=== PATIENT | female | born 1950 | race Caucasian/White ===

== ENCOUNTER → 2019-10-17 07:55 | Outpatient (CLI) | payer MEDICARE, MEDICAID, SELFPAY ==
--- NOTE | 2019-10-17 | CA_ITS ---
APPROVED REPORT Exam: Pharmacologic Technologist: Vandana Beal, Ht: 5 ft 10 in Wt: 186 lbs BSA: 2.02 m2 HR: 75 bpm BP: 165/65 mmHg Rhythm: NORMAL SINUS RHYTHM,CANNOT R/O OLD SEPTAL INFARCT. Indications: Palp/SOA Medical History Medical History: HTN, Diabetic ??? Noninsulin, Smoking Medications: Amlodipine,,,,, Omeprazole,,,,, Aspirin,,,,, Metformin,,,,, Hydrocodone,,,,, Gabapentin,,,,, Montelukast,,,,, Cetrizine,,,,, FluTICASONE,,,,, OxYbuterin,,,,, MeLATONIN,,,,, Mirtazapine,,,,, Allergies: CIPRO,DIVALPROEX,MOTRIN,LATEX,SULFA Cardiac Risk Factors: HTN, Diabetes (non-insulin), , Smoking Stress Test Details Test: LEXISCAN HR Resting HR: 80 bpm Max Heart Rate (APMHR): 152 bpm Max HR Achieved: 103 bpm Target HR (85% APMHR): 129 bpm % of APMHR: 67 Recovery HR: 96 bpm BP Resting BP: 165.0/65.0 mmHg Max BP: 166.0/67.0 mmHg Recovery BP: 148.0/80.0 mmHg ECG Resting ECG: NORMAL SINUS RHYTHM,CANNOT R/O OLD SEPTAL CA Clinical Exercise duration: 04:02 min Highest Stage Achieved: Stress ECG Conclusion DURING INFUSION OF LEXISCAN PATIENT HAD SOA,NAUSEA,HEADACHE WITH THE URGE TO DEFECATE. NO CHEST PAIN. OCCASIONAL PAC. NS T WAVE CHANGES. UNREMARKABLE LEXISCAN STRESS. MYOVIEW IMAGES REPORTED SEPARATELY. Electronically signed by : Abrahan Degroot, 10/17/2019 13:37:57
--- NOTE | 2019-10-17 07:55 | CA_ITS ---
APPROVED REPORT EXAM: Comprehensive 2D, Doppler, and color-flow Echocardiogram Dioramist: Estela Sandoval RDCS Ht: 5 ft 10 in Wt: 186lbs BSA: 2.02 BP: 132/84 mmHg Indications: Chest Pain, COPD, Shortness of Breath, Palpitations, Hypertension/HDD 2D Dimensions LVOT 1.96 cm (M/F) 1.5-2.5 M-Mode Dimensions RVDd 2.40 cm (0.9-2.6) LVDd 4.92 cm (3.5-5.7) LVDs 3.05 cm (3.5-5.7) IVSd 0.76 cm (0.6-1.1) PWd 0.95 cm (0.6-1.1) EF (Teich) 68.00% FS 38.00% EDV (Teich) 113.90 mL ESV (Teich) 36.40 mL LV Diastology E/A Ratio 0.57 Aortic Valve LVOT Max 99.00 (70-110 cm/s) LVOT VTI 20.83 cm Mitral Valve MV A Velocity 98.00 (40-130 cm/s) Left Ventricle Left atrium is mildly enlarged, left ventricle is normal size, mild concentric left ventricular hypertrophy, visually estimated ejection fraction 55% with no regional wall motion abnormality. Grade 1 diastolic dysfunction seen without tissue Doppler evidence of raise left atrial pressure. Right Ventricle Right atrium and right ventricular normal size and contractility. Aortic Valve Aortic valve is minimally thickened and fibrosed, there is no aortic stenosis or aortic insufficiency. Mitral Valve Mitral valve is grossly normal, there is mild mitral regurgitation. Tricuspid Valve Tricuspid valve grossly normal, there is mild tricuspid regurgitation. Pulmonic Valve Pulmonic valve is poorly visualized. Great Vessels Aortic root is normal size. Pericardium No significant pericardial effusion noted. Conclusion 1. Mildly enlarged left atrium, normal left ventricular size, mild concentric left ventricular hypertrophy, visually estimated ejection fraction 55% with no regional wall motion abnormality, grade 1 diastolic dysfunction seen without tissue Doppler evidence of raise left atrial pressure. 2. Mild mitral and tricuspid regurgitation. 3. No significant pericardial effusion noted. Electronically signed by : Abrahan Degroot, 10/18/2019 14:00:17
--- NOTE | 2019-10-17 07:55 | NM_ITS ---
APPROVED REPORT Exam: Nuclear Stress Test Indication: short of breath..palpitations Patient Location: Outpatient Ht: 5 ft 6 in Wt: 175 lbs Bra Size: 40c HR: 75 bpm BP: 165/65 mmHg BSA: 1.89 m2 BMI: 28.2 History: short of breath..palpitations Procedure: Patient received a 0.4 mg of intravenous Lexiscan, resting heart rate 75 bpm, resting blood pressure 165/65 mmHg, with Lexiscan maximum heart rate achived was 98 bpm which is Less than 85 % of the maximum predicted heart rate and blood pressure was 148/59 mmHg. With Lexiscan, patient denied any complaint of chest pain. Electrocardiogram Resting electrocardiogram showed sinus rhythm, with Lexiscan there is less than 1.[address] segment depression noted from the baseline EKG. The EKG portion of the Lexiscan Myoview is nondiagnostic. Cardiac Stress and Resting SPECT Images: Cardiac Stress and Resting SPECT images were obtained using technetium 99m Myoview 32.6 mCi stress and 10.12 mCi at rest. Gated SPECT with analysis of segmental wall motion and calculation of the ejection fraction also done. Cardiac stress and resting SPECT images show decrease tracer activity in the inferior and inferior apical wall which improves on the resting images suggestive of reversible ischemia, computer derived ejection fraction is over 65% with no regional wall motion abnormality, right ventricle is normal size and contractility. Conclusion: 1. The EKG portion of the Lexiscan Myoview is nondiagnostic. 2. Scintigraphic evidence of mild reversible ischemia involving the inferior and inferior apical wall. Computer derived ejection fraction is over 65% with no regional wall motion abnormality, right ventricle is normal size and contractility. 3. Abnormal Lexiscan Myoview study. Electronically signed by : Abrahan Degroot, 10/17/2019 13:41:14
--- NOTE | 2019-10-17 12:47 | HMH.ITSHM ---
Current Home Medications as stated by this patient Kimmie Taylor or it sales representative. [] metformin omeorazole asp
== END ==
PROVIDERS: PCP Emergency Medicine; Visit Provider Urology
DX: F17.200 Nicotine dependence, unspecified, uncomplicated (principal); J44.9 Chronic obstructive pulmonary disease, unspecified; R00.2 Palpitations; R06.09 Other forms of dyspnea; R07.89 Other chest pain; R60.9 Edema, unspecified
CPT/HCPCS: 78452; 93017; 93306; A9502; J2785

== ENCOUNTER 2019-12-06 08:13 | Day surgery (SDC) | payer MEDICARE, MEDICAID, SELFPAY ==
[2019-12-06] VITALS (11 sets, daily range): BP systolic 125–175; BP diastolic 50–100; PULSE 65–79; RESP 16–20; TEMP 37.1–37.2; O2SAT 90–94; BMI 26.6
--- NOTE | 2019-12-06 | IR_ITS ---
APPROVED REPORT Patient Location: Outpatient Able Bodied Watchman: JIGAR Navarrete RT (R) PROCEDURES Left heart catheterization Left ventriculogram Selective coronary angiogram INDICATION High risk abnormal Myoview Informed consent was obtained prior to the procedure. COMPLICATIONS none Estimated Blood Loss: less than 10 mls TECHNIQUE One percent lidocaine used to anesthetize the right anterior aspect of the wrist. The right radial artery was accessed via the Seldinger technique. A 6 Maltese sheath was placed in the right radial artery. 2.5 mg of verapamil, 800 mcg of nitroglycerin, 1mg Lidocaine and 5000 U Heparin were given through the arterial sheath. The trap catheter was also used to perform left heart catheterization, left ventriculogram and selective coronary angiogram. At the end of the procedure the sheath was removed good hemostasis was achieved using Traclet band, patient was transferred to the postop holding area in stable condition. ANGIOGRAPHIC RESULTS The left main artery Normal The left anterior descending artery Normal The circumflex artery Normal The right coronary artery Dominant normal The [place] ventriculogram reveals Normal 60% The left ventricular end-diastolic pressure 15 mmHg IMPRESSION Normal coronary arteries Normal ejection fraction Mildly elevated LVEDP PLAN 1. Medical management 2. Evaluation of noncardiac symptomatology Electronically signed by : Eric Duarte, 12/06/2019 11:21:31
[2019-12-06 08:52] LABS: Basophils # 0.1 K/mm3 (0-0.2); Basophils % 1.9 % (0.1-2.0); Eosinophils # 0.3 K/mm3 (0.0-0.4); Eosinophils % 4.5 % (0.1-12.0); Hematocrit 34.5 % (37.0-47.0); Hemoglobin 9.3 g/dL (12.2-16.2); Lymphocytes # 1.7 K/mm3 (0.7-4.5); Lymphocytes % 26.3 % (10-50); Mean Corpuscular Hemoglobin 21.4 pg (27.0-31.2); Mean Corpuscular Volume 79.4 fl (81-99); Mean Platelet Volume 6.9 fl (7.4-10.4); Monocytes # 0.3 K/mm3 (0.1-1.0); Monocytes % 4.9 % (1.7-9.3); Neutrophils % 62.5 % (37.0-80.0); Platelet Count 242 K/mm3 (142-424); Red Blood Count 4.34 M/mm3 (4.20-5.40); Red Cell Distribution Width 17.5 % (11.5-17.5); White Blood Count 6.4 K/mm3 (4.8-10.8)
[2019-12-06 09:10] LABS: Blood Urea Nitrogen 14 mg/dl (7-17); Calcium 9.1 mg/dl (8.4-10.2); Carbon Dioxide 30 mmol/L (22.0-30.0); Creatinine Clearance Estimated 71 mL/min (50-200); Estimated Glomerular Filt Rate 99 ml/min (>60); GFR (African American) 120 ML/MIN (>60); Glucose 198 mg/dl (74-100)
[2019-12-06 09:40] LABS: Chloride 106 mmol/L (98-107); Sodium 140 mmol/L (136-145)
== END 2019-12-06 13:40 | disposition home or self-care (01) ==
PROVIDERS: PCP Emergency Medicine; Visit Provider Internal Medicine
DX: R94.39 Abnormal result of other cardiovascular function study (principal); R07.9 Chest pain, unspecified; I25.118 Atherosclerotic heart disease of native coronary artery with other forms of angina pectoris; Z79.899 Other long term (current) drug therapy; Z88.8 Allergy status to other drugs, medicaments and biological substances
CPT/HCPCS: 80048; 85025; 93458; 99152; C1725; C1769; J1644; Q9967

== ENCOUNTER 2020-01-25 11:20 | Emergency (ER) | payer MEDICARE, MEDICAID, SELFPAY ==
[2020-01-25 11:21] VITALS: BP 120/54; PULSE 67; RESP 16; TEMP 37; O2SAT 94; BMI 28.0
[2020-01-25 11:30] VITALS: BP 130/58; PULSE 56; O2SAT 92
[2020-01-25 11:37] LABS: Basophils # 0.1 K/mm3 (0-0.2); Eosinophils # 0.2 K/mm3 (0.0-0.4); Eosinophils % 3.3 % (0.1-12.0); Lymphocytes # 1.8 K/mm3 (0.7-4.5); Lymphocytes % 30.2 % (10-50); Mean Corpuscular HGB Conc 28.1 g/dL (31.8-35.4); Mean Corpuscular Hemoglobin 20.9 pg (27.0-31.2); Mean Corpuscular Volume 74.6 fl (81-99); Mean Platelet Volume 7.2 fl (7.4-10.4); Monocytes # 0.3 K/mm3 (0.1-1.0); Monocytes % 5.1 % (1.7-9.3); Neutrophils # 3.5 K/mm3 (1.8-7.8); Neutrophils % 60.4 % (37.0-80.0); Platelet Count 191 K/mm3 (142-424); Red Blood Count 3.76 M/mm3 (4.20-5.40); Red Cell Distribution Width 17.9 % (11.5-17.5); White Blood Count 5.8 K/mm3 (4.8-10.8)
[2020-01-25 11:39] LABS: Alanine Aminotransferase 21 U/L (12-78); Albumin Level 3.8 g/dl (3.5-5.0); Albumin/Globulin Ratio 1.2 (1.1-1.8); Alkaline Phosphatase 123 U/L (38-126); Amylase 32 U/L (30-110); Anion Gap 12.4 mEq/L (5-15); Aspartate Amino Transferase 38 U/L (14-36); Bilirubin,Total 0.2 mg/dl (0.2-1.3); Blood Urea Nitrogen 14 mg/dl (7-17); Calcium 8.9 mg/dl (8.4-10.2); Carbon Dioxide 29 mmol/L (22.0-30.0); Chloride 100 mmol/L (98-107); Creatinine Clearance Estimated 72 mL/min (50-200); Estimated Glomerular Filt Rate 71 ml/min (>60); GFR (African American) 86 ML/MIN (>60); Globulin 3.3 g/dL (1.3-3.2); Glucose 324 mg/dl (74-100); Lipase 80 U/L (23-300); Potassium 4.4 mmoL/L (3.5-5.1); Sodium 137 mmol/L (136-145); Total Protein,Serum 7.1 g/dl (6.3-8.2)
[2020-01-25 11:40] LABS: Hematocrit 27.7 % (37.0-47.0)
[2020-01-25 11:41] LABS: Hemoglobin 7.8 g/dL (12.2-16.2)
--- NOTE | 2020-01-25 11:44 | PC.NURSE ---
notified ER of hgb 7.8 hct 27.2
--- NOTE | 2020-01-25 11:48 | CT_ITS ---
Procedure: CT ABDOMEN PELVIS W CON Patient Age:69Y CLINICAL INDICATION: RLQ abd pain With nausea and vomiting. Started last night. Reports history of appendectomy cholecystectomy and bilateral hip replacements COMPARISON: No exams were available for comparison TECHNIQUE: 75 cc Optiray 350. Axial images obtained with sagittal and coronal reformats. All CT scans at the facility use one or more dose reduction, viz: automated exposure control, ma/kV adjustment per patient size (including targeted exams where dose is matched to indication, i.e. head), or iterative reconstruction technique. FINDINGS: LOWER THORAX: No acute finding minor dependent atelectasis most evident posterior aspect RLL. There is a small of nodular density at the periphery of the LL L which measures up to 5.9 mm. Nonspecific and most likely benign feature likely due to scarring but suggest CT chest 4-6 months in this smoker.. Screening chest CT of may be option if 30 pack year history.... The heart is normal size of minimal coronary artery calcification. No pericardial effusion ABDOMEN: Liver: No masses or biliary dilatation. Gallbladder: Surgically removed. No significant biliary ductal dilatation. Pancreas: No masses nor inflammation no fluid collection. The. Spleen: unremarkable Adrenals: unremarkable -------- tract - Kidneys/ureters: Kidneys with lobulated contour bilaterally.. 6.5 mm cyst at both lower pole right and left kidney other very tiny cyst. s Off lower pole left kidney measuring less than 6 mm tiny 1 mm vascular calcifications upper pole left and right kidney no obstructing calculi. Ureters unremarkable PELVIS: Bilateral bipolar metallic hip prosthesis yields prominent streak artifact limiting views of the lower pelvis. However the bladder shows no calculi or obvious lesion. No obvious pelvic masses. No prominent free fluid can be identified but -------GI tract: The increased stool seen throughout the colon suggesting moderate constipation. No pericolic inflammation . Only note area of generous wall thickening distal transverse colon (coronal 20, axial 61 sagittal 66) which may merely reflect peristalsis lack of distension but may consider from colonoscopy if 1 has not been performed over the past several years all or if the patient has blood in stool. upper normal wall thickness along the superior rectum as well as short-segment hepatic flexure are most certainly merely did due to lack of distension.. Only a few diverticula are seen within the large bowel. No diverticulitis Stomach and small bowel bowel: Appears satisfactory. No dilatation. Only moderate fluid distal small bowel, WNL.. No significant hernia is evident. A very small fat containing umbilical hernia not of significance the Peritoneum: No abnormal fluid collections. No obvious inflammatory changes. No free air. Lymph nodes: No enlarged lymph nodes apparent. Vasculature: Diffuse calcification abdominal aorta and iliac vessels but no significant aneurysm or dilatation. Minimal atherosclerotic calcification also involves the proximal SMA and celiac artery. Abdominal aortic aneurysm. No retroperitoneal hemorrhage evident. Bones: Prominent wedge compression fracture L1 with over 50 percent loss of height anteriorly.. Flaring at the posterior both the superior and margins of L1 of of contribute to the mild spinal stenosis at T12/L1 and effacement thecal sac to the left at L1/L2.. L4 with superior endplate compression fracture. Notable superior endplate concavity with slight flaring at the margins of L4 which contribute to most pronounced spinal stenosis is seen at L4/5 of but exuberant facet hypertro
--- NOTE | 2020-01-25 11:49 | HMH.EDABDPAI ---
ED Disposition Clinical Impression: Hyperglycemia, Lung nodule, Bowel wall thickening Anemia Qualifiers: Anemia type: unspecified type Qualified Code(s): D64.9 - Anemia, unspecified Constipation Qualifiers: Constipation type: unspecified constipation type Qualified Code(s): K59.00 - Constipation, unspecified Disposition: Home, Self-Care Condition on Discharge: Good Instructions: DI for Constipation Additional Instructions: You have some bowel wall thickening and anemia. You would benefit from a consultation with GI within the next week. Return to the emergency department for any chest pain, shortness of breath, hypotension, tachycardia. You need a screening CT scan concerning the lung nodule in your chest. Referrals: Raymundo Romero MD [Primary Care Provider] - 01/27/20 - Critical Care Critical Care Time: No Attestation: On 01/25/20, the high probability of a clinically significant, sudden or life threatening deterioration of the following system(s) required my full and direct attention, intervention and personal management. The time I documented below is in addition to time spent performing reported procedures but includes the following listed in this critical care notation. Medical Decision Making - Medical Records Medical records reviewed: Yes: I reviewed the patient's medical records. - Bryan Inquiry Pt receiving controlled substance: No Vital Signs: 01/25/20 11:21 01/25/20 11:30 Temperature 98.6 F Temperature Source Oral Pulse Rate [Left Radial] 67 56 L Respiratory Rate 16 Blood Pressure [Right Arm] 120/54 L 130/58 L Blood Pressure Mean [Right Arm] 76 82 Blood Pressure Source [Right Arm] Automatic Cuff Blood Pressure Position [Right Arm] Sitting Sitting 02 Sat by Pulse Oximetry 94 L 92 L Oxygen Delivery Method Room Air Room Air - Lab Data Lab Results 01/25/20 11:05: WBC 5.8, RBC 3.76 L, Hgb 7.8 L*, Hct 27.7 L, MCV 74.6 L, MCH 20.9 L, MCHC 28.1 L, RDW 17.9 H, Plt Count 191, MPV 7.2 L, Neut % (Auto) 60.4, Lymph % (Auto) 30.2, [place] % (Auto) 5.1, Eos % (Auto) 3.3, Baso % (Auto) 1.0, Neut # (Auto) 3.5, Lymph # (Auto) 1.8, [place] # (Auto) 0.3, Eos # (Auto) 0.2, Baso # (Auto) 0.1 01/25/20 11:05: Sodium 137, Potassium 4.4, Chloride 100, Carbon Dioxide 29, Anion Gap 12.4, BUN 14, Creatinine 0.80, Estimated Creat Clear 72, Estimated GFR 71, Est GFR ( Amer) 86, Glucose 324 H, Calcium 8.9, Total Bilirubin 0.2, AST 38 H, ALT 21, Alkaline Phosphatase 123, Total Protein 7.1, Albumin 3.8, Globulin 3.3 H, Albumin/Globulin Ratio 1.2, Amylase 32, Lipase 80 01/25/20 11:53: Urine Color Yellow, Urine Appearance Clear, Urine pH 7.0, Ur Specific [place] 1.020, Urine Protein 2+, Urine Glucose (UA) 1+, Urine Ketones Negative, Urine Blood Negative, Urine Nitrate Negative, Urine Bilirubin Negative, Urine Urobilinogen 1.0, Ur Leukocyte Esterase Negative, Urine RBC None, Urine WBC Occasional, Ur Squamous Epith Cells Occasional, Amorphous Sediment 1+, Urine Bacteria None 01/25/20 11:53: Stool Occult Blood Positive A Result diagrams: 01/25/20 11:05 01/25/20 11:05 Orders (Tests/Meds): ED MEDICATIONS Generic Name Dose Route Start Last Admin Trade Name Freq PRN Reason Stop Dose Admin Sodium Chloride 1,000 mls @ 999 mls/hr 01/25/20 12:15 01/25/20 12:25 Sod Chlor 0.9% 1000ml Bag IV 01/25/20 13:15 999 mls/hr .Q1H1M PAT Administration Discontinued Medications Generic Name Dose Route Start Last Admin Trade Name Freq PRN Reason Stop Dose Admin Ioversol 75 ml 01/25/20 12:12 01/25/20 12:13 Rad-Optiray 350 100ml Vial IV 01/25/20 12:13 75 ml ONCE ONE Administration Protocol Sodium Chloride 10 ml 01/25/20 12:12 01/25/20 12:13 Rad-Saline Flush 10ml Syringe IV 01/25/20 12:13 10 ml ONCE ONE Administration ORDERS Category Date Time Status CT abdomen pelvis w con Stat Cat Scan 01/25/20 11:48 Taken - CT Data CT Scan: Abdomen, Pelvis Time Received: 12:59 Finding
[2020-01-25 11:57] LABS: Occult Blood,Stool Positive (Negative)
--- NOTE | 2020-01-25 11:57 | PC.NURSE ---
pt c/o rt side abd pain, pt asking for medications pain and nausea. md aware
--- NOTE | 2020-01-25 11:57 | PC.NURSE ---
Pt to rad.
[2020-01-25 11:58] LABS: Microscopic, Urine URINE MICROSCOPIC (MICROSCOPIC)
[2020-01-25 11:59] LABS: Appearance,Urine CLEAR (Clear); Bilirubin,Urine Negative (Negative); Blood, Urine Negative (Negative); Color,Urine YELLOW (Yellow); Glucose,Urine (UA) 1+ (Negative); Ketones,Urine Negative (Negative); Leukocyte Esterase,Urine Negative (Negative); Nitrate,Urine Negative (Negative); Protein,Urine 2+ (Negative)
[2020-01-25 12:04] LABS: Amorphous Sediment,Urine 1+ /lpf; Squamous Epithelial Cell,Urine Occasional #/hpf (0-5); WBC,Urine Occasional #/hpf (0-3)
[2020-01-25 13:00] VITALS: BP 151/66; PULSE 54; O2SAT 94
--- NOTE | 2020-01-25 13:13 | PC.NURSE ---
Dr Nobles speaking with Dr Carter at this time.
[2020-01-25 13:35] VITALS: BP 155/74; PULSE 77; RESP 16; TEMP 36.6; O2SAT 98
== END 2020-01-25 13:38 | disposition home or self-care (01) ==
PROVIDERS: Emergency Provider Emergency Medicine; PCP Emergency Medicine
DX: E11.65 Type 2 diabetes mellitus with hyperglycemia (principal); R91.1 Solitary pulmonary nodule; D64.9 Anemia, unspecified; K59.00 Constipation, unspecified; I10 Essential (primary) hypertension; K21.9 Gastro-esophageal reflux disease without esophagitis; J44.9 Chronic obstructive pulmonary disease, unspecified; F17.210 Nicotine dependence, cigarettes, uncomplicated; Z88.2 Allergy status to sulfonamides; Z88.8 Allergy status to other drugs, medicaments and biological substances; Z79.899 Other long term (current) drug therapy
CPT/HCPCS: 74177; 80053; 81001; 82150; 82272; 83690; 85025; 96365; 99283; G0328; Q9967

== ENCOUNTER 2020-02-27 18:05 | Observation (INO) | payer MEDICARE, MEDICAID, SELFPAY ==
[2020-02-27] VITALS (12 sets, daily range): BP systolic 108–145; BP diastolic 47–97; PULSE 53–71; RESP 16–28; TEMP 36.9–37.6; O2SAT 91–99; BMI 26.5; BMI 26.4
--- NOTE | 2020-02-27 18:11 | ECG_ITS ---
APPROVED REPORT Exam: Resting ECG HR:62 bpm ECG Measurements Heart Rate 62 AXES WY 160 P 38 QRSd 98 QRS 52 QT 430 T 61 QTc 436 <Conclusion> Normal sinus rhythm Septal infarct, age undetermined Abnormal ECG Electronically signed by : Hardeep Navarro, 03/01/2020 04:52:59
--- NOTE | 2020-02-27 18:11 | XR_ITS ---
PROCEDURE: XR CHEST PORTABLE CLINICAL HISTORY: cough Cough and shortness of breath COMPARISON: No exams were available for comparison FINDINGS: The cardiomediastinal silhouette and pulmonary vascularity are within normal limits. The lungs are clear without infiltrates, suspicious nodules, or pleural effusions. No acute bony abnormalities. IMPRESSION: No acute findings. Dictated by: Brady Herbert MD 02/28/2020 08:18 Electronically signed by Brady Herbert MD in [place] 02/28/2020 08:18
[2020-02-27 18:30] LABS: Chloride 105 mmol/L (98-107); Potassium 4.3 mmoL/L (3.5-5.1); Sodium 136 mmol/L (136-145)
[2020-02-27 18:33] LABS: Alanine Aminotransferase 21 U/L (12-78); Albumin Level 3.6 g/dl (3.5-5.0); Albumin/Globulin Ratio 1.1 (1.1-1.8); Alkaline Phosphatase 113 U/L (38-126); Anion Gap 9.3 mEq/L (5-15); Aspartate Amino Transferase 28 U/L (14-36); Basophils # 0.1 K/mm3 (0-0.2); Basophils % 0.7 % (0.1-2.0); Bilirubin,Total 0.2 mg/dl (0.2-1.3); Blood Urea Nitrogen 15 mg/dl (7-17); Carbon Dioxide 26 mmol/L (22.0-30.0); Creatinine Clearance Estimated 70 mL/min (50-200); Eosinophils # 0.2 K/mm3 (0.0-0.4); Eosinophils % 2.7 % (0.1-12.0); Estimated Glomerular Filt Rate 83 ml/min (>60); GFR (African American) 100 ML/MIN (>60); Globulin 3.2 g/dL (1.3-3.2); Lymphocytes # 1.7 K/mm3 (0.7-4.5); Lymphocytes % 24.2 % (10-50); Mean Corpuscular Hemoglobin 20.4 pg (27.0-31.2); Mean Corpuscular Volume 72.6 fl (81-99); Mean Platelet Volume 7.6 fl (7.4-10.4); Monocytes # 0.3 K/mm3 (0.1-1.0); Monocytes % 4.6 % (1.7-9.3); Neutrophils # 4.8 K/mm3 (1.8-7.8); Neutrophils % 67.8 % (37.0-80.0); Platelet Count 249 K/mm3 (142-424); Red Blood Count 3.62 M/mm3 (4.20-5.40); Red Cell Distribution Width 18.2 % (11.5-17.5); Total Protein,Serum 6.8 g/dl (6.3-8.2); White Blood Count 7.1 K/mm3 (4.8-10.8)
[2020-02-27 18:34] LABS: Calcium 8.9 mg/dl (8.4-10.2); Glucose 239 mg/dl (74-100); Hematocrit 26.7 % (37.0-47.0)
[2020-02-27 18:35] LABS: Hemoglobin 7.5 g/dL (12.2-16.2)
[2020-02-27 18:36] LABS: INR 0.99 (0.9-1.1); Prothrombin Time 10.2 seconds (9.4-11.8)
--- NOTE | 2020-02-27 18:40 | HMH.EDGENADL ---
ED Disposition Clinical Impression: Left lower lobe pneumonia, Acute exacerbation of chronic obstructive airways disease, Anemia Disposition: Admitted As Inpatient Condition on Discharge: Serious Referrals: Raymundo Romero MD [Primary Care Provider] - - Critical Care Critical Care Time: No Attestation: On 02/27/20, the high probability of a clinically significant, sudden or life threatening deterioration of the following system(s) required my full and direct attention, intervention and personal management. The time I documented below is in addition to time spent performing reported procedures but includes the following listed in this critical care notation. Medical Decision Making - Medical Records Medical records reviewed: Yes: I reviewed the patient's medical records. - Bryan Inquiry Pt receiving controlled substance: No Vital Signs: 02/27/20 18:05 02/27/20 18:29 02/27/20 19:00 Temperature 99.7 F H Temperature Source Oral Pulse Rate [Right Radial] 69 Pulse Rate [Right] 69 66 Respiratory Rate 23 28 H 18 Blood Pressure [Right Arm] 131/60 136/57 L 108/54 L Blood Pressure Mean [Right Arm] 83 83 72 Blood Pressure Source [Right Arm] Automatic Cuff Automatic Cuff Blood Pressure Position [Right Arm] Supine Supine 02 Sat by Pulse Oximetry 99 94 L 99 Oxygen Delivery Method Room Air Room Air Room Air 02/27/20 19:40 Temperature Temperature Source Pulse Rate [Right Radial] Pulse Rate [Right] 68 Respiratory Rate 18 Blood Pressure [Right Arm] 143/64 H Blood Pressure Mean [Right Arm] 90 Blood Pressure Source [Right Arm] Blood Pressure Position [Right Arm] 02 Sat by Pulse Oximetry 97 Oxygen Delivery Method Room Air - Lab Data Lab Results 02/27/20 18:12: WBC 7.1, RBC 3.62 L, Hgb 7.5 L*, Hct 26.7 L, MCV 72.6 L, MCH 20.4 L, MCHC 28.0 L, RDW 18.2 H, Plt Count 249, MPV 7.6, Neut % (Auto) 67.8, Lymph % (Auto) 24.2, [place] % (Auto) 4.6, Eos % (Auto) 2.7, Baso % (Auto) 0.7, Neut # (Auto) 4.8, Lymph # (Auto) 1.7, [place] # (Auto) 0.3, Eos # (Auto) 0.2, Baso # (Auto) 0.1 07/09/20 18:12: PT 10.2, INR 0.99 02/27/20 18:12: Sodium 136, Potassium 4.3, Chloride 105, Carbon Dioxide 26, Anion Gap 9.3, BUN 15, Creatinine 0.70, Estimated Creat Clear 70, Estimated GFR 83, Est GFR ( Amer) 100, Glucose 239 H, Calcium 8.9, Total Bilirubin 0.2, AST 28, ALT 21, Alkaline Phosphatase 113, Troponin I < 0.01, NT-Pro-B Natriuret Pep 159 H, Total Protein 6.8, Albumin 3.6, Globulin 3.2, Albumin/Globulin Ratio 1.1 02/27/20 18:12: Lactate 3.0 H 02/27/20 18:48: Urine Color Yellow, Urine Appearance Clear, Urine pH 6.0, Ur Specific [place] 1.020, Urine Protein 2+, Urine Glucose (UA) Negative, Urine Ketones Negative, Urine Blood Negative, Urine Nitrate Negative, Urine Bilirubin Negative, Urine Urobilinogen 0.2, Ur Leukocyte Esterase Negative, Urine RBC None, Urine WBC None, Ur Squamous Epith Cells Occasional, Amorphous Sediment 1+, Urine Bacteria None Result diagrams: 02/27/20 18:12 02/27/20 18:12 Orders (Tests/Meds): ED MEDICATIONS Generic Name Dose Route Start Last Admin Trade Name Murrayq PRN Reason Stop Dose Admin Sodium Chloride 1,000 mls @ 999 mls/hr 02/27/20 18:15 02/27/20 18:41 Sod Chlor 0.9% 1000ml Bag IV 02/27/20 19:15 999 mls/hr .Q1H1M PAT Administration Ceftriaxone Sodium 1 gm/ 50 mls @ 100 mls/hr 02/27/20 19:30 02/27/20 19:31 Sodium Chloride IV 03/12/20 19:29 100 mls/hr Q24H PAT Administration Protocol Doxycycline Hyclate 100 mg/ 250 mls @ 166.667 mls/hr 02/27/20 19:30 02/27/20 19:31 Sodium Chloride IV 03/12/20 19:29 166.667 mls/hr Q12H PAT Administration Protocol Sodium Chloride 10 ml 02/27/20 18:11 Saline Flush 10ml Syringe IV 02/28/20 06:12 NEEDED PRN Maintain IV Site Discontinued Medications Generic Name Dose Route Start Last Admin Trade Name Freq PRN Reason Stop Dose Admin Acetaminophen 500 mg 02/27/20 18:11 02/27/20 18:41 Tylenol 50
[2020-02-27 18:43] LABS: NT Pro Brain Natriuretic Pep. 159 pg/mL (0-125)
[2020-02-27 18:46] LABS: Troponin I < 0.01 ng/ml (0.00-0.034)
[2020-02-27 18:54] LABS: Microscopic, Urine URINE MICROSCOPIC (MICROSCOPIC)
[2020-02-27 18:55] LABS: Appearance,Urine CLEAR (Clear); Bilirubin,Urine Negative (Negative); Blood, Urine Negative (Negative); Color,Urine YELLOW (Yellow); Glucose,Urine (UA) Negative (Negative); Ketones,Urine Negative (Negative); Leukocyte Esterase,Urine Negative (Negative); Nitrate,Urine Negative (Negative); Protein,Urine 2+ (Negative); Urobilinogen,Urine 0.2 EU/dl (0.2)
[2020-02-27 19:01] LABS: Amorphous Sediment,Urine 1+ /lpf; Squamous Epithelial Cell,Urine Occasional #/hpf (0-5)
[2020-02-27 19:42] LABS: Adenovirus,PCR Not Detected (NotDetected); Bordetella Pertussis Not Detected (NotDetected); Chlamydophila Pneumoniae, PCR Not Detected (NotDetected); Coronavirus 19, PCR Not Detected (NotDetected); Coronavirus 229E Not Detected (NotDetected); Coronavirus NL63 Not Detected (NotDetected); Coronavirus OC43 Not Detected (NotDetected); Coronovirus HKU1,PCR Not Detected (NotDetected); Human Metapneumovirus Not Detected (NotDetected); Influenza A, PCR Not Detected (NotDetected); Influenza AH1, 2009 Not Detected (NotDetected); Influenza AH1, PCR Not Detected (NotDetected); Influenza AH3,PCR Not Detected (NotDetected); Influenza B, PCR Not Detected (NotDetected); Mycoplasma Pneumoniae, PCR Not Detected (NotDected); Parainfluenza 1, PCR Not Detected (NotDetected); Parainfluenza 2, PCR Not Detected (NotDetected); Parainfluenza 3, PCR Not Detected (NotDetected); Parainfluenza 4, PCR Not Detected (NotDetected); Respiratory Syncytial Virus Not Detected (NotDetected); Rhinovirus/Enterovirus Not Detected (NotDetected)
--- NOTE | 2020-02-27 20:12 | PC.NURSE ---
awaiting covid test for pt admission
[2020-02-27 20:46] LABS: Coronavirus 19 IgG Antibody Negative (Negative); Coronavirus 19 IgM Antibody Negative (Negative)
--- NOTE | 2020-02-27 20:46 | PC.NURSE ---
pt remains waiting for covid test for admission
--- NOTE | 2020-02-27 21:05 | PC.NURSE ---
john from lab called and stated that the analyzer had failed and they would have to rerun the pts covid test and it would be another hour and a half or more.
[2020-02-27 22:19] LABS: Reflex Lactic Add Lactic Reflex
--- NOTE | 2020-02-27 22:24 | HMH.HP ---
*Admission Date: 02/27/20 *Chief complaint: sob *History of present illness: this pt from [facility]- she was sob and was seen in the ed-This is a 69-year-old female presented to the emergency department with shortness of breath, cough and fever. States that she has been having some worsening cough of the last few days. Had a documented temperature at the long-term facility, however was afebrile by EMS and on our evaluation. She is not having any associated chest pain. Cough is productive. States that she feels some rumbling in her chest. She is not having abdominal pain or vomiting. No headache, no change in vision, no focal weakness. Patient has had multiple sick exposures at her long-term facility.pt was seen in the ed and admitted with [facility] History I have reviewed the patient's past medical history: Yes Medical History: Reports:: Chronic Obstructive Pulmonary Disease (COPD), Diabetes Mellitus Type 2, Gastroesophageal Reflux Disease(GERD), Hypertension Denies:: Seizures *Have you ever received a pneumonia vaccine?: No *Have you received a flu vaccine this season?: No Other Medical History: Reports: Anemia - *Social History Smoking Status: Current every day smoker Tobacco Type: cigarettes # Packs/Day (cigarettes): 1 Alcohol Intake: never Substance Use Type: denies use *Occupational Status:: other Housing: assisted living facility Household Members: other *Travel in the last 8 weeks: None Family Hx:: Cancer, Diabetes Review of Systems - Review of Systems Review of systems:: pertinent systems reviewed and negative unless documented below - Constitutional Reports fever(s) - Eyes Denies change in vision - ENT Denies sore throat - *Cardiovascular Denies chest pain - *Respiratory Reports cough - *Gastrointestinal Denies abdominal pain - *Genitourinary Denies blood in urine - *Musculoskeletal Denies joint pain - Integumentary/Breasts Denies rash - *Neurologic Denies abnormal walking, Denies dizziness, Denies headache(s) - Psychiatric Denies anxiety Meds Home Medications Medication Instructions Recorded Confirmed Type amlodipine 10 mg tablet 10 mg PO DAILY 09/17/19 02/27/20 History aripiprazole 10 mg tablet 10 mg PO DAILY 09/17/19 02/27/20 History aspirin 325 mg tablet 325 mg PO DAILY 09/17/19 02/27/20 History cetirizine 10 mg tablet 5 mg PO DAILY tab 09/17/19 02/27/20 History gabapentin 600 mg tablet 600 mg PO BID 09/17/19 02/27/20 History melatonin 5 mg capsule 5 mg PO QHS cap 09/17/19 02/27/20 History metformin 1,000 mg tablet 1,000 mg PO BID 09/17/19 02/27/20 History mirtazapine 15 mg tablet 15 mg PO QHS 09/17/19 02/27/20 History montelukast 10 mg tablet 10 mg PO HS 09/17/19 02/27/20 History omeprazole 40 mg capsule,delayed 40 mg PO DAILY 09/17/19 02/27/20 History release oxybutynin chloride 5 mg tablet 5 mg PO DAILY 09/17/19 02/27/20 History Allergies Allergy/AdvReac Type Severity Reaction Status Date / Time ciprofloxacin [From Cipro] Allergy Mild Verified 09/17/19 11:20 divalproex sodium Allergy Mild Verified 09/17/19 11:20 [From Depakote] ibuprofen Allergy Mild Verified 09/17/19 11:20 latex Allergy Mild Verified 09/17/19 11:20 Sulfa (Sulfonamide Allergy Mild Verified 09/17/19 11:20 Antibiotics) Exam Vital signs and Labs for Last 24 Hours: Temp Pulse Resp BP Pulse Ox 99.7 F H 71 18 121/97 H 92 L 02/27/20 18:05 02/27/20 22:22 02/27/20 22:22 02/27/20 22:22 02/27/20 22:22 Laboratory Results - last 24 hr 02/27/20 18:12: WBC 7.1, RBC 3.62 L, Hgb 7.5 L*, Hct 26.7 L, MCV 72.6 L, MCH 20.4 L, MCHC 28.0 L, RDW 18.2 H, Plt Count 249, MPV 7.6, Neut % (Auto) 67.8, Lymph % (Auto) 24.2, [place] % (Auto) 4.6, Eos % (Auto) 2.7, Baso % (Auto) 0.7, Neut # (Auto) 4.8, Lymph # (Auto) 1.7, [place] # (Auto) 0.3, Eos # (Auto) 0.2, Baso # (Auto) 0.1 02/27/20 18:12: PT 10.2, INR 0.99 02/27/20 18:12: Sodium 136, Potassium 4.3, Chloride 105, Carbon Dioxide 26,
[2020-02-27 23:01] LABS: Lactic Acid Follow Up (RFLX 1) 1.2 mmol/L (0.7-2.1)
--- NOTE | 2020-02-27 23:08 | PC.NURSE ---
Extended stay in ER was a result in a failed cartridge in lab and COVID 19 test had to be ran twice.
--- NOTE | 2020-02-27 23:13 | PC.NURSE ---
PT ARRIVED TO THE FLOOR VIA W/C FROM ED [facility].
[2020-02-27 23:33] LABS: POC Glucose,Bedside 150 (70-110)
--- NOTE | 2020-02-27 23:40 | PC.NURSE ---
fs this hs noted at 150. administered hs meds per mar. gave okay to administered even though listed as d/c on mar at this hs. states he will adjust mar in am.
[2020-02-28] VITALS (25 sets, daily range): BP systolic 111–155; BP diastolic 57–79; PULSE 61–78; RESP 14–18; TEMP 36.4–37.6; O2SAT 91–97; BMI 26.4; BMI 26.5
--- NOTE | 2020-02-28 01:00 | PC.NURSE ---
pt states she takes norco bid at [facility] for pain and is requesting to have her hs dose at this time. reports pain in back, legs and kimble. norco is not listed on mar from [facility] that was provided upon admission. spoke with md in er, md jason does not want her to have norco tonight. new orders for Tylenol 1,000 mg po Q6H for pain. this rn went in room to administer pain medication to pt, pt noted to be resting with eyes closed snoring at this time. will continue to monitor.
[2020-02-28 05:47] LABS: POC Glucose,Bedside 188 (70-110)
--- NOTE | 2020-02-28 06:12 | PC.NURSE ---
GLU THIS AM NOTED AT 188.
--- NOTE | 2020-02-28 07:26 | P.CONPHA_ITS ---
[facility] Pharmacy VTE Monitoring - Patient Demographics Admission date: 02/27/20 Report Date: 02/28/20 Time: 07:26 Allergies/Adverse Reactions: Patient Allergies ciprofloxacin [From Cipro] Allergy (Mild, Verified 09/17/19 11:20) divalproex sodium [From Depakote] Allergy (Mild, Verified 09/17/19 11:20) ibuprofen Allergy (Mild, Verified 09/17/19 11:20) latex Allergy (Mild, Verified 09/17/19 11:20) Sulfa (Sulfonamide Antibiotics) Allergy (Mild, Verified 09/17/19 11:20) Height: 1.78 m Weight: 83.631 kg Patient Problems: Current Active Problems Anemia (Acute) Left lower lobe pneumonia (Acute) Acute exacerbation of chronic obstructive airways disease (Acute) - VTE Risk Labs: VTE Related Lab Results Hgb 7.5 g/dL (12.2-16.2) L* 02/27/20 18:12 Hct 26.7 % (37.0-47.0) L 02/27/20 18:12 Plt Count 249 K/mm3 (142-424) 02/27/20 18:12 PT 10.2 seconds (9.4-11.8) 02/27/20 18:12 INR 0.99 (0.9-1.1) 02/27/20 18:12 BUN 15 mg/dl (7-17) 02/27/20 18:12 Creatinine 0.70 mg/dl (0.52-1.04) 02/27/20 18:12 Estimated Creat Clear 70 mL/min (50-200) 02/27/20 18:12 VTE Score: 5 VTE Risk Level: Low Risk - Prophylaxis VTE Prophylaxis Ordered?: Yes Types of VTE Prophylaxis: TEDS Knee High Location of Applied Device: Bilateral Lower Extremeties - VTE Diagnosis Confirmed Treatment or plan recommended: Continue Current Treatment
--- NOTE | 2020-02-28 07:47 | HMH.PHAINT ---
MEDICATION RECONCILIATION COMPLETED ON PATIENT USING MAR FROM [facility]. -COURTNEY WILKINS, JUSTICED
--- NOTE | 2020-02-28 08:00 | PC.NURSE ---
A&O X4. PT RESTED WELL WITH EYES CLOSED T/O SHIFT. C/O PAIN TO HEAD, BACK AND BLE. ADMINISTERED GABAPENTIN PER OCT. UPON REASSESSMENT PT REQUESTED NORCO, STATING SHE TAKES IT AT [facility]. NOTIFIED , TYLENOL ORDERED FOR PAIN. THIS RN WENT INTO PT'S ROOM TO ADMINISTER TYLENOL AND PT WAS NOTED RESTING IN BED WITH EYES CLOSED AND SNORING. NO FURTHER C/P PAIN. THIS AM PT IS ADAMANT ABOUT FC BEING REMOVED. STATES SHE DOES NOT LIKE IT . ADEQUATE URINE OUTPUT NOTED THIS SHIFT. URINE NOTED CLEAR AND BRIGHT YELLOW IN COLOR. FC SITE NOTED C/D/I. NO BM NOTED THIS SHIFT. PT STATES HER LAST BM WAS ON 02/26/20. NO ABD DISTENTION NOTED UPON PALPATION. TOLERATED RA WELL WITH NO C/O SOA. BILATERAL BREATH SOUNDS NOTED WITH EXPIRATORY RHONCHI AND WHEEZING. VSS. REMAINS SAFE WITH BED ALARM ON AND FUNCTIONING. CALL LIGHT WITHIN REACH. WILL CONTINUE TO MONITOR.
[2020-02-28 08:16] LABS: Chloride 111 mmol/L (98-107); Sodium 138 mmol/L (136-145)
[2020-02-28 08:17] LABS: Potassium 4.6 mmoL/L (3.5-5.1)
[2020-02-28 08:19] LABS: Blood Urea Nitrogen 12 mg/dl (7-17); Creatinine Clearance Estimated 70 mL/min (50-200); Estimated Glomerular Filt Rate 99 ml/min (>60); GFR (African American) 120 ML/MIN (>60)
[2020-02-28 08:20] LABS: Anion Gap 6.6 mEq/L (5-15); Calcium 8.7 mg/dl (8.4-10.2); Carbon Dioxide 25 mmol/L (22.0-30.0); Glucose 192 mg/dl (74-100)
[2020-02-28 08:40] LABS: Basophils # 0.1 K/mm3 (0-0.2); Basophils % 0.8 % (0.1-2.0); Eosinophils # 0.3 K/mm3 (0.0-0.4); Eosinophils % 4.4 % (0.1-12.0); Hematocrit 26.6 % (37.0-47.0); Lymphocytes # 1.8 K/mm3 (0.7-4.5); Mean Corpuscular Hemoglobin 20.3 pg (27.0-31.2); Mean Corpuscular Volume 72.6 fl (81-99); Mean Platelet Volume 9.1 fl (7.4-10.4); Monocytes # 0.3 K/mm3 (0.1-1.0); Monocytes % 4.4 % (1.7-9.3); Neutrophils # 4.9 K/mm3 (1.8-7.8); Neutrophils % 66.4 % (37.0-80.0); Platelet Count 226 K/mm3 (142-424); Red Blood Count 3.67 M/mm3 (4.20-5.40); Red Cell Distribution Width 18.1 % (11.5-17.5); White Blood Count 7.4 K/mm3 (4.8-10.8)
[2020-02-28 08:53] LABS: Hemoglobin 7.5 g/dL (12.2-16.2)
--- NOTE | 2020-02-28 08:56 | CA_ITS ---
APPROVED REPORT EXAM: Comprehensive 2D, Doppler, and color-flow Echocardiogram Mechanical Maintenance Foreman: Sanjuanita Forbes RT(R) Ht: 5 ft 10 in Wt: 186lbs BSA: 2.02 BP: 125/74 mmHg Indications: COPD, smoker, HTN, DM, SOB, GERD, pneumonia 2D Dimensions LVOT 1.94 cm (M/F) 1.5-2.5 M-Mode Dimensions RVDd 1.89 cm (0.9-2.6) LVDd 4.46 cm (3.5-5.7) LVDs 3.46 cm (3.5-5.7) IVSd 1.21 cm (0.6-1.1) PWd 1.04 cm (0.6-1.1) EF (Teich) 45.30% FS 22.40% EDV (Teich) 90.50 mL ESV (Teich) 49.50 mL LV Diastology E/A Ratio 0.78 Aortic Valve LVOT Max 147.00 (70-110 cm/s) LVOT VTI 34.19 cm Mitral Valve MV A Velocity 125.00 (40-130 cm/s) Left Ventricle Left atrium is mildly enlarged, left ventricle is normal size, mild concentric left ventricular hypertrophy, visually estimated ejection fraction 55% with no regional wall motion abnormality, grade 1 diastolic dysfunction seen without tissue Doppler evidence of raise left atrial pressure. Right Ventricle Right atrium and right ventricle are normal size and contractility. Aortic Valve Aortic valve is thickened and calcified, mean gradient across valve is 14 mmHg, valve area 1.5 cm??? represents mild aortic stenosis, there is no significant aortic insufficiency. Mitral Valve Mitral valve leaflets are minimally thickened, there is no mitral stenosis, there is mild mitral regurgitation. Tricuspid Valve Tricuspid valve is grossly normal, there is mild tricuspid regurgitation, tricuspid regurgitation jet velocity is inadequate for calculation of the right ventricular systolic pressure. Pulmonic Valve Pulmonic valve is poorly visualized. Great Vessels Aortic root is normal size. Pericardium No significant pericardial effusion noted. Conclusion 1. Mildly enlarged left atrium, normal left ventricular size, mild concentric left ventricular hypertrophy, visually estimated ejection fraction 55% with no regional wall motion abnormality, grade 1 diastolic dysfunction seen without tissue Doppler evidence of raise left atrial pressure. 2. Thickened and calcified aortic valve with mild aortic stenosis, there is no significant aortic insufficiency. 3. Mild mitral and tricuspid regurgitation. 4. No significant pericardial effusion noted. Electronically signed by : Abrahan Degroot, 02/28/2020 11:22:25
--- NOTE | 2020-02-28 09:30 | HMH.CNCARD ---
History of Present Illness Consult date: 02/28/20 Requesting physician: Raymundo Romero Consult reason: chest pain Chief complaint: chest pain Additional Medical History:: 1. Chest pain A. Lexiscan Myoview, 09/2019, 1. The EKG portion of the Lexiscan Myoview is nondiagnostic. 2. Scintigraphic evidence of mild reversible ischemia involving the inferior and inferior apical wall. Computer derived ejection fraction is over 65% with no regional wall motion abnormality, right ventricle is normal size and contractility. 3. Abnormal Lexiscan Myoview study B. Left heart catheterization, 11/2019, ANGIOGRAPHIC RESULTS The left main artery Normal The left anterior descending artery Normal The circumflex artery Normal The right coronary artery Dominant normal The [facility] ventriculogram reveals Normal 60% The left ventricular end-diastolic pressure 15 mmHg IMPRESSION Normal coronary arteries Normal ejection fraction Mildly elevated LVEDP PLAN 1. Medical management 2. Evaluation of noncardiac symptomatology 2. Hypertension A. Echo, 09/2019, 1. Mildly enlarged left atrium, normal left ventricular size, mild concentric left ventricular hypertrophy, visually estimated ejection fraction 55% with no regional wall motion abnormality, grade 1 diastolic dysfunction seen without tissue Doppler evidence of raise left atrial pressure. 2. Mild mitral and tricuspid regurgitation. 3. No significant pericardial effusion noted 3. Chronic tobacco use with COPD 4. History of schizophrenia 5. History of diabetes mellitus type 2 6. History of GERD History of present illness: this pt from [facility]- she was sob and was seen in the ed-This is a 69-year-old female presented to the emergency department with shortness of breath, cough and fever. States that she has been having some worsening cough of the last few days. Had a documented temperature at the [facility] facility, however was afebrile by EMS and on our evaluation. She is not having any associated chest pain. Cough is productive. States that she feels some rumbling in her chest. She is not having abdominal pain or vomiting. No headache, no change in vision, no focal weakness. Patient has had multiple sick exposures at her [facility] facility.pt was seen in the ed and admitted with cap- The above per Dr. Romero On the morning of 02/28/2020 the patient complained of substernal chest pain without radiation, diaphoresis or nausea/vomiting. Patient does relate worsening of symptoms with cough or deep breathing. Chest discomfort is reproducible with palpation. She is also noted to have a hemoglobin of 7.5 and a history of chronic ibuprofen use for chronic neck pain and headaches. Review of her records showed a positive stool for blood last month with recommendation for GI evaluation. She does take a PPI regularly. Blood transfusion has been ordered this morning. Patient recently had cardiac catheterization in November of this year which showed normal coronary arteries. [facility] History Medical History: Reports:: Chronic Obstructive Pulmonary Disease (COPD), Diabetes Mellitus Type 2, Gastroesophageal Reflux Disease(GERD), Hypertension Denies:: Seizures *Have you ever received a pneumonia vaccine?: Yes *Have you received a flu vaccine this season?: Yes Other Medical History: Reports: Anemia Other Surgeries: Yes: Appendectomy, Cholecystectomy, Colonoscopy - *Social History Last grade of school completed: 7th or 8th Smoking Status: Current every day smoker Tobacco Type: cigarettes # Packs/Day (cigarettes): 1 Alcohol Intake: never Substance Use Type: denies use *Occupational Status:: disabled Housing: assisted living facility Household Members: other *Travel in the last 8 weeks: None Family Hx:: Unable to obtain Meds Home Medications Medication Instructions Recorded Confirmed Type amlodipine 10 mg tablet 10 mg PO DAILY 09/17/19 02/27/20 History aspirin 325 mg
--- NOTE | 2020-02-28 10:21 | SW/DCPLANNER ---
Addendum entered by Sonya Recinos 02/28/20 14:27: I have gave direction as to how to contact [facility] to patients nurse (Tiff Euceda) in case if patient is stable for discharge tomorrow. Original Note: This patient currently resides at [facility]. I have spoke with Kartik from [facility] regarding this patient. I have informed Kartik that patient will need blood transfusion today and Dr Romero has stated that patient will be ready for discharge later today after blood or tomorrow. Kartik has stated that they can accept this patient back but patient will have to transport via [facility]. I will continue to follow up with MD torrie and Kartik and once patient is ready for discharge I will contact [facility].
[2020-02-28 11:14] LABS: Troponin I < 0.01 ng/ml (0.00-0.034)
--- NOTE | 2020-02-28 11:43 | HMH.PTEV ---
Physical Therapy Evaluation Rehab PT IP Evaluation Start: 02/28/20 10:16 Freq: ONCE Status: Active Protocol: Document 02/28/20 11:39 PHORPHIL (Rec: 02/28/20 11:43 PHORNE [id number]) Subjective/History History History 69 yowf adm to [facility] with CAP found to be anemic. PMH: COPD, DM-II, HTN, schizophrenia. Baseline she is independent with all transfers and ambulation using a cane or walker at [facility]. Subjective Subjective Pt c/o headache this am. Rehab PT IP Eval Objective Appearance Patient Behavior Appropriate Patient Orientation Person,Place Difficulty following instructions none Speech Pattern Clear Ambulation Patient Able to Ambulate Yes Ambulation Observation IP General Gait Pattern Observation Wide Based Gait Ambulation Distance (feet) 10 Ambulation Assistive Device None Ambulation Ability Supervision/Stand by Balance Ability to Arise Able, w/o using arms Sitting Balance Steady, safe Standing Balance Narrow stance w/o support Dynamic Sitting Balance Ability Good Dynamic Standing Balance Ability Good Transfers Bed Transfer Ability Supervision/Stand by Chair Transfer Ability Supervision/Stand by Sit to Stand Bed Transfer Ability Supervision/Stand by Sit to Stand Chair Transfer Ability Supervision/Stand by ROM All Extremities PT ROM Status WFL MMT All Extremities PT MMT WFL Rehab PT IP prob,goals,plan Problems Date of Evaluation: 02/28/20 Discharge Plan PT Discharge Plan Pt is at baseline for all transfers and ambulation currently, no inpatient therapy needs. She is appropriate to return to [facility] once medically stable. G -code Required No Eval Complexity Eval Charge Codes 97825 - Moderate Complexity PHYSICIAN CERTIFICATION: I certify the specified therapy services for Kimmie Taylor are required, authorized, and reviewed every 30 days.
--- NOTE | 2020-02-28 16:42 | PC.NURSE ---
Pt has been pleasant and cooperative this shift. A&O X4. Pt has complained of pain X1 and was medicated with Tylenol per MAR. No complaints of SOA. F/C DC'd this AM. Pt ambulates with a stand-by assist and sat up in the chair for a few hours. Pt is in the process of receiving 2 units of PRBC's. 20 G peripheral IV in place to the LT AC is patent with no s/s of infiltration. OTIS hose in place to BLE. VSS. Call light within reach. Will continue to monitor.
--- NOTE | 2020-02-28 18:37 | HMH.ACPN2 ---
Internal Medicine - PN: Subj *Date: 02/28/20 *Time: 18:37 Interval history: [facility] and was seen in the ed-This is a 69-year-old female presented to the emergency department with shortness of breath, cough and fever. States that she has been having some worsening cough of the last few days. Had a documented temperature at the [facility] facility, however was afebrile by EMS and on our evaluation. She is not having any associated chest pain. Cough is productive. States that she feels some rumbling in her chest. She is not having abdominal pain or vomiting. No headache, no change in vision, no focal weakness. Patient has had multiple sick exposures at her halfway facility.pt was seen in the ed and admitted with cap- The above per Dr. Romero On the morning of 02/28/2020 the patient complained of substernal chest pain without radiation, diaphoresis or nausea/vomiting. Patient does relate worsening of symptoms with cough or deep breathing. Chest discomfort is reproducible with palpation. She is also noted to have a hemoglobin of 7.5 and a history of chronic ibuprofen use for chronic neck pain and headaches. Review of her records showed a positive stool for blood last month with recommendation for GI evaluation. She does take a PPI regularly. Blood transfusion has been ordered this morning. Patient recently had cardiac catheterization in November of this year which showed normal coronary arteries. The patient is receiving blood transfusion for a hemoglobin of 7.5. She is resting comfortably in the bed. She denies active chest pain at rest, no active dyspnea. Her chest x-ray is reviewed. I spent some time discussing GI work-up upon discharge. She did have a positive stool last month, and did note some dark tarry bowel movements in the last few days. There is no active bleeding, no abdominal discomfort. She is pale but anicteric. Exam Vital signs and Labs for Last 24 Hours: Temp Pulse Resp BP Pulse Ox 98.0 F 72 16 140/70 97 02/28/20 18:15 02/28/20 18:15 02/28/20 18:15 02/28/20 18:15 02/28/20 18:15 Laboratory Results - last 24 hr 02/27/20 18:12: Troponin I < 0.01, NT-Pro-B Natriuret Pep 159 H 02/27/20 18:12: SARS-CoV-2 IgG Ab (Rapid) Negative, SARS-CoV-2 IgM Ab (Rapid) Negative 02/27/20 18:48: Urine Color Yellow, Urine Appearance Clear, Urine pH 6.0, Ur Specific [place] 1.020, Urine Protein 2+, Urine Glucose (UA) Negative, Urine Ketones Negative, Urine Blood Negative, Urine Nitrate Negative, Urine Bilirubin Negative, Urine Urobilinogen 0.2, Ur Leukocyte Esterase Negative, Urine RBC None, Urine WBC None, Ur Squamous Epith Cells Occasional, Amorphous Sediment 1+, Urine Bacteria None 02/27/20 19:30: Chlamy pneumoniae PCR Not detected, Adenovirus (PCR) Not detected, B. pertussis DNA (PCR) Not detected, Coronavirus OC43 (PCR) Not detected, Coronavirus HKU1 (PCR) Not detected, Coronavirus 229E (PCR) Not detected, COVID-19 PCR Not detected, Coronavirus NL63 (PCR) Not detected, Human Metapneumovir PCR Not detected, Influenza A (H1) PCR Not detected, Influ A (H1N1/09) PCR Not detected, Influenza A (H3) PCR Not detected, Influenza Type A (PCR) Not detected, Influenza Type B (PCR) Not detected, M. pneumoniae (PCR) Not detected, Parainfluenza 1 (PCR) Not detected, Parainfluenza 2 (PCR) Not detected, Parainfluenza 3 (PCR) Not detected, Parainfluenza 4 (PCR) Not detected, RSV (PCR) Not detected, Entero/Rhino (PCR) Not detected 02/27/20 22:45: Lactate 1.2 02/27/20 23:21: POC Glucose 150 H 02/28/20 05:40: POC Glucose 188 H 02/28/20 08:04: WBC 7.4, RBC 3.67 L, Hgb 7.5 L*, Hct 26.6 L, MCV 72.6 L, MCH 20.3 L, MCHC 28.0 L, RDW 18.1 H, Plt Count 226, MPV 9.1, Neut % (Auto) 66.4, Lymph % (Auto) 24.0, Thayer % (Auto) 4.4, Eos % (Auto) 4.4, Baso % (Auto) 0.8, Neut # (Auto) 4.9, Lymph # (Auto) 1.8, Thayer # (Auto) 0.3, Eos # (Auto) 0.3, Baso # (Auto) 0.1 02/28/20 08:04: Sodium 138, Potassium 4.6, Chloride 111 H, Carbon Dioxide
[2020-02-28 21:43] LABS: Hematocrit 32.5 % (37.0-47.0)
[2020-02-28 21:52] LABS: Hemoglobin 9.4 g/dL (12.2-16.2)
[2020-02-29] VITALS: BP 153/68; PULSE 69; RESP 18; TEMP 36.8; O2SAT 92
[2020-02-29 04:00] VITALS: BP 145/63; PULSE 63; RESP 18; TEMP 36.8; O2SAT 93
--- NOTE | 2020-02-29 04:26 | PC.NURSE ---
A&OX4 pt has rhonchi throughout and audible wheezes. pt has no C/o of SOA or pain. Pt did have one episode of nausea and was medicated with PRN per OCT. on reassessment nausea was gone. Pt has ambulated to BR several times and tolerated well. Pt sat up in chair for several hours @ beginning of shift. 2nd unit of PRBC was completed @ 2044, pt tolerated well. Pt has rested quietly this shift.
[2020-02-29 05:44] VITALS: BMI 26.6
[2020-02-29 08:00] VITALS: BP 143/67; PULSE 69; RESP 16; TEMP 36.8; O2SAT 95
--- NOTE | 2020-02-29 08:43 | HMH.DCSUM ---
General - General Admission date:: 02/27/20 Discharge date: 02/29/20 HPI HPI: [facility]- she [facility] and was seen in the ed-This is a 69-year-old female presented to the emergency department with shortness of breath, cough and fever. States that she has been having some worsening cough of the last few days. Had a documented temperature at the senior living facility, however was afebrile by EMS and on our evaluation. She is not having any associated chest pain. Cough is productive. States that she feels some rumbling in her chest. She is not having abdominal pain or vomiting. No headache, no change in vision, no focal weakness. Patient has had multiple sick exposures at her senior living facility.pt was seen in the ed and admitted with cap- Hospital Course Hospital Course: pt has did well with ivf and required transfusion was seen by card for chest pain- Chest pain A. Lexiscan Myoview, 09/2019, 1. The EKG portion of the Lexiscan Myoview is nondiagnostic. 2. Scintigraphic evidence of mild reversible ischemia involving the inferior and inferior apical wall. Computer derived ejection fraction is over 65% with no regional wall motion abnormality, right ventricle is normal size and contractility. 3. Abnormal Lexiscan Myoview study B. Left heart catheterization, 11/2019, ANGIOGRAPHIC RESULTS The left main artery Normal The left anterior descending artery Normal The circumflex artery Normal The right coronary artery Dominant normal The [facility] ventriculogram reveals Normal 60% The left ventricular end-diastolic pressure 15 mmHg IMPRESSION Normal coronary arteries Normal ejection fraction Mildly elevated LVEDP PLAN 1. Medical management 2. Evaluation of noncardiac symptomatology 2. Hypertension A. Echo, 09/2019, 1. Mildly enlarged left atrium, normal left ventricular size, mild concentric left ventricular hypertrophy, visually estimated ejection fraction 55% with no regional wall motion abnormality, grade 1 diastolic dysfunction seen without tissue Doppler evidence of raise left atrial pressure. 2. Mild mitral and tricuspid regurgitation. 3. No significant pericardial effusion noted 3. Chronic tobacco use with COPD 4. History of schizophrenia 5. History of diabetes mellitus type 2n the morning of 02/28/2020 the patient complained of substernal chest pain without radiation, diaphoresis or nausea/vomiting. Patient does relate worsening of symptoms with cough or deep breathing. Chest discomfort is reproducible with palpation. She is also noted to have a hemoglobin of 7.5 and a history of chronic ibuprofen use for chronic neck pain and headaches. Review of her records showed a positive stool for blood last month with recommendation for GI evaluation. She does take a PPI regularly. Blood transfusion has been ordered this morning. Patient recently had cardiac catheterization in November of this year which showed normal coronary arteries. 6. History of GERD . Chest pain with history of normal coronary arteries 3 months ago. Patient's chest discomfort is reproducible with palpation but also with deep breathing. In light of the history of NSAID use and GI blood loss with anemia, suspect that her discomfort is related to both musculoskeletal and GI issues. Blood transfusion has been ordered. Echocardiogram is ordered as noted below to follow-up on aortic sclerosis. Troponin from yesterday was normal but we will repeat it this morning and if normal, then no further cardiac work-up. 2. History of hypertension, stable on current regimen of amlodipine 10 mg daily 3. Cardiac murmur on exam likely due to exacerbation of aortic sclerosis noted on echo earlier this year in the setting of anemia. A follow-up echo has been ordered for today to make sure the aortic sclerosis has not caused significant aortic stenosis or insufficiency in the interim from her study earlier this year. 4. History of
[2020-02-29 09:04] LABS: Occult Blood,Stool Negative (Negative)
[2020-02-29 12:00] VITALS: BP 157/60; PULSE 60; RESP 18; TEMP 36.6; O2SAT 94
== END 2020-02-29 13:13 | disposition home or self-care (01) ==
LOC: ER 20:04 → 2ND 20:54
PROVIDERS: Physician Assistant; Admitting Provider Emergency Medicine; Emergency Provider Emergency Medicine; PCP Emergency Medicine; Visit Provider Emergency Medicine
DX: J18.9 Pneumonia, unspecified organism (principal); J44.9 Chronic obstructive pulmonary disease, unspecified; D64.9 Anemia, unspecified; I10 Essential (primary) hypertension; E11.9 Type 2 diabetes mellitus without complications; Z79.84 Long term (current) use of oral hypoglycemic drugs; F20.9 Schizophrenia, unspecified; I35.8 Other nonrheumatic aortic valve disorders; Z79.82 Long term (current) use of aspirin; Z91.040 Latex allergy status; Z88.2 Allergy status to sulfonamides; Z88.1 Allergy status to other antibiotic agents; Z88.8 Allergy status to other drugs, medicaments and biological substances; Z79.899 Other long term (current) drug therapy; R06.9 Unspecified abnormalities of breathing; Z72.0 Tobacco use
CPT/HCPCS: 36415; 71045; 80048; 80053; 81001; 82272; 82962; 83605; 83880; 84484; 85014; 85018; 85025; 85610; 86328; 86850; 87040; 87581; 87633; 87798; 93005; 93306; 96365; 96367; 97162; 99285; G0328; G0378; P9016

== ENCOUNTER 2020-03-06 20:09 | Emergency (ER) | payer MEDICARE, MEDICAID, SELFPAY ==
[2020-03-06] VITALS (9 sets, daily range): BP systolic 116–205; BP diastolic 60–97; PULSE 50–65; RESP 16–18; TEMP 36.7; O2SAT 94–96; BMI 29.0; BMI 34.3
--- NOTE | 2020-03-06 20:09 | ECG_ITS ---
APPROVED REPORT Exam: Resting ECG HR:47 bpm ECG Measurements Heart Rate 47 AXES AL 138 P 61 QRSd 100 QRS 16 QT 430 T 50 QTc 380 <Conclusion> Marked sinus bradycardia Nonspecific T wave abnormality Abnormal ECG Electronically signed by : Hardeep Navarro, 03/07/2020 16:52:25
--- NOTE | 2020-03-06 20:58 | XR_ITS ---
PROCEDURE: XR CHEST PORTABLE CLINICAL INDICATION: chest pain COMPARISON: XR CHEST PORTABLE from 02/27/2020 FINDINGS: Borderline cardiomegaly without failure. Lungs are clear. Old granulomatous disease. No acute bony findings. IMPRESSION: Borderline cardiomegaly otherwise negative Dictated by: Brady Herbert MD 03/07/2020 09:58 Electronically signed by Brady Herbert MD in [facility] 03/07/2020 09:58
[2020-03-06 21:10] LABS: Basophils % 0.3 % (0.1-2.0); Eosinophils % 0.2 % (0.1-12.0); Hematocrit 36.1 % (37.0-47.0); Hemoglobin 10.4 g/dL (12.2-16.2); Lymphocytes # 3.2 K/mm3 (0.7-4.5); Lymphocytes % 25.2 % (10-50); Mean Corpuscular HGB Conc 28.9 g/dL (31.8-35.4); Mean Corpuscular Hemoglobin 22.2 pg (27.0-31.2); Mean Corpuscular Volume 76.8 fl (81-99); Monocytes # 0.6 K/mm3 (0.1-1.0); Monocytes % 4.6 % (1.7-9.3); Neutrophils # 8.9 K/mm3 (1.8-7.8); Neutrophils % 69.8 % (37.0-80.0); Platelet Count 211 K/mm3 (142-424); Red Cell Distribution Width 20.1 % (11.5-17.5); White Blood Count 12.7 K/mm3 (4.8-10.8)
[2020-03-06 21:14] LABS: Alanine Aminotransferase 27 U/L (12-78); Albumin Level 3.8 g/dl (3.5-5.0); Alkaline Phosphatase 124 U/L (38-126); Amylase 40 U/L (30-110); Aspartate Amino Transferase 23 U/L (14-36); Bilirubin,Direct 0.1 mg/dl (0.0-0.4); Bilirubin,Indirect 0.1 mg/dL (0.0-0.9); Bilirubin,Total 0.2 mg/dl (0.2-1.3); Bilirubin,Unconjugated 0.1 mg/dL (0.0-1.1); Blood Urea Nitrogen 25 mg/dl (7-17); Calcium 9.4 mg/dl (8.4-10.2); Carbon Dioxide 28 mmol/L (22.0-30.0); Chloride 101 mmol/L (98-107); Creatinine Clearance Estimated 76 mL/min (50-200); Estimated Glomerular Filt Rate 71 ml/min (>60); GFR (African American) 86 ML/MIN (>60); Glucose 334 mg/dl (74-100); Sodium 137 mmol/L (136-145); Total Protein,Serum 7.1 g/dl (6.3-8.2)
--- NOTE | 2020-03-06 21:17 | HMH.EDCP ---
ED Disposition Clinical Impression: Atypical chest pain, Diabetes 1.5, managed as type 2, Tobacco dependence syndrome Fracture of rib Qualifiers: Encounter type: subsequent encounter Rib fracture type: multiple ribs Fracture type: closed Laterality: right Fracture healing: with routine healing Qualified Code(s): S22.41XD - Multiple fractures of ribs, right side, subsequent encounter for fracture with routine healing Anemia Qualifiers: Anemia type: other cause Other causes of anemia: other cause, not classified Qualified Code(s): D64.89 - Other specified anemias Schizophrenia Qualifiers: Schizophrenia type: unspecified Qualified Code(s): F20.9 - Schizophrenia, unspecified Disposition: Home, Self-Care Condition on Discharge: Good Instructions: DI for Atypical Chest Pain Additional Instructions: resume meds Referrals: Raymundo Romero MD [Primary Care Provider] - - Critical Care Critical Care Time: No Attestation: On 03/06/20, the high probability of a clinically significant, sudden or life threatening deterioration of the following system(s) required my full and direct attention, intervention and personal management. The time I documented below is in addition to time spent performing reported procedures but includes the following listed in this critical care notation. Medical Decision Making - Medical Records Medical records reviewed: Yes: I reviewed the patient's medical records. - Bryan Inquiry Pt receiving controlled substance: No Vital Signs: 03/06/20 20:30 03/06/20 21:00 03/06/20 21:05 Temperature 98.1 F Temperature Source Oral Pulse Rate [Right Brachial] 61 64 50 L Respiratory Rate 17 18 16 Blood Pressure [Right Arm] 129/60 127/66 127/66 Blood Pressure Mean [Right Arm] 83 86 86 Blood Pressure Source [Right Arm] Automatic Cuff Automatic Cuff Automatic Cuff Blood Pressure Position [Right Arm] Supine Supine Sitting 02 Sat by Pulse Oximetry 96 96 94 L Oxygen Delivery Method Room Air Room Air Room Air 03/06/20 21:30 03/06/20 22:00 Temperature Temperature Source Pulse Rate [Right Brachial] 65 60 Respiratory Rate 18 18 Blood Pressure [Right Arm] 116/74 183/74 H Blood Pressure Mean [Right Arm] 88 110 Blood Pressure Source [Right Arm] Automatic Cuff Automatic Cuff Blood Pressure Position [Right Arm] Supine Supine 02 Sat by Pulse Oximetry 96 95 Oxygen Delivery Method Room Air Room Air - Lab Data Lab results reviewed: Yes: I reviewed the patient's lab results. Lab Results 03/06/20 20:13: WBC 12.7 H, RBC 4.70, Hgb 10.4 L, Hct 36.1 L, MCV 76.8 L, MCH 22.2 L, MCHC 28.9 L, RDW 20.1 H, Plt Count 211, MPV 8.0, Neut % (Auto) 69.8, Lymph % (Auto) 25.2, [place] % (Auto) 4.6, Eos % (Auto) 0.2, Baso % (Auto) 0.3, Neut # (Auto) 8.9 H, Lymph # (Auto) 3.2, [place] # (Auto) 0.6, Eos # (Auto) 0.0, Baso # (Auto) 0.0 03/06/20 20:13: Sodium 137, Potassium 4.0, Chloride 101, Carbon Dioxide 28, Anion Gap 12.0, BUN 25 H, Creatinine 0.80, Estimated Creat Clear 76, Estimated GFR 71, Est GFR ( Amer) 86, Glucose 334 H, Calcium 9.4, Total Bilirubin 0.2, Direct Bilirubin 0.1, Conjugated Bilirubin 0.0, Indirect Bilirubin 0.1, Unconjugated Bilirubin 0.1, AST 23, ALT 27, Alkaline Phosphatase 124, Troponin I < 0.01, Total Protein 7.1, Albumin 3.8, Amylase 40 03/06/20 20:13: Lipase 88 03/06/20 20:13: SARS-CoV-2 IgG Ab (Rapid) Negative, SARS-CoV-2 IgM Ab (Rapid) Negative Result diagrams: 03/06/20 20:13 03/06/20 20:13 Orders (Tests/Meds): ED MEDICATIONS Discontinued Medications Generic Name Dose Route Start Last Admin Trade Name Freq PRN Reason Stop Dose Admin Ioversol 75 ml 03/06/20 22:28 03/06/20 22:29 Rad-Optiray 350 100ml Vial IV 03/06/20 22:29 75 ml ONCE ONE Administration Protocol Sodium Chloride 10 ml 03/06/20 22:28 03/06/20 22:29 Rad-Saline Flush 10ml Syringe IV 03/06/20 22:29 10 ml ONCE ONE Administration ORDERS Category Date Time Status CT abdomen pelvis w
[2020-03-06 21:22] LABS: Lipase 88 U/L (23-300)
--- NOTE | 2020-03-06 21:24 | CT_ITS ---
PROCEDURE: CT ABDOMEN PELVIS W CON CLINICAL INDICATION: upper gastric Lower abdominal pain COMPARISON: CT ABDOMEN PELVIS W CON from 01/25/2020 TECHNIQUE: IV Contrast: 75ML OPTIRAY 350 Oral Contrast None Axial images obtained with sagittal and coronal reformats. All CT scans at the facility use one or more dose reduction, viz: automated exposure control, ma/kV adjustment per patient size (including targeted exams where dose is matched to indication, i.e. head), or iterative reconstruction technique. FINDINGS: LOWER THORAX: There is patchy scarring or atelectasis in the lung bases. There is a 6 mm subpleural nodular opacity in the left lung base laterally not significantly changed. Coronary artery calcification noted. ABDOMEN & PELVIS: Post cholecystectomy. The liver, spleen, adrenal glands, pancreas, have an unremarkable appearance. There is bilateral renal cortical scarring. There is a moderate amount of retained colonic feces. No intestinal obstruction or free air. There is given history of appendectomy. Significant artifact is present in the pelvis from bilateral hip prosthesis. There is chronic wedge compression changes of L4 and L1 with kyphosis at L1. Subacute fractures are present involving the right 5th 6th and 7th ribs anteriorly IMPRESSION: 1. Nondisplaced subacute fractures of the right 5th 6th and 7th ribs anteriorly. 2. Moderate amount of retained colonic feces. 3. Chronic compression fractures of L1 and L4 Dictated by: Brady Herbert MD 03/07/2020 06:54 Electronically signed by Brady Herbert MD in [place] 03/07/2020 06:54
[2020-03-06 21:32] LABS: Coronavirus 19 IgG Antibody Negative (Negative); Coronavirus 19 IgM Antibody Negative (Negative)
[2020-03-06 21:35] LABS: Troponin I < 0.01 ng/ml (0.00-0.034)
--- NOTE | 2020-03-06 23:53 | PC.NURSE ---
spoke with [facility] at [facility]. pt will returnhome and self isolate due to situation.
[2020-03-07 00:13] VITALS: BP 152/75; PULSE 75; RESP 16; TEMP 36.8; O2SAT 98
[2020-03-08 08:30] LABS: Covid-19 Nasal PCR Sendout UK Not Detected
== END 2020-03-07 00:16 | disposition home or self-care (01) ==
PROVIDERS: Emergency Provider Emergency Medicine; PCP Emergency Medicine
DX: S22.41XA Multiple fractures of ribs, right side, initial encounter for closed fracture (principal); W01.0XXA Fall on same level from slipping, tripping and stumbling without subsequent striking against object, initial encounter; Y92.019 Unspecified place in single-family (private) house as the place of occurrence of the external cause; F17.210 Nicotine dependence, cigarettes, uncomplicated; D64.89 Other specified anemias; F20.9 Schizophrenia, unspecified; E11.65 Type 2 diabetes mellitus with hyperglycemia; J44.9 Chronic obstructive pulmonary disease, unspecified; K21.9 Gastro-esophageal reflux disease without esophagitis; I10 Essential (primary) hypertension; Z88.2 Allergy status to sulfonamides; Z88.8 Allergy status to other drugs, medicaments and biological substances; Z79.899 Other long term (current) drug therapy; Z03.818 Encounter for observation for suspected exposure to other biological agents ruled out
CPT/HCPCS: 71045; 74177; 80048; 80076; 82150; 83690; 84484; 85025; 86328; 93005; 99284; Q9967; U0003

== ENCOUNTER → 2020-03-12 15:42 | Outpatient (CLI) | payer MEDICARE, MEDICAID, SELFPAY ==
[2020-03-12 16:07] LABS: Basophils # 0.1 K/mm3 (0-0.2); Basophils % 0.9 % (0.1-2.0); Eosinophils # 0.3 K/mm3 (0.0-0.4); Eosinophils % 3.3 % (0.1-12.0); Hematocrit 37.4 % (37.0-47.0); Lymphocytes % 21.8 % (10-50); Mean Corpuscular HGB Conc 29.5 g/dL (31.8-35.4); Mean Corpuscular Hemoglobin 22.6 pg (27.0-31.2); Mean Corpuscular Volume 76.5 fl (81-99); Mean Platelet Volume 7.5 fl (7.4-10.4); Monocytes # 0.3 K/mm3 (0.1-1.0); Monocytes % 2.8 % (1.7-9.3); Neutrophils # 6.4 K/mm3 (1.8-7.8); Neutrophils % 71.1 % (37.0-80.0); Platelet Count 262 K/mm3 (142-424); Red Blood Count 4.88 M/mm3 (4.20-5.40); Red Cell Distribution Width 20.7 % (11.5-17.5)
[2020-03-12 18:31] LABS: Chloride 106 mmol/L (98-107); Potassium 4.8 mmoL/L (3.5-5.1); Sodium 140 mmol/L (136-145)
[2020-03-12 18:34] LABS: Alanine Aminotransferase 24 U/L (12-78); Albumin Level 3.5 g/dl (3.5-5.0); Albumin/Globulin Ratio 1.3 (1.1-1.8); Alkaline Phosphatase 111 U/L (38-126); Anion Gap 14.8 mEq/L (5-15); Aspartate Amino Transferase 29 U/L (14-36); Bilirubin,Total 0.3 mg/dl (0.2-1.3); Blood Urea Nitrogen 20 mg/dl (7-17); Carbon Dioxide 24 mmol/L (22.0-30.0); Estimated Glomerular Filt Rate 71 ml/min (>60); GFR (African American) 86 ML/MIN (>60); Globulin 2.8 g/dL (1.3-3.2); Glucose 205 mg/dl (74-100); Iron 30 ug/dL (37-170); Total Protein,Serum 6.3 g/dl (6.3-8.2)
[2020-03-12 18:43] LABS: Total Iron Binding Capacity 381 ug/dL (265-497)
[2020-03-12 19:09] LABS: Ferritin 9.17 ng/ml (11.1-264)
== END ==
PROVIDERS: Visit Provider Internal Medicine Medical Oncology
DX: D64.9 Anemia, unspecified (principal)
CPT/HCPCS: 36415; 80053; 82728; 83540; 83550; 85025

== ENCOUNTER 2020-03-22 09:36 | Emergency (ER) | payer MEDICARE, MEDICAID, SELFPAY ==
[2020-03-22] VITALS (7 sets, daily range): BP systolic 116–135; BP diastolic 57–68; PULSE 63–82; RESP 17–18; TEMP 36.8–37.2; O2SAT 90–95; BMI 25.9
--- NOTE | 2020-03-22 09:39 | XR_ITS ---
PROCEDURE: XR CHEST 2V Patient Age:69Y CLINICAL HISTORY: COUGH patient coughing up blood this morning after breakfast a COMPARISON: CL LHC W VENTRICLE from 12/06/2019 CT ABDOMEN PELVIS W CON from 01/25/2020 XR CHEST PORTABLE from 02/27/2020 XR CHEST PORTABLE from 03/06/2020 CT ABDOMEN PELVIS W CON from 03/06/2020 FINDINGS: Lungs are mildly hyperexpanded with no focal pneumonia or consolidation. There is some slight diffuse coarsening of interstitial markings. I suspect the patient is a smoker. Also some slight accentuation of central markings particular on the left non-specific but could reflect bronchitis. The left roberto is generous and mildly prominent. This may reflect a prominent left pulmonary artery. However if significant history of smoking a follow-up CT chest or screening CT chest would be encouraged. 6 mm nodule at the right upper lobe again noted and stable-likely granuloma The heart is normal in size right roberto superior mediastinum unremarkable. Chest wall and ribs grossly unremarkable. No pneumothorax nor pleural effusion old prominent wedge compression fracture at L1 unchanged since prior CT abdomen studies February 2020 IMPRESSION: No focal pneumonia. Nothing definitely acute Mild chronic changes: Mild hyperexpansion. Subtle coarsening markings bilaterally reflecting mild chronic/parenchymal interstitial changes likely reflecting smoking. There is a prominent left roberto most likely due to a prominent pulmonary artery. With similar appearance suggested on 02/27/2020. However with this observation as well history of smoking and hemoptysis, low threshold for CT chest would be encouraged in follow-up over the next few weeks . Dictated by: Stephan Schuster MD 03/22/2020 13:22 Electronically signed by Stephan Schuster MD in [place] 03/22/2020 13:22
--- NOTE | 2020-03-22 10:33 | HMH.EDGENADL ---
ED Disposition Clinical Impression: Bronchitis, Cough, Tobacco dependence syndrome Closed rib fracture Qualifiers: Encounter type: initial encounter Rib fracture type: multiple ribs Laterality: right Qualified Code(s): S22.41XA - Multiple fractures of ribs, right side, initial encounter for closed fracture COPD (chronic obstructive pulmonary disease) Qualifiers: COPD type: unspecified COPD Qualified Code(s): J44.9 - Chronic obstructive pulmonary disease, unspecified Disposition: Home, Self-Care Condition on Discharge: Good Instructions: DI for Chronic Obstructive Pulmonary Disease, DI for Acute Bronchitis, DI for Hemoptysis Additional Instructions: You have been evaluated for cough, hemoptysis. Please use incentive spirometer at least 3 times daily. Use albuterol inhaler. Try to avoid smoking cigarettes. Return to the emergency department if you have new or worsening chest pain, shortness of breath, difficulty breathing, other concerns. All up with your primary care doctor in 1 to 2 days for symptom recheck Prescriptions: Albuterol Sulfate [Proair Digihaler] 90 mcg IH BID 15 Days #1 aer.pw.[email or web address] Prescription Printed Referrals: Provider,Referral, [Primary Care Provider] - Time of Disposition: 11:57 - Critical Care Critical Care Time: No Attestation: On 03/22/20, the high probability of a clinically significant, sudden or life threatening deterioration of the following system(s) required my full and direct attention, intervention and personal management. The time I documented below is in addition to time spent performing reported procedures but includes the following listed in this critical care notation. Medical Decision Making - Medical Records Medical records reviewed: Yes: I reviewed the patient's medical records. - Bryan Inquiry Pt receiving controlled substance: No Vital Signs: 03/22/20 09:36 03/22/20 09:51 03/22/20 10:00 Temperature 98.9 F Temperature Source Oral Pulse Rate Pulse Rate [Right Radial] 82 78 78 Respiratory Rate 17 18 Blood Pressure Blood Pressure [Right Arm] 119/68 119/68 116/57 L Blood Pressure Mean [Right Arm] 85 85 76 Blood Pressure Source [Right Arm] Automatic Cuff Automatic Cuff Blood Pressure Position [Right Arm] Sitting Sitting 02 Sat by Pulse Oximetry 92 L 94 L 93 L Oxygen Delivery Method Room Air Room Air Room Air 03/22/20 10:30 03/22/20 11:23 03/22/20 12:30 Temperature Temperature Source Pulse Rate Pulse Rate [Right Radial] 72 63 73 Respiratory Rate 18 Blood Pressure Blood Pressure [Right Arm] 128/59 L 124/62 135/67 Blood Pressure Mean [Right Arm] 82 82 89 Blood Pressure Source [Right Arm] Automatic Cuff Automatic Cuff Automatic Cuff Blood Pressure Position [Right Arm] Sitting Sitting Sitting 02 Sat by Pulse Oximetry 95 94 L 90 L Oxygen Delivery Method Room Air Room Air 03/22/20 14:01 Temperature 98.3 F Temperature Source Oral Pulse Rate 73 Pulse Rate [Right Radial] Respiratory Rate 17 Blood Pressure 135/67 Blood Pressure [Right Arm] Blood Pressure Mean [Right Arm] Blood Pressure Source [Right Arm] Blood Pressure Position [Right Arm] 02 Sat by Pulse Oximetry Oxygen Delivery Method Room Air - Lab Data Lab Results 03/22/20 13:01: POC Glucose 237 H Medical Decision Narrative: In summary this is a 69-year-old female presenting to the emergency department with cough and hemoptysis. Patient is overall well-appearing on arrival. Oxygen saturations are in the low 90s, this is normal for her. No tachycardia. Most likely diagnosis is hemoptysis related to COPD, bronchitis, recent pulmonary contusion. Plan to obtain chest x-ray to assess for underlying pneumonia or other abnormality within the thorax. Patient currently does not have chest pain, shortness of breath, dyspnea. Very low concern for ACS, anemia, PE. Patient is low risk for pulmonary embolism by the Wells criteria. Chest x-ray show no large infiltr
--- NOTE | 2020-03-22 10:38 | PC.NURSE ---
RT at [facility] giving pt an incentive spirometer
--- NOTE | 2020-03-22 10:41 | PC.NURSE ---
pt to radiology
--- NOTE | 2020-03-22 12:35 | PC.NURSE ---
I have attempted to call Jeremias Menezes x3 and each time someone picks up the phone and hangs up. I have unable to make contact but will keep trying.
[2020-03-22 13:08] LABS: POC Glucose,Bedside 237 (70-110)
== END 2020-03-22 13:50 | disposition home or self-care (01) ==
PROVIDERS: Emergency Provider Emergency Medicine
DX: J44.0 Chronic obstructive pulmonary disease with (acute) lower respiratory infection (principal); J20.9 Acute bronchitis, unspecified; S22.41XA Multiple fractures of ribs, right side, initial encounter for closed fracture; E11.9 Type 2 diabetes mellitus without complications; I10 Essential (primary) hypertension; R04.2 Hemoptysis; K21.9 Gastro-esophageal reflux disease without esophagitis; D64.9 Anemia, unspecified; Z79.899 Other long term (current) drug therapy; Z88.1 Allergy status to other antibiotic agents; Z88.2 Allergy status to sulfonamides; Z91.040 Latex allergy status; Z90.49 Acquired absence of other specified parts of digestive tract
CPT/HCPCS: 71046; 82962; 99283

== ENCOUNTER → 2020-04-01 14:24 | Outpatient (CLI) | payer MEDICARE, MEDICAID, SELFPAY ==
[2020-04-01 22:28] LABS: Coronavirus 19 IgG Antibody Negative (Negative); Coronavirus 19 IgM Antibody Negative (Negative)
== END ==
PROVIDERS: Visit Provider Surgery
DX: Z20.828 Contact with and (suspected) exposure to other viral communicable diseases (principal)
CPT/HCPCS: 36415; 86328

== ENCOUNTER 2020-04-02 09:01 | Day surgery (SDC) | payer MEDICARE, MEDICAID, SELFPAY ==
[2020-04-02 09:30] VITALS: BP 146/67; PULSE 83; RESP 16; TEMP 36.6; O2SAT 93; BMI 25.9
[2020-04-02 09:38] LABS: POC Glucose,Bedside 132 (70-110)
--- NOTE | 2020-04-02 10:03 | HMH.SCOPE ---
- Procedure: Date: 04/02/20 Procedure Performed:: Esophagogastroduodenoscopy with biopsy Indications:: Microcytic anemia Melena Family history of gastric cancer Performing Provider:: Olvin Vaughan MD Referring Provider:: Dr. Page Sedation:: Monitored anesthesia care Procedure:: After informed consent was obtained the patient was taken to the endoscopy suite. Sedation ensued after the patient was transferred to the left lateral decubitus position. Pulse, blood pressure, and oxygen saturation were monitored throughout the procedure. The endoscope was advanced beyond the duodenal bulb. Retroflexion within the gastric lumen was accomplished. The gastroscope was carefully removed and the patient was transferred to recovery in stable condition. Please see findings and specimens below for detail. Findings:: Gastroesophageal junction at 40 cm Minimal esophageal varices with no sign of active bleeding or recent hemorrhage Streaking gastritis (mild to moderate) Mild gastric antral vascular ectasia with no sign of active or recent hemorrhage Specimens:: Antral biopsy Recommendations:: Proton pump inhibition Colonoscopy in near future Possible UGI/SBFT followed by capsule endoscopy Although the degree of gastric antral vascular ectasia appeared fairly mild with no sign of recent or active hemorrhage, she may require repeat esophagogastroduodenoscopy with argon therapy (particularly if she remains anemic and no other causative factor identified). Complications:: No immediate Estimated blood obtained (mL): 1
[2020-04-02 10:05] VITALS: BP 121/63; PULSE 74; RESP 18; TEMP 36.6; O2SAT 98
--- NOTE | 2020-04-02 10:10 | P.PN_ITS ---
[facility] Anesthesia Checklist - Patient Identification Patient Identification: Arm Band - Structural Data Admitted From: Long-term Nursing Facility Planned Operative Procedure/s: egd Consent for Planned Operative Procedure(s) Verified: Yes Verified Documents: Surgical Consent, History and Physical - NPO Status Verified Time NPO: 00:00 - Additional verifications Anesthesia Reactions: No - Airway Assessment C-Spine Mobility Assessed: Yes (mp2) TMJ Mobility Assessed: Yes Dentition: Edentulous - Neurological Assessment Level of Consciousness: Awake, Alert - Anesthesia Plan Anesthesia Risk discussed: Yes Anesthesia Plan: Verified ASA Class: III Anesthesia Type: MAC [facility] History I have reviewed the patient's past medical history: Yes Medical History: Reports:: Chronic Obstructive Pulmonary Disease (COPD), Diabetes Mellitus Type 2, Gastroesophageal Reflux Disease(GERD), Hypertension Denies:: Diabetes Mellitus Type 1, Internal Pacemaker, Seizures *Have you ever received a pneumonia vaccine?: Yes *Have you received a flu vaccine this season?: Yes Other Medical History: Reports: Anemia Anesthesia experience/problems:: nac Other Surgeries: Yes: Appendectomy, Cholecystectomy, Colonoscopy. No: Pacemaker - *Social History Smoking Status: Current every day smoker Tobacco Type: cigarettes # Packs/Day (cigarettes): 1 Alcohol Intake: never Substance Use Type: denies use *Occupational Status:: disabled Housing: assisted living facility Household Members: other *Travel in the last 8 weeks: None Family Hx:: Unable to obtain
[2020-04-02 10:15] VITALS: BP 123/65; PULSE 76; RESP 18; O2SAT 96
[2020-04-02 10:25] VITALS: BP 143/76; PULSE 70; RESP 18; O2SAT 95
--- NOTE | 2020-04-02 10:34 | SUR.PHASEII ---
Pt eating sandwhich and chips, 3 elise mists, 2 cups coffee.
[2020-04-02 10:40] VITALS: BP 159/76; PULSE 76; RESP 18; O2SAT 92
== END 2020-04-02 10:43 | disposition home or self-care (01) ==
LOC: OUTP 09:04
PROVIDERS: PCP Emergency Medicine; Visit Provider Surgery
PROC: 0DJ08ZZ Inspection of Upper Intestinal Tract, Via Natural or Artificial Opening Endoscopic (ICD-10-PCS; CPT 43235; principal; 2020-04-02 09:30)
DX: I85.00 Esophageal varices without bleeding (principal); K29.60 Other gastritis without bleeding; K31.819 Angiodysplasia of stomach and duodenum without bleeding; Z80.0 Family history of malignant neoplasm of digestive organs; E11.9 Type 2 diabetes mellitus without complications; J44.9 Chronic obstructive pulmonary disease, unspecified; K21.9 Gastro-esophageal reflux disease without esophagitis; I10 Essential (primary) hypertension; Z90.49 Acquired absence of other specified parts of digestive tract; Z72.0 Tobacco use; Z79.82 Long term (current) use of aspirin; Z79.899 Other long term (current) drug therapy
CPT/HCPCS: 43239; 82962; 88305

== ENCOUNTER → 2020-04-09 12:37 | Outpatient (CLI) | payer MEDICARE, MEDICAID, SELFPAY ==
--- NOTE | 2020-04-09 12:37 | CT_ITS ---
PROCEDURE: CT CHEST WO/W CON CLINCAL INDICATION: abn cxr Shortness of air, follow-up abnormal chest x-ray, prominent left hilum Pt. C/o soa and abnormal cxr 75 m l optiary 350 prior cxr 03/22/20 COMPARISON: CT CT ABDOMEN PELVIS W CON from 03/06/2020 CR XR CHEST 2V from 03/22/2020 TECHNIQUE: IV Contrast: 75ml Optiray 350 Axial images obtained with sagittal and coronal reformats. All CT scans at the facility use one or more dose reduction, viz: automated exposure control, ma/kV adjustment per patient size (including targeted exams where dose is matched to indication, i.e. head), or iterative reconstruction technique. FINDINGS: HEART AND MEDIASTINAL STRUCTURES: There are multiple scattered small mediastinal lymph nodes. These are less than 1 cm in short axis. Coronary artery calcifications are present LUNGS AND PLEURAL SPACES: Changes of COPD with scattered areas of scarring. There are scattered areas of opacification including tree in bud pattern in the right upper lobe posteriorly and in the right lower lobe laterally. 7 mm noncalcified nodules present in the right lower lobe anteriorly. 6 mm noncalcified nodule right lower lobe posteriorly image 60 not readily apparent on the previous abdomen CT. 5 mm noncalcified nodule left lower lobe. 5 mm noncalcified nodule left upper lobe image 35. 4 mm noncalcified left upper lobe nodule image 37. 7 mm noncalcified nodule left upper lobe 42. Minimal atelectatic or fibrotic change in the lingula. 6 mm noncalcified nodule left lower lobe subpleural image 58. Consolidation is also present in the lingula which was not present on the previous study. BONY STRUCTURES: Degenerative changes are present in the midthoracic spine. There is chronic wedging of L1 UPPER ABDOMEN: Borderline splenomegaly. Mildly enlarged left adrenal gland not significantly changed. ADDITIONAL FINDINGS: No other significant abnormalities. IMPRESSION: 1. There are multiple noncalcified pulmonary nodules. At least 1 nodule was not present on a previous study of 03/06/2020. These could be inflammatory or neoplastic. Suggest 3 month follow-up to confirm short term stability. 2. There are bilateral areas of an infiltrate including tree in bud opacities in the right upper and right lower lobe consistent with pneumonia. There is a new area of consolidation in the lingula. Bronchiolitis obliterans with organizing pneumonia is a consideration. 3. COPD Dictated by: Brady Herbert MD 04/10/2020 10:09 Brady Herbert MD in [place] 04/10/2020 10:09
== END ==
PROVIDERS: PCP Emergency Medicine; Visit Provider Emergency Medicine
DX: R91.1 Solitary pulmonary nodule (principal)
CPT/HCPCS: 71270; Q9967

== ENCOUNTER → 2020-04-29 08:50 | Outpatient (CLI) | payer MEDICARE, MEDICAID, SELFPAY ==
[2020-04-29 09:16] LABS: Hematocrit 36.5 % (37.0-47.0); Hemoglobin 10.8 g/dL (12.2-16.2)
[2020-04-29 10:37] LABS: Coronavirus 19 IgG Antibody Negative (Negative); Coronavirus 19 IgM Antibody Negative (Negative)
== END ==
PROVIDERS: Visit Provider Surgery
DX: D64.89 Other specified anemias (principal); Z01.818 Encounter for other preprocedural examination; Z12.11 Encounter for screening for malignant neoplasm of colon
CPT/HCPCS: 36415; 85014; 85018; 86328

== ENCOUNTER 2020-04-30 07:20 | Day surgery (SDC) | payer MEDICARE, MEDICAID, SELFPAY ==
[2020-04-30] VITALS (9 sets, daily range): BP systolic 119–147; BP diastolic 48–83; PULSE 72–101; RESP 18; TEMP 36.3–36.6; O2SAT 90–99; BMI 26.9
[2020-04-30 08:39] LABS: POC Glucose,Bedside 128 (70-110)
--- NOTE | 2020-04-30 09:23 | HMH.ANESCL ---
[facility] [place] Anesthesia Checklist - Patient Identification Patient Identification: Arm Band - Structural Data Admitted From: Long-term Nursing Facility Planned Operative Procedure/s: colonoscopy Consent for Planned Operative Procedure(s) Verified: Yes Verified Documents: Surgical Consent, History and Physical - NPO Status Verified Time NPO: 00:00 - Additional verifications Anesthesia Reactions: No - Airway Assessment C-Spine Mobility Assessed: Yes (mp3) TMJ Mobility Assessed: Yes Dentition: Edentulous - Neurological Assessment Level of Consciousness: Awake, Alert - Anesthesia Plan Anesthesia Risk discussed: Yes Anesthesia Plan: Verified ASA Class: III Anesthesia Type: MAC [facility] [place] History I have reviewed the patient's past medical history: Yes Medical History: Reports:: Chronic Obstructive Pulmonary Disease (COPD), Diabetes Mellitus Type 2, Gastroesophageal Reflux Disease(GERD), Hypertension, MRSA Denies:: Cancer, Diabetes Mellitus Type 1, Internal Pacemaker, Seizures *Have you ever received a pneumonia vaccine?: Yes *Have you received a flu vaccine this season?: No Other Medical History: Reports: Anemia Anesthesia experience/problems:: nac Other Surgeries: Yes: Appendectomy, Cholecystectomy, Colonoscopy. No: Pacemaker Amputation: No Fractures: No - *Social History Last grade of school completed: 7th or 8th Smoking Status: Current every day smoker Tobacco Type: cigarettes # Packs/Day (cigarettes): 1 Alcohol Intake: never Substance Use Type: denies use *Occupational Status:: disabled Housing: assisted living facility Household Members: caregiver, other *Travel in the last 8 weeks: None Family Hx:: No significant family history
--- NOTE | 2020-04-30 12:13 | P.PCN_ITS ---
- Procedure: Date: 04/30/20 Patient Date of :: 1950 Procedure Performed:: Colonoscopy with polypectomy Indications:: Anemia Performing Provider:: Olvin Vaughan MD Referring Provider:: . Sedation:: Monitored anesthesia care Procedure:: After informed consent was obtained the patient was taken to the endoscopy suite. Sedation ensued after the patient was transferred to the left lateral decubitus position. Pulse, blood pressure, and oxygen saturation were monitored throughout the procedure. Digital rectal exam revealed no significant abnor mality. The colonoscope was placed in position. The entire colon was evaluated. The colonoscope was carefully removed and the patient was transferred to recovery in stable condition. Please see findings and specimens below for detail. Findings:: Bowel preparation moderate Profound lack of relaxation Hemorrhoidal cushions Multiple complex polyps (see specimens) Specimens:: Large complex cecal polyp and adjacent polyp (snare) 1.5 cm irregular proximal right colon polyp (snare) 9 mm right colon polyp and adjacent polyp (snare) Adjacent polyps at 70 cm (snare and biopsy) Large lobulated polyp at 60 cm (snare) Complex polyp at 40 cm and adjacent sessile polyp (snare) Polyp at 35 cm (snare) Sessile polyp at 20 cm and adjacent polyps (snare) Recommendations:: Ongoing evaluation with regard to anemia Timing of repeat colonoscopy is pending pathology but will likely be between 6- 12 months secondary to moderate bowel preparation, profound lack of relaxation, and size/nature/number of polyps. Complications:: No immediate Estimated blood obtained (mL): 1
--- NOTE | 2020-04-30 14:00 | SUR.PHASEII ---
Abdominal xrays finished, results return with no free air. pt discharged.
--- NOTE | 2020-04-30 14:00 | XR_ITS ---
PROCEDURE: XR ACUTE ABDOMEN SERIES CLINICAL INDICATION: abd pain s/p colonoscopy COMPARISON: CR XR CHEST 2V from 03/22/2020 FINDINGS: Frontal View of the chest show patchy density in the left lower lobe and right midlung which may be due to areas of atelectasis versus patchy infiltrate. Upright and supine views of the abdomen show nonspecific bowel gas pattern. No intestinal obstruction or free air. There is increased soft tissue density in the pelvis region which may be due to mildly distended urinary bladder. There are bilateral hip arthroplasties. Surgical clips are present in the right upper quadrant IMPRESSION: 1. No evidence of free air. 2. Left lower lobe and right midlung atelectatic change versus patchy infiltrate. 3. Mildly distended urinary bladder Dictated by: Brady Herbert MD 04/30/2020 14:22 Brady Herbert MD in [place] 04/30/2020 14:22
== END 2020-04-30 14:40 | disposition home or self-care (01) ==
LOC: OUTP 07:23
PROVIDERS: PCP Emergency Medicine; Visit Provider Surgery
PROC: 0DJD8ZZ Inspection of Lower Intestinal Tract, Via Natural or Artificial Opening Endoscopic (ICD-10-PCS; CPT 45385; principal; 2020-04-30 08:30)
DX: K64.0 First degree hemorrhoids (principal); D64.9 Anemia, unspecified; E11.9 Type 2 diabetes mellitus without complications; K63.89 Other specified diseases of intestine; K63.5 Polyp of colon; I10 Essential (primary) hypertension; J44.9 Chronic obstructive pulmonary disease, unspecified; K21.9 Gastro-esophageal reflux disease without esophagitis; Z86.14 Personal history of Methicillin resistant Staphylococcus aureus infection; Z90.49 Acquired absence of other specified parts of digestive tract; Z72.0 Tobacco use; Z88.2 Allergy status to sulfonamides
CPT/HCPCS: 45385; 74021; 82962; 88305; J2704

== ENCOUNTER → 2020-05-18 08:27 | Outpatient (CLI) | payer MEDICARE, MEDICAID, SELFPAY ==
--- NOTE | 2020-05-18 08:31 | FL_ITS ---
PROCEDURE: FL UPPER GI SMALL BOWEL CLINICAL INDICATION: ANEMIA COMPARISON: No exams were available for comparison TECHNIQUE: FLUOROSCOPY TIME : 2 minutes and 20 seconds FINDINGS: The esophagus, stomach, and duodenum have an unremarkable appearance.There is no evidence of hiatal hernia. No ulcer or mass evident. No mucosal abnormalities apparent. There is normal peristalsis. The duodenal C-loop is nondisplaced. The small bowel has an unremarkable appearance. No mass mucosal abnormality or obstructing lesions are evident. Artificial Stone Setter exam shows bilateral hip prosthesis in place and surgical clips in the right upper quadrant with degenerative changes present in the lumbar spine and a mild amount of retained colonic feces. IMPRESSION: Unremarkable upper GI and small-bowel follow-through Dictated by: Brady Herbert MD 05/18/2020 18:15 Brady Herbert MD in [place] 05/18/2020 18:15
== END ==
PROVIDERS: PCP Emergency Medicine; Visit Provider Surgery
DX: D64.89 Other specified anemias (principal)
CPT/HCPCS: 74246; 74248

== ENCOUNTER → 2020-05-21 18:17 | Outpatient (CLI) | payer MEDICARE, MEDICAID, SELFPAY ==
[2020-05-21 19:08] LABS: Basophils # 0.1 K/mm3 (0-0.2); Basophils % 0.9 % (0.1-2.0); Eosinophils # 0.3 K/mm3 (0.0-0.4); Eosinophils % 3.1 % (0.1-12.0); Hematocrit 32.1 % (37.0-47.0); Hemoglobin 9.5 g/dL (12.2-16.2); Lymphocytes # 2.6 K/mm3 (0.7-4.5); Lymphocytes % 32.3 % (10-50); Mean Corpuscular HGB Conc 29.4 g/dL (31.8-35.4); Mean Corpuscular Hemoglobin 23.7 pg (27.0-31.2); Mean Corpuscular Volume 80.5 fl (81-99); Mean Platelet Volume 7.5 fl (7.4-10.4); Monocytes # 0.4 K/mm3 (0.1-1.0); Monocytes % 4.9 % (1.7-9.3); Neutrophils # 4.8 K/mm3 (1.8-7.8); Neutrophils % 58.8 % (37.0-80.0); Platelet Count 242 K/mm3 (142-424); Red Blood Count 3.99 M/mm3 (4.20-5.40); Red Cell Distribution Width 18.2 % (11.5-17.5); White Blood Count 8.1 K/mm3 (4.8-10.8)
[2020-05-21 19:11] LABS: Iron 18 ug/dL (37-170)
[2020-05-21 19:30] LABS: Total Iron Binding Capacity 435 ug/dL (265-497)
[2020-05-21 19:47] LABS: Ferritin 8.23 ng/ml (11.1-264)
== END ==
PROVIDERS: Visit Provider Internal Medicine Medical Oncology
DX: D50.9 Iron deficiency anemia, unspecified (principal)
CPT/HCPCS: 36415; 82728; 83540; 83550; 85025

== ENCOUNTER → 2020-09-04 11:00 | Outpatient (CLI) | payer MEDICARE, MEDICAID, SELFPAY ==
[2020-09-04 11:46] LABS: Basophils # 0.1 K/mm3 (0-0.2); Eosinophils # 0.3 K/mm3 (0.0-0.4); Eosinophils % 3.5 % (0.1-12.0); Hematocrit 43.2 % (37.0-47.0); Hemoglobin 13.4 g/dL (12.2-16.2); Lymphocytes # 1.9 K/mm3 (0.7-4.5); Lymphocytes % 25.7 % (10-50); Mean Corpuscular HGB Conc 30.9 g/dL (31.8-35.4); Mean Corpuscular Hemoglobin 27.7 pg (27.0-31.2); Mean Corpuscular Volume 89.7 fl (81-99); Mean Platelet Volume 7.4 fl (7.4-10.4); Monocytes # 0.4 K/mm3 (0.1-1.0); Monocytes % 5.2 % (1.7-9.3); Neutrophils # 4.8 K/mm3 (1.8-7.8); Neutrophils % 64.6 % (37.0-80.0); Platelet Count 196 K/mm3 (142-424); Red Blood Count 4.82 M/mm3 (4.20-5.40); Red Cell Distribution Width 18.8 % (11.5-17.5); White Blood Count 7.4 K/mm3 (4.8-10.8)
[2020-09-04 12:13] LABS: Iron 119 ug/dL (37-170)
[2020-09-04 12:22] LABS: Total Iron Binding Capacity 377 ug/dL (265-497)
[2020-09-04 12:49] LABS: Ferritin 15.4 ng/ml (11.1-264)
== END ==
PROVIDERS: Visit Provider Internal Medicine Medical Oncology
DX: D64.9 Anemia, unspecified (principal)
CPT/HCPCS: 36415; 82728; 83540; 83550; 85025

== ENCOUNTER → 2020-09-24 12:46 | Outpatient (CLI) | payer MEDICARE, MEDICAID, SELFPAY ==
--- NOTE | 2020-09-24 13:06 | CT_ITS ---
PROCEDURE: CT CHEST W CON CLINCAL INDICATION: LUNG NODULE Follow-up lung nodule COMPARISON: CT CT CHEST WO/W CON from 04/09/2020 TECHNIQUE: IV Contrast: 75ml Isovue 370 Axial images obtained with sagittal and coronal reformats. All CT scans at the facility use one or more dose reduction, viz: automated exposure control, ma/kV adjustment per patient size (including targeted exams where dose is matched to indication, i.e. head), or iterative reconstruction technique. FINDINGS: HEART AND MEDIASTINAL STRUCTURES: Coronary artery calcifications are present. Scattered small nodes are once again identified not significantly changed. LUNGS AND PLEURAL SPACES: COPD. Tree in bud pattern with peripheral consolidation in the right upper lobe is once again noted but has shown some improvement. A 7 mm noncalcified nodules present in the right middle lobe laterally not readily apparent on the previous exam. 6 mm nodule right lower lobe and other smaller nodules in this region are unchanged. 7 mm nodule right lung base unchanged. Consolidation within the lingula is not significantly changed. Subpleural nodule in the left lower lobe at 6 mm is unchanged. A 5 mm nodule in the left lower lobe posteriorly is unchanged. There is a small focus of infiltrate in the left lower lobe posteriorly which is developed in the interval 5 mm nodule left upper lobe and 4 mm nodule left upper lobe centrally unchanged.. BONY STRUCTURES: Degenerative changes thoracic and lumbar spine once again noted with chronic wedging of L1 UPPER ABDOMEN: Left adrenal enlargement is not significantly changed. ADDITIONAL FINDINGS: No other significant abnormalities. IMPRESSION: Numerous small bilateral pulmonary nodules are once again noted. Most of these appear stable.. One new nodules present in the right middle lobe laterally at 7 mm. These are nonspecific and could be inflammatory/infectious or secondary to neoplasm. Continued follow-up suggested. COPD with patchy infiltrate in the right upper lobe with tree in bud pattern has shown some improvement. No change in the consolidation in the lingula. Dictated by: Brady Herbert MD 09/25/2020 07:09 Brady Herbret MD in [facility] 09/25/2020 07:09
[2020-09-24 13:15] LABS: Blood Urea Nitrogen 18 mg/dl (7-17); Estimated Glomerular Filt Rate 62 ml/min (>60); GFR (African American) 75 ML/MIN (>60)
== END ==
PROVIDERS: PCP Emergency Medicine; Visit Provider Internal Medicine Medical Oncology
DX: R91.1 Solitary pulmonary nodule (principal); D64.9 Anemia, unspecified
CPT/HCPCS: 36415; 71260; 82565; 84520; Q9967

== ENCOUNTER 2020-10-31 00:10 | Emergency (ER) | payer MEDICARE, MEDICAID, SELFPAY ==
[2020-10-31] VITALS (7 sets, daily range): BP systolic 113–134; BP diastolic 52–71; PULSE 52–61; RESP 14–18; TEMP 36.4–36.6; O2SAT 91–98; BMI 16.1
--- NOTE | 2020-10-31 00:07 | ECG_ITS ---
APPROVED REPORT Exam: Resting ECG HR:51 bpm ECG Measurements Heart Rate 51 AXES HI 190 P 57 QRSd 86 QRS 45 QT 474 T 62 QTc 436 Conclusion Sinus bradycardia Late r wave progression - unchanged from 2019 Abnormal ECG Electronically signed by : Hardeep Navarro, 10/31/2020 16:29:51
--- NOTE | 2020-10-31 00:39 | XR_ITS ---
PROCEDURE: XR CHEST PORTABLE CLINICAL HISTORY: cp Chest pain and smoker COMPARISON: CR XR CHEST PORTABLE from 02/27/2020 CR XR CHEST PORTABLE from 03/06/2020 CR XR CHEST 2V from 03/22/[address] CHEST W CON from 09/24/2020 FINDINGS: Normal heart size. The roberto are slightly prominent felt to be related to pulmonary vasculature. Chronic changes with some vascular crowding in the lung bases. No lobar consolidation or collapse. No acute bony abnormalities. IMPRESSION: No acute findings. Dictated by: Brady Herbert MD 10/31/2020 05:46 Brady Herbert MD in [facility] 10/31/2020 05:46
--- NOTE | 2020-10-31 00:41 | HMH.EDCP ---
ED Disposition Clinical Impression: Diabetes 1.5, managed as type 2 Chest pain Qualifiers: Chest pain type: precordial pain Qualified Code(s): R07.2 - Precordial pain Disposition: Home, Self-Care Condition on Discharge: Good Instructions: DI for Atypical Chest Pain Additional Instructions: have pt follow up with card Referrals: Raymundo Romero MD [Primary Care Provider] - - Critical Care Critical Care Time: No Attestation: On 10/31/20, the high probability of a clinically significant, sudden or life threatening deterioration of the following system(s) required my full and direct attention, intervention and personal management. The time I documented below is in addition to time spent performing reported procedures but includes the following listed in this critical care notation. Medical Decision Making - Medical Records Medical records reviewed: Yes: I reviewed the patient's medical records. - Bryan Inquiry Pt receiving controlled substance: No Vital Signs: 10/31/20 00:10 10/31/20 00:58 10/31/20 01:00 Temperature 97.6 F 98 F Temperature Source Oral Oral Pulse Rate [Right] 61 56 L 61 Respiratory Rate 16 18 17 Blood Pressure [Right Arm] 126/59 L 134/57 L 113/53 L Blood Pressure Mean [Right Arm] 81 82 73 Blood Pressure Source [Right Arm] Automatic Cuff Automatic Cuff Blood Pressure Position [Right Arm] Sitting Supine 02 Sat by Pulse Oximetry 93 L 98 91 L Oxygen Delivery Method Room Air Room Air Room Air 10/31/20 01:30 10/31/20 02:00 10/31/20 02:30 Temperature Temperature Source Pulse Rate [Right] 53 L 52 L 54 L Respiratory Rate 15 17 Blood Pressure [Right Arm] 122/53 L 116/53 L 123/52 L Blood Pressure Mean [Right Arm] 76 74 75 Blood Pressure Source [Right Arm] Automatic Cuff Automatic Cuff Blood Pressure Position [Right Arm] Supine Supine 02 Sat by Pulse Oximetry 93 L 92 L 92 L Oxygen Delivery Method Room Air Room Air - Lab Data Lab results reviewed: Yes: I reviewed the patient's lab results. Lab Results 10/31/20 00:00: WBC 9.0, RBC 4.58, Hgb 13.0, Hct 42.4, MCV 92.4, MCH 28.3, MCHC 30.6 L, RDW 15.6, Plt Count 183, MPV 8.3, Neut % (Auto) 63.6, Lymph % (Auto) 28.0, Wallace % (Auto) 4.0, Eos % (Auto) 3.9, Baso % (Auto) 0.5, Neut # (Auto) 5.7, Lymph # (Auto) 2.5, Wallace # (Auto) 0.4, Eos # (Auto) 0.4, Baso # (Auto) 0.0, ESR 24 10/31/20 00:00: Sodium 137, Potassium 4.6, Chloride 106, Carbon Dioxide 24, Anion Gap 11.6, BUN 19 H, Creatinine 0.90, Estimated Creat Clear 38, Estimated GFR 62, Est GFR ( Amer) 75, Glucose 286 H, Calcium 8.9, Total Bilirubin 0.3, Direct Bilirubin 0.1, Conjugated Bilirubin 0.0, Indirect Bilirubin 0.2, Unconjugated Bilirubin 0.2, AST 34, ALT 25, Alkaline Phosphatase 96, Troponin I < 0.01, C-Reactive Protein 1.7, Total Protein 7.2, Albumin 4.0, Procalcitonin 0.060 10/31/20 00:55: Chlamy pneumoniae PCR Not detected, Adenovirus (PCR) Not detected, B. pertussis DNA (PCR) Not detected, Coronavirus OC43 (PCR) Not detected, Coronavirus HKU1 (PCR) Not detected, Coronavirus 229E (PCR) Not detected, SARS-CoV-2 (PCR) Not detected, Coronavirus NL63 (PCR) Not detected, Human Metapneumovir PCR Not detected, Influenza A (H1) PCR Not detected, Influ A (H1N1/09) PCR Not detected, Influenza A (H3) PCR Not detected, Influenza Type A (PCR) Not detected, Influenza Type B (PCR) Not detected, M. pneumoniae (PCR) Not detected, Parainfluenza 1 (PCR) Not detected, Parainfluenza 2 (PCR) Not detected, Parainfluenza 3 (PCR) Not detected, Parainfluenza 4 (PCR) Not detected, RSV (PCR) Not detected, Entero/Rhino (PCR) Not detected Result diagrams: 10/31/20 00:00 10/31/20 00:00 Orders (Tests/Meds): ED MEDICATIONS Generic Name Dose Route Start Last Admin Trade Name Freq PRN Reason Stop Dose Admin Sodium Chloride 1,000 mls @ 999 mls/hr 10/31/20 00:45 10/31/20 00:46 Sod Chlor 0.9% 1000ml Bag IV 10/31/20 01:45 999 mls/hr .Q1H1M PAT Administration Nitroglycerin 0.4 mg 10/31/20
[2020-10-31 00:57] LABS: Basophils % 0.5 % (0.1-2.0); Eosinophils # 0.4 K/mm3 (0.0-0.4); Eosinophils % 3.9 % (0.1-12.0); Hematocrit 42.4 % (37.0-47.0); Lymphocytes # 2.5 K/mm3 (0.7-4.5); Mean Corpuscular HGB Conc 30.6 g/dL (31.8-35.4); Mean Corpuscular Hemoglobin 28.3 pg (27.0-31.2); Mean Corpuscular Volume 92.4 fl (81-99); Mean Platelet Volume 8.3 fl (7.4-10.4); Monocytes # 0.4 K/mm3 (0.1-1.0); Neutrophils # 5.7 K/mm3 (1.8-7.8); Neutrophils % 63.6 % (37.0-80.0); Platelet Count 183 K/mm3 (142-424); Red Blood Count 4.58 M/mm3 (4.20-5.40); Red Cell Distribution Width 15.6 % (11.5-17.5)
[2020-10-31 00:58] LABS: Adenovirus,PCR Not Detected (NotDetected); Bordetella Pertussis Not Detected (NotDetected); Chlamydophila Pneumoniae, PCR Not Detected (NotDetected); Coronavirus 19, PCR Not Detected (NotDetected); Coronavirus 229E Not Detected (NotDetected); Coronavirus NL63 Not Detected (NotDetected); Coronavirus OC43 Not Detected (NotDetected); Coronovirus HKU1,PCR Not Detected (NotDetected); Human Metapneumovirus Not Detected (NotDetected); Influenza A, PCR Not Detected (NotDetected); Influenza AH1, 2009 Not Detected (NotDetected); Influenza AH1, PCR Not Detected (NotDetected); Influenza AH3,PCR Not Detected (NotDetected); Influenza B, PCR Not Detected (NotDetected); Mycoplasma Pneumoniae, PCR Not Detected (NotDetected); Parainfluenza 1, PCR Not Detected (NotDetected); Parainfluenza 2, PCR Not Detected (NotDetected); Parainfluenza 3, PCR Not Detected (NotDetected); Parainfluenza 4, PCR Not Detected (NotDetected); Respiratory Syncytial Virus Not Detected (NotDetected); Rhinovirus/Enterovirus Not Detected (NotDetected)
[2020-10-31 01:01] LABS: Alanine Aminotransferase 25 U/L (12-78); Alkaline Phosphatase 96 U/L (38-126); Anion Gap 11.6 mEq/L (5-15); Aspartate Amino Transferase 34 U/L (14-36); Bilirubin,Direct 0.1 mg/dl (0.0-0.4); Bilirubin,Indirect 0.2 mg/dL (0.0-0.9); Bilirubin,Total 0.3 mg/dl (0.2-1.3); Bilirubin,Unconjugated 0.2 mg/dL (0.0-1.1); Blood Urea Nitrogen 19 mg/dl (7-17); Calcium 8.9 mg/dl (8.4-10.2); Carbon Dioxide 24 mmol/L (22.0-30.0); Chloride 106 mmol/L (98-107); Creatinine Clearance Estimated 38 mL/min (50-200); Estimated Glomerular Filt Rate 62 ml/min (>60); GFR (African American) 75 ML/MIN (>60); Glucose 286 mg/dl (74-100); Potassium 4.6 mmoL/L (3.5-5.1); Sodium 137 mmol/L (136-145); Total Protein,Serum 7.2 g/dl (6.3-8.2)
[2020-10-31 01:07] LABS: C-Reactive Protein 1.7 mg/L (0-4)
[2020-10-31 01:27] LABS: Erythrocyte Sedimentation Rate 24 mm/hr (0-30)
[2020-10-31 01:35] LABS: Troponin I < 0.01 ng/ml (0.00-0.034)
== END 2020-10-31 03:36 | disposition home or self-care (01) ==
PROVIDERS: Emergency Provider Emergency Medicine; PCP Emergency Medicine
DX: R07.2 Precordial pain (principal); E11.65 Type 2 diabetes mellitus with hyperglycemia; Z20.822 Contact with and (suspected) exposure to COVID-19; J44.9 Chronic obstructive pulmonary disease, unspecified; K21.9 Gastro-esophageal reflux disease without esophagitis; I10 Essential (primary) hypertension; Z91.040 Latex allergy status; Z88.2 Allergy status to sulfonamides; F17.210 Nicotine dependence, cigarettes, uncomplicated; Z79.899 Other long term (current) drug therapy
CPT/HCPCS: 71045; 80048; 80076; 84145; 84484; 85025; 85651; 86140; 87581; 87633; 87798; 93005; 99283

== ENCOUNTER → 2021-03-18 15:13 | Outpatient (CLI) | payer MEDICARE, MEDICAID, SELFPAY ==
[2021-03-18 15:46] LABS: Basophils # 0.1 K/mm3 (0-0.2); Basophils % 0.6 % (0.1-2.0); Eosinophils # 0.4 K/mm3 (0.0-0.4); Eosinophils % 4.3 % (0.1-12.0); Hematocrit 41.9 % (37.0-47.0); Hemoglobin 13.3 g/dL (12.2-16.2); Lymphocytes % 23.5 % (10-50); Mean Corpuscular HGB Conc 31.9 g/dL (31.8-35.4); Mean Corpuscular Volume 90.9 fl (81-99); Monocytes # 0.4 K/mm3 (0.1-1.0); Monocytes % 4.7 % (1.7-9.3); Neutrophils # 5.6 K/mm3 (1.8-7.8); Neutrophils % 66.8 % (37.0-80.0); Platelet Count 185 K/mm3 (142-424); Red Blood Count 4.61 M/mm3 (4.20-5.40); Red Cell Distribution Width 14.3 % (11.5-17.5); White Blood Count 8.4 K/mm3 (4.8-10.8)
[2021-03-18 16:22] LABS: Chloride 108 mmol/L (98-107); Potassium 4.6 mmoL/L (3.5-5.1); Sodium 142 mmol/L (136-145)
[2021-03-18 16:25] LABS: Alanine Aminotransferase 13 U/L (12-78); Albumin Level 3.7 g/dl (3.5-5.0); Albumin/Globulin Ratio 1.4 (1.1-1.8); Alkaline Phosphatase 124 U/L (38-126); Anion Gap 7.6 mEq/L (5-15); Aspartate Amino Transferase 17 U/L (14-36); Bilirubin,Total 0.4 mg/dl (0.2-1.3); Blood Urea Nitrogen 14 mg/dl (7-17); Calcium 8.9 mg/dl (8.4-10.2); Carbon Dioxide 31 mmol/L (22.0-30.0); Estimated Glomerular Filt Rate 71 ml/min (>60); GFR (African American) 86 ML/MIN (>60); Globulin 2.7 g/dL (1.3-3.2); Glucose 201 mg/dl (74-100); Iron 52 ug/dL (37-170); Total Protein,Serum 6.4 g/dl (6.3-8.2)
[2021-03-18 16:34] LABS: Total Iron Binding Capacity 358 ug/dL (265-497)
[2021-03-18 17:01] LABS: Ferritin 30.4 ng/ml (11.1-264)
== END ==
PROVIDERS: Visit Provider Internal Medicine Medical Oncology
DX: D64.9 Anemia, unspecified (principal)
CPT/HCPCS: 36415; 80053; 82728; 83540; 83550; 85025

== ENCOUNTER → 2021-05-27 10:58 | Outpatient (POV) | payer MEDICARE, MEDICAID, SELFPAY | PROVIDERS: Visit Provider Audiologist | DX: Z00.00 Encounter for general adult medical examination without abnormal findings (principal) ==

== ENCOUNTER → 2021-07-29 14:04 | Outpatient (CLI) | payer MEDICARE, MEDICAID, SELFPAY ==
--- NOTE | 2021-07-29 14:06 | CT_ITS ---
PROCEDURE INFORMATION: Exam: CT Chest With Contrast; Diagnostic Exam date and time: 07/29/2021 2:06 PM Age: 70 years old Clinical indication: Condition or disease; Other: Pulmonary nodule; Additional info: Anemia, pulmonary nodule TECHNIQUE: Imaging protocol: Diagnostic computed tomography of the chest with contrast. Radiation optimization: All CT scans at this facility use at least one of these dose optimization techniques: automated exposure control; mA and/or kV adjustment per patient size (includes targeted exams where dose is matched to clinical indication); or iterative reconstruction. Contrast material: ISOVUE; Contrast volume: 75 ml; Contrast route: IV; COMPARISON: CT CHEST W CON 09/24/2020 1:57 PM FINDINGS: Lungs: Residual interstitial scarring in the periphery of the right lung. No focal consolidation. Question 7 x 5 mm hazy ground-glass nodular density in the left upper lobe, anterolateral to the hilum series 3, image 38, but no definite nodule is seen on the coronal or sagittal scans and this may be minimal scarring or atelectasis rather than a true nodule. Tiny nodular opacities of 4-6 mm in the periphery of the right lung and periphery of the posterior and lateral left lower lobe, e.g. series 3, images 43-54 on the right, and series 3 images 49-54 on the left, not significantly enlarged in the interval. Calcified right pulmonary granuloma. Pleural spaces: Unremarkable. No significant pleural effusion. No pneumothorax. Heart: The heart is not enlarged. No significant pericardial effusion. Multiple coronary artery calcifications. Mediastinal space: The esophagus is mildly distended with bubbly material throughout which may be due to prominent gastroesophageal reflux during the exam, esophageal dysmotility or occult distal stricture. See sagittal image 54. No significant esophageal dilatation to suggest a high-grade obstruction. Aorta: There is no aortic aneurysm. Multiple calcified atherosclerotic plaques in the aorta. Lymph nodes: Multiple small mediastinal lymph nodes are nonspecific. There are some calcified right mediastinal and hilar nodes.No significantly enlarged noncalcified lymph nodes by short axis criteria. Liver: Calcified hepatic and splenic granulomas. Bones/joints: There are spinal degenerative changes, with multilevel disc narrrowing and spondylosis. Osteopenia. No acute appearing fracture or high-grade listhesis, as visualized. Soft tissues: Some nonspecific bilateral breast calcifications, not accurately characterized on CT. IMPRESSION: 1. Some tiny scattered bilateral pulmonary nodules of 4-7 mm, no significantly enlarged nodules compared with the previous CT from 09/24/2020. If there is no history of known malignancy, for patients at low risk (minimal or absent history of smoking and of other known risk factors), consider CT Chest at 18-24 months. For patients at high risk (history of smoking or of other known risk factors), recommend CT Chest at 18-24 months. (Reference: Hans) 2. The esophagus is mildly distended with bubbly material throughout, a new finding since the prior study. Differential would include prominent GE reflux during the exam, esophageal dysmotility, or occult distal esophageal stricture. No high-grade obstruction/dilatation seen. 3. Tiny non-specific mediastinal lymph nodes, chronic granulomatous changes. 4. Coronary artery disease. 5. Additional nonemergency and chronic findings as above. REFERENCES: Hans Miller, et al. Guidelines for Management of Incidental Pulmonary Nodules Detected on CT Images: From the Fleischner Society 2017. Radiology. 2017;284(1):228-243.
[2021-07-29 14:12] LABS: Blood Urea Nitrogen 16 mg/dl (7-17); Estimated Glomerular Filt Rate 62 ml/min (>60); GFR (African American) 75 ML/MIN (>60)
== END ==
PROVIDERS: Nurse Practitioner Family; PCP Emergency Medicine; Visit Provider Internal Medicine Medical Oncology
DX: R91.1 Solitary pulmonary nodule (principal); D64.9 Anemia, unspecified
CPT/HCPCS: 36415; 71260; 82565; 84520; Q9967

== ENCOUNTER → 2021-10-08 14:07 | Outpatient (CLI) | payer MEDICARE, MEDICAID, SELFPAY ==
[2021-10-08 15:10] LABS: Basophils # 0.1 K/mm3 (0-0.2); Basophils % 0.7 % (0.1-2.0); Eosinophils # 0.3 K/mm3 (0.0-0.4); Eosinophils % 3.4 % (0.1-12.0); Hematocrit 47.7 % (37.0-47.0); Hemoglobin 14.9 g/dL (12.2-16.2); Lymphocytes % 25.9 % (10-50); Mean Corpuscular HGB Conc 31.1 g/dL (31.8-35.4); Mean Corpuscular Hemoglobin 29.9 pg (27.0-31.2); Mean Corpuscular Volume 96.1 fl (81-99); Mean Platelet Volume 7.8 fl (7.4-10.4); Monocytes # 0.4 K/mm3 (0.1-1.0); Monocytes % 4.7 % (1.7-9.3); Neutrophils % 65.3 % (37.0-80.0); Platelet Count 172 K/mm3 (142-424); Red Blood Count 4.97 M/mm3 (4.20-5.40); White Blood Count 7.7 K/mm3 (4.8-10.8)
[2021-10-08 15:22] LABS: Iron 109 ug/dL (37-170)
[2021-10-08 15:31] LABS: Total Iron Binding Capacity 365 ug/dL (265-497)
[2021-10-08 15:58] LABS: Ferritin 23.9 ng/ml (11.1-264)
== END ==
PROVIDERS: Visit Provider Internal Medicine Medical Oncology
DX: D64.9 Anemia, unspecified (principal)
CPT/HCPCS: 36415; 82728; 83540; 83550; 85025

== ENCOUNTER → 2021-10-19 12:30 | Day surgery (SDC) | payer MEDICARE, MEDICAID, SELFPAY | PROVIDERS: PCP Emergency Medicine; Visit Provider Surgery | PROC: 0DJ08ZZ Inspection of Upper Intestinal Tract, Via Natural or Artificial Opening Endoscopic (ICD-10-PCS; CPT 43235; principal; 2021-10-19 14:00) | DX: Z53.09 Procedure and treatment not carried out because of other contraindication (principal) ==

== ENCOUNTER → 2021-10-22 10:20 | Outpatient (CLI) | payer MEDICARE, MEDICAID, SELFPAY ==
[2021-10-22 11:05] LABS: Basophils # 0.1 K/mm3 (0-0.2); Eosinophils # 0.2 K/mm3 (0.0-0.4); Eosinophils % 3.7 % (0.1-12.0); Hematocrit 50.2 % (37.0-47.0); Hemoglobin 15.5 g/dL (12.2-16.2); Lymphocytes # 1.3 K/mm3 (0.7-4.5); Lymphocytes % 22.8 % (10-50); Mean Corpuscular HGB Conc 30.9 g/dL (31.8-35.4); Mean Platelet Volume 8.5 fl (7.4-10.4); Monocytes # 0.2 K/mm3 (0.1-1.0); Monocytes % 3.4 % (1.7-9.3); Neutrophils % 69.1 % (37.0-80.0); Platelet Count 214 K/mm3 (142-424); Red Blood Count 5.18 M/mm3 (4.20-5.40); Red Cell Distribution Width 14.4 % (11.5-17.5); White Blood Count 5.8 K/mm3 (4.8-10.8)
[2021-10-22 11:40] LABS: Iron 112 ug/dL (37-170)
[2021-10-22 11:49] LABS: Total Iron Binding Capacity 356 ug/dL (265-497)
[2021-10-22 12:17] LABS: Ferritin 31.6 ng/ml (11.1-264)
== END ==
PROVIDERS: Visit Provider Internal Medicine Medical Oncology
DX: D50.9 Iron deficiency anemia, unspecified (principal)
CPT/HCPCS: 36415; 82728; 83540; 83550; 85025

== ENCOUNTER → 2021-10-25 07:35 | Outpatient (CLI) | payer MEDICARE, MEDICAID, SELFPAY ==
--- NOTE | 2021-10-25 07:39 | FL_ITS ---
FINAL REPORT CLINICAL HISTORY: . swallowing diff 1.23 fluoro time FINDINGS: ESOPHAGRAM HISTORY: Abdominal pain, nausea. PROCEDURE: The patient ingested barium. Effervescent crystals were also administered. Spot and overhead films were obtained. FINDINGS: There is no hiatal hernia. There is moderate esophageal dysmotility. A 13 mm barium tablet was administered which is briefly delayed in passage at the gastroesophageal junction. This does pass with repeated swallows . IMPRESSION: Moderate esophageal dysmotility. Brief delay in passage of a 13 mm barium tablet which does eventually pass.. Reviewed, Interpreted and Dictated by Donald Doss III, MD Transcribed by VALERIY Chong Authenticated by Donald Doss III, MD on 10/25/2021 12:02:17 PM [facility]
== END ==
PROVIDERS: PCP Emergency Medicine; Visit Provider Otolaryngology
DX: R13.10 Dysphagia, unspecified (principal)
CPT/HCPCS: 74220

== ENCOUNTER 2021-12-13 09:39 | Outpatient (RCR) | payer MEDICARE, MEDICAID, SELFPAY ==
--- NOTE | 2021-12-13 11:22 | HMH.SLDYSPHA ---
Speech & Language Evaluation Speech/Language Dysphagia Evaluation Start: 12/13/21 10:50 Freq: ONCE Status: Active Protocol: Document 12/13/21 10:50 LETICIA (Rec: 12/13/21 11:22 LETICIA [id number]) Dysphagia Assess/Goals/Plan Assessment Date of Evaluation: 12/13/21 Evaluation Type Initial Certification Assessment/Problems Dysphagia Does Patient Qualify for Service No Qualify/Failure Comment Based on the results of today' s assessment, Kimmie does not qualify for skilled speech therapy services at this time. Recommendations PHYSICIAN CERTIFICATION: The specified therapy services are required, authorized, and reviewed every 30 days. Diet Recommendations Normal Liquid Type Recommendations Normal/Thin SL Swallow Guidelines Standard Aspiration Prec. Dysphagia Swallow Precautions/Strategies Sitting Upright (90 deg),Small Bites and Sips,Alternate Liquids/Solids Additional Consults Recommended Other Comment GI consult Plan Pt/Guardian verbally ack understanding Yes of dx/prognosis/goals Pt/Guardian verbally ack understanding Yes of/consent to tx prog G -code Required No Education Instructions provided Assessment results and diet recommendations discussed with patient who expressed understanding. Pt/Caregiver able to recall information Able to recall/restate Reinforcement needed Yes Speech & Language HPI History Present Illness Description of Patient Problem Dysphagia Pt/Caregiver Concerns Patient reports food is getting stuck while eating and drinking. Rehab Services Assessed Speech therapy Is this evaluation r/t stroke? No Language Primary Language Wallisian General Information General Current Food Consistancy Regular,Thin Liquids Oxygen Status Room Air Facial Symmetry Symmetrical Patient Orientation Person,Place,Time,Situation Ability to Follow Directions Excellent Communication Ability No Impairment Dysphagia:Food Presentation Evaluation Food Type Pureed,Mechanical Soft,Regular ,Liquid Dysphagia Evaluation Summary Clinical swallow evaluation completed to analyze and assess oropharyngeal swallow. Patient trialed thin liquids via cup and straw, applesauce, cereal bar, and brianna
== END 2021-12-13 09:40 | disposition home or self-care (01) ==
LOC: ST 09:39
PROVIDERS: PCP Emergency Medicine; Visit Provider Otolaryngology
DX: R13.10 Dysphagia, unspecified (principal)
CPT/HCPCS: 92610

== ENCOUNTER → 2022-05-13 12:20 | Outpatient (CLI) | payer MEDICARE, MEDICAID, SELFPAY ==
--- NOTE | 2022-05-13 12:27 | XR_ITS ---
FINAL REPORT CLINICAL HISTORY: PAIN,ANEMIA FINDINGS: SACRUM COCCYX 3 views demonstrate no acute fracture or dislocation. The sacral arches are intact. There is evidence of bilateral hip arthroplasty. There are mild hypertrophic changes along the inferior aspect of the SI joints. No soft tissue abnormality is seen. IMPRESSION: Mild hypertrophic change at the inferior aspect of the SI joints. Reviewed, Interpreted and Dictated by Austin Garrett MD Transcribed by Richie Robertson Authenticated and [facility]
[2022-05-13 13:06] LABS: Basophils # 0.1 K/mm3 (0-0.2); Eosinophils # 0.2 K/mm3 (0.0-0.4); Eosinophils % 3.9 % (0.1-12.0); Hematocrit 48.9 % (37.0-47.0); Lymphocytes # 1.5 K/mm3 (0.7-4.5); Lymphocytes % 25.6 % (10-50); Mean Corpuscular HGB Conc 30.7 g/dL (31.8-35.4); Mean Corpuscular Hemoglobin 29.9 pg (27.0-31.2); Mean Corpuscular Volume 97.5 fl (81-99); Mean Platelet Volume 8.3 fl (7.4-10.4); Monocytes # 0.3 K/mm3 (0.1-1.0); Neutrophils # 3.9 K/mm3 (1.8-7.8); Neutrophils % 64.6 % (37.0-80.0); Platelet Count 172 K/mm3 (142-424); Red Blood Count 5.01 M/mm3 (4.20-5.40); Red Cell Distribution Width 14.6 % (11.5-17.5)
[2022-05-13 14:13] LABS: Potassium 5.2 mmoL/L (3.5-5.1); Sodium 140 mmol/L (136-145)
[2022-05-13 14:15] LABS: Alanine Aminotransferase 25 U/L (12-78); Aspartate Amino Transferase 29 U/L (14-36); Blood Urea Nitrogen 14 mg/dl (7-17); Estimated Glomerular Filt Rate 55 ml/min (>60); GFR (African American) 66 ML/MIN (>60)
[2022-05-13 14:16] LABS: Albumin Level 3.6 g/dl (3.5-5.0); Albumin/Globulin Ratio 1.3 (1.1-1.8); Alkaline Phosphatase 122 U/L (38-126); Bilirubin,Total < 0.1 mg/dl (0.2-1.3); Calcium 8.6 mg/dl (8.4-10.2); Carbon Dioxide 30 mmol/L (22.0-30.0); Globulin 2.8 g/dL (1.3-3.2); Glucose 314 mg/dl (74-100); Iron 98 ug/dL (37-170); Total Protein,Serum 6.4 g/dl (6.3-8.2)
[2022-05-13 14:25] LABS: Total Iron Binding Capacity 335 ug/dL (265-497)
[2022-05-13 14:51] LABS: Ferritin 20.8 ng/ml (11.1-264)
[2022-05-13 15:11] LABS: Anion Gap 14.2 mEq/L (5-15); Chloride 101 mmol/L (98-107)
== END ==
PROVIDERS: PCP Emergency Medicine; Visit Provider Internal Medicine Medical Oncology
DX: D50.9 Iron deficiency anemia, unspecified (principal)
CPT/HCPCS: 36415; 72220; 80053; 82728; 83540; 83550; 85025

== ENCOUNTER → 2022-11-21 11:26 | Outpatient (CLI) | payer MEDICARE, MEDICAID, SELFPAY ==
[2022-11-21 12:10] LABS: Basophils # 0.1 K/mm3 (0-0.2); Eosinophils # 0.1 K/mm3 (0.0-0.4); Eosinophils % 1.3 % (0.1-12.0); Hematocrit 51.2 % (37.0-47.0); Hemoglobin 15.3 g/dL (12.2-16.2); Lymphocytes # 1.7 K/mm3 (0.7-4.5); Lymphocytes % 18.6 % (10-50); Mean Corpuscular HGB Conc 29.8 g/dL (31.8-35.4); Mean Corpuscular Hemoglobin 29.5 pg (27.0-31.2); Mean Corpuscular Volume 98.7 fl (81-99); Mean Platelet Volume 8.1 fl (7.4-10.4); Monocytes # 0.4 K/mm3 (0.1-1.0); Monocytes % 3.9 % (1.7-9.3); Neutrophils # 6.9 K/mm3 (1.8-7.8); Neutrophils % 75.1 % (37.0-80.0); Platelet Count 208 K/mm3 (142-424); Red Blood Count 5.18 M/mm3 (4.20-5.40); Red Cell Distribution Width 14.6 % (11.5-17.5); White Blood Count 9.2 K/mm3 (4.8-10.8)
[2022-11-21 15:17] LABS: Iron 93 ug/dL (37-170)
[2022-11-21 15:41] LABS: Total Iron Binding Capacity 325 ug/dL (265-497)
[2022-11-21 15:54] LABS: Ferritin 24.7 ng/ml (11.1-264)
== END ==
PROVIDERS: PCP Emergency Medicine; Visit Provider Internal Medicine Medical Oncology
DX: D50.9 Iron deficiency anemia, unspecified (principal)
CPT/HCPCS: 36415; 82728; 83540; 83550; 85025

== ENCOUNTER 2023-01-05 08:06 | Emergency (ER) | payer MEDICARE, MEDICAID, SELFPAY ==
[2023-01-05] VITALS (13 sets, daily range): BP systolic 107–161; BP diastolic 54–83; PULSE 59–68; RESP 16–22; TEMP 36.6; O2SAT 90–93; BMI 29.8
--- NOTE | 2023-01-05 08:12 | CT_ITS ---
FINAL REPORT CLINICAL HISTORY: fall, abd pain FINDINGS: CT OF THE ABDOMEN AND PELVIS WITH CONTRAST Axial CT images of the abdomen and pelvis were obtained after the administration of oral and iv contrast. Coronal reformatted images were also obtained and reviewed.This study was performed with techniques to keep radiation doses as low as reasonably achievable (ALARA). Individualized dose reduction techniques using automated exposure control or adjustment of mA and/or kV according to the patient's size were employed. Abdomen: The liver has an unremarkable appearance, without evidence of mass. There is mild biliary ductal dilatation. The patient is status post cholecystectomy. The spleen is unremarkable. No adrenal mass is present. The pancreas has an unremarkable appearance. A small cyst is seen in the lower pole of the right kidney. The aorta is normal in caliber. Moderate vascular calcifications are noted. There is no free fluid or adenopathy. No mass or abnormal fluid collection is seen. Pelvis: Postoperative changes in both hips cause streak artifact. The appendix is not well-visualized. The urinary bladder is unremarkable. No inflammatory process is seen. There is no evidence of mass or adenopathy. There is no evidence of bowel obstruction. IMPRESSION: No evidence of acute intra-abdominal process. Reviewed, Interpreted and Dictated by Donald Doss III, MD Transcribed by Maddi Menjivar Authenticated and [facility]
--- NOTE | 2023-01-05 08:12 | CT_ITS ---
FINAL REPORT TECHNIQUE: Then section axial CT images of the chest were obtained with contrast. Three-D reformatted images were also obtained.This study was performed with techniques to keep radiation doses as low as reasonably achievable (ALARA). Individualized dose reduction techniques using automated exposure control or adjustment of mA and/or kV according to the patient''s size were employed. CLINICAL HISTORY: fall, CP, SOA COMPARISON: 09/24/2020 FINDINGS: There is no evidence of pulmonary embolism. There is no evidence of thoracic aortic aneurysm or dissection. There is mild medial and hilar adenopathy which is nonspecific but favored to be reactive. There is no evidence of pulmonary mass or suspicious nodule. There is mild bibasilar scarring or atelectasis. No pneumothorax is identified. There are left lateral 4th, 5th, 6th, 7th, and 8th rib fractures which appear to be acute. There is a subacute left 9th rib fracture. IMPRESSION: No evidence of pulmonary embolism. Acute left 4th, 5th, 6th, 7th, and 8th lateral rib fractures with a subacute left 9th rib fracture No pneumothorax. Reviewed, Interpreted and Dictated by Donald Doss III, MD Transcribed by Maddi Menjivar Authenticated and [facility]
--- NOTE | 2023-01-05 08:12 | CT_ITS ---
FINAL REPORT CLINICAL HISTORY: fall, neck pain FINDINGS: Axial CT images of the cervical spine were obtained without contrast. Sagittal and coronal reformatted images were also obtained. This study was performed with techniques to keep radiation doses as low as reasonably achievable (ALARA). Individualized dose reduction techniques using automated exposure control or adjustment of mA and/or kV according to the patient''s size were employed. Motion on some of the images decreases the sensitivity of the exam. There is no evidence of fracture or dislocation. The bony alignment is normal. There are [id number] degenerative changes. Multilevel osteophytes are noted. There is no evidence of canal stenosis. No paraspinous soft tissue abnormality is seen. IMPRESSION: No fracture or acute bony abnormality identified. Reviewed, Interpreted and Dictated by Donald Doss III, MD Transcribed by Maddi Menjivar Authenticated and [facility]
--- NOTE | 2023-01-05 08:12 | CT_ITS ---
FINAL REPORT CLINICAL HISTORY: fall, back pain FINDINGS: Axial CT images of the thoracic spine were obtained without contrast. Sagittal and coronal reformatted images were also obtained. This study was performed with techniques to keep radiation doses as low as reasonably achievable (ALARA). Individualized dose reduction techniques using automated exposure control or adjustment of mA and/or kV according to the patient''s size were employed. There is a mild T3 compression fracture of uncertain age. No other fracture is identified. Multilevel moderate degenerative changes are seen. There is mild rightward curvature of the midthoracic spine. There is no evidence of significant canal stenosis. No paraspinous soft tissue abnormality is identified. Scarring or atelectasis is noted in the lung bases. IMPRESSION: Mild T3 compression fracture of uncertain age. No significant central canal stenosis. Reviewed, Interpreted and Dictated by Donald Doss III, MD Transcribed by Maddi Menjivar Authenticated and . [facility]
--- NOTE | 2023-01-05 08:12 | CT_ITS ---
FINAL REPORT CLINICAL HISTORY: fall, back pain FINDINGS: Axial imaging of the lumbar spine was obtained without contrast. Sagittal and coronal reformatted images were also obtained and reviewed.This study was performed with techniques to keep radiation doses as low as reasonably achievable (ALARA). Individualized dose reduction techniques using automated exposure control or adjustment of mA and/or kV according to the patient''s size were employed. There are moderate L1 and L4 compression fractures of uncertain age but favored to be chronic. No other fracture is identified. The vertebral alignment is normal. Moderate degenerative changes are noted. There is multilevel neural foraminal narrowing, greatest at L4-5. There is mild central canal stenosis at L3-4 and L4-5. IMPRESSION: Moderate L1 and L4 compression fractures of uncertain age but favor chronic. If indicated, MR could further evaluate. Reviewed, Interpreted and Dictated by Donald Doss III, MD Transcribed by Maddi Menjivar Authenticated and [facility]
--- NOTE | 2023-01-05 08:12 | CT_ITS ---
FINAL REPORT CLINICAL HISTORY: fall, GONZALEZ FINDINGS: Axial images of the head were obtained without contrast. Coronal reformatted images were also obtained. This study was performed with techniques to keep radiation doses as low as reasonably achievable (ALARA). Individualized dose reduction techniques using automated exposure control or adjustment of mA and/or kV according to the patient''s size were employed. There is generalized age-appropriate atrophy. Periventricular low-attenuation areas are seen consistent with moderate chronic ischemic changes. There is no evidence of intracranial hemorrhage or mass. There is no evidence of acute infarct. There is no evidence of shift of the midline structures. No skull abnormality is seen on the bone window images. There is a retention cyst or polyp in the right maxillary sinus. There is mild mucosal thickening throughout the paranasal sinuses. IMPRESSION: Atrophy and moderate periventricular chronic ischemic changes. No acute intracranial abnormality identified. Reviewed, Interpreted and Dictated by Donald Doss III, MD Transcribed by Maddi Menjivar Authenticated and [facility]
--- NOTE | 2023-01-05 08:20 | HMH.EDGENADL ---
Discharge Plan Disposition Patient Disposition: Xfer Short-Term Hosp Condition: Fair Chief Complaint: PAIN Prescriptions Prescriptions: No Action sertraline 100 mg tablet 100 mg PO DAILY diphenhydramine HCl [Banophen] 25 mg capsule 25 mg PO Q6H PRN (Reason: allergies) ondansetron HCl 4 mg tablet 4 mg PO Q6H PRN metformin 1,000 mg tablet 1,000 mg PO BID montelukast [Singulair] 10 mg tablet 10 mg PO HS omeprazole 40 mg capsule,delayed release(DR/EC) 40 mg PO DAILY oxybutynin chloride 5 mg tablet 5 mg PO DAILY amlodipine [Norvasc] 10 mg tablet 10 mg PO DAILY aspirin 325 mg tablet 325 mg PO DAILY cetirizine [Zyrtec] 10 mg tablet 5 mg PO DAILY polyethylene glycol 3350 [Gavilax] 17 gram powder in packet 17 g PO BID loperamide 2 mg capsule 2 mg PO Q4H PRN (Reason: Diarrhea) Rx Instructions: administer after each loose stool until symptoms controlled; do not exceed 8 mg per 24 hrs aripiprazole 30 mg tablet 30 mg PO DAILY Myrbetriq 50 mg tablet extended release 24 hr 50 mg PO mupirocin 2 % ointment topical melatonin 5 mg tablet 5 mg PO HS mirtazapine 30 mg tablet 30 mg PO HS lorazepam 1 mg tablet 1 mg PO Q6H PRN (Reason: anxiety) Qty: 120 2RF acetaminophen 500 mg tablet 500 mg PO Q4-6H PRN (Reason: pain) Qty: 90 3RF furosemide 20 mg tablet See Rx Instructions .ROUTE .COMPLEX Qty: 30 11RF Dose Instruction: TAKE 1 TABLET BY MOUTH ONCE DAILY Rx Instructions: TAKE 1 TABLET BY MOUTH ONCE DAILY gabapentin 600 mg tablet 600 mg PO BID Qty: 60 5RF hydrocodone-acetaminophen 10-325 mg tablet 1 tab PO BID Qty: 60 0RF isosorbide mononitrate 30 MG tablet extended release 24 hr 30 mg PO DAILY ferrous sulfate 325 MG tablet 325 mg PO DAILY Rx Instructions: TAKE 1 TABLET BY MOUTH TWICE DAILY FOR ANEMIA Referrals Follow up/Referrals: Raymundo Romero MD [Primary Care Provider] - See instructions Clinical Impressions Clinical Impression: Multiple rib fractures involving four or more ribs, Compression fx, thoracic spine, Compression fracture of lumbosacral spine Print Language Print Language: Singaporean Discharge ED Provider: Krystian Lalfeur General Adult HPI General Chief complaint: PAIN Stated complaint: fall Time Seen by Provider: 01/05/23 12:19 Mode of Arrival: EMS Source of Information: Patient and EMS Limitations: No Limitations Description of Symptoms (Recalled from ER Triage Doc. by RN): 72 yo F presents from [facility] for continued pain from fall that occured on monday. pt states that she simply tripped over something on monday. pt reports continued pain since the fall. pain in left lung, headache. History of Present Illness HPI narrative: Patient presents to the emergency department after reportedly falling on Monday. The patient states that she slipped on a wet surface and fell to the ground. She states that she hit her head but did not lose consciousness. She comes in complaining of headache, neck pain, chest pain, shortness of breath and back pain. The patient otherwise has poor recollection of the event. Denies any numbness, tingling or weakness in any of her arms or legs. States that she has been having nosebleeds and is on a blood thinner but is unsure of which one. Related Data Home Medications Medication Instructions Recorded Confirmed amlodipine 10 mg tablet (Norvasc) 10 mg PO DAILY Hypertension 09/17/19 11/21/22 aspirin 325 mg tablet 325 mg PO DAILY HEART HEALTH 09/17/19 11/21/22 cetirizine 10 mg tablet (Zyrtec) 5 mg PO DAILY Allergy symptoms 09/17/19 11/21/22 metformin 1,000 mg tablet 1,000 mg PO BID Diabetes 09/17/19 11/21/22 montelukast 10 mg tablet 10 mg PO HS Allergy symptoms 09/17/19 11/21/22 (Singulair) omeprazole 40 mg capsule,delayed 40 mg PO DAILY GERD 09/17/19 11/21/22 release oxybutynin chlori
--- NOTE | 2023-01-05 08:25 | ECG_ITS ---
APPROVED REPORT Exam: Resting ECG HR:63 bpm ECG Measurements Heart Rate 63 AXES IL 176 P 45 QRSd 102 QRS -6 QT 442 T 34 QTc 449 Conclusion SINUS RHYTHM SEPTAL MYOCARDIAL INFARCTION , PROBABLY OLD [40+ ms Q WAVE IN V1/V2] ABNORMAL ECG UNCONFIRMED REPORT Electronically signed by : Hardeep Navarro MD 01/05/2023 21:39:17
[2023-01-05 08:51] LABS: Basophils # 0.1 K/mm3 (0-0.2); Basophils % 0.6 % (0.1-2.0); Eosinophils # 0.2 K/mm3 (0.0-0.4); Eosinophils % 2.9 % (0.1-12.0); Hematocrit 44.4 % (37.0-47.0); Hemoglobin 14.1 g/dL (12.2-16.2); Lymphocytes # 1.7 K/mm3 (0.7-4.5); Lymphocytes % 20.5 % (10-50); Mean Corpuscular HGB Conc 31.9 g/dL (31.8-35.4); Mean Corpuscular Volume 97.2 fl (81-99); Mean Platelet Volume 8.1 fl (7.4-10.4); Monocytes # 0.4 K/mm3 (0.1-1.0); Neutrophils # 5.7 K/mm3 (1.8-7.8); Neutrophils % 71.1 % (37.0-80.0); Platelet Count 233 K/mm3 (142-424); Red Blood Count 4.56 M/mm3 (4.20-5.40); Red Cell Distribution Width 14.2 % (11.5-17.5); White Blood Count 8.1 K/mm3 (4.8-10.8)
--- NOTE | 2023-01-05 08:55 | PC.NURSE ---
fentanyl 250mcg/5ml unable to scan, verified medication admin and vial with nerissa nicholson
[2023-01-05 09:05] LABS: Alanine Aminotransferase 22 U/L (12-78); Albumin Level 3.5 g/dl (3.5-5.0); Albumin/Globulin Ratio 1.1 (1.1-1.8); Alkaline Phosphatase 110 U/L (38-126); Aspartate Amino Transferase 24 U/L (14-36); Bilirubin,Total 0.3 mg/dl (0.2-1.3); Blood Urea Nitrogen 22 mg/dl (7-17); Calcium 8.3 mg/dl (8.4-10.2); Carbon Dioxide 28 mmol/L (22.0-30.0); Chloride 100 mmol/L (98-107); Creatinine Clearance Estimated 76 mL/min (50-200); Estimated Glomerular Filt Rate 62 ml/min (>60); GFR (African American) 74 ML/MIN (>60); Globulin 3.2 g/dL (1.3-3.2); Glucose 263 mg/dl (74-100); Sodium 139 mmol/L (136-145); Total Protein,Serum 6.7 g/dl (6.3-8.2)
[2023-01-05 09:24] LABS: Troponin I < 0.01 ng/ml (0.00-0.034)
--- NOTE | 2023-01-05 11:49 | PC.NURSE ---
SPOKE WITH [facility] REGARDING TRANSFER TO [facility] THEY ARE GONNA CALL US BACK . [facility] HAVE BEEN POWER SHARED TO [facility]
--- NOTE | 2023-01-05 12:12 | PC.NURSE ---
DR ALBRIGHT SPEAKING WITH [facility] TRAUMA TEAM
--- NOTE | 2023-01-05 12:33 | PC.NURSE ---
[facility] CALLED TO FILL OUT TRANSPORT PAPERWORK
--- NOTE | 2023-01-05 13:11 | PC.NURSE ---
EMS HERE TO TRANSPORT TO [facility]
== END 2023-01-05 13:31 | disposition short-term general hospital (02) ==
PROVIDERS: Emergency Provider Emergency Medicine; PCP Emergency Medicine
DX: S22.42XA Multiple fractures of ribs, left side, initial encounter for closed fracture (principal); S32.010A Wedge compression fracture of first lumbar vertebra, initial encounter for closed fracture; S32.040A Wedge compression fracture of fourth lumbar vertebra, initial encounter for closed fracture; S22.030A Wedge compression fracture of third thoracic vertebra, initial encounter for closed fracture; R51.9 Headache, unspecified; F17.210 Nicotine dependence, cigarettes, uncomplicated; W01.0XXA Fall on same level from slipping, tripping and stumbling without subsequent striking against object, initial encounter
CPT/HCPCS: 70450; 71275; 72125; 72128; 72131; 74177; 80053; 84484; 85025; 93005; 96361; 96374; 99285; Q9967

== ENCOUNTER 2023-04-02 10:16 | Inpatient (IN) | payer MEDICAID, MEDICARE, SELFPAY ==
[2023-04-02 10:17] VITALS: BP 117/78; PULSE 78; RESP 20; TEMP 37.4; O2SAT 89; BMI 27.1
--- NOTE | 2023-04-02 10:29 | PC.NURSE ---
ED MD AT BEDSIDE
[2023-04-02 10:36] VITALS: BP 129/67; PULSE 81; RESP 18; O2SAT 95
[2023-04-02 10:47] VITALS: BP 123/53; PULSE 66; RESP 20; O2SAT 93
--- NOTE | 2023-04-02 10:47 | CT_ITS ---
PROCEDURE INFORMATION: Exam: CT Abdomen And Pelvis With Contrast Exam date and time: 04/02/2023 12:05 PM Age: 72 years old Clinical indication: Abdominal pain; Generalized; Additional info: Diffuse abdominal pain, diarrhea TECHNIQUE: Imaging protocol: Computed tomography of the abdomen and pelvis with contrast. Radiation optimization: All CT scans at this facility use at least one of these dose optimization techniques: automated exposure control; mA and/or kV adjustment per patient size (includes targeted exams where dose is matched to clinical indication); or iterative reconstruction. Contrast material: ISOVUE; Contrast volume: 75 ml; Contrast route: IV; REPORTING DATA: Count of CT and Cardiac NM exams in prior 12 months: This patient has received 6 known CTs and 0 known cardiac nuclear medicine studies in the 12 months prior to the current study. COMPARISON: CT ABDOMEN PELVIS W CON 01/05/2023 9:41 AM FINDINGS: Lungs: [address] dependent interstitial change is noted in the lower lobes with streaky lingular atelectasis. Liver: Normal. No mass. Gallbladder and bile ducts: Surgical clips are noted in the gallbladder fossa. Pancreas: Normal. No ductal dilation. Spleen: Normal. No splenomegaly. Adrenal glands: Normal. No mass. Kidneys and ureters: The kidneys enhance symmetrically and there is no evidence for hydronephrosis. Extensive multifocal renal cortical scarring is noted. Stomach and bowel: Dilated loops of small bowel are noted to the right lower quadrant where there is a transition to normal caliber at the level of the terminal ileum see axial series 3, image 81. Liquid stool is noted in the relatively contracted colon. Appendix: No evidence of appendicitis. Intraperitoneal space: There is small ascites. Vasculature: Unremarkable. No abdominal aortic aneurysm. Lymph nodes: Unremarkable. No enlarged lymph nodes. Urinary bladder: The urinary bladder is obscured by beam hardening artifact related to indwelling orthopedic hardware. Reproductive: Unremarkable as visualized. Bones/joints: The patient is post bilateral total hip arthroplasty. Degenerative changes are noted in the bones. Soft tissues: Unremarkable. IMPRESSION: Small bowel obstruction. Small ascites. Renal cortical scarring. THIS REPORT CONTAINS FINDINGS THAT MAY BE CRITICAL TO PATIENT CARE. The findings were verbally communicated via telephone conference with Benjamin Whittaker at 12:48 PM EDT on 04/02/2023. The findings were acknowledged and understood.
[2023-04-02 10:54] LABS: Basophils % 0.5 % (0.1-2.0); Eosinophils # 0.4 K/mm3 (0.0-0.4); Hematocrit 48.7 % (37.0-47.0); Lymphocytes # 1.5 K/mm3 (0.7-4.5); Lymphocytes % 17.1 % (10-50); Mean Corpuscular HGB Conc 30.8 g/dL (31.8-35.4); Mean Corpuscular Hemoglobin 29.4 pg (27.0-31.2); Mean Corpuscular Volume 95.4 fl (81-99); Mean Platelet Volume 8.5 fl (7.4-10.4); Monocytes # 0.4 K/mm3 (0.1-1.0); Neutrophils # 6.5 K/mm3 (1.8-7.8); Neutrophils % 73.4 % (37.0-80.0); Platelet Count 180 K/mm3 (142-424); Red Blood Count 5.11 M/mm3 (4.20-5.40); Red Cell Distribution Width 14.8 % (11.5-17.5); White Blood Count 8.8 K/mm3 (4.8-10.8)
[2023-04-02 10:58] LABS: Alanine Aminotransferase 40 U/L (12-78); Albumin Level 3.6 g/dl (3.5-5.0); Albumin/Globulin Ratio 1.1 (1.1-1.8); Alkaline Phosphatase 125 U/L (38-126); Anion Gap 10.5 mEq/L (5-15); Aspartate Amino Transferase 41 U/L (14-36); Bilirubin,Total 0.6 mg/dl (0.2-1.3); Blood Urea Nitrogen 22 mg/dl (7-17); Calcium 8.7 mg/dl (8.4-10.2); Carbon Dioxide 25 mmol/L (22.0-30.0); Chloride 107 mmol/L (98-107); Creatinine Clearance Estimated 69 mL/min (50-200); Estimated Glomerular Filt Rate 55 ml/min (>60); GFR (African American) 66 ML/MIN (>60); Globulin 3.3 g/dL (1.3-3.2); Glucose 218 mg/dl (74-100); Lipase 42 U/L (23-300); Potassium 4.5 mmoL/L (3.5-5.1); Sodium 138 mmol/L (136-145); Total Protein,Serum 6.9 g/dl (6.3-8.2)
--- NOTE | 2023-04-02 11:27 | XR_ITS ---
PROCEDURE INFORMATION: Exam: XR Chest Exam date and time: 04/02/2023 11:51 AM Age: 72 years old Clinical indication: Shortness of breath; Additional info: SOA TECHNIQUE: Imaging protocol: Radiologic exam of the chest. Views: 1 view. COMPARISON: CT ANGIO CHEST PE PROTOCOL 01/05/2023 9:41 AM FINDINGS: Lungs: There is a 5 mm calcified granuloma in the right upper lobe. No consolidation. Pleural spaces: Unremarkable. No pleural effusion. No pneumothorax. Heart/Mediastinum: Unremarkable. No cardiomegaly. Vasculature: The aorta is tortuous and calcified. Bones/joints: The bones are osteopenic. IMPRESSION: No acute cardiopulmonary disease.
--- NOTE | 2023-04-02 11:51 | PC.NURSE ---
pt to CT
--- NOTE | 2023-04-02 11:53 | PC.NURSE ---
PT TO CT
--- NOTE | 2023-04-02 11:58 | HMH.EDGENADL ---
Discharge Plan Disposition Patient Disposition: Admitted Condition: Fair Clinical Impressions Clinical Impression: Complete obstruction of small intestine Discharge ED Provider: Benjamin Whittaker I General Adult HPI General Chief complaint: Abdominal Pain Stated complaint: abd pain, diarrhea Time Seen by Provider: 04/02/23 10:27 Mode of Arrival: EMS Source of Information: Patient and EMS Limitations: No Limitations Description of Symptoms (Recalled from ER Triage Doc. by RN): pt has been having lower abd pain and diarrhea for last 3 days, pt describes pain as all over that comes up to her stomach, pt has hx of dm and fbs is 192 per ems, pt was 89%-90% on RA and placed on 2L per technology risk intern. History of Present Illness HPI narrative: Patient is a 72-year-old female with history of COPD, not normally on home oxygen, smoking history presenting to the emergency department for a several day history of abdominal pain and diarrhea. History was conducted with the patient at bedside. Patient reports that she has been symptomatic since with generalized diffuse abdominal pain as well as multiple episodes daily of watery nonbloody diarrhea. She reports chills but has not had any documented fevers at home. Denies any worsening cough, congestion, runny nose, has not had any chest pain, shortness of breath or difficulty breathing. She has been nauseous but denies any episodes of vomiting. Related Data Home Medications Medication Instructions Recorded Confirmed amlodipine 10 mg tablet (Norvasc) 10 mg PO DAILY High Blood Pressure 09/17/19 04/02/23 aspirin 325 mg tablet 325 mg PO DAILY Heart Disease 09/17/19 04/02/23 cetirizine 10 mg tablet (Zyrtec) 10 mg PO DAILY Allergy symptoms 09/17/19 04/02/23 metformin 1,000 mg tablet 1,000 mg PO BIDWMEAL Diabetes 09/17/19 04/02/23 montelukast 10 mg tablet 10 mg PO PM Allergy symptoms 09/17/19 04/02/23 (Singulair) omeprazole 40 mg capsule,delayed 40 mg PO DAILY Acid Reflux 09/17/19 04/02/23 release oxybutynin chloride 5 mg tablet 5 mg PO DAILY Bladder 09/17/19 04/02/23 polyethylene glycol 3350 17 gram 17 g PO BIDP PRN Constipation 04/08/20 04/02/23 oral powder packet (Gavilax) diphenhydramine HCl 25 mg capsule 25 mg PO Q6HP PRN Allergy Symptoms 08/04/21 04/02/23 (Banophen) sertraline 100 mg tablet 100 mg PO DAILY mood 08/04/21 04/02/23 ferrous sulfate 325 mg (65 mg 325 mg PO BID Supplement 08/23/21 04/02/23 iron) tablet isosorbide mononitrate 30 mg 30 mg PO DAILY High Blood Pressure 08/23/21 04/02/23 tablet,extended release 24 hr aripiprazole 30 mg tablet 30 mg PO DAILY Mood 10/05/21 04/02/23 mirabegron 50 mg tablet,extended 50 mg PO DAILY Overactive Bladder 12/21/21 04/02/23 release 24 hr (Myrbetriq) ondansetron HCl 4 mg tablet 4 mg PO Q6HP PRN Nausea And 02/02/22 04/02/23 Vomiting melatonin 5 mg tablet 5 mg PO HS Sleep 11/21/22 04/02/23 mirtazapine 30 mg tablet 30 mg PO HS Mood 11/21/22 04/02/23 furosemide 20 mg tablet 20 mg PO DAILY Fluid 04/02/23 04/02/23 loperamide 2 mg capsule 2 mg PO Q4HP PRN Diarrhea 04/02/23 04/02/23 lorazepam 1 mg tablet 1 mg PO Q6HP PRN anxiety 04/02/23 04/02/23 Previous Rx's Medication Instructions Recorded gabapentin 600 mg tablet 600 mg PO BID pain #60 tabs 12/12/22 hydrocodone 10 mg-acetaminophen 1 tab PO BID Pain #60 tabs 03/10/23 325 mg tablet Allergies Allergy/AdvReac Type Severity Reaction Status Date / Time ciprofloxacin [From Cipro] Allergy Mild Verified 01/05/23 08:19 divalproex sodium Allergy Mild Verified 01/05/23 08:19 [From Depakote] ibuprofen Allergy Mild Verified 01/05/23 08:19 latex Allergy Mild Verified 01/05/23 08:19 Sulfa (Sulfonamide Allergy Mild Verified 01/05/23 08:19 Antibiotics) [facility] Disclaimer: The information contained in this section may have been updated after the patient was seen, as this information can be updated by other users. Medical History (Reviewed 11/21/22 @ 10:59 by Lani
--- NOTE | 2023-04-02 12:12 | PC.NURSE ---
RETURNED FROM CT
--- NOTE | 2023-04-02 12:48 | PC.NURSE ---
SARAI Whittaker speaking with DOUGLAS
--- NOTE | 2023-04-02 13:22 | PC.NURSE ---
Pt admitted to room 215 for SBO to . OBS
--- NOTE | 2023-04-02 13:23 | PC.NURSE ---
warehouse sorter notified of admission
--- NOTE | 2023-04-02 13:30 | EXP.HP ---
History of Present Illness *Admission Date: 04/02/23 *Reason for visit:: Nausea and diarrhea *History of present illness: Ms. Taylor is a 72-year-old female who resides at [facility]. She has a history of previous cholecystectomy and appendectomy over 20 years ago. Other history includes schizophrenia, diabetes, constipation, chronic pain, hypertension, COPD, and CHF. She presented to the ER because of 3 days of abdominal pain, distention, diarrhea. Has been accompanied by some nausea but no cindy emesis. Describes the pain throughout her abdomen. Stools described as loose and watery. In the ER, work-up initiated including imaging of her abdomen. CT of abdomen and pelvis revealed small bowel obstruction with numerous dilated loops of small bowel and air-fluid levels. Imaging also consistent with transition zone in right lower quadrant. Remainder of labs were nonactionable at patient's baseline's. Surgery was consulted given concern for small bowel obstruction. Recommended NG placement for decompression. Medicine was consulted for admission. Per chart review, she has previously undergone colonoscopy due to history of anemia. Last colonoscopy with Dr. Vaughan in April 2020 at which time she was found to have moderate prep, multiple complex polyps. Per pathology report, at-least 10 tubular adenomas and recommendations were for repeat colonoscopy in 6 to 12 months. Cannot find record of repeat colonoscopy. she did have an upper endoscopy 1 month prior. She had an upper GI with small bowel follow-through to work-up possible GI source of her anemia on 05/18/2020 which was unremarkable. My evaluation, patient is feeling better after getting to the floor and having an NG placed. Still having bilious to clear output from NG. Bowel sounds active in lower abdomen. Distention noted. Tender to palpation. Of note, concerning for bedbug infestation given her rash. States she has been dealing with bedbugs for a month at her personal-correction. [facility] Disclaimer: The information contained in this section may have been updated after the patient was seen, as this information can be updated by other users. Medical History Chest pain COPD (chronic obstructive pulmonary disease) Dyspnea Edema Palpitations Tobacco dependence syndrome Surgical History H/O breast biopsy Family History Diabetes COPD (chronic obstructive pulmonary disease) Social History Smoking Status: Current every day smoker tobacco type: cigarettes packs per day: 1 alcohol intake: never substance use type: denies use current occupational status: disabled Travel in the last 8 weeks: Inside the [place] household members: caregiver and other housing: assisted living facility current occupational exposures/hazards: No caffeine: Yes Review of Systems Review of Systems Review of systems (narrative): 14 point review of systems performed, pertinent positives and negatives as per HPI Meds Home Medications and Allergies Home Medications Medication Instructions Recorded Confirmed Type amlodipine 10 mg tablet (Norvasc) 10 mg PO DAILY High Blood Pressure 09/17/19 04/02/23 History aspirin 325 mg tablet 325 mg PO DAILY Heart Disease 09/17/19 04/02/23 History cetirizine 10 mg tablet (Zyrtec) 10 mg PO DAILY Allergy symptoms 09/17/19 04/02/23 History metformin 1,000 mg tablet 1,000 mg PO BIDWMEAL Diabetes 09/17/19 04/02/23 History montelukast 10 mg tablet 10 mg PO PM Allergy symptoms 09/17/19 04/02/23 History (Singulair) omeprazole 40 mg capsule,delayed 40 mg PO DAILY Acid Reflux 09/17/19 04/02/23 History release oxybutynin chloride 5 mg tablet 5 mg PO DAILY Bladder 09/17/19 04/02/23 History polyethylene glycol 3350 17 gram 17 g PO BIDP PRN Cons
[2023-04-02 13:32] LABS: Microscopic, Urine URINE MICROSCOPIC (MICROSCOPIC)
[2023-04-02 13:35] LABS: Appearance,Urine CLEAR (Clear); Bilirubin,Urine Negative (Negative); Blood, Urine TRACE-I (Negative); Color,Urine YELLOW (Yellow); Glucose,Urine (UA) Negative (Negative); Ketones,Urine Negative (Negative); Leukocyte Esterase,Urine Negative (Negative); Nitrate,Urine Negative (Negative); Protein,Urine TRACE (Negative); Urobilinogen,Urine 0.2 EU/dl (0.2)
[2023-04-02 13:41] LABS: Hemoglobin A1C 8.8 % (4.0-6.0)
[2023-04-02 13:47] LABS: Bacteria,Urine 1+ /lpf
--- NOTE | 2023-04-02 13:52 | PC.NURSE ---
attempted to place 14g ng tube in left nare per order. tube was in place however pt continued to cough and gag and tube came out mouth so it was removed all together, pt has not actively vomitted since arriving to ER. MS RN made aware of attempt. Report called and all questions answered
[2023-04-02 13:58] VITALS: BP 119/54; PULSE 66; RESP 18; TEMP 36.9; O2SAT 93
--- NOTE | 2023-04-02 14:03 | PC.NURSE ---
pt arrived to floor from ED by stretcher [id number]
[2023-04-02 14:10] VITALS: BP 119/54; PULSE 66; RESP 17; TEMP 37.4; O2SAT 93
[2023-04-02 14:11] VITALS: BMI 28.8
--- NOTE | 2023-04-02 14:21 | PC.NURSE ---
16fr NG placed @ 58 CM to (R) NARE.
--- NOTE | 2023-04-02 14:23 | XR_ITS ---
PROCEDURE INFORMATION: Exam: XR Abdomen Exam date and time: 04/02/2023 2:31 PM Age: 72 years old Clinical indication: Device placement; Gi device; Nasogastric tube; Additional info: Ng placement TECHNIQUE: Imaging protocol: Radiologic exam of the abdomen. Views: Frontal supine view of the abdomen. 1 View. COMPARISON: CT ABDOMEN PELVIS W CON 04/02/2023 12:05 PM FINDINGS: Tubes, catheters and devices: Patient has undergone placement of an NG tube whose tip projects well below the GE junction within the body of the stomach in adequate position. Lungs: Visualized lung bases are clear. Gastrointestinal tract: Normal. No bowel dilation. No significant stool burden. Bones/joints: Unremarkable. IMPRESSION: NG tube tip within the stomach. The
--- NOTE | 2023-04-02 14:33 | P.CONPHA_ITS ---
Pharmacy Intervention Comments: MEDICATION RECONCILIATION COMPLETED ON PATIENT USING MAR FROM [facility]. -COURTNEY WILKINS, JUSTICED
--- NOTE | 2023-04-02 14:33 | HMH.PHAINT1 ---
Pharmacy Intervention Comments: MEDICATION RECONCILIATION COMPLETED ON PATIENT USING MAR FROM [facility]. -COURTNEY WILKINS, JUSTICED
--- NOTE | 2023-04-02 14:46 | EXP.SURG.CON ---
History of Present Illness *Admission Date: 04/02/23 *Reason for visit:: Small bowel obstruction *History of present illness: Patient is a 72-year-old female who is a resident at [facility] with a history of previous cholecystectomy as well as appendectomy through low midline incision about 20 years ago for reported perforated appendicitis. She has a history of COPD, current smoker, anemia, diabetes, schizophrenia, hypertension, aortic valve sclerosis, GERD. She was brought to the emergency department today due to a 3-day history of lower abdominal pain and diarrhea. She describes pain throughout her abdomen with associated watery stools. He apparently has had numerous loose stools. She underwent CT scan of the abdomen and pelvis as part of her work-up which revealed Small bowel obstruction. Small ascites. Renal cortical scarring. It was noted that she had dilated loops of small bowel to the right lower quadrant where there was transition to normal caliber in the distal small bowel and liquid stool noted throughout the colon. Surgery was contacted given these findings and recommendations were for inpatient management. Due to the patient's history of anemia she has undergone colonoscopy with Dr. Vaughan in April 2020 at which time she was found to have moderate prep, multiple complex polyps. Review of the pathology reveals at least 10 tubular adenomas and recommendations were for repeat colonoscopy in 6 to 12 months. She did have an upper endoscopy 1 month prior. She had an upper GI with small bowel follow-through to work-up possible GI source of her anemia on 05/18/2020 which was unremarkable [facility] Disclaimer: The information contained in this section may have been updated after the patient was seen, as this information can be updated by other users. Medical History Chest pain COPD (chronic obstructive pulmonary disease) Dyspnea Edema Palpitations Tobacco dependence syndrome Surgical History H/O breast biopsy Family History (Updated 04/02/23 @ 15:15 by Carmen Jara RN) Diabetes COPD (chronic obstructive pulmonary disease) Social History (Updated 04/02/23 @ 15:17 by Carmen Jara RN) Smoking Status: Current every day smoker tobacco type: cigarettes packs per day: 1 alcohol intake: never substance use type: denies use current occupational status: disabled Travel in the last 8 weeks: [place] the [place] household members: caregiver and other housing: assisted living facility current occupational exposures/hazards: No caffeine: Yes Meds Home Medications and Allergies Home Medications Medication Instructions Recorded Confirmed Type amlodipine 10 mg tablet (Norvasc) 10 mg PO DAILY High Blood Pressure 09/17/19 04/02/23 History aspirin 325 mg tablet 325 mg PO DAILY Heart Disease 09/17/19 04/02/23 History cetirizine 10 mg tablet (Zyrtec) 10 mg PO DAILY Allergy symptoms 09/17/19 04/02/23 History metformin 1,000 mg tablet 1,000 mg PO BIDWMEAL Diabetes 09/17/19 04/02/23 History montelukast 10 mg tablet 10 mg PO PM Allergy symptoms 09/17/19 04/02/23 History (Singulair) omeprazole 40 mg capsule,delayed 40 mg PO DAILY Acid Reflux 09/17/19 04/02/23 History release oxybutynin chloride 5 mg tablet 5 mg PO DAILY Bladder 09/17/19 04/02/23 History polyethylene glycol 3350 17 gram 17 g PO BIDP PRN Constipation 04/08/20 04/02/23 History oral powder packet (Gavilax) diphenhydramine HCl 25 mg capsule 25 mg PO Q6HP PRN Allergy Symptoms 08/04/21 04/02/23 History (Banophen) sertraline 100 mg tablet 100 mg PO DAILY mood 08/04/21 04/02/23 History ferrous sulfate 325 mg (65 mg 325 mg PO BID Supplement 08/23/21 04/02/23 History iron) tablet isosorbide mononitrate 30 mg 30 mg PO DAILY High Blood Pressure 08/23/21 04/02/23 History tablet,extended release 24 hr aripiprazole 30 mg tablet 30 mg
--- NOTE | 2023-04-02 15:28 | PC.NURSE ---
PeR MD Ace NG to continuous low wall suction.
--- NOTE | 2023-04-02 16:10 | PC.NURSE ---
Called emergency contact number [phone]. Pt is nolen of [facility]. Spoke with Reva Vallejo. She gives consent for treatment and consent for pictures for Kimmie Taylor.
--- NOTE | 2023-04-02 16:16 | PC.WOUNDNOTE ---
(R) buttock Rash with scabs to BLE Rash with scabs on back
[2023-04-02 16:56] LABS: POC Glucose,Bedside 181 (70-110)
[2023-04-02 20:00] VITALS: BP 141/64; PULSE 69; RESP 18; TEMP 37.1; O2SAT 93
[2023-04-02 23:24] LABS: POC Glucose,Bedside 124 (70-110)
[2023-04-03] VITALS (7 sets, daily range): BP systolic 111–156; BP diastolic 60–79; PULSE 70–89; RESP 16–19; TEMP 36.9–37.8; O2SAT 92–98; BMI 28.1
--- NOTE | 2023-04-03 05:08 | PC.NURSE ---
namrata has rested most of the night. Did have 1 watery BM but it was mixed with urine due to incontinence so we could not use it for a sample. NG had drained 250ML of dark green liquid. Had not had any other issues.
[2023-04-03 05:12] LABS: POC Glucose,Bedside 146 (70-110)
--- NOTE | 2023-04-03 06:14 | EXP.SURG.PN ---
Subjective Narrative: Patient sleeping. Did have liquid stool but unable to send specimen. According to nursing staff patient states that her abdomen feels better. Exam Data for Last 24 hours Vital signs and Labs for Last 24 Hours: Temp Pulse Resp BP Pulse Ox O2 Del Method O2 Flow Rate 98.6 F 89 18 111/67 97 Room Air 4 04/03/23 00:00 04/03/23 00:00 04/03/23 00:00 04/03/23 00:00 04/03/23 00:00 04/03/23 05:00 04/03/23 01:00 Laboratory Results - last 24 hr 04/02/23 10:23: Hemoglobin A1c 8.8 H 04/02/23 10:32: WBC 8.8, RBC 5.11, Hgb 15.0, Hct 48.7 H, MCV 95.4, MCH 29.4, MCHC 30.8 L, RDW 14.8, Plt Count 180, MPV 8.5, Neut % (Auto) 73.4, Lymph % (Auto) 17.1, [place] % (Auto) 5.0, Eos % (Auto) 4.0, Baso % (Auto) 0.5, Neut # (Auto) 6.5, Lymph # (Auto) 1.5, [place] # (Auto) 0.4, Eos # (Auto) 0.4, Baso # (Auto) 0.0, Sodium 138, Potassium 4.5, Chloride 107, Carbon Dioxide 25, Anion Gap 10.5, BUN 22 H, Creatinine 1.00, Estimated Creat Clear 69, Estimated GFR 55 L, Est GFR ( Amer) 66, Glucose 218 H, Lactate 2.0, Calcium 8.7, Total Bilirubin 0.6, AST 41 H, ALT 40, Alkaline Phosphatase 125, Total Protein 6.9, Albumin 3.6, Globulin 3.3 H, Albumin/Globulin Ratio 1.1, Lipase 42 04/02/23 13:22: Urine Color Yellow, Urine Appearance Clear, Urine pH 6.0, Ur Specific [place] 1.010, Urine Protein Trace, Urine Glucose (UA) Negative, Urine Ketones Negative, Urine Blood Trace-i, Urine Nitrate Negative, Urine Bilirubin Negative, Urine Urobilinogen 0.2, Ur Leukocyte Esterase Negative, Urine RBC 3-5, Urine WBC 3-5, Ur Squamous Epith Cells 5-10, Urine Bacteria 1+ 08/13/23 16:44: POC Glucose 181 H 04/02/23 23:17: POC Glucose 124 H 04/03/23 05:04: POC Glucose 146 H I & O for Last 24 hours: Intake & Output 03/31/23 04/01/23 04/02/23 04/03/23 11:59 11:59 11:59 11:59 Intake Total 0 / 0 Output Total 250 / 250 Balance -250 / -250 Weight 189 lb 200 lb 9 oz Constitutional Constitutional: no acute distress Progress Note: A&P Assessment and plan (1) Diabetes 1.5, managed as type 2: Status: Chronic (2) HTN (hypertension): Status: Chronic (3) COPD (chronic obstructive pulmonary disease): Status: Chronic (4) Schizophrenia: Status: Chronic Assessment and Plan Assessment and Plan for All Diagnoses:: Patient does not have evidence of complete obstruction of small intestine . Possible enteritis with ileus versus partial small bowel obstruction. Still awaiting stool studies. I will check an acute abdominal series. If patient remains equivocal may plan for small bowel follow-through when radiology staffing is present.
--- NOTE | 2023-04-03 06:17 | XR_ITS ---
FINAL REPORT CLINICAL HISTORY: ABDOMINAL PAIN, PARTIAL SBO COMPARISON: None FINDINGS: The lungs are grossly clear. There is no evidence of effusion, pneumothorax or other significant pleural disease. The mediastinum is unremarkable. The heart size is normal. There is a nasogastric tube tip in the fundus of the stomach. There are multiple air-filled loops of small bowel., small bowel obstruction distended, worrisome for small bowel obstruction. There is no free intraperitoneal air. There are postoperative changes in the right upper quadrant of the abdomen as well as postoperative changes in the hips compatible with hip arthroplasties. There is degenerative change in the lumbar spine and presumed residual contrast present in the bladder. Reviewed, Interpreted and Dictated by Donald Doss III, MD Transcribed by Arlette Nye Authenticated and [facility]
[2023-04-03 06:22] LABS: Basophils % 0.5 % (0.1-2.0); Eosinophils # 0.4 K/mm3 (0.0-0.4); Eosinophils % 5.1 % (0.1-12.0); Hematocrit 48.2 % (37.0-47.0); Hemoglobin 14.9 g/dL (12.2-16.2); Lymphocytes # 1.3 K/mm3 (0.7-4.5); Lymphocytes % 18.1 % (10-50); Mean Corpuscular HGB Conc 30.8 g/dL (31.8-35.4); Mean Corpuscular Hemoglobin 29.8 pg (27.0-31.2); Mean Corpuscular Volume 96.7 fl (81-99); Mean Platelet Volume 8.7 fl (7.4-10.4); Monocytes # 0.3 K/mm3 (0.1-1.0); Monocytes % 4.7 % (1.7-9.3); Neutrophils % 71.6 % (37.0-80.0); Platelet Count 157 K/mm3 (142-424); Red Blood Count 4.99 M/mm3 (4.20-5.40); Red Cell Distribution Width 14.7 % (11.5-17.5)
[2023-04-03 06:27] LABS: Alanine Aminotransferase 39 U/L (12-78); Albumin Level 3.1 g/dl (3.5-5.0); Alkaline Phosphatase 119 U/L (38-126); Anion Gap 8.9 mEq/L (5-15); Aspartate Amino Transferase 37 U/L (14-36); Bilirubin,Total 0.5 mg/dl (0.2-1.3); Blood Urea Nitrogen 19 mg/dl (7-17); Calcium 8.1 mg/dl (8.4-10.2); Carbon Dioxide 27 mmol/L (22.0-30.0); Chloride 109 mmol/L (98-107); Creatinine Clearance Estimated 73 mL/min (50-200); Estimated Glomerular Filt Rate 62 ml/min (>60); GFR (African American) 74 ML/MIN (>60); Glucose 150 mg/dl (74-100); Magnesium 1.6 mg/dl (1.6-2.3); Potassium 3.9 mmoL/L (3.5-5.1); Sodium 141 mmol/L (136-145); Total Protein,Serum 6.1 g/dl (6.3-8.2)
--- NOTE | 2023-04-03 07:27 | EXP.ACUTE.PN ---
Subjective *Date: 04/03/23 *Time: 12:12 Interval history: Patient denies any pain this morning. Had a scant amount of flatus. Still having distention however. Does have pain with palpation. Still having thin bilious output from NG. No cindy emesis. Afebrile and hemodynamically stable. Medical Exam Vital signs and Labs for Last 24 Hours: Vital Signs Temp Pulse Pulse Resp BP BP Pulse Ox 04/03/23 06:47 04/03/23 04:00 98.5 F 74 18 133/65 98 04/03/23 00:00 98.6 F 89 18 111/67 97 04/03/23 05:00 04/03/23 03:00 04/03/23 01:00 04/02/23 23:00 04/02/23 20:00 98.7 F 69 18 141/64 H 93 L 04/02/23 21:00 04/02/23 20:00 04/02/23 18:40 04/02/23 16:54 04/02/23 14:20 04/02/23 15:00 04/02/23 14:10 99.3 F 66 17 119/54 L 93 L 04/02/23 13:58 98.5 F 66 18 119/54 L 04/02/23 10:47 66 20 123/53 L 93 L 04/02/23 10:36 81 18 129/67 95 04/02/23 10:17 99.3 F 78 20 117/78 89 L O2 Del Method O2 Flow Rate 04/03/23 06:47 Room Air 04/03/23 04:00 Nasal Cannula 4 04/03/23 00:00 Nasal Cannula 4 04/03/23 05:00 Room Air 04/03/23 03:00 Room Air 04/03/23 01:00 Nasal Cannula 4 04/02/23 23:00 Nasal Cannula 4 04/02/23 20:00 Nasal Cannula 4 04/02/23 21:00 Room Air 04/02/23 20:00 Nasal Cannula 4 04/02/23 18:40 Nasal Cannula 4 04/02/23 16:54 Room Air 04/02/23 14:20 Nasal Cannula 4 04/02/23 15:00 Nasal Cannula 4 04/02/23 14:10 Nasal Cannula 4 04/02/23 13:58 Nasal Cannula 4 04/02/23 10:47 Nasal Cannula 4 04/02/23 10:36 Room Air 04/02/23 10:17 Room Air 2 Intake and Output 04/02/23 04/02/23 04/03/23 15:59 23:59 07:59 Intake Total 0 / 0 Output Total 0 / 0 250 / 250 Balance 0 / 0 0 / 0 -250 / -250 Intake: Intake, Oral Amount 0 / 0 Output: Output, Urine Amount 0 / 0 0 / 0 Output, Gastric Drainage Amount 250 / 250 Right Nare 250 / 250 Other: Number of Unmeasured Voids 1 1 Number of Bowel Movements 1 Weight 90.974 kg 89.159 kg Patient Weight 04/03/23 23:59 Weight 89.159 kg Laboratory Results - last 24 hr 04/02/23 10:23: Hemoglobin A1c 8.8 H 04/02/23 10:32: WBC 8.8, RBC 5.11, Hgb 15.0, Hct 48.7 H, MCV 95.4, MCH 29.4, MCHC 30.8 L, RDW 14.8, Plt Count 180, MPV 8.5, Neut % (Auto) 73.4, Lymph % (Auto) 17.1, [place] % (Auto) 5.0, Eos % (Auto) 4.0, Baso % (Auto) 0.5, Neut # (Auto) 6.5, Lymph # (Auto) 1.5, [place] # (Auto) 0.4, Eos # (Auto) 0.4, Baso # (Auto) 0.0, Sodium 138, Potassium 4.5, Chloride 107, Carbon Dioxide 25, Anion Gap 10.5, BUN 22 H, Creatinine 1.00, Estimated Creat Clear 69, Estimated GFR 55 L, Est GFR ( Amer) 66, Glucose 218 H, Lactate 2.0, Calcium 8.7, Total Bilirubin 0.6, AST 41 H, ALT 40, Alkaline Phosphatase 125, Total Protein 6.9, Albumin 3.6, Globulin 3.3 H, Albumin/Globulin Ratio 1.1, Lipase 42 04/02/23 13:22: Urine Color Yellow, Urine Appearance Clear, Urine pH 6.0, Ur Specific [place] 1.010, Urine Protein Trace, Urine Glucose (UA) Negative, Urine Ketones Negative, Urine Blood Trace-i, Urine Nitrate Negative, Urine Bilirubin Negative, Urine Urobilinogen 0.2, Ur Leukocyte Esterase Negative, Urine RBC 3-5, Urine WBC 3-5, Ur Squamous Epith Cells 5-10, Urine Bacteria 1+ 04/02/23 16:44: POC Glucose 181 H 04/02/23 23:17: POC Glucose 124 H 04/03/23 05:04: POC Glucose 146 H 04/03/23 05:32: WBC 7.0, RBC 4.99, Hgb 14.9, Hct 48.2 H, MCV 96.7, MCH 29.8, MCHC 30.8 L, RDW 14.7, Plt Count 157, MPV 8.7, Neut % (Auto) 71.6, Lymph % (Auto) 18.1, [place] % (Auto) 4.7, Eos % (Auto) 5.1, Baso % (Auto) 0.5, Neut # (Auto) 5.0, Lymph # (Auto) 1.3, [place] # (Auto) 0.3, Eos # (Auto) 0.4, Baso # (Auto) 0.0, Sodium 141, Potassium 3.9, Chloride 109 H, Carbon Dioxide 27, Anion Gap 8.9, BUN 19 H, Creatinine 0.90, Estimated Creat Clear 73, Estimated GFR 62, Est GFR ( Amer) 74, Glucose 150 H D, Calcium 8.1 L, Magnesium 1.6, Total Bilirubin 0.5, AST 37 H, A
--- NOTE | 2023-04-03 08:11 | SW/DCPLANNER ---
Addendum entered by Sonya Recinos 04/04/23 12:30: I have updated Divya morse/ [facility] regarding this patient. PT stated that patient is safe to return to [facility] [place] once medically stable for discharge. Original Note: This patient currently resides at [facility] [place]. I will continue to follow up with Divya at [facility] until patient is medically stable for discharge. Per MD PT/OT will evaluate patient tomorrow pending no setbacks. Patient does not require medical intervention per surgery at this time.
--- NOTE | 2023-04-03 09:37 | PC.NURSE ---
tried to wean pt's oxygen to 1L, but pt's oxygen saturations are 91% on 2LNC at this time
[2023-04-03 11:10] LABS: POC Glucose,Bedside 147 (70-110)
[2023-04-03 11:32] LABS: Adenovirus F 40/41, stool Not Detected (NotDetected); Astrovirus Not Detected (NotDetected); Campylobacter Not Detected (NotDetected); Clostridium Difficile A/B, PCR Not Detected (NotDetected); Cryptosporidium Not Detected (NotDetected); Cyclospora Cayetanesis Not Detected (NotDetected); Entamoeba histolytica Not Detected (NotDetected); Enteroaggregative E coli Not Detected (NotDetected); Enteropathogenic E coli Not Detected (NotDetected); Enterotoxigenic E coli Not Detected (NotDetected); Giardia lamblia Not Detected (NotDetected); Norovirus Not Detected (NotDetected); Plesimonas Shigalloides, PCR Not Detected (NotDetected); Rotavirus A Not Detected (NotDetected); Salmonella, PCR Not Detected (NotDetected); Sapovirus Not Detected (NotDetected); Shiga-like toxin E coli Not Detected (NotDetected); Shigella Enterovasive E coli Not Detected (NotDetected); Vibrio Cholerae Not Detected (NotDetected); Vibrio, PCR Not Detected (NotDetected); Yersinia Entercolitica, PCR Not Detected (NotDetected)
--- NOTE | 2023-04-03 15:01 | P.PN_ITS ---
Subjective Narrative: Patient states that she feels a whole lot better . She describes having some liquid diarrhea and passing flatus. She states that her abdomen is somewhat tight . Exam Data for Last 24 hours Vital signs and Labs for Last 24 Hours: Temp Pulse Resp BP Pulse Ox O2 Del Method O2 Flow Rate 98.9 F 74 19 125/79 92 L Nasal Cannula 4 04/03/23 11:38 04/03/23 11:38 04/03/23 11:38 04/03/23 11:38 04/03/23 11:38 04/03/23 11:38 04/03/23 11:38 Laboratory Results - last 24 hr 04/02/23 16:44: POC Glucose 181 H 04/02/23 23:17: POC Glucose 124 H 04/03/23 05:04: POC Glucose 146 H 04/03/23 05:32: WBC 7.0, RBC 4.99, Hgb 14.9, Hct 48.2 H, MCV 96.7, MCH 29.8, MCHC 30.8 L, RDW 14.7, Plt Count 157, MPV 8.7, Neut % (Auto) 71.6, Lymph % (Auto) 18.1, [place] % (Auto) 4.7, Eos % (Auto) 5.1, Baso % (Auto) 0.5, Neut # (Auto) 5.0, Lymph # (Auto) 1.3, [place] # (Auto) 0.3, Eos # (Auto) 0.4, Baso # (Auto) 0.0, Sodium 141, Potassium 3.9, Chloride 109 H, Carbon Dioxide 27, Anion Gap 8.9, BUN 19 H, Creatinine 0.90, Estimated Creat Clear 73, Estimated GFR 62, Est GFR ( Amer) 74, Glucose 150 H D, Calcium 8.1 L, Magnesium 1.6, Total Bilirubin 0.5, AST 37 H, ALT 39, Alkaline Phosphatase 119, Total Protein 6.1 L, Albumin 3.1 L D, Globulin 3.0, Albumin/Globulin Ratio 1.0 L 04/03/23 11:04: POC Glucose 147 H 04/03/23 11:24: Stl Aeromonas (PCR) Not detected, Stl C. cayetanensis PCR Not detected, Stool Rotavirus (PCR) Not detected, Stl Adenov F 40/41 PCR Not detected, Stool Astrovirus (PCR) Not detected, Stool Campylobacter PCR Not detected, Stl C.difficile Tox PCR Not detected, Stool Cryptosporidium PCR Not detected, Stl E.coli Shiga Tox PCR Not detected, Stool E coli O157 PCR Not detected, Stl Enterotoxigenic E PCR Not detected, Stool EPEC (PCR) Not detected, Stool EAEC (PCR) Not detected, Stl E. histolytica PCR Not detected, Stool Giardia Lamblia PCR Not detected, Stool Salmonella PCR Not detected, Stool Maikel virus (PCR) Not detected, Stl P. shigelloides PCR Not detected, Stl Shigella/EIEC PCR Not detected, St Y.enterocolitica PCR Not detected, Stool Vibrio (PCR) Not detected, Stl Vibrio cholerae PCR Not detected, Stl Norovirus GI/GII PCR Not detected I & O for Last 24 hours: Intake & Output 04/01/23 04/02/23 04/03/23 04/04/23 11:59 11:59 11:59 11:59 Intake Total 0 / 0 Output Total 250 / 250 Balance -250 / -250 Weight 189 lb 196 lb 9 oz *Routine Abdominal Exam Abdominal: Absent tenderness Progress Note: A&P Assessment and plan (1) Complete obstruction of small intestine: Status: Acute Assessment and plan: No evidence of complete obstruction of small intestine. Partial small bowel obstruction versus ileus. I will obtain a small bowel follow-through tomorrow when radiology is available given patient's slight clinical improvement. (2) Diabetes 1.5, managed as type 2: Status: Chronic (3) HTN (hypertension): Status: Chronic (4) COPD (chronic obstructive pulmonary disease): Status: Chronic (5) Schizophrenia: Status: Chronic
[2023-04-03 17:16] LABS: POC Glucose,Bedside 137 (70-110)
[2023-04-03 23:36] LABS: POC Glucose,Bedside 118 (70-110)
[2023-04-04] VITALS (8 sets, daily range): BP systolic 131–154; BP diastolic 59–78; PULSE 66–98; RESP 16–18; TEMP 36.6–37.3; O2SAT 90–98; BMI 28.6
[2023-04-04 06:39] LABS: Basophils % 0.3 % (0.1-2.0); Eosinophils # 0.2 K/mm3 (0.0-0.4); Eosinophils % 2.2 % (0.1-12.0); Hematocrit 46.5 % (37.0-47.0); Hemoglobin 14.2 g/dL (12.2-16.2); Lymphocytes # 1.3 K/mm3 (0.7-4.5); Lymphocytes % 15.9 % (10-50); Mean Corpuscular HGB Conc 30.6 g/dL (31.8-35.4); Mean Corpuscular Hemoglobin 29.6 pg (27.0-31.2); Mean Corpuscular Volume 96.8 fl (81-99); Mean Platelet Volume 8.6 fl (7.4-10.4); Monocytes # 0.4 K/mm3 (0.1-1.0); Monocytes % 5.3 % (1.7-9.3); Neutrophils # 6.2 K/mm3 (1.8-7.8); Neutrophils % 76.4 % (37.0-80.0); Platelet Count 163 K/mm3 (142-424); Red Cell Distribution Width 14.6 % (11.5-17.5); White Blood Count 8.1 K/mm3 (4.8-10.8)
[2023-04-04 06:46] LABS: Alanine Aminotransferase 25 U/L (12-78); Alkaline Phosphatase 116 U/L (38-126); Anion Gap 9.6 mEq/L (5-15); Aspartate Amino Transferase 20 U/L (14-36); Bilirubin,Total 0.5 mg/dl (0.2-1.3); Blood Urea Nitrogen 13 mg/dl (7-17); Calcium 8.2 mg/dl (8.4-10.2); Carbon Dioxide 24 mmol/L (22.0-30.0); Chloride 110 mmol/L (98-107); Creatinine Clearance Estimated 73 mL/min (50-200); Estimated Glomerular Filt Rate 71 ml/min (>60); GFR (African American) 85 ML/MIN (>60); Glucose 130 mg/dl (74-100); Magnesium 1.8 mg/dl (1.6-2.3); Potassium 3.6 mmoL/L (3.5-5.1); Sodium 140 mmol/L (136-145)
[2023-04-04 06:51] LABS: POC Glucose,Bedside 128 (70-110)
--- NOTE | 2023-04-04 07:00 | FL_ITS ---
FINAL REPORT CLINICAL HISTORY: OBSTRUCTION VS ILEUS FINDINGS: A small bowel series was performed. Sequential anterior projection images of the abdomen were obtained after the injection of contrast into the stomach. The contrast is seen in the colon by the 4-hour radiographs. Multiple moderately dilated small bowel loops are seen. No transition point is identified. IMPRESSION: No evidence of small bowel obstruction identified. Multiple moderately distended small bowel loops which may represent an ileus. Authenticated and [facility]
--- NOTE | 2023-04-04 07:29 | P.PN_ITS ---
Subjective Narrative: No complaints. States she is passing gas. Stood studies sent. Exam Data for Last 24 hours Vital signs and Labs for Last 24 Hours: Temp Pulse Resp BP Pulse Ox O2 Del Method O2 Flow Rate 99.2 F 98 H 16 143/72 H 90 L Nasal Cannula 2 04/04/23 04:00 04/04/23 04:00 04/04/23 04:00 04/04/23 04:00 04/04/23 04:00 04/04/23 06:41 04/04/23 06:41 Laboratory Results - last 24 hr 04/03/23 11:04: POC Glucose 147 H 04/03/23 11:24: Stl Aeromonas (PCR) Not detected, Stl C. cayetanensis PCR Not detected, Stool Rotavirus (PCR) Not detected, Stl Adenov F 40/41 PCR Not detected, Stool Astrovirus (PCR) Not detected, Stool Campylobacter PCR Not detected, Stl C.difficile Tox PCR Not detected, Stool Cryptosporidium PCR Not detected, Stl E.coli Shiga Tox PCR Not detected, Stool E coli O157 PCR Not detected, Stl Enterotoxigenic E PCR Not detected, Stool EPEC (PCR) Not detected, Stool EAEC (PCR) Not detected, Stl E. histolytica PCR Not detected, Stool Giardia [place] PCR Not detected, Stool Salmonella PCR Not detected, Stool Sapovirus (PCR) Not detected, Stl P. shigelloides PCR Not detected, Stl Shigella /EIEC PCR Not detected, St Y.enterocolitica PCR Not detected, Stool Vibrio (PCR) Not detected, Stl Vibrio cholerae PCR Not detected, Stl Norovirus GI/GII PCR Not detected 04/03/23 17:08: POC Glucose 137 H 04/03/23 23:29: POC Glucose 118 H 04/04/23 05:32: WBC 8.1, RBC 4.80, Hgb 14.2, Hct 46.5, MCV 96.8, MCH 29.6, MCHC 30.6 L, RDW 14.6, Plt Count 163, MPV 8.6, Neut % (Auto) 76.4, Lymph % (Auto) 15.9, [place] % (Auto) 5.3, Eos % (Auto) 2.2, Baso % (Auto) 0.3, Neut # (Auto) 6.2, Lymph # (Auto) 1.3, [place] # (Auto) 0.4, Eos # (Auto) 0.2, Baso # (Auto) 0.0, Sodium 140, Potassium 3.6, Chloride 110 H, Carbon Dioxide 24, Anion Gap 9.6, BUN 13 D, Creatinine 0.80, Estimated Creat Clear 73, Estimated GFR 71, Est GFR ( Amer) 85, Glucose 130 H, Calcium 8.2 L, Magnesium 1.8 D, Total Bilirubin 0.5, AST 20 D, ALT 25 D, Alkaline Phosphatase 116, Total Protein 6.0 L, Albumin 3.0 L, Globulin 3.0, Albumin/Globulin Ratio 1.0 L 04/04/23 06:42: POC Glucose 128 H I & O for Last 24 hours: Intake & Output 04/01/23 04/02/23 04/03/23 04/04/23 11:59 11:59 11:59 11:59 Intake Total 0 / 0 0 / 0 Output Total 250 / 250 650 / 650 Balance -250 / -250 -650 / -650 Weight 189 lb 196 lb 9 oz 200 lb 1.6 oz *Routine Abdominal Exam Abdominal: Present soft; Absent tenderness Progress Note: A&P Assessment and plan (1) Complete obstruction of small intestine: Status: Acute Assessment and plan: No definitive evidence of complete obstruction. SBFT today to assess obstruction vs ileus. Stools studies negative. (2) Diabetes 1.5, managed as type 2: Status: Chronic (3) HTN (hypertension): Status: Chronic (4) COPD (chronic obstructive pulmonary disease): Status: Chronic (5) Schizophrenia: Status: Chronic
--- NOTE | 2023-04-04 09:01 | HMH.OTEV ---
OT Inpatient Evaluation Rehab OT IP Evaluation Start: 04/03/23 18:21 Freq: ONCE Status: Active Protocol: Document 04/04/23 08:54 ANDRYIAVINASH (Rec: 04/04/23 09:01 SOLITARIO [id number]) Rehab OT IP Assessment Subjective History Ms. Taylor is a 72-year-old female who resides at [facility]. She has a history of previous cholecystectomy and appendectomy over 20 years ago . Other history includes schizophrenia, diabetes, constipation, chronic pain, hypertension, COPD, and CHF. She presented to the ER because of 3 days of abdominal pain, distention, diarrhea. Has been accompanied by some nausea but no cindy emesis. Describes the pain throughout her abdomen. Stools described as loose and watery. In the ER, work-up initiated including imaging of her abdomen. CT of abdomen and pelvis revealed small bowel obstruction with numerous dilated loops of small bowel and air-fluid levels. Imaging also consistent with transition zone in right lower quadrant. Remainder of labs were nonactionable at patient' s baseline's. Surgery was consulted given concern for small bowel obstruction. Recommended NG placement for decompression. Medicine was consulted for admission. Per chart review, she has previously undergone colonoscopy due to history of anemia. Last colonoscopy with Dr. Vaughan in April 2020 at which time she was found to have moderate prep, multiple complex polyps. Per pathology report, at-least 10 tubular adenomas and recommendations were for repeat colonoscopy in 6 to 12 months. Cannot find
[2023-04-04 11:18] LABS: POC Glucose,Bedside 156 (70-110)
--- NOTE | 2023-04-04 11:36 | HMH.PTEV ---
Physical Therapy Evaluation Rehab PT IP Evaluation Start: 04/03/23 18:21 Freq: ONCE Status: Active Protocol: Document 04/04/23 10:00 PHORPHIL (Rec: 04/04/23 11:36 PHORNE [id number]) Subjective/History History History 72 yowf adm to [facility] with poss SBO. She has hx of CCY, Appy, Schizophrenia, DM, HTN, COPD, CHF. She is a resident of local personal assisted and is generally independent with all mobility without an AD. Subjective Subjective She reports feeling ok this am , agrees to mobility assessment. Rehab PT IP Eval Objective Appearance Patient Behavior Appropriate Patient Orientation Person,Place,Time Difficulty following instructions none Speech Pattern Clear Ambulation Patient Able to Ambulate Yes Ambulation Observation IP General Gait Pattern Observation Wide Based Gait Ambulation Distance (feet) 5 Ambulation Assistive Device None Ambulation Ability Supervision/Stand by Balance Ability to Arise Able, uses arms to help Sitting Balance Steady, safe Standing Balance Steady, wide stance Dynamic Sitting Balance Ability Good Dynamic Standing Balance Ability Good Transfers Bed Transfer Ability Supervision/Stand by Chair Transfer Ability Supervision/Stand by Sit to Stand Bed Transfer Ability Supervision/Stand by Sit to Stand Chair Transfer Ability Supervision/Stand by ROM All Extremities PT ROM Status WFL MMT All Extremities PT MMT WFL Rehab PT IP prob,goals,plan Problems Date of Evaluation: 04/04/23 PT IP Problems Bed Mobility,Transfers,Gait Rehab Potential Rehab Potential Good Plan PT Intervention Plan Bed Mobility,Transfers,Gait, Therapeutic Exercise PT Plan Frequency Daily Duration LOS Discharge Goals Bed Transfer Ability Independent Sit to Stand Chair Transfer Ability Independent Ambulation Assistive Device None Ambulation Distance (feet) 30 Discharge Plan PT Discharge Plan Pt is currently appropriate to return to personal assisted once medically stable for d/c. G -code Required No Eval Complexity Eval Charge Codes 83818 - High Complexity PHYSICIAN CERTIFICATION: I certify the specified therapy services for Kimmie Taylor are required, author
--- NOTE | 2023-04-04 12:28 | EXP.PN ---
Subjective *Date: 04/04/23 *Time: 12:28 Interval history: No acute events overnight. The patient had multiple bowel movements earlier this morning. She feels better than yesterday and is hungry. She denies nausea and vomiting. Exam Data for Last 24 hours Vital signs and Labs for Last 24 Hours: Temp Pulse Resp BP Pulse Ox O2 Del Method O2 Flow Rate 98.5 F 73 18 154/71 H 98 Nasal Cannula 2 04/04/23 11:11 04/04/23 11:11 04/04/23 11:11 04/04/23 11:11 04/04/23 11:11 04/04/23 11:11 04/04/23 11:11 Laboratory Results - last 24 hr 04/03/23 11:24: Stl Aeromonas (PCR) Not detected, Stl C. cayetanensis PCR Not detected, Stool Rotavirus (PCR) Not detected, Stl Adenov F 40/41 PCR Not detected, Stool Astrovirus (PCR) Not detected, Stool Campylobacter PCR Not detected, Stl C.difficile Tox PCR Not detected, Stool Cryptosporidium PCR Not detected, Stl E.coli Shiga Tox PCR Not detected, Stool E coli O157 PCR Not detected, Stl Enterotoxigenic E PCR Not detected, Stool EPEC (PCR) Not detected, Stool EAEC (PCR) Not detected, Stl E. histolytica PCR Not detected, Stool Giardia Lamblia PCR Not detected, Stool Salmonella PCR Not detected, Stool Sapovirus (PCR) Not detected, Stl P. shigelloides PCR Not detected, Stl Shigella/EIEC PCR Not detected, St Y.enterocolitica PCR Not detected, Stool Vibrio (PCR) Not detected, Stl Vibrio cholerae PCR Not detected, Stl Norovirus GI/GII PCR Not detected 04/03/23 17:08: POC Glucose 137 H 04/03/23 23:29: POC Glucose 118 H 04/04/23 05:32: WBC 8.1, RBC 4.80, Hgb 14.2, Hct 46.5, MCV 96.8, MCH 29.6, MCHC 30.6 L, RDW 14.6, Plt Count 163, MPV 8.6, Neut % (Auto) 76.4, Lymph % (Auto) 15.9, [place] % (Auto) 5.3, Eos % (Auto) 2.2, Baso % (Auto) 0.3, Neut # (Auto) 6.2, Lymph # (Auto) 1.3, [place] # (Auto) 0.4, Eos # (Auto) 0.2, Baso # (Auto) 0.0, Sodium 140, Potassium 3.6, Chloride 110 H, Carbon Dioxide 24, Anion Gap 9.6, BUN 13 D, Creatinine 0.80, Estimated Creat Clear 73, Estimated GFR 71, Est GFR ( Amer) 85, Glucose 130 H, Calcium 8.2 L, Magnesium 1.8 D, Total Bilirubin 0.5, AST 20 D, ALT 25 D, Alkaline Phosphatase 116, Total Protein 6.0 L, Albumin 3.0 L, Globulin 3.0, Albumin/Globulin Ratio 1.0 L 04/04/23 06:42: POC Glucose 128 H 04/04/23 11:08: POC Glucose 156 H I & O for Last 24 hours: Intake & Output 04/01/23 04/02/23 04/03/23 04/04/23 23:59 23:59 23:59 23:59 Intake Total 0 / 0 0 / 0 0 / 0 Output Total 0 / 0 650 / 650 250 / 250 Balance 0 / 0 -650 / -650 -250 / -250 Weight 90.974 kg 89.159 kg 90.764 kg Constitutional Constitutional: no acute distress *Routine HEENT Exam Head: Present normocephalic Eye: Present EOMI and PERRL ENT: Present mucous membranes moist Comments: NGT is in place *Routine Neck Exam Neck: Present supple; Absent lymphadenopathy *Routine Respiratory Exam Respiratory: Present CTA bilaterally *Routine Cardiovascular Exam Cardiovascular: Present RRR *Routine Abdominal Exam Abdominal: Present soft and normoactive bowel sounds; Absent tenderness *Routine Extremities Exam Extremities: Absent cyanosis, clubbing or edema *Routine Skin Exam Skin: Present warm; Absent rash *Routine Neurological Exam Neurological: Present alert and oriented X3 Assessment and Plan *Assessment and plan (1) Complete obstruction of small intestine: Status: Acute Category: Medical Code(s): K56.601 - Complete intestinal obstruction, unspecified as to cause (2) Diabetes 1.5, managed as type 2: Status: Chronic Category: Medical Code(s): E13.9 - Other specified diabetes mellitus without complications (3) HTN (hypertension): Status: Chronic Qualifiers: Hypertension type: essential hypertension Qualified Code(s): I10 - Essential (primary) hypertension Category: Medical Code(s): I10 - Essential (primary) hypertension (4) COPD (chronic obstructive pulmonary disease): Status: Chronic Qualifiers: COPD type: u
[2023-04-04 17:30] LABS: POC Glucose,Bedside 153 (70-110)
--- NOTE | 2023-04-04 17:30 | PC.NURSE ---
report received from flavia manuel. patient has done okay this shift. suction rehooked to once radiology gave the all clear to. no complaints of pain or nausea. bed alarm has been on. has had frequent watery stools requiring multiple bed changes.
--- NOTE | 2023-04-04 17:53 | PC.NURSE ---
read small bowel follow through report to dr reyes. he is aware of patients multiple liquid stools. stated to dc the ng tube and patient can have ice chips
[2023-04-04 22:13] LABS: POC Glucose,Bedside 177 (70-110)
[2023-04-05] VITALS (9 sets, daily range): BP systolic 138–158; BP diastolic 52–78; PULSE 55–81; RESP 17–18; TEMP 36.7–37.2; O2SAT 1–97; BMI 26.6
--- NOTE | 2023-04-05 02:31 | PC.WOUNDNOTE ---
SMALL OPEN ULCERATION WITH POSSIBLE DTI
[2023-04-05 06:10] LABS: POC Glucose,Bedside 109 (70-110)
[2023-04-05 06:25] LABS: Chloride 111 mmol/L (98-107); Potassium 3.4 mmoL/L (3.5-5.1); Sodium 144 mmol/L (136-145)
[2023-04-05 06:28] LABS: Alanine Aminotransferase 22 U/L (12-78); Albumin Level 3.1 g/dl (3.5-5.0); Alkaline Phosphatase 118 U/L (38-126); Anion Gap 13.4 mEq/L (5-15); Aspartate Amino Transferase 19 U/L (14-36); Bilirubin,Total 0.4 mg/dl (0.2-1.3); Blood Urea Nitrogen 13 mg/dl (7-17); Calcium 9.3 mg/dl (8.4-10.2); Carbon Dioxide 23 mmol/L (22.0-30.0); Creatinine Clearance Estimated 68 mL/min (50-200); Estimated Glomerular Filt Rate 71 ml/min (>60); GFR (African American) 85 ML/MIN (>60); Globulin 3.2 g/dL (1.3-3.2); Glucose 114 mg/dl (74-100); Total Protein,Serum 6.3 g/dl (6.3-8.2)
[2023-04-05 06:30] LABS: Magnesium 1.9 mg/dl (1.6-2.3); Phosphorous 4.1 mg/dl (2.5-4.5)
--- NOTE | 2023-04-05 07:42 | EXP.SURG.PN ---
Subjective Patient reports: no new complaints, flatus and bowel movement Exam Data for Last 24 hours Vital signs and Labs for Last 24 Hours: Temp Pulse Resp BP Pulse Ox O2 Del Method O2 Flow Rate 99.0 F 69 18 144/61 H 92 L Room Air 2 04/05/23 04:00 04/05/23 04:00 04/05/23 04:00 04/05/23 04:00 04/05/23 04:00 04/05/23 07:00 04/05/23 04:00 Laboratory Results - last 24 hr 04/04/23 11:08: POC Glucose 156 H 04/04/23 17:10: POC Glucose 153 H 04/04/23 21:41: POC Glucose 177 H 04/05/23 05:38: Sodium 144, Potassium 3.4 L, Chloride 111 H, Carbon Dioxide 23, Anion Gap 13.4, BUN 13, Creatinine 0.80, Estimated Creat Clear 68, Estimated GFR 71, Est GFR ( Amer) 85, Glucose 114 H, Calcium 9.3, Phosphorus 4.1, Magnesium 1.9, Total Bilirubin 0.4, AST 19, ALT 22, Alkaline Phosphatase 118, Total Protein 6.3, Albumin 3.1 L, Globulin 3.2, Albumin/Globulin Ratio 1.0 L 04/05/23 06:03: POC Glucose 109 I & O for Last 24 hours: Intake & Output 04/02/23 04/03/23 04/04/23 04/05/23 11:59 11:59 11:59 11:59 Intake Total 0 / 0 0 / 0 0 / 0 Output Total 250 / 250 650 / 650 0 / 0 Balance -250 / -250 -650 / -650 0 / 0 Weight 189 lb 196 lb 9 oz 200 lb 1.6 oz 186 lb 1 oz Radiology Reports for the Last 24 Hours: SBFT - IMPRESSION: No evidence of small bowel obstruction identified. Multiple moderately distended small bowel loops which may represent an ileus. Constitutional Constitutional: no acute distress *Routine Respiratory Exam Respiratory: Absent respiratory distress *Routine Cardiovascular Exam Cardiovascular: Absent tachycardia *Routine Abdominal Exam Abdominal: Present soft Progress Note: A&P Assessment and plan (1) Ileus: Status: Acute Assessment and plan: Completed obstruction ruled out per small bowel follow-through yesterday. The patient still has some evidence of ileus. She is continuing to have bowel function and is not nauseous. Limited clears as directed by nursing this morning Clear liquid tray without carbonation for lunch if she tolerates limited clears this morning
[2023-04-05 07:50] LABS: Adenovirus F 40/41, stool Not Detected (NotDetected); Astrovirus Not Detected (NotDetected); Campylobacter Not Detected (NotDetected); Cryptosporidium Not Detected (NotDetected); Cyclospora Cayetanesis Not Detected (NotDetected); Entamoeba histolytica Not Detected (NotDetected); Enteroaggregative E coli Not Detected (NotDetected); Enteropathogenic E coli Not Detected (NotDetected); Enterotoxigenic E coli Not Detected (NotDetected); Giardia lamblia Not Detected (NotDetected); Norovirus Not Detected (NotDetected); Plesimonas Shigalloides, PCR Not Detected (NotDetected); Rotavirus A Not Detected (NotDetected); Salmonella, PCR Not Detected (NotDetected); Sapovirus Not Detected (NotDetected); Shiga-like toxin E coli Not Detected (NotDetected); Shigella Enterovasive E coli Not Detected (NotDetected); Vibrio Cholerae Not Detected (NotDetected); Vibrio, PCR Not Detected (NotDetected); Yersinia Entercolitica, PCR Not Detected (NotDetected)
--- NOTE | 2023-04-05 10:19 | PC.NURSE ---
called pharmacy to check on medication. they stated they would bring it over shortly.
--- NOTE | 2023-04-05 11:44 | EXP.PN ---
Subjective *Date: 04/05/23 *Time: 16:50 Interval history: She denies nausea and has been tolerating liquids well. +loose BM this morning Exam Data for Last 24 hours Vital signs and Labs for Last 24 Hours: Temp Pulse Resp BP Pulse Ox O2 Del Method O2 Flow Rate 98.2 F 72 17 142/68 H 94 L Room Air 1 04/05/23 11:16 04/05/23 11:16 04/05/23 11:16 04/05/23 11:16 04/05/23 11:16 04/05/23 11:16 04/05/23 08:28 Laboratory Results - last 24 hr 04/04/23 17:10: POC Glucose 153 H 04/04/23 21:41: POC Glucose 177 H 04/05/23 05:38: Sodium 144, Potassium 3.4 L, Chloride 111 H, Carbon Dioxide 23, Anion Gap 13.4, BUN 13, Creatinine 0.80, Estimated Creat Clear 68, Estimated GFR 71, Est GFR ( Amer) 85, Glucose 114 H, Calcium 9.3, Phosphorus 4.1, Magnesium 1.9, Total Bilirubin 0.4, AST 19, ALT 22, Alkaline Phosphatase 118, Total Protein 6.3, Albumin 3.1 L, Globulin 3.2, Albumin/Globulin Ratio 1.0 L 04/05/23 06:03: POC Glucose 109 I & O for Last 24 hours: Intake & Output 04/02/23 04/03/23 04/04/23 04/05/23 23:59 23:59 23:59 23:59 Intake Total 0 / 0 0 / 0 0 / 0 Output Total 0 / 0 650 / 650 250 / 250 0 / 0 Balance 0 / 0 -650 / -650 -250 / -250 0 / 0 Weight 90.974 kg 89.159 kg 90.764 kg 84.397 kg Constitutional Constitutional: no acute distress *Routine HEENT Exam Head: Present normocephalic Eye: Present EOMI and PERRL ENT: Present mucous membranes moist Comments: NGT is in place *Routine Neck Exam Neck: Present supple; Absent lymphadenopathy *Routine Respiratory Exam Respiratory: Present CTA bilaterally *Routine Cardiovascular Exam Cardiovascular: Present RRR *Routine Abdominal Exam Abdominal: Present soft and normoactive bowel sounds; Absent tenderness *Routine Extremities Exam Extremities: Absent cyanosis, clubbing or edema *Routine Skin Exam Skin: Present warm; Absent rash *Routine Neurological Exam Neurological: Present alert and oriented X3 Assessment and Plan *Assessment and plan (1) Complete obstruction of small intestine: Status: Ruled-out Category: Medical Code(s): K56.601 - Complete intestinal obstruction, unspecified as to cause (2) Diabetes 1.5, managed as type 2: Status: Chronic Category: Medical Code(s): E13.9 - Other specified diabetes mellitus without complications (3) HTN (hypertension): Status: Chronic Qualifiers: Hypertension type: essential hypertension Qualified Code(s): I10 - Essential (primary) hypertension Category: Medical Code(s): I10 - Essential (primary) hypertension (4) COPD (chronic obstructive pulmonary disease): Status: Chronic Qualifiers: COPD type: unspecified COPD Qualified Code(s): J44.9 - Chronic obstructive pulmonary disease, unspecified Category: Medical Code(s): J44.9 - Chronic obstructive pulmonary disease, unspecified (5) Schizophrenia: Status: Chronic Qualifiers: Schizophrenia type: unspecified Qualified Code(s): F20.9 - Schizophrenia, unspecified Category: Medical Code(s): F20.9 - Schizophrenia, unspecified Plan 72-year-old female with multiple comorbidities who presented with abdominal pain and diarrhea. Imaging concerning for small bowel obstruction. Continues to require inpatient management for decompression. Surgery consulted, appreciate their continued guidance and assistance. Patient hemodynamically stable at this time. Problems addressed as follows: Small bowel obstruction C. Diff colitis - Concern for incomplete small bowel obstruction versus ileus. Surgery consulted. Continue NG with decompression. Continue with serial exams. -Liver enzymes essentially normal with AST, ALT, alkaline phosphatase. Lipase normal at 48. -CT revealed significant small bowel distention with air-fluid levels. -NG with bowel rest. N.p.o. -Tolerating LR at 100 cc an hour -A small bowel follow through study was done yesterda
[2023-04-05 11:55] LABS: POC Glucose,Bedside 135 (70-110)
[2023-04-05 15:02] LABS: Clostridium Difficile A/B, PCR Detected (NotDetected)
[2023-04-05 16:21] LABS: POC Glucose,Bedside 181 (70-110)
--- NOTE | 2023-04-05 17:43 | PC.NURSE ---
A&OX4. PT HAS TOLERATED RA WELL THROUGHOUT SHIFT. SHE WEANED FROM 2L NC THIS MORNING TO RA. NO COUGH NOTED. RESPIRATIONS REGULAR AND UNLABORED. DIMINISHED LUNG SOUNDS NOTED. +2 PULSES NOTED THROUGHOUT. HAND BALE SEWER EQUAL. NO EDEMA NOTED. ACTIVE BOWEL SOUNDS HEARD IN ALL 4 QUADRANTS. SOFT AND NONTENDER ABDOMEN. PT HAS HAD 2 BMS THUS FAR. PT IS INCONTINENT AND CHANGED NEEDED OF BOTH BOWEL AND BLADDER. PT IN CONTACT ENTERIC DUE TO STOOL COMING BACK POSITIVE FOR CDIFF. NO PAIN REPORTED THUS FAR. PT HAS TOLERATED A CLEAR LIQUID DIET WELL. NO NAUSEA OR VOMITING REPORTED. CALL LIGHT WITHIN REACH. BED IN LOWEST POSITION. BED ALARM ON FOR SAFETY. VSS. CURRENTLY UP IN THE CHAIR FOR THE SECOND TIME TODAY.
[2023-04-05 23:26] LABS: POC Glucose,Bedside 99 (70-110)
[2023-04-06] VITALS: BP 140/64; PULSE 74; RESP 18; TEMP 37.2; O2SAT 92
[2023-04-06 04:00] VITALS: BP 153/77; PULSE 57; RESP 18; TEMP 37; O2SAT 92; BMI 28.5
--- NOTE | 2023-04-06 05:34 | PC.NURSE ---
patient has had a good night. patient has slept. Has had incontinent care twice. no BMs. no other issues noted
[2023-04-06 05:39] LABS: POC Glucose,Bedside 109 (70-110)
[2023-04-06 06:34] LABS: Basophils % 0.6 % (0.1-2.0); Eosinophils # 0.2 K/mm3 (0.0-0.4); Eosinophils % 3.6 % (0.1-12.0); Hematocrit 46.5 % (37.0-47.0); Hemoglobin 14.5 g/dL (12.2-16.2); Lymphocytes # 1.5 K/mm3 (0.7-4.5); Lymphocytes % 22.4 % (10-50); Mean Corpuscular HGB Conc 31.2 g/dL (31.8-35.4); Mean Platelet Volume 8.1 fl (7.4-10.4); Monocytes # 0.5 K/mm3 (0.1-1.0); Monocytes % 7.1 % (1.7-9.3); Neutrophils # 4.5 K/mm3 (1.8-7.8); Neutrophils % 66.3 % (37.0-80.0); Platelet Count 195 K/mm3 (142-424); Red Blood Count 4.84 M/mm3 (4.20-5.40); Red Cell Distribution Width 14.6 % (11.5-17.5); White Blood Count 6.8 K/mm3 (4.8-10.8)
[2023-04-06 06:42] LABS: Chloride 111 mmol/L (98-107)
[2023-04-06 06:43] LABS: Potassium 3.5 mmoL/L (3.5-5.1); Sodium 142 mmol/L (136-145)
[2023-04-06 06:46] LABS: Anion Gap 9.5 mEq/L (5-15); Blood Urea Nitrogen 11 mg/dl (7-17); Calcium 8.5 mg/dl (8.4-10.2); Carbon Dioxide 25 mmol/L (22.0-30.0); Creatinine Clearance Estimated 73 mL/min (50-200); Estimated Glomerular Filt Rate 71 ml/min (>60); GFR (African American) 85 ML/MIN (>60); Glucose 110 mg/dl (74-100)
[2023-04-06 07:18] VITALS: BP 146/68; PULSE 58; RESP 18; TEMP 37.1; O2SAT 95
--- NOTE | 2023-04-06 07:29 | XR_ITS ---
FINAL REPORT CLINICAL HISTORY: ABDOMINAL DISTENSION COMPARISON: 04/03/2023 FINDINGS: Abdomen including chest: There are air-fluid levels in distal small bowel loops, favor ileus. The NG tube has been removed since the prior exam of 04/03/2023. There are postoperative changes of bilateral hip arthroplasties. Degenerative change of the lumbar spine remains present. No radiographic evidence of free air is seen. IMPRESSION: Air-fluid levels remaining distal small bowel loops, favor ileus. No significant change identified since prior films of 04/03/2023. Reviewed, Interpreted and Dictated by Donald Doss III, MD Transcribed by Arlette Nye Authenticated and [facility]
--- NOTE | 2023-04-06 07:30 | P.PN_ITS ---
Subjective Narrative: Small bowel follow-through the revealed no evidence of small bowel obstruction identified. Multiple moderately distended small bowel loops which may represent an ileus. She had a nasogastric tube removed and was started on limited clear liquids and given a clear liquid diet yesterday. She has not had a bowel m ovement. She describes some abdominal discomfort. Exam Data for Last 24 hours Vital signs and Labs for Last 24 Hours: Temp Pulse Resp BP Pulse Ox O2 Del Method O2 Flow Rate 98.7 F 58 L 18 146/68 H 95 Nasal Cannula 1 04/06/23 07:18 04/06/23 07:18 04/06/23 07:18 04/06/23 07:18 04/06/23 07:18 04/06/23 07:18 04/06/23 07:18 Laboratory Results - last 24 hr 04/05/23 02:10: Stl Aeromonas (PCR) Not detected, Stl C. cayetanensis PCR Not detected, Stool Rotavirus (PCR) Not detected, Stl Adenov F 40/41 PCR Not detected, Stool Astrovirus (PCR) Not detected, Stool Campylobacter PCR Not detected, Stl C.difficile Tox PCR Detected A, Stool Cryptosporidium PCR Not detected, Stl E.coli Shiga Tox PCR Not detected, Stool E coli O157 PCR Not detected, Stl Enterotoxigenic E PCR Not detected, Stool EPEC (PCR) Not detected, Stool EAEC (PCR) Not detected, Stl E. histolytica PCR Not detected, Stool Giardia Lamblia PCR Not detected, Stool Salmonella PCR Not detected, Stool Sapovirus (PCR) Not detected, Stl P. shigelloides PCR Not detected, Stl Shigella/EIEC PCR Not detected, St Y.enterocolitica PCR Not detected, Stool Vibrio (PCR) Not detected, Stl Vibrio cholerae PCR Not detected, Stl Norovirus GI/GII PCR Not detected 04/05/23 11:35: POC Glucose 135 H 04/05/23 16:11: POC Glucose 181 H 04/05/23 23:12: POC Glucose 99 04/06/23 05:20: WBC 6.8, RBC 4.84, Hgb 14.5, Hct 46.5, MCV 96.0, MCH 30.0, MCHC 31.2 L, RDW 14.6, Plt Count 195, MPV 8.1, Neut % (Auto) 66.3, Lymph % (Auto) 22.4, [place] % (Auto) 7.1, Eos % (Auto) 3.6, Baso % (Auto) 0.6, Neut # (Auto) 4.5, Lymph # (Auto) 1.5, [place] # (Auto) 0.5, Eos # (Auto) 0.2, Baso # (Auto) 0.0, Sodium 142, Potassium 3.5, Chloride 111 H, Carbon Dioxide 25, Anion Gap 9.5, BUN 11, Creatinine 0.80, Estimated Creat Clear 73, Estimated GFR 71, Est GFR ( Amer) 85, Glucose 110 H, Calcium 8.5 04/06/23 05:32: POC Glucose 109 I & O for Last 24 hours: Intake & Output 04/03/23 04/04/23 04/05/23 04/06/23 11:59 11:59 11:59 11:59 Intake Total 0 / 0 0 / 0 0 / 0 4312 / 4312 Output Total 250 / 250 650 / 650 0 / 0 0 / 0 Balance -250 / -250 -650 / -650 0 / 0 4312 / 4312 Weight 196 lb 9 oz 200 lb 1.6 oz 186 lb 1 oz 199 lb 3 oz *Routine Abdominal Exam Abdominal: Present distended Progress Note: A&P Assessment and plan (1) Complete obstruction of small intestine: Status: Ruled-out Assessment and plan: Concern for possible actual obstruction despite small bowel follow-through reading. Plan for follow-up imaging today. (2) Diabetes 1.5, managed as type 2: Status: Chronic (3) HTN (hypertension): Status: Chronic (4) COPD (chronic obstructive pulmonary disease): Status: Chronic (5) Schizophrenia: Status: Chronic
--- NOTE | 2023-04-06 08:31 | EXP.PN ---
Subjective *Date: 04/06/23 *Time: 12:29 Interval history: The patient had multiple loose bowel movements throughout the day yesterday and today. She had some abdominal discomfort last night but no discomfort this morning. Her appetite is good. Exam Data for Last 24 hours Vital signs and Labs for Last 24 Hours: Temp Pulse Resp BP Pulse Ox O2 Del Method O2 Flow Rate 98.7 F 58 L 18 146/68 H 95 Nasal Cannula 1 04/06/23 07:18 04/06/23 07:18 04/06/23 07:18 04/06/23 07:18 04/06/23 07:18 04/06/23 07:18 04/06/23 07:18 Laboratory Results - last 24 hr 04/05/23 02:10: Stl Aeromonas (PCR) Not detected, Stl C. cayetanensis PCR Not detected, Stool Rotavirus (PCR) Not detected, Stl Adenov F 40/41 PCR Not detected, Stool Astrovirus (PCR) Not detected, Stool Campylobacter PCR Not detected, Stl C.difficile Tox PCR Detected A, Stool Cryptosporidium PCR Not detected, Stl E.coli Shiga Tox PCR Not detected, Stool E coli O157 PCR Not detected, Stl Enterotoxigenic E PCR Not detected, Stool EPEC (PCR) Not detected, Stool EAEC (PCR) Not detected, Stl E. histolytica PCR Not detected, Stool Giardia Lamblia PCR Not detected, Stool Salmonella PCR Not detected, Stool Sapovirus (PCR) Not detected, Stl P. shigelloides PCR Not detected, Stl Shigella/EIEC PCR Not detected, St Y.enterocolitica PCR Not detected, Stool Vibrio (PCR) Not detected, Stl Vibrio cholerae PCR Not detected, Stl Norovirus GI/GII PCR Not detected 04/05/23 11:35: POC Glucose 135 H 04/05/23 16:11: POC Glucose 181 H 04/05/23 23:12: POC Glucose 99 04/06/23 05:20: WBC 6.8, RBC 4.84, Hgb 14.5, Hct 46.5, MCV 96.0, MCH 30.0, MCHC 31.2 L, RDW 14.6, Plt Count 195, MPV 8.1, Neut % (Auto) 66.3, Lymph % (Auto) 22.4, [place] % (Auto) 7.1, Eos % (Auto) 3.6, Baso % (Auto) 0.6, Neut # (Auto) 4.5, Lymph # (Auto) 1.5, [place] # (Auto) 0.5, Eos # (Auto) 0.2, Baso # (Auto) 0.0, Sodium 142, Potassium 3.5, Chloride 111 H, Carbon Dioxide 25, Anion Gap 9.5, BUN 11, Creatinine 0.80, Estimated Creat Clear 73, Estimated GFR 71, Est GFR ( Amer) 85, Glucose 110 H, Calcium 8.5 04/06/23 05:32: POC Glucose 109 I & O for Last 24 hours: Intake & Output 04/03/23 04/04/23 04/05/23 04/06/23 23:59 23:59 23:59 23:59 Intake Total 0 / 0 0 / 0 2412 / 3612 190 / 1899 Output Total 650 / 650 250 / 250 0 / 0 0 / 0 Balance -650 / -650 -250 / -250 2412 / 3612 1899 / 0 Weight 89.159 kg 90.764 kg 84.39 kg 90.35 kg Constitutional Constitutional: no acute distress *Routine HEENT Exam Head: Present normocephalic Eye: Present EOMI and PERRL ENT: Present mucous membranes moist Comments: NGT is in place *Routine Neck Exam Neck: Present supple; Absent lymphadenopathy *Routine Respiratory Exam Respiratory: Present CTA bilaterally *Routine Cardiovascular Exam Cardiovascular: Present RRR *Routine Abdominal Exam Abdominal: Present soft and normoactive bowel sounds; Absent tenderness *Routine Extremities Exam Extremities: Absent cyanosis, clubbing or edema *Routine Skin Exam Skin: Present warm; Absent rash *Routine Neurological Exam Neurological: Present alert and oriented X3 Assessment and Plan *Assessment and plan (1) Complete obstruction of small intestine: Status: Ruled-out Category: Medical Code(s): K56.601 - Complete intestinal obstruction, unspecified as to cause (2) Diabetes 1.5, managed as type 2: Status: Chronic Category: Medical Code(s): E13.9 - Other specified diabetes mellitus without complications (3) HTN (hypertension): Status: Chronic Qualifiers: Hypertension type: essential hypertension Qualified Code(s): I10 - Essential (primary) hypertension Category: Medical Code(s): I10 - Essential (primary) hypertension (4) COPD (chronic obstructive pulmonary disease): Status: Chronic Qualifiers: COPD type: unspecified COPD Qualified Code(s): J44.9 - Chronic obstructive pulmonary disease, unspecified Categor
[2023-04-06 11:19] VITALS: BP 129/77; PULSE 59; RESP 18; TEMP 36.6; O2SAT 99
[2023-04-06 11:43] LABS: POC Glucose,Bedside 135 (70-110)
--- NOTE | 2023-04-06 12:43 | EXP.SURG.PN ---
Subjective Narrative: This afternoon patient states that she feels pretty good. She wonders when she can have solid food. Exam Data for Last 24 hours Vital signs and Labs for Last 24 Hours: Temp Pulse Resp BP Pulse Ox O2 Del Method O2 Flow Rate 97.8 F 59 L 18 129/77 99 Nasal Cannula 1.5 04/06/23 11:19 04/06/23 11:19 04/06/23 11:19 04/06/23 11:19 04/06/23 11:19 04/06/23 11:19 04/06/23 11:19 Laboratory Results - last 24 hr 04/05/23 02:10: Stl Aeromonas (PCR) Not detected, Stl C. cayetanensis PCR Not detected, Stool Rotavirus (PCR) Not detected, Stl Adenov F 40/41 PCR Not detected, Stool Astrovirus (PCR) Not detected, Stool Campylobacter PCR Not detected, Stl C.difficile Tox PCR Detected A, Stool Cryptosporidium PCR Not detected, Stl E.coli Shiga Tox PCR Not detected, Stool E coli O157 PCR Not detected, Stl Enterotoxigenic E PCR Not detected, Stool EPEC (PCR) Not detected, Stool EAEC (PCR) Not detected, Stl E. histolytica PCR Not detected, Stool Giardia Lamblia PCR Not detected, Stool Salmonella PCR Not detected, Stool Sapovirus (PCR) Not detected, Stl P. shigelloides PCR Not detected, Stl Shigella/EIEC PCR Not detected, St Y.enterocolitica PCR Not detected, Stool Vibrio (PCR) Not detected, Stl Vibrio cholerae PCR Not detected, Stl Norovirus GI/GII PCR Not detected 04/05/23 16:11: POC Glucose 181 H 04/05/23 23:12: POC Glucose 99 04/06/23 05:20: WBC 6.8, RBC 4.84, Hgb 14.5, Hct 46.5, MCV 96.0, MCH 30.0, MCHC 31.2 L, RDW 14.6, Plt Count 195, MPV 8.1, Neut % (Auto) 66.3, Lymph % (Auto) 22.4, [place] % (Auto) 7.1, Eos % (Auto) 3.6, Baso % (Auto) 0.6, Neut # (Auto) 4.5, Lymph # (Auto) 1.5, [place] # (Auto) 0.5, Eos # (Auto) 0.2, Baso # (Auto) 0.0, Sodium 142, Potassium 3.5, Chloride 111 H, Carbon Dioxide 25, Anion Gap 9.5, BUN 11, Creatinine 0.80, Estimated Creat Clear 73, Estimated GFR 71, Est GFR ( Amer) 85, Glucose 110 H, Calcium 8.5 04/06/23 05:32: POC Glucose 109 04/06/23 11:16: POC Glucose 135 H I & O for Last 24 hours: Intake & Output 04/04/23 04/05/23 04/06/23 04/07/23 11:59 11:59 11:59 11:59 Intake Total 0 / 0 0 / 0 4312 / 4312 Output Total 650 / 650 0 / 0 300 / 300 Balance -650 / -650 0 / 0 4012 / 4012 Weight 200 lb 1.6 oz 186 lb 1 oz 199 lb 3 oz Progress Note: A&P Assessment and plan (1) Complete obstruction of small intestine: Status: Ruled-out (2) Diabetes 1.5, managed as type 2: Status: Chronic (3) HTN (hypertension): Status: Chronic (4) COPD (chronic obstructive pulmonary disease): Status: Chronic (5) Schizophrenia: Status: Chronic Assessment and Plan Assessment and Plan for All Diagnoses:: Acute abdominal series reveals dilated bowel favor ileus . I will start her on some simethicone. I will restart clear liquid diet. Certainly patient is not completely excluded from the need for laparotomy. Continue slow attempt at nonoperative management.
--- NOTE | 2023-04-06 13:19 | PC.NURSE ---
ROUNDED ON PT. WAS SITTING UP IN CHAIR WATCHING TV. NO NEEDS OR C/O NOTED AT THIS TIME.
[2023-04-06 15:26] VITALS: BP 159/78; PULSE 65; RESP 18; TEMP 36.6; O2SAT 98
[2023-04-06 18:00] LABS: POC Glucose,Bedside 150 (70-110)
--- NOTE | 2023-04-06 18:27 | PC.NURSE ---
Patient compliant throughout day. Patient's VSS. Patient has no complaints of pain or discomfort.
[2023-04-06 20:00] VITALS: BP 139/77; PULSE 58; RESP 18; TEMP 36.6; O2SAT 94
[2023-04-06 23:40] LABS: POC Glucose,Bedside 208 (70-110)
[2023-04-07] VITALS: BP 123/66; PULSE 52; RESP 18; TEMP 37.2; O2SAT 94
[2023-04-07 04:00] VITALS: BP 183/57; PULSE 48; RESP 18; TEMP 36.6; O2SAT 99; BMI 28.5
[2023-04-07 05:50] LABS: POC Glucose,Bedside 100 (70-110)
[2023-04-07 06:27] LABS: Basophils % 0.4 % (0.1-2.0); Eosinophils # 0.2 K/mm3 (0.0-0.4); Eosinophils % 4.2 % (0.1-12.0); Hematocrit 41.8 % (37.0-47.0); Hemoglobin 13.5 g/dL (12.2-16.2); Lymphocytes # 1.4 K/mm3 (0.7-4.5); Lymphocytes % 24.1 % (10-50); Mean Corpuscular HGB Conc 32.3 g/dL (31.8-35.4); Mean Corpuscular Hemoglobin 30.2 pg (27.0-31.2); Mean Corpuscular Volume 93.6 fl (81-99); Mean Platelet Volume 8.6 fl (7.4-10.4); Monocytes # 0.4 K/mm3 (0.1-1.0); Monocytes % 6.5 % (1.7-9.3); Neutrophils # 3.8 K/mm3 (1.8-7.8); Neutrophils % 64.8 % (37.0-80.0); Platelet Count 199 K/mm3 (142-424); Red Blood Count 4.46 M/mm3 (4.20-5.40); Red Cell Distribution Width 14.7 % (11.5-17.5); White Blood Count 5.9 K/mm3 (4.8-10.8)
--- NOTE | 2023-04-07 06:28 | P.PN_ITS ---
Subjective Narrative: Patient feels good without complaints. She does state that she had some bowel movements overnight. Stool was positive for C. difficile yesterday Exam Data for Last 24 hours Vital signs and Labs for Last 24 Hours: Temp Pulse Resp BP Pulse Ox O2 Del Method O2 Flow Rate 97.8 F 48 L 18 183/57 H 99 Nasal Cannula 2 04/07/23 04:00 04/07/23 04:00 04/07/23 04:00 04/07/23 04:00 04/07/23 04:00 04/07/23 05:00 04/07/23 05:00 Laboratory Results - last 24 hr 04/06/23 05:20: WBC 6.8, RBC 4.84, Hgb 14.5, Hct 46.5, MCV 96.0, MCH 30.0, MCHC 31.2 L, RDW 14.6, Plt Count 195, MPV 8.1, Neut % (Auto) 66.3, Lymph % (Auto) 22.4, [place] % (Auto) 7.1, Eos % (Auto) 3.6, Baso % (Auto) 0.6, Neut # (Auto) 4.5, Lymph # (Auto) 1.5, [place] # (Auto) 0.5, Eos # (Auto) 0.2, Baso # (Auto) 0.0, Sodium 142, Potassium 3.5, Chloride 111 H, Carbon Dioxide 25, Anion Gap 9.5, BUN 11, Creatinine 0.80, Estimated Creat Clear 73, Estimated GFR 71, Est GFR ( Amer) 85, Glucose 110 H, Calcium 8.5 04/06/23 11:16: POC Glucose 135 H 04/06/23 17:41: POC Glucose 150 H 04/06/23 23:28: POC Glucose 208 H 04/07/23 05:30: POC Glucose 100 I & O for Last 24 hours: Intake & Output 04/04/23 04/05/23 04/06/23 04/07/23 11:59 11:59 11:59 11:59 Intake Total 0 / 0 0 / 0 4312 / 4312 480 / 480 Output Total 650 / 650 0 / 0 300 / 300 0 / 0 Balance -650 / -650 0 / 0 4012 / 4012 480 / 480 Weight 200 lb 1.6 oz 186 lb 1 oz 199 lb 3 oz 199 lb 9 oz *Routine Abdominal Exam Abdominal: Present soft Progress Note: A&P Assessment and plan (1) Complete obstruction of small intestine: Status: Ruled-out Assessment and plan: No evidence of complete bowel obstruction. Likely ileus. Potential etiology C. difficile. I will check acute abdominal series again. May be able to advance diet. (2) Diabetes 1.5, managed as type 2: Status: Chronic (3) HTN (hypertension): Status: Chronic (4) COPD (chronic obstructive pulmonary disease): Status: Chronic (5) Schizophrenia: Status: Chronic
--- NOTE | 2023-04-07 06:30 | XR_ITS ---
FINAL REPORT TECHNIQUE: Abdomen including chest 3 views CLINICAL HISTORY: distension COMPARISON: 04/06/2023 FINDINGS: ABDOMEN SERIES: Views of the abdomen are compared to a prior exam from 04/06/2023. There is increasing distention in the multiple air-filled loops of small bowel seen on yesterday's exam. This may represent a worsening ileus. Changes of bilateral hip arthroplasties are once again noted. IMPRESSION: Increasing distention and multiple air-filled loops of small bowel, likely worsening ileus. Reviewed, Interpreted and Dictated by Donald Doss III, MD Transcribed by Arlette Nye Authenticated and . [facility]
[2023-04-07 06:33] LABS: Chloride 110 mmol/L (98-107)
[2023-04-07 06:34] LABS: Potassium 3.3 mmoL/L (3.5-5.1); Sodium 143 mmol/L (136-145)
[2023-04-07 06:37] LABS: Anion Gap 10.3 mEq/L (5-15); Blood Urea Nitrogen 9 mg/dl (7-17); Calcium 8.3 mg/dl (8.4-10.2); Carbon Dioxide 26 mmol/L (22.0-30.0); Creatinine Clearance Estimated 73 mL/min (50-200); Estimated Glomerular Filt Rate 71 ml/min (>60); GFR (African American) 85 ML/MIN (>60); Glucose 101 mg/dl (74-100)
[2023-04-07 08:00] VITALS: BP 137/67; PULSE 62; RESP 18; TEMP 36.5; O2SAT 91
--- NOTE | 2023-04-07 08:42 | EXP.PN ---
Subjective *Date: 04/07/23 *Time: 10:00 Interval history: No acute events overnight No abdominal pain Continues to have diarrhea No fevers Exam Data for Last 24 hours Vital signs and Labs for Last 24 Hours: Temp Pulse Resp BP Pulse Ox O2 Del Method O2 Flow Rate 97.8 F 48 L 18 183/57 H 99 Nasal Cannula 2 04/07/23 04:00 04/07/23 04:00 04/07/23 04:00 04/07/23 04:00 04/07/23 04:00 04/07/23 07:31 04/07/23 07:31 Laboratory Results - last 24 hr 04/06/23 11:16: POC Glucose 135 H 04/06/23 17:41: POC Glucose 150 H 04/06/23 23:28: POC Glucose 208 H 04/07/23 05:30: POC Glucose 100 04/07/23 05:38: WBC 5.9, RBC 4.46, Hgb 13.5, Hct 41.8, MCV 93.6, MCH 30.2, MCHC 32.3, RDW 14.7, Plt Count 199, MPV 8.6, Neut % (Auto) 64.8, Lymph % (Auto) 24.1, [place] % (Auto) 6.5, Eos % (Auto) 4.2, Baso % (Auto) 0.4, Neut # (Auto) 3.8, Lymph # (Auto) 1.4, [place] # (Auto) 0.4, Eos # (Auto) 0.2, Baso # (Auto) 0.0, Sodium 143, Potassium 3.3 L, Chloride 110 H, Carbon Dioxide 26, Anion Gap 10.3, BUN 9, Creatinine 0.80, Estimated Creat Clear 73, Estimated GFR 71, Est GFR ( Amer) 85, Glucose 101 H, Calcium 8.3 L I & O for Last 24 hours: Intake & Output 04/04/23 04/05/23 04/06/23 04/07/23 23:59 23:59 23:59 23:59 Intake Total 0 / 0 2411 / 2379 Output Total 250 / 250 0 / 0 300 / 300 Balance -250 / -250 2411 / 3611 2079 / 2079 Weight 90.764 kg 84.39 kg 90.35 kg 90.52 kg Constitutional Constitutional: no acute distress *Routine HEENT Exam Head: Present normocephalic Eye: Present EOMI and PERRL ENT: Present mucous membranes moist Comments: NGT is in place *Routine Neck Exam Neck: Present supple; Absent lymphadenopathy *Routine Respiratory Exam Respiratory: Present CTA bilaterally *Routine Cardiovascular Exam Cardiovascular: Present RRR *Routine Abdominal Exam Abdominal: Present soft and normoactive bowel sounds; Absent tenderness *Routine Extremities Exam Extremities: Absent cyanosis, clubbing or edema *Routine Skin Exam Skin: Present warm; Absent rash *Routine Neurological Exam Neurological: Present alert and oriented X3 Assessment and Plan *Assessment and plan (1) Complete obstruction of small intestine: Status: Ruled-out Category: Medical Code(s): K56.601 - Complete intestinal obstruction, unspecified as to cause (2) Diabetes 1.5, managed as type 2: Status: Chronic Category: Medical Code(s): E13.9 - Other specified diabetes mellitus without complications (3) HTN (hypertension): Status: Chronic Qualifiers: Hypertension type: essential hypertension Qualified Code(s): I10 - Essential (primary) hypertension Category: Medical Code(s): I10 - Essential (primary) hypertension (4) COPD (chronic obstructive pulmonary disease): Status: Chronic Qualifiers: COPD type: unspecified COPD Qualified Code(s): J44.9 - Chronic obstructive pulmonary disease, unspecified Category: Medical Code(s): J44.9 - Chronic obstructive pulmonary disease, unspecified (5) Schizophrenia: Status: Chronic Qualifiers: Schizophrenia type: unspecified Qualified Code(s): F20.9 - Schizophrenia, unspecified Category: Medical Code(s): F20.9 - Schizophrenia, unspecified Plan #Small bowel obstruction #c. diff colitis #schizophrenia #chronic pain Repeat diarrhea panel resulted positive for c. diff. on 04/05. continue po vancomycin. will order cbc and a bmp for tomorrow morning. PT evaluated the patient and are under the impression that she could discharge back to [facility] at time of discharge. acute abdomen series and NGT per General Surgery. Advance diet from cld to fld Full Code DVT ppx: heparin subcu
--- NOTE | 2023-04-07 10:36 | DIET.NUTRFU ---
Was able to advance diet to full liquids for lunch, had clear liquids x 5 trays. Yesterday nursing reported good intake at lunch. Patient is positive for C-diff, had 4 BM noted on 04/05, none yesterday. Continues on antibiotic. Will start ensure daily to help meet nutritional needs. Once about the advance diet to diabetic/cardiac will determine if meal intake will meet needs without supplements. Patient was at [facility], therapeutic diets are not monitored at facility.
[2023-04-07 11:58] LABS: POC Glucose,Bedside 157 (70-110)
[2023-04-07 12:00] VITALS: BP 126/54; PULSE 57; RESP 20; TEMP 36.8; O2SAT 90
--- NOTE | 2023-04-07 15:26 | PC.NURSE ---
PT IS RESTING IN BED. TOLERATED SITTING UP IN THE CHAIR FOR MEALS THIS SHIFT. PT IS TOLERATING FULL LIQUIDS. ALERT AND ORIENTED X3. LUNG SOUNDS DIMINISHED WITH BILATERAL CRACKLES (BASES). ABDOMEN SOFT/NON TENDER WITH ACTIVE BOWEL SOUNDS. 1 ASSIST TO GET OOB. SCATTERED SCABS NOTED TO THE BACK, LEGS AND ABDOMEN. WILL CONTINUE TO MONITOR.
[2023-04-07 16:00] VITALS: BP 143/65; PULSE 61; RESP 22; TEMP 36.7; O2SAT 92
[2023-04-07 16:30] LABS: POC Glucose,Bedside 220 (70-110)
[2023-04-07 20:00] VITALS: BP 145/77; PULSE 54; RESP 18; TEMP 36.7; O2SAT 96
[2023-04-08] VITALS: BP 142/54; PULSE 50; RESP 18; TEMP 36.5; O2SAT 89
[2023-04-08 00:40] LABS: POC Glucose,Bedside 153 (70-110)
[2023-04-08 01:34] LABS: POC Glucose,Bedside 172 (70-110)
[2023-04-08 04:00] VITALS: BP 132/58; PULSE 48; RESP 18; TEMP 36.7; O2SAT 97; BMI 28.1
--- NOTE | 2023-04-08 04:37 | PC.NURSE ---
Pt tolerates full liquid diet well. denies abd pain. No N/V noted. Crackles noted t/o lungs. Pt remains on 2l nc, tolerating well. RA sat 89%. Pt incontinent of urine and stool this shift. Contact precautions in place.
[2023-04-08 07:59] VITALS: BP 129/62; PULSE 52; RESP 22; TEMP 37.2; O2SAT 91
[2023-04-08 08:14] LABS: Basophils % 0.7 % (0.1-2.0); Eosinophils # 0.3 K/mm3 (0.0-0.4); Eosinophils % 4.9 % (0.1-12.0); Hematocrit 46.5 % (37.0-47.0); Hemoglobin 14.8 g/dL (12.2-16.2); Lymphocytes # 1.5 K/mm3 (0.7-4.5); Lymphocytes % 28.2 % (10-50); Mean Corpuscular HGB Conc 31.8 g/dL (31.8-35.4); Mean Corpuscular Hemoglobin 30.2 pg (27.0-31.2); Mean Platelet Volume 8.5 fl (7.4-10.4); Monocytes # 0.3 K/mm3 (0.1-1.0); Monocytes % 6.2 % (1.7-9.3); Neutrophils # 3.1 K/mm3 (1.8-7.8); Neutrophils % 59.9 % (37.0-80.0); Platelet Count 192 K/mm3 (142-424); Red Blood Count 4.89 M/mm3 (4.20-5.40); Red Cell Distribution Width 14.4 % (11.5-17.5); White Blood Count 5.2 K/mm3 (4.8-10.8)
[2023-04-08 08:23] LABS: Chloride 111 mmol/L (98-107); Potassium 3.8 mmoL/L (3.5-5.1); Sodium 143 mmol/L (136-145)
[2023-04-08 08:26] LABS: Blood Urea Nitrogen 7 mg/dl (7-17); Creatinine Clearance Estimated 72 mL/min (50-200); Estimated Glomerular Filt Rate 71 ml/min (>60); GFR (African American) 85 ML/MIN (>60); Glucose 123 mg/dl (74-100)
[2023-04-08 08:37] LABS: Magnesium 1.7 mg/dl (1.6-2.3)
[2023-04-08 09:20] LABS: Anion Gap 9.8 mEq/L (5-15); Carbon Dioxide 26 mmol/L (22.0-30.0)
[2023-04-08 11:22] VITALS: BP 133/68; PULSE 54; RESP 17; TEMP 36.7; O2SAT 92
--- NOTE | 2023-04-08 11:23 | EXP.SURG.PN ---
Subjective Narrative: Tolerating full liquid diet without issues. Exam Data for Last 24 hours Vital signs and Labs for Last 24 Hours: Temp Pulse Resp BP Pulse Ox O2 Del Method O2 Flow Rate 98.1 F 54 L 17 133/68 92 L Room Air 2 04/08/23 11:22 04/08/23 11:22 04/08/23 11:22 04/08/23 11:22 04/08/23 11:22 04/08/23 11:22 04/08/23 09:00 Laboratory Results - last 24 hr 04/07/23 11:47: POC Glucose 157 H 04/07/23 16:16: POC Glucose 220 H 04/07/23 21:06: POC Glucose 172 H 04/08/23 00:25: POC Glucose 153 H 04/08/23 07:22: WBC 5.2, RBC 4.89, Hgb 14.8, Hct 46.5, MCV 95.0, MCH 30.2, MCHC 31.8, RDW 14.4, Plt Count 192, MPV 8.5, Neut % (Auto) 59.9, Lymph % (Auto) 28.2, [place] % (Auto) 6.2, Eos % (Auto) 4.9, Baso % (Auto) 0.7, Neut # (Auto) 3.1, Lymph # (Auto) 1.5, [place] # (Auto) 0.3, Eos # (Auto) 0.3, Baso # (Auto) 0.0, Sodium 143, Potassium 3.8, Chloride 111 H, Carbon Dioxide 26, Anion Gap 9.8, BUN 7, Creatinine 0.80, Estimated Creat Clear 72, Estimated GFR 71, Est GFR ( Amer) 85, Glucose 123 H, Calcium 9.0, Magnesium 1.7 I & O for Last 24 hours: Intake & Output 04/05/23 04/06/23 04/07/23 04/08/23 11:59 11:59 11:59 11:59 Intake Total 0 / 0 4312 / 4312 1400 / 1400 2400 / 2400 Output Total 0 / 0 300 / 300 0 / 0 0 / 0 Balance 0 / 0 4012 / 4012 1400 / 1400 2400 / 2400 Weight 186 lb 1 oz 199 lb 3 oz 199 lb 9 oz 196 lb 8 oz *Routine Abdominal Exam Abdominal: Present soft Progress Note: A&P Assessment and plan (1) Complete obstruction of small intestine: Status: Ruled-out Assessment and plan: No obstruction. Ileus. C. Diff. Advance diet. (2) Diabetes 1.5, managed as type 2: Status: Chronic (3) HTN (hypertension): Status: Chronic (4) COPD (chronic obstructive pulmonary disease): Status: Chronic (5) Schizophrenia: Status: Chronic
--- NOTE | 2023-04-08 13:39 | EXP.PN ---
Subjective *Date: 04/08/23 *Time: 18:01 Interval history: The patient had one episode of diarrhea today. She complains of mild abdominal discomfort. She ate most of her food today and hasn't had nausea. Exam Data for Last 24 hours Vital signs and Labs for Last 24 Hours: Temp Pulse Resp BP Pulse Ox O2 Del Method O2 Flow Rate 98.1 F 54 L 17 133/68 92 L Room Air 2 04/08/23 11:22 04/08/23 11:22 04/08/23 11:22 04/08/23 11:22 04/08/23 11:22 04/08/23 12:46 04/08/23 09:00 Laboratory Results - last 24 hr 04/07/23 16:16: POC Glucose 220 H 04/07/23 21:06: POC Glucose 172 H 04/08/23 00:25: POC Glucose 153 H 04/08/23 07:22: WBC 5.2, RBC 4.89, Hgb 14.8, Hct 46.5, MCV 95.0, MCH 30.2, MCHC 31.8, RDW 14.4, Plt Count 192, MPV 8.5, Neut % (Auto) 59.9, Lymph % (Auto) 28.2, [place] % (Auto) 6.2, Eos % (Auto) 4.9, Baso % (Auto) 0.7, Neut # (Auto) 3.1, Lymph # (Auto) 1.5, [place] # (Auto) 0.3, Eos # (Auto) 0.3, Baso # (Auto) 0.0, Sodium 143, Potassium 3.8, Chloride 111 H, Carbon Dioxide 26, Anion Gap 9.8, BUN 7, Creatinine 0.80, Estimated Creat Clear 72, Estimated GFR 71, Est GFR ( Amer) 85, Glucose 123 H, Calcium 9.0, Magnesium 1.7 I & O for Last 24 hours: Intake & Output 04/05/23 04/06/23 04/07/23 04/08/23 23:59 23:59 23:59 23:59 Intake Total 2411 / 2 2380 / 2380 2840 / 2840 960 / 960 Output Total 0 / 0 300 / 300 0 / 0 0 / 0 Balance 2411 / 3611 2080 / 2080 2840 / 2840 960 / 960 Weight 84.39 kg 90.35 kg 90.52 kg 89.131 kg Constitutional Constitutional: no acute distress *Routine HEENT Exam Head: Present normocephalic Eye: Present EOMI and PERRL ENT: Present mucous membranes moist *Routine Neck Exam Neck: Present supple; Absent lymphadenopathy *Routine Respiratory Exam Respiratory: Present CTA bilaterally *Routine Cardiovascular Exam Cardiovascular: Present RRR *Routine Abdominal Exam Abdominal: Present soft and normoactive bowel sounds; Absent tenderness *Routine Extremities Exam Extremities: Absent cyanosis, clubbing or edema *Routine Skin Exam Skin: Present warm; Absent rash *Routine Neurological Exam Neurological: Present alert and oriented X3 Assessment and Plan *Assessment and plan (1) Complete obstruction of small intestine: Status: Ruled-out Category: Medical Code(s): K56.601 - Complete intestinal obstruction, unspecified as to cause (2) Diabetes 1.5, managed as type 2: Status: Chronic Category: Medical Code(s): E13.9 - Other specified diabetes mellitus without complications (3) HTN (hypertension): Status: Chronic Qualifiers: Hypertension type: essential hypertension Qualified Code(s): I10 - Essential (primary) hypertension Category: Medical Code(s): I10 - Essential (primary) hypertension (4) COPD (chronic obstructive pulmonary disease): Status: Chronic Qualifiers: COPD type: unspecified COPD Qualified Code(s): J44.9 - Chronic obstructive pulmonary disease, unspecified Category: Medical Code(s): J44.9 - Chronic obstructive pulmonary disease, unspecified (5) Schizophrenia: Status: Chronic Qualifiers: Schizophrenia type: unspecified Qualified Code(s): F20.9 - Schizophrenia, unspecified Category: Medical Code(s): F20.9 - Schizophrenia, unspecified Plan #ileus #c. diff colitis #schizophrenia #chronic pain Repeat diarrhea panel resulted positive for c. diff. on 04/05. continue po vancomycin. will order cbc and a bmp for tomorrow morning. PT evaluated the patient and are under the impression that she could discharge back to [facility] at time of discharge. Diet was advanced from fld to soft mechanical. Full Code DVT ppx: heparin subcu
[2023-04-08 16:00] VITALS: BP 137/61; PULSE 44; RESP 22; TEMP 36.6; O2SAT 91
--- NOTE | 2023-04-08 17:46 | PC.NURSE ---
PT IS SITTING UP IN THE CHAIR EATING DINNER AT THIS TIME. ALERT AND ORIENTED X3. PT HAS TOLERATED SOFT DIET WELL. PT HAS BEEN AMBULATING IN THE ROOM AND TO THE BATHROOM. LUNG SOUNDS DIMINISHED WITH SCATTERED WHEEZES AND FINE CRACKLES (BASES). ABDOMEN SOFT/NON TENDER WITH ACTIVE BOWEL SOUNDS. WILL CONTINUE TO MONITOR.
[2023-04-08 17:53] LABS: POC Glucose,Bedside 99 (70-110)
[2023-04-08 17:53] LABS: POC Glucose,Bedside 209 (70-110)
[2023-04-08 20:00] VITALS: BP 149/90; PULSE 60; RESP 16; TEMP 36.5; O2SAT 92
[2023-04-09] VITALS: BP 142/73; PULSE 60; RESP 18; TEMP 36.8; O2SAT 91
[2023-04-09 04:00] VITALS: BP 179/64; PULSE 50; RESP 20; TEMP 36.9; O2SAT 91; BMI 28.3
--- NOTE | 2023-04-09 07:06 | PC.NURSE ---
Pt tolerating diet well. Pt denies abd pain, no n/v. Pt rested well this shift and has had no complaints.
[2023-04-09 08:00] VITALS: BP 147/88; PULSE 67; RESP 18; TEMP 36.9; O2SAT 97
[2023-04-09 08:48] LABS: Chloride 109 mmol/L (98-107); Potassium 4.2 mmoL/L (3.5-5.1); Sodium 143 mmol/L (136-145)
[2023-04-09 08:50] LABS: Alanine Aminotransferase 21 U/L (12-78); Alkaline Phosphatase 83 U/L (38-126); Aspartate Amino Transferase 26 U/L (14-36); Bilirubin,Total 0.3 mg/dl (0.2-1.3); Blood Urea Nitrogen 10 mg/dl (7-17); Creatinine Clearance Estimated 72 mL/min (50-200); Estimated Glomerular Filt Rate 62 ml/min (>60); GFR (African American) 74 ML/MIN (>60)
[2023-04-09 08:51] LABS: Albumin Level 2.9 g/dl (3.5-5.0); Anion Gap 10.2 mEq/L (5-15); Calcium 8.8 mg/dl (8.4-10.2); Carbon Dioxide 28 mmol/L (22.0-30.0); Globulin 2.9 g/dL (1.3-3.2); Glucose 169 mg/dl (74-100); Total Protein,Serum 5.8 g/dl (6.3-8.2)
[2023-04-09 08:57] LABS: Basophils # 0.1 K/mm3 (0-0.2); Basophils % 0.8 % (0.1-2.0); Eosinophils # 0.2 K/mm3 (0.0-0.4); Eosinophils % 3.3 % (0.1-12.0); Hematocrit 42.7 % (37.0-47.0); Hemoglobin 13.6 g/dL (12.2-16.2); Lymphocytes # 1.7 K/mm3 (0.7-4.5); Lymphocytes % 29.9 % (10-50); Mean Corpuscular HGB Conc 31.8 g/dL (31.8-35.4); Mean Corpuscular Hemoglobin 30.3 pg (27.0-31.2); Mean Corpuscular Volume 95.5 fl (81-99); Mean Platelet Volume 8.3 fl (7.4-10.4); Monocytes # 0.3 K/mm3 (0.1-1.0); Monocytes % 5.1 % (1.7-9.3); Neutrophils # 3.6 K/mm3 (1.8-7.8); Neutrophils % 60.9 % (37.0-80.0); Platelet Count 197 K/mm3 (142-424); Red Blood Count 4.47 M/mm3 (4.20-5.40); Red Cell Distribution Width 14.5 % (11.5-17.5); White Blood Count 5.8 K/mm3 (4.8-10.8)
--- NOTE | 2023-04-09 10:58 | P.PN_ITS ---
Subjective Narrative: No complaints. Tolerating soft diet. Exam Data for Last 24 hours Vital signs and Labs for Last 24 Hours: Temp Pulse Resp BP Pulse Ox O2 Del Method O2 Flow Rate 98.4 F 67 18 147/88 H 97 Room Air 2 04/09/23 08:00 04/09/23 08:00 04/09/23 08:00 04/09/23 08:00 04/09/23 08:00 04/09/23 09:00 04/08/23 20:00 Laboratory Results - last 24 hr 04/08/23 04:50: POC Glucose 99 04/08/23 10:49: POC Glucose 209 H 04/09/23 07:32: WBC 5.8, RBC 4.47, Hgb 13.6, Hct 42.7, MCV 95.5, MCH 30.3, MCHC 31.8, RDW 14.5, Plt Count 197, MPV 8.3, Neut % (Auto) 60.9, Lymph % (Auto) 29.9, [place] % (Auto) 5.1, Eos % (Auto) 3.3, Baso % (Auto) 0.8, Neut # (Auto) 3.6, Lymph # (Auto) 1.7, [place] # (Auto) 0.3, Eos # (Auto) 0.2, Baso # (Auto) 0.1, Sodium 143, Potassium 4.2, Chloride 109 H, Carbon Dioxide 28, Anion Gap 10.2, BUN 10 D , Creatinine 0.90, Estimated Creat Clear 72, Estimated GFR 62, Est GFR ( Amer) 74, Glucose 169 H, Calcium 8.8, Total Bilirubin 0.3, AST 26, ALT 21, Alkaline Phosphatase 83, Total Protein 5.8 L, Albumin 2.9 L, Globulin 2.9, Albumin/Globulin Ratio 1.0 L I & O for Last 24 hours: Intake & Output 04/06/23 04/07/23 04/08/23 04/09/23 11:59 11:59 11:59 11:59 Intake Total 4312 / 4312 1400 / 1400 2400 / 2400 1440 / 1440 Output Total 300 / 300 0 / 0 0 / 0 Balance 4012 / 4012 1400 / 1400 2400 / 2400 1440 / 1440 Weight 199 lb 3 oz 199 lb 9 oz 196 lb 8 oz 198 lb 6.4 oz *Routine Abdominal Exam Abdominal: Present soft; Absent tenderness Progress Note: A&P Assessment and plan (1) Complete obstruction of small intestine: Status: Ruled-out Assessment and plan: No evidence of bowel obstruction (2) Diabetes 1.5, managed as type 2: Status: Chronic (3) HTN (hypertension): Status: Chronic (4) COPD (chronic obstructive pulmonary disease): Status: Chronic (5) Schizophrenia: Status: Chronic
[2023-04-09 11:51] LABS: POC Glucose,Bedside 227 (70-110)
[2023-04-09 11:51] LABS: POC Glucose,Bedside 189 (70-110)
[2023-04-09 11:51] LABS: POC Glucose,Bedside 189 (70-110)
[2023-04-09 11:51] LABS: POC Glucose,Bedside 142 (70-110)
[2023-04-09 12:00] VITALS: BP 140/74; PULSE 65; RESP 17; TEMP 36.9; O2SAT 93
--- NOTE | 2023-04-09 12:17 | EXP.DC.SUM ---
General Admission date:: 04/02/23 HPI HPI HPI: Forwarded from Admission H&P: Ms. Taylor is a 72-year-old female who resides at [facility]. She has a history of previous cholecystectomy and appendectomy over 20 years ago. Other history includes schizophrenia, diabetes, constipation, chronic pain, hypertension, COPD, and CHF. She presented to the ER because of 3 days of abdominal pain, distention, diarrhea. Has been accompanied by some nausea but no cindy emesis. Describes the pain throughout her abdomen. Stools described as loose and watery. In the ER, work-up initiated including imaging of her abdomen. CT of abdomen and pelvis revealed small bowel obstruction with numerous dilated loops of small bowel and air-fluid levels. Imaging also consistent with transition zone in right lower quadrant. Remainder of labs were nonactionable at patient's baseline's. Surgery was consulted given concern for small bowel obstruction. Recommended NG placement for decompression. Medicine was consulted for admission. Per chart review, she has previously undergone colonoscopy due to history of anemia. Last colonoscopy with Dr. Vaughan in April 2020 at which time she was found to have moderate prep, multiple complex polyps. Per pathology report, at-least 10 tubular adenomas and recommendations were for repeat colonoscopy in 6 to 12 months. Cannot find record of repeat colonoscopy. she did have an upper endoscopy 1 month prior. She had an upper GI with small bowel follow-through to work-up possible GI source of her anemia on 05/18/2020 which was unremarkable. My evaluation, patient is feeling better after getting to the floor and having an NG placed. Still having bilious to clear output from NG. Bowel sounds active in lower abdomen. Distention noted. Tender to palpation. Of note, concerning for bedbug infestation given her rash. States she has been dealing with bedbugs for a month at her personal-correction. Hospital Course Hospital Course Hospital Course: NGT was discontinued and SBO was ruled out by General Surgery Repeat diarrhea panel resulted positive for c. diff. on 04/05. started po vancomycin. Diet was gradually advanced and by the day of discharge the patient was having more formed bowel movements and tolerating a soft mechanical diet She will need to complete a 10 day course of po vancomycin and f/u with her PCP in one week. The patient will return to [facility]. Exam Data for Last 24 hours Vital signs and Labs for Last 24 Hours: Temp Pulse Resp BP Pulse Ox O2 Del Method O2 Flow Rate 98.5 F 65 17 140/74 93 L Room Air 2 04/09/23 12:00 04/09/23 12:00 04/09/23 12:00 04/09/23 12:00 04/09/23 12:00 04/09/23 12:00 04/08/23 20:00 Laboratory Results - last 24 hr 04/08/23 04:50: POC Glucose 99 04/08/23 10:49: POC Glucose 209 H 04/08/23 17:29: POC Glucose 142 H 04/08/23 23:31: POC Glucose 189 H 04/09/23 05:34: POC Glucose 189 H 04/09/23 07:32: WBC 5.8, RBC 4.47, Hgb 13.6, Hct 42.7, MCV 95.5, MCH 30.3, MCHC 31.8, RDW 14.5, Plt Count 197, MPV 8.3, Neut % (Auto) 60.9, Lymph % (Auto) 29.9, [place] % (Auto) 5.1, Eos % (Auto) 3.3, Baso % (Auto) 0.8, Neut # (Auto) 3.6, Lymph # (Auto) 1.7, [place] # (Auto) 0.3, Eos # (Auto) 0.2, Baso # (Auto) 0.1, Sodium 143, Potassium 4.2, Chloride 109 H, Carbon Dioxide 28, Anion Gap 10.2, BUN 10 D, Creatinine 0.90, Estimated Creat Clear 72, Estimated GFR 62, Est GFR ( Amer) 74, Glucose 169 H, Calcium 8.8, Total Bilirubin 0.3, AST 26, ALT 21, Alkaline Phosphatase 83, Total Protein 5.8 L, Albumin 2.9 L, Globulin 2.9, Albumin/Globulin Ratio 1.0 L 04/09/23 11:06: POC Glucose 227 H I & O for Last 24 hours: Intake & Output 04/06/23 04/07/23 04/08/23 04/09/23 23:59 23:59 23:59 23:59 Intake Total 2380 / 2380 2840 / 2840 1440 / 1440 480 / 480 Output Total 300 / 300 0 / 0 0 / 0 Balance 2080 / 2080 2840 / 2840 1440 / 1440 480 / 480 Weight 90.35 kg 90.52 kg 89.131 kg 89.993 kg Results
== END 2023-04-09 13:17 | disposition home or self-care (01) | DRG 373 ==
LOC: ER 10:38 → 2ND 13:23 → ER 13:25 → 2ND 13:25
PROVIDERS: Internal Medicine; Surgery; Admitting Provider Internal Medicine Adolescent Medicine; Emergency Provider Emergency Medicine; Visit Provider Internal Medicine Adolescent Medicine
DX: A04.72 Enterocolitis due to Clostridium difficile, not specified as recurrent (principal); I10 Essential (primary) hypertension; J44.9 Chronic obstructive pulmonary disease, unspecified; F20.9 Schizophrenia, unspecified; E13.9 Other specified diabetes mellitus without complications; G89.29 Other chronic pain; F17.210 Nicotine dependence, cigarettes, uncomplicated
CPT/HCPCS: 36415; 71045; 74018; 74021; 74177; 74250; 80048; 80053; 81001; 82962; 83036; 83605; 83690; 83735; 84100; 85025; 87506; 87507; 94761; 97110; 97163; 97165; 97530; J2405; J3475; Q9967

== ENCOUNTER 2023-06-02 13:24 | Inpatient (IN) | payer MEDICAID, MEDICARE, SELFPAY ==
[2023-06-02] VITALS (13 sets, daily range): BP systolic 133–168; BP diastolic 60–78; PULSE 58–73; RESP 17–22; TEMP 36.5–37.7; O2SAT 86–95; BMI 25.8
--- NOTE | 2023-06-02 13:28 | ECG_ITS ---
APPROVED REPORT Exam: Resting ECG HR:70 bpm ECG Measurements Heart Rate 70 AXES MS 162 P 46 QRSd 95 QRS 26 QT 425 T 56 QTc 445 Conclusion SINUS RHYTHM INCOMPLETE RIGHT BUNDLE BRANCH BLOCK [90+ ms QRS DURATION, TERMINAL R IN V1/V2, 40+ ms S IN I/aVL/V4/V5/V6] SEPTAL MYOCARDIAL INFARCTION , OF INDETERMINATE AGE [40+ ms Q WAVE IN V1/V2] ABNORMAL ECG UNCONFIRMED REPORT Electronically signed by : Hardeep Navarro MD 06/03/2023 11:02:25
--- NOTE | 2023-06-02 13:28 | XR_ITS ---
FINAL REPORT CLINICAL HISTORY: dyspnea chest pain & cough x 1 week smoker (unknown for how long) COMPARISON: 04/02/2023 FINDINGS: SINGLE-VIEW CHEST The heart size is normal. The mediastinum is normal. There are mild bibasilar opacities, may represent atelectasis or pneumonia. There is no pneumothorax. IMPRESSION: Bibasilar atelectasis versus pneumonia. Reviewed, Interpreted and Dictated by Donald Doss III, MD Transcribed by Dayanara Jones Authenticated and [facility]
--- NOTE | 2023-06-02 13:31 | HMH.EDGENADL ---
Discharge Plan Disposition Chief Complaint: Chest Pain Prescriptions Prescriptions: No Action sertraline 100 mg tablet 100 mg PO DAILY diphenhydramine HCl [Banophen] 25 mg capsule 25 mg PO Q6HP PRN (Reason: Allergy Symptoms) ondansetron HCl 4 mg tablet 4 mg PO Q6HP PRN (Reason: Nausea And Vomiting) metformin 1,000 mg tablet 1,000 mg PO BIDWMEAL montelukast [Singulair] 10 mg tablet 10 mg PO PM omeprazole 40 mg capsule,delayed release(DR/EC) 40 mg PO DAILY oxybutynin chloride 5 mg tablet 5 mg PO DAILY amlodipine [Norvasc] 10 mg tablet 10 mg PO DAILY aspirin 325 mg tablet 325 mg PO DAILY cetirizine [Zyrtec] 10 mg tablet 10 mg PO DAILY polyethylene glycol 3350 [Gavilax] 17 gram powder in packet 17 g PO BIDP PRN (Reason: Constipation) aripiprazole 30 mg tablet 30 mg PO DAILY Myrbetriq 50 mg tablet extended release 24 hr 50 mg PO DAILY melatonin 5 mg tablet 5 mg PO HS mirtazapine 30 mg tablet 30 mg PO HS gabapentin 600 mg tablet 600 mg PO BID Qty: 60 5RF hydrocodone-acetaminophen 10-325 mg tablet 1 tab PO BID Qty: 60 0RF isosorbide mononitrate 30 MG tablet extended release 24 hr 30 mg PO DAILY ferrous sulfate 325 MG tablet 325 mg PO BID loperamide 2 mg Capsule 2 mg PO Q4HP PRN (Reason: Diarrhea) Rx Instructions: administer after each loose stool until symptoms controlled; do not exceed 8 mg per 24 hrs furosemide 20 mg tablet 20 mg PO DAILY lorazepam 1 mg tablet 1 mg PO Q6HP PRN (Reason: anxiety) vancomycin [Firvanq] 50 mg/mL Recon Soln 125 mg PO QID 7 Days Qty: 70 0RF Clinical Impressions Clinical Impression: Acute hypoxic respiratory failure, Atypical chest pain, Acute exacerbation of chronic obstructive pulmonary disease Discharge ED Provider: Farhad Min General Adult HPI General Chief complaint: Chest Pain Stated complaint: chest pain Time Seen by Provider: 06/02/23 13:27 History of Present Illness HPI narrative: Is a 72-year-old female resident of [place] brought in by EMS for a cold and chest pain. Patient states she has felt sick for the last 1 week which she describes as having a cough fevers chills some shortness of breath. She also states that this morning she began having some substernal chest pressure that is nonexertional no diaphoresis or radiation associated with this as well. EMS states that she was hypoxic in route with an oxygen saturation of 88% on room air she was placed on 2 L nasal cannula. The patient does not wear home oxygen. The patient does have a history of COPD and states she has had increased pedal production, cough and wheezing in association with the shortness of breath. Related Data Home Medications Medication Instructions Recorded Confirmed amlodipine 10 mg tablet (Norvasc) 10 mg PO DAILY High Blood Pressure 09/17/19 04/02/23 aspirin 325 mg tablet 325 mg PO DAILY Heart Disease 09/17/19 04/02/23 cetirizine 10 mg tablet (Zyrtec) 10 mg PO DAILY Allergy symptoms 09/17/19 04/02/23 metformin 1,000 mg tablet 1,000 mg PO BIDWMEAL Diabetes 09/17/19 04/02/23 montelukast 10 mg tablet 10 mg PO PM Allergy symptoms 09/17/19 04/02/23 (Singulair) omeprazole 40 mg capsule,delayed 40 mg PO DAILY Acid Reflux 09/17/19 04/02/23 release oxybutynin chloride 5 mg tablet 5 mg PO DAILY Bladder 09/17/19 04/02/23 polyethylene glycol 3350 17 gram 17 g PO BIDP PRN Constipation 04/08/20 04/02/23 oral powder packet (Gavilax) diphenhydramine HCl 25 mg capsule 25 mg PO Q6HP PRN Allergy Symptoms 08/04/21 04/02/23 (Banophen) sertraline 100 mg tablet 100 mg PO DAILY mood 08/04/21 04/02/23 ferrous sulfate 325 mg (65 mg 325 mg PO BID Supplement 08/23/21 04/02/23 iron) tablet isosorbide mononitrate 30 mg 30 mg PO DAILY High Blood Pressure 08/23/21 04/02/23 tablet,extended release 24 hr aripiprazole 30 mg tablet 30 mg PO DAILY Mood
--- NOTE | 2023-06-02 13:37 | PC.NURSE ---
RAD at for CXR
--- NOTE | 2023-06-02 13:37 | PC.NURSE ---
Notified RT of VBG order
[2023-06-02 13:43] LABS: VBG Base Excess 1.2 mmol/L (-2.4-2.3); VBG HCO3 26.6 mmol/L (23-30); VBG Oxygen Saturation 95.7 % (50-70); VBG PCO2 47.9 mmol/L (35-51); VBG PH 7.36 mmol/L (7.31-7.41); VBG PO2 75.1 mmol/L (28-40); VBG Total CO2 28.1 mmol/L (23-27)
[2023-06-02 13:44] LABS: Basophils % 0.5 % (0.1-2.0); Eosinophils # 0.2 K/mm3 (0.0-0.4); Eosinophils % 2.5 % (0.1-12.0); Hematocrit 45.1 % (37.0-47.0); Hemoglobin 14.7 g/dL (12.2-16.2); Lymphocytes # 1.4 K/mm3 (0.7-4.5); Lymphocytes % 17.1 % (10-50); Mean Corpuscular HGB Conc 32.7 g/dL (31.8-35.4); Mean Corpuscular Hemoglobin 31.2 pg (27.0-31.2); Mean Corpuscular Volume 95.5 fl (81-99); Mean Platelet Volume 8.3 fl (7.4-10.4); Monocytes # 0.4 K/mm3 (0.1-1.0); Monocytes % 4.8 % (1.7-9.3); Neutrophils # 6.3 K/mm3 (1.8-7.8); Neutrophils % 75.1 % (37.0-80.0); Platelet Count 196 K/mm3 (142-424); Red Blood Count 4.73 M/mm3 (4.20-5.40); Red Cell Distribution Width 14.1 % (11.5-17.5); White Blood Count 8.4 K/mm3 (4.8-10.8)
[2023-06-02 13:45] LABS: Chloride 106 mmol/L (98-107)
[2023-06-02 13:46] LABS: Potassium 4.2 mmoL/L (3.5-5.1); Sodium 140 mmol/L (136-145)
[2023-06-02 13:48] LABS: Alanine Aminotransferase 26 U/L (12-78); Alkaline Phosphatase 111 U/L (38-126); Anion Gap 9.2 mEq/L (5-15); Aspartate Amino Transferase 26 U/L (14-36); Bilirubin,Total 0.2 mg/dl (0.2-1.3); Blood Urea Nitrogen 19 mg/dl (7-17); Carbon Dioxide 29 mmol/L (22.0-30.0); Creatinine Clearance Estimated 58 mL/min (50-200); Estimated Glomerular Filt Rate 62 ml/min (>60); GFR (African American) 74 ML/MIN (>60)
[2023-06-02 13:49] LABS: Albumin Level 3.4 g/dl (3.5-5.0); Albumin/Globulin Ratio 0.9 (1.1-1.8); Calcium 8.5 mg/dl (8.4-10.2); Globulin 3.6 g/dL (1.3-3.2); Glucose 256 mg/dl (74-100)
--- NOTE | 2023-06-02 13:57 | PC.NURSE ---
Rounded on patient; pillow provided and lights dim. Nothing needed at this time call light within reach of patient
[2023-06-02 13:59] LABS: Coronavirus 19, PCR Not Detected (NotDetected); Influenza A, PCR Not Detected (NotDetected); Influenza B, PCR Not Detected (NotDetected)
--- NOTE | 2023-06-02 14:06 | CT_ITS ---
PROCEDURE INFORMATION: Exam: CTA Chest With Contrast Exam date and time: 06/02/2023 2:42 PM Age: 72 years old Clinical indication: Condition or disease; Other: Resp failure; Additional info: Hypoxic respiratory failure TECHNIQUE: Imaging protocol: Computed tomographic angiography of the chest with contrast. Exam focused on the arteries. 3D rendering (Not supervised by radiologist): MIP and/or 3D reconstructed images were created by the technologist. Radiation optimization: All CT scans at this facility use at least one of these dose optimization techniques: automated exposure control; mA and/or kV adjustment per patient size (includes targeted exams where dose is matched to clinical indication); or iterative reconstruction. Contrast material: ISOVUE; Contrast volume: 70 ml; Contrast route: INTRAVENOUS (IV); REPORTING DATA: Count of CT and Cardiac NM exams in prior 12 months: This patient has received 7 known CTs and 0 known cardiac nuclear medicine studies in the 12 months prior to the current study. COMPARISON: 1. CT ANGIO CHEST PE PROTOCOL 01/05/2023 9:[address] CHEST W CON 07/29/2021 2:39 PM FINDINGS: Pulmonary arteries: No pulmonary artery embolism identified. Main pulmonary artery is upper normal in caliber. Aorta: No aortic aneurysm. No aortic dissection or evidence of acute aortic abnormality. Multifocal calcified plaque along the thoracic aorta and included upper abdominal aorta. Lungs: Mild pulmonary emphysema. There are scattered areas of tree-in-bud /centrilobular nodularity (nodules measure less than 6 mm) in both upper lobes and both lower lobes and areas of ground-glass opacity in the left apex and both lower lobes. There are additional more discrete noncalcified pulmonary nodules which are stable compared to 07/29/2021, largest measuring 5-6 mm in both lower lobes. Calcified granuloma in the right upper lobe. Pleural spaces: No pneumothorax. No pleural effusion. Heart: Heart size is normal. Mild basal/mid septal LVH. Mitral annular calcifications. No pericardial effusion. Aortic valve calcifications. Coronary arteries: Multi-vessel coronary artery calcifications. Lymph nodes: Calcified mediastinal/hilar lymph nodes compatible with prior granulomatous disease. Mildly enlarged noncalcified mediastinal/hilar lymph nodes, not significantly changed. Bones/joints: No acute abnormality. Remote left rib fractures. Multilevel degenerative changes of the included spine are again demonstrated. Stable moderate anterior compression deformity of L1. Soft tissues: Unremarkable. IMPRESSION: 1. No pulmonary artery embolism identified. 2. Thoracic aortic atherosclerotic disease. No thoracic aortic aneurysm. Multi-vessel coronary artery calcifications. Aortic valve calcifications which may indicate the presence of aortic valve stenosis, consider echocardiography if clinically appropriate. 3. Scattered areas of tree-in-bud/centrilobular nodularity and ground-glass opacity in both lungs consistent with infectious/inflammatory process. Other small stable pulmonary nodules. Mild pulmonary emphysema. As per Fleischner Society 2017 guidelines for follow-up and management of pulmonary nodules: For patients at low risk (minimal or absent history of smoking and of other known risk factors), no routine follow-up is indicated. For patients at high risk (history of smoking or of other known risk factors), consider optional CT Chest at 12 months. 4. Mildly enlarged mediastinal/hilar lymph nodes, not significantly changed, likely reactive. 5. Other chronic and incidental findings as detailed above. COMMENTS: In the absence of a history or active diagnosis of lung cancer, it is recommended that this patient with e
[2023-06-02 14:12] LABS: Lactic Acid 1.1 mmol/L (0.7-2.1)
--- NOTE | 2023-06-02 14:35 | PC.NURSE ---
Pt to CT
--- NOTE | 2023-06-02 14:49 | PC.NURSE ---
Pt back from CT
--- NOTE | 2023-06-02 15:30 | PC.NURSE ---
Rounded on pt. No needs voiced at this time. Call light within reach.
--- NOTE | 2023-06-02 15:36 | PC.NURSE ---
Dr. Sesay at
[2023-06-02 15:39] LABS: Troponin I < 0.01 ng/ml (0.00-0.034)
[2023-06-02 15:51] LABS: Adenovirus,PCR Not Detected (NotDetected); Coronavirus 19, PCR Not Detected (NotDetected); Coronavirus 229E Not Detected (NotDetected); Coronavirus NL63 Not Detected (NotDetected); Coronavirus OC43 Not Detected (NotDetected); Coronovirus HKU1,PCR Not Detected (NotDetected); Human Metapneumovirus Not Detected (NotDetected); Influenza A, PCR Not Detected (NotDetected); Influenza AH1, 2009 Not Detected (NotDetected); Influenza AH1, PCR Not Detected (NotDetected); Influenza AH3,PCR Not Detected (NotDetected); Influenza B, PCR Not Detected (NotDetected); Parainfluenza 1, PCR Not Detected (NotDetected); Parainfluenza 2, PCR Not Detected (NotDetected); Parainfluenza 3, PCR Not Detected (NotDetected); Parainfluenza 4, PCR Not Detected (NotDetected); Respiratory Syncytial Virus Not Detected (NotDetected); Rhinovirus/Enterovirus Not Detected (NotDetected)
--- NOTE | 2023-06-02 15:56 | PC.NURSE ---
Rounded on patient; call light within reach. Patient resting at this time
--- NOTE | 2023-06-02 16:05 | EXP.HP ---
History of Present Illness *Admission Date: 06/02/23 *Reason for visit:: Shortness of air *History of present illness: This is a 72-year-old female who presents to [facility] emergency department with concerns of shortness of air. Her past medical history significant for COPD, chronic HFpEF, tobacco dependence, diabetes with neuropathy and anemia. She describes approximately 1 week of nasal congestion with associated postnasal drip and croupy cough. She reports the croupy cough is causing her anterior chest to be sore. Today she experienced some substernal pressure but no associated diaphoresis, nausea, vomiting or hemoptysis. She denies pain with inspiration. She reports no associated pedal edema or orthopnea. She started experiencing shortness of air with activity and now its occurring at rest. EMS documented pulse oximetry 88% on room air that improved with supplemental oxygen. In the ED her oxygen saturations improved with supplemental oxygen and a chest x-ray identifies bibasilar atelectasis. Her CBC identifies a normal white blood cell count and her electrolytes are normal. Her blood sugars 256. [facility] Medical History (Updated 06/02/23 @ 16:20 by Onel Sesay MD) Anemia Chronic heart failure with preserved ejection fraction (HFpEF) Compression fracture of lumbosacral spine COPD (chronic obstructive pulmonary disease) Diabetes GERD (gastroesophageal reflux disease) HTN (hypertension) Peripheral neuropathy Schizophrenia Tobacco dependence syndrome Surgical History H/O breast biopsy Family History Diabetes COPD (chronic obstructive pulmonary disease) Social History (Updated 06/02/23 @ 16:20 by Onel Sesay MD) Smoking Status: Current every day smoker tobacco type: cigarettes packs per day: 1 alcohol intake: never substance use type: denies use current occupational status: disabled Travel in the last 8 weeks: Inside the [place] household members: caregiver and other housing: assisted living facility current occupational exposures/hazards: No caffeine: Yes Review of Systems Constitutional Constitutional: Reports chills and Reports fever(s) ENT Ears, Nose, Mouth, and Throat: Reports nasal congestion and Reports post nasal drip *Cardiovascular Cardiovascular: Reports chest pain, Denies chest pain at rest, Reports dyspnea, Reports dyspnea on exertion, Denies orthopnea and Denies palpitations *Respiratory Respiratory: Reports cough, Reports dyspnea, Reports dyspnea on exertion, Denies excessive phlegm production, Denies hemoptysis, Denies pain on inspiration and Reports pain with cough *Gastrointestinal Gastrointestinal: Denies loose stools, Denies nausea and Denies vomiting Endocrine Endocrine: Denies palpitations Meds Home Medications and Allergies Home Medications Medication Instructions Recorded Confirmed Type amlodipine 10 mg tablet (Norvasc) 10 mg PO DAILY High Blood Pressure 09/17/19 04/02/23 History aspirin 325 mg tablet 325 mg PO DAILY Heart Disease 09/17/19 04/02/23 History cetirizine 10 mg tablet (Zyrtec) 10 mg PO DAILY Allergy symptoms 09/17/19 04/02/23 History metformin 1,000 mg tablet 1,000 mg PO BIDWMEAL Diabetes 09/17/19 04/02/23 History montelukast 10 mg tablet 10 mg PO PM Allergy symptoms 09/17/19 04/02/23 History (Singulair) omeprazole 40 mg capsule,delayed 40 mg PO DAILY Acid Reflux 09/17/19 04/02/23 History release oxybutynin chloride 5 mg tablet 5 mg PO DAILY Bladder 09/17/19 04/02/23 History polyethylene glycol 3350 17 gram 17 g PO BIDP PRN Constipation 04/08/20 04/02/23 History oral powder packet (Gavilax) diphenhydramine HCl 25 mg capsule 25 mg PO Q6HP PRN Allergy Symptoms 08/04/21 04/02/23 History (Banophen) sertraline 100 mg tablet 100 mg PO DAILY mood 08/04/21 04/02/23 History ferrous sulfate 325 mg (65 mg 325 mg PO BID Supplement 0
[2023-06-02 16:22] LABS: POC Glucose,Bedside 222 (70-110)
[2023-06-02 16:23] LABS: Hemoglobin A1C 7.8 % (4.0-6.0)
--- NOTE | 2023-06-02 17:06 | PC.NURSE ---
arrived by stretcher from ED
[2023-06-02 18:29] LABS: Troponin I < 0.01 ng/ml (0.00-0.034)
[2023-06-02 19:56] LABS: POC Glucose,Bedside 265 (70-110)
--- NOTE | 2023-06-02 20:34 | PC.NURSE ---
PATIENT IS SCHEDULED TO GET LANTUS 10 UNITS AND S/S HUMALOG AT THIS TIME BUT PHARMACY WARNING SAYS MUST BE APPROVED BY MD DUE TO LATEX ALLERGY. CARL Linder, NOTIFIED. ORDER RECEIVED TO HOLD INSULIN FOR NOW CHANDRAKANT LYNN SEES IN THE AM.
[2023-06-02 20:36] LABS: Troponin I < 0.01 ng/ml (0.00-0.034)
[2023-06-03] VITALS (12 sets, daily range): BP systolic 128–170; BP diastolic 60–81; PULSE 48–66; RESP 18–24; TEMP 36.7–36.9; O2SAT 90–93; BMI 30.1
[2023-06-03 05:12] LABS: POC Glucose,Bedside 258 (70-110)
--- NOTE | 2023-06-03 05:41 | PC.NURSE ---
received samantha dodson at 0420. patient reports it helped . has rhonchi bilat. dry persistant cough noted. 02 at 3lnc, 02 sats 92-93%. incentive spirometer encouraged, reaches 1000.
[2023-06-03 07:44] LABS: Chloride 109 mmol/L (98-107)
[2023-06-03 07:45] LABS: Potassium 4.5 mmoL/L (3.5-5.1); Sodium 141 mmol/L (136-145)
[2023-06-03 07:47] LABS: Blood Urea Nitrogen 21 mg/dl (7-17); Creatinine Clearance Estimated 68 mL/min (50-200); Estimated Glomerular Filt Rate 55 ml/min (>60); GFR (African American) 66 ML/MIN (>60)
[2023-06-03 07:48] LABS: Anion Gap 9.5 mEq/L (5-15); Calcium 8.2 mg/dl (8.4-10.2); Carbon Dioxide 27 mmol/L (22.0-30.0); Glucose 250 mg/dl (74-100)
[2023-06-03 08:14] LABS: NT Pro Brain Natriuretic Pep. 853 pg/mL (0-125)
--- NOTE | 2023-06-03 08:19 | PC.NURSE ---
SRNA NOTE: nurse made aware of elevated pt blood pressure at 0800 vital signs. Ned ALLRED
--- NOTE | 2023-06-03 10:15 | HMH.PHAINT1 ---
Pharmacy Intervention Comments: MEDICATION RECONCILIATION COMPLETE USING MAR FROM [facility].
--- NOTE | 2023-06-03 10:27 | PC.NURSE ---
SRNA NOTE: pt ambulated from bed to chair with x1 assistance. pt has no further requests. call light within reach. Ned ALLRED
--- NOTE | 2023-06-03 10:34 | EXP.ACUTE.PN ---
Subjective *Date: 06/03/23 *Time: 12:08 Interval history: Stable on 3 L nasal cannula oxygen today. Denies any chest pain or shortness of breath. No nausea or vomiting. Respiratory panel was negative. BNP elevated on morning labs. Medical Exam Vital signs and Labs for Last 24 Hours: Vital Signs Temp Pulse Pulse Resp BP BP Pulse Ox 06/03/23 08:30 48 L 06/03/23 08:30 52 L 06/03/23 08:30 92 L 06/03/23 08:00 98.1 F 53 L 24 170/81 H 92 L 06/03/23 06:30 06/03/23 06:22 93 L 06/03/23 04:57 06/03/23 04:00 98.2 F 64 18 150/60 H 92 L 06/03/23 04:24 58 L 06/03/23 04:24 53 L 06/03/23 03:00 06/03/23 01:00 06/02/23 23:58 98.6 F 58 L 20 133/60 92 L 06/02/23 23:00 06/02/23 21:00 06/02/23 20:00 93 L 06/02/23 19:59 97.7 F 63 20 153/71 H 93 L 06/02/23 18:00 99.3 F 63 17 159/78 H 93 L 06/02/23 16:51 98.7 F 69 18 162/75 H 06/02/23 16:30 69 22 162/75 H 93 L 06/02/23 13:25 86 L 06/02/23 16:00 68 17 164/76 H 93 L 06/02/23 15:30 64 20 168/75 H 91 L 06/02/23 15:01 65 21 158/67 H 95 06/02/23 14:30 63 19 145/75 H 94 L 06/02/23 14:00 68 19 149/67 H 94 L 06/02/23 14:10 64 06/02/23 14:10 66 06/02/23 13:25 99.8 F H 73 20 151/78 H 91 L O2 Del Method O2 Flow Rate 06/03/23 08:30 06/03/23 08:30 06/03/23 08:30 Nasal Cannula 3 06/03/23 08:00 Nasal Cannula 3 06/03/23 06:30 Nasal Cannula 3 06/03/23 06:22 Nasal Cannula 3 06/03/23 04:57 Nasal Cannula 3 06/03/23 04:00 Nasal Cannula 3 06/03/23 04:24 06/03/23 04:24 06/03/23 03:00 Nasal Cannula 3 06/03/23 01:00 Nasal Cannula 3 06/02/23 23:58 Nasal Cannula 3 06/02/23 23:00 Nasal Cannula 3 06/02/23 21:00 Nasal Cannula 3 06/02/23 20:00 Nasal Cannula 3 06/02/23 19:59 Nasal Cannula 3 06/02/23 18:00 Room Air 06/02/23 16:51 Nasal Cannula 3 06/02/23 16:30 Nasal Cannula 3 06/02/23 13:25 Room Air 06/02/23 16:00 Nasal Cannula 3 06/02/23 15:30 Nasal Cannula 3 06/02/23 15:01 Room Air 06/02/23 14:30 Nasal Cannula 3 06/02/23 14:00 Nasal Cannula 3 06/02/23 14:10 06/02/23 14:10 06/02/23 13:25 Nasal Cannula 3 Intake and Output 06/02/23 06/03/23 06/03/23 23:59 07:59 15:59 Intake Total 710 / 710 Output Total 0 / 0 0 / 0 0 / 0 Balance 0 / 240 710 / 710 0 / 710 Intake: Intake, Oral Amount 710 / 710 Output: Output, Urine Amount 0 / 0 0 / 0 0 / 0 Other: Number of Unmeasured Voids 1 1 1 Number of Bowel Movements 1 Weight 85.077 kg 85.077 kg Patient Weight 06/03/23 23:59 Weight 85.077 kg Laboratory Results - last 24 hr 06/02/23 13:26: WBC 8.4, RBC 4.73, Hgb 14.7, Hct 45.1, MCV 95.5, MCH 31.2, MCHC 32.7, RDW 14.1, Plt Count 196, MPV 8.3, Neut % (Auto) 75.1, Lymph % (Auto) 17.1, [place] % (Auto) 4.8, Eos % (Auto) 2.5, Baso % (Auto) 0.5, Neut # (Auto) 6.3, Lymph # (Auto) 1.4, [place] # (Auto) 0.4, Eos # (Auto) 0.2, Baso # (Auto) 0.0, Sodium 140, Potassium 4.2, Chloride 106, Carbon Dioxide 29, Anion Gap 9.2, BUN 19 H, Creatinine 0.90, Estimated Creat Clear 58, Estimated GFR 62, Est GFR ( Amer) 74, Glucose 256 H, Hemoglobin A1c 7.8 H, Calcium 8.5, Total Bilirubin 0.2, AST 26, ALT 26, Alkaline Phosphatase 111, Troponin I < 0.01, Total Protein 7.0, Albumin 3.4 L, Globulin 3.6 H, Albumin/Globulin Ratio 0.9 L 06/02/23 13:29: VBG pH 7.36, VBG pCO2 47.9, VBG pO2 75.1 H, VBG HCO3 26.6, VBG Total CO2 28.1 H, VBG O2 Saturation 95.7 H, VBG Base Excess 1.2 06/02/23 13:50: Lactate 1.1, SARS-CoV-2 (PCR) Not detected, Influenza A Untype (PCR) Not detected, Influenza Type B (PCR) Not detected 06/02/23 13:52: Chlamy pneumoniae PCR TNP, Adenovirus (PCR) Not detected, B. pertussis DNA (PCR) TNP, Coronavirus OC43 (PCR) Not detected, Coronavirus HKU1 (PCR) Not detected, Coronavirus 229E (PCR) Not detected, SARS-CoV-2 (PCR) Not dete
--- NOTE | 2023-06-03 11:11 | PC.NURSE ---
pt ambulated to chair with stand by assist
[2023-06-03 11:49] LABS: POC Glucose,Bedside 262 (70-110)
[2023-06-03 16:46] LABS: POC Glucose,Bedside 269 (70-110)
--- NOTE | 2023-06-03 19:04 | PC.WOUNDNOTE ---
Patient has been up to the chair for all 3 meals today and has had stable vital signs.
[2023-06-04] VITALS (10 sets, daily range): BP systolic 120–151; BP diastolic 53–75; PULSE 53–68; RESP 18–24; TEMP 36.7–37.3; O2SAT 87–95; BMI 30.2
[2023-06-04 01:25] LABS: POC Glucose,Bedside 337 (70-110)
[2023-06-04 05:28] LABS: POC Glucose,Bedside 157 (70-110)
[2023-06-04 07:10] LABS: Chloride 107 mmol/L (98-107); Potassium 4.3 mmoL/L (3.5-5.1); Sodium 139 mmol/L (136-145)
[2023-06-04 07:13] LABS: Alanine Aminotransferase 25 U/L (12-78); Albumin Level 3.1 g/dl (3.5-5.0); Alkaline Phosphatase 90 U/L (38-126); Anion Gap 10.3 mEq/L (5-15); Aspartate Amino Transferase 26 U/L (14-36); Blood Urea Nitrogen 25 mg/dl (7-17); Calcium 8.4 mg/dl (8.4-10.2); Carbon Dioxide 26 mmol/L (22.0-30.0); Creatinine Clearance Estimated 68 mL/min (50-200); Estimated Glomerular Filt Rate 55 ml/min (>60); GFR (African American) 66 ML/MIN (>60); Globulin 3.2 g/dL (1.3-3.2); Glucose 164 mg/dl (74-100); Magnesium 1.9 mg/dl (1.6-2.3); Total Protein,Serum 6.3 g/dl (6.3-8.2)
[2023-06-04 07:19] LABS: Bilirubin,Total 0.1 mg/dl (0.2-1.3)
[2023-06-04 07:35] LABS: Basophils % 0.4 % (0.1-2.0); Eosinophils # 0.1 K/mm3 (0.0-0.4); Eosinophils % 1.5 % (0.1-12.0); Hematocrit 40.8 % (37.0-47.0); Hemoglobin 13.6 g/dL (12.2-16.2); Lymphocytes # 2.3 K/mm3 (0.7-4.5); Lymphocytes % 25.7 % (10-50); Mean Corpuscular HGB Conc 33.3 g/dL (31.8-35.4); Mean Corpuscular Hemoglobin 32.1 pg (27.0-31.2); Mean Corpuscular Volume 96.2 fl (81-99); Mean Platelet Volume 8.1 fl (7.4-10.4); Monocytes # 0.4 K/mm3 (0.1-1.0); Monocytes % 4.3 % (1.7-9.3); Neutrophils # 6.1 K/mm3 (1.8-7.8); Platelet Count 180 K/mm3 (142-424); Red Blood Count 4.24 M/mm3 (4.20-5.40); Red Cell Distribution Width 14.2 % (11.5-17.5); White Blood Count 8.9 K/mm3 (4.8-10.8)
[2023-06-04 11:21] LABS: POC Glucose,Bedside 243 (70-110)
--- NOTE | 2023-06-04 12:46 | EXP.ACUTE.PN ---
Subjective *Date: 06/04/23 *Time: 12:59 Interval history: Weaning oxygen. Patient on 1 L oxygen this morning on rounds. Denies any nausea or vomiting. No chest pain or shortness of breath. Continues to have a cough. Ambulating better with staff today. Tolerating good p.o. intake. Medical Exam Vital signs and Labs for Last 24 Hours: Vital Signs Temp Pulse Pulse Resp BP Pulse Ox O2 Del Method 06/04/23 12:00 98.6 F 61 18 137/69 93 L Room Air 06/04/23 11:50 53 L 06/04/23 11:50 57 L 06/04/23 11:50 87 L Room Air 06/04/23 11:00 Room Air 06/04/23 09:00 Nasal Cannula 06/04/23 08:00 98.3 F 63 24 151/62 H 92 L Nasal Cannula 06/04/23 06:10 65 06/04/23 06:10 63 06/04/23 06:10 90 L Nasal Cannula 06/04/23 06:39 Nasal Cannula 06/04/23 04:57 Nasal Cannula 06/04/23 04:00 98.0 F 54 L 20 147/75 H 95 Nasal Cannula 06/04/23 03:00 Nasal Cannula 06/04/23 01:00 Nasal Cannula 06/04/23 00:00 98.2 F 62 20 120/60 91 L Nasal Cannula 06/04/23 00:04 68 06/04/23 00:04 66 06/03/23 23:00 Nasal Cannula 06/03/23 21:00 Nasal Cannula 06/03/23 20:00 90 L Nasal Cannula 06/03/23 19:54 98.0 F 56 L 20 128/64 90 L Nasal Cannula 06/03/23 18:24 93 L Nasal Cannula 06/03/23 17:55 63 06/03/23 17:55 63 06/03/23 15:48 98.4 F 66 24 135/61 92 L Nasal Cannula 06/03/23 12:58 57 L 06/03/23 12:58 60 06/03/23 12:58 90 L Nasal Cannula O2 Flow Rate 06/04/23 12:00 06/04/23 11:50 06/04/23 11:50 06/04/23 11:50 06/04/23 11:00 06/04/23 09:00 2 06/04/23 08:00 2 06/04/23 06:10 06/04/23 06:10 06/04/23 06:10 2 06/04/23 06:39 2 06/04/23 04:57 2 06/04/23 04:00 2 06/04/23 03:00 2 06/04/23 01:00 2 06/04/23 00:00 3 06/04/23 00:04 06/04/23 00:04 06/03/23 23:00 2 06/03/23 21:00 2 06/03/23 20:00 2 06/03/23 19:54 3 06/03/23 18:24 2 06/03/23 17:55 06/03/23 17:55 06/03/23 15:48 3 06/03/23 12:58 06/03/23 12:58 06/03/23 12:58 3 Intake and Output 06/03/23 06/04/23 06/04/23 23:59 07:59 15:59 Intake Total 710 / 1890 420 / 420 Output Total 0 / 0 0 / 0 Balance 710 / 1890 420 / 420 Intake: Intake, Oral Amount 710 / 1890 420 / 420 Output: Output, Urine Amount 0 / 0 0 / 0 Other: Number of Unmeasured Voids 4 1 1 Number of Bowel Movements 1 Weight 85.275 kg Patient Weight 06/04/23 23:59 Weight 85.275 kg Laboratory Results - last 24 hr 06/03/23 16:40: POC Glucose 269 H 06/03/23 20:14: POC Glucose 337 H* 06/04/23 05:16: POC Glucose 157 H 06/04/23 06:24: WBC 8.9, RBC 4.24, Hgb 13.6, Hct 40.8, MCV 96.2, MCH 32.1 H, MCHC 33.3, RDW 14.2, Plt Count 180, MPV 8.1, Neut % (Auto) 68.0, Lymph % (Auto) 25.7, [place] % (Auto) 4.3, Eos % (Auto) 1.5, Baso % (Auto) 0.4, Neut # (Auto) 6.1, Lymph # (Auto) 2.3, [place] # (Auto) 0.4, Eos # (Auto) 0.1, Baso # (Auto) 0.0, Sodium 139, Potassium 4.3, Chloride 107, Carbon Dioxide 26, Anion Gap 10.3, BUN 25 H, Creatinine 1.00, Estimated Creat Clear 68, Estimated GFR 55 L, Est GFR ( Amer) 66, Glucose 164 H, Calcium 8.4, Magnesium 1.9, Total Bilirubin 0.1 L, AST 26, ALT 25, Alkaline Phosphatase 90, Total Protein 6.3, Albumin 3.1 L, Globulin 3.2, Albumin/Globulin Ratio 1.0 L 06/04/23 11:04: POC Glucose 243 H I & O for Labs for Last 24 Hours: Intake & Output 06/01/23 06/02/23 06/03/23 06/04/23 23:59 23:59 23:59 23:59 Intake Total 1889 / 1889 420 / 420 Output Total 0 / 0 0 / 0 0 / 0 Balance 0 / 240 0 / 1890 420 / 420 Weight 72.575 kg 85.077 kg 85.275 kg Constitutional: Present no acute distress, average body habitus, chronically ill appearing and cooperative Head: Present atraumatic and normocephalic ENT: Present normal exam Respiratory: Present rhonchi and normal respiratory effort; Absent wheezes or crackles Cardiac: Present Reg Rate and Rhyt
--- NOTE | 2023-06-04 14:04 | HMH.PTEV ---
Physical Therapy Evaluation Rehab PT IP Evaluation Start: 06/04/23 07:18 Freq: ONCE Status: Active Protocol: Document 06/04/23 13:53 HWTYRA (Rec: 06/04/23 14:04 HWADE [id number]) Subjective/History History History Pt is a 72 year old female that presented to [facility] ED with concerns for shortness of air. Pt described 1 week of nasal congestion, postnasal drip and croupy cough. Pt described having substernal pressure but no associated diaphoresis, nausea, vomiting or hemoptysis . EMS documented SPO2 88% on RA which improved with supplemental O2. In the ED a chest x-ray identified bibasilar atelectasis. Her CBC identified a normal white blood cell count and her electrolytes are normal. Her blood sugar was 256. Pt was admitted to further evaluation and medical management PMH: COPD, chronic HFpEF, tobacco dependence, diabetes with neuropathy and anemia. She describes approximately 1 week of nasal congestion with associated postnasal drip and croupy cough. She reports the croupy cough is causing her anterior chest to be sore. Today she experienced some substernal pressure but no associated diaphoresis, nausea , vomiting or hemoptysis. She denies pain with inspiration. She reports no associated pedal edema or orthopnea. She started experiencing shortness of air with activity and now its occurring at rest . EMS documented pulse oximetry 88% on room air that improved with supplemental oxygen. In the ED her oxygen saturations improved with supplemental oxygen and a chest x-ray identifies
[2023-06-04 16:53] LABS: POC Glucose,Bedside 274 (70-110)
--- NOTE | 2023-06-04 18:59 | PC.NURSE ---
Patient weaned off of oxygen throughout shift. Vital signs stable.
[2023-06-04 20:59] LABS: POC Glucose,Bedside 260 (70-110)
[2023-06-05] VITALS (8 sets, daily range): BP systolic 142–157; BP diastolic 58–73; PULSE 57–74; RESP 18; TEMP 36.7–37.1; O2SAT 91–93; BMI 30.4
--- NOTE | 2023-06-05 05:06 | PC.NURSE ---
Patient has had a good night. Has remained on Room Air. Has not complained of SOB. RN encouraged patient to continue to use IS at the bedside. Patient complained of a headache early in the shift but with medication it has subsided. no other issues were stated by patient
[2023-06-05 05:56] LABS: POC Glucose,Bedside 129 (70-110)
[2023-06-05 06:39] LABS: Chloride 108 mmol/L (98-107); Potassium 4.3 mmoL/L (3.5-5.1); Sodium 141 mmol/L (136-145)
[2023-06-05 06:41] LABS: Blood Urea Nitrogen 33 mg/dl (7-17); Creatinine Clearance Estimated 63 mL/min (50-200); Estimated Glomerular Filt Rate 49 ml/min (>60); GFR (African American) 59 ML/MIN (>60)
[2023-06-05 06:42] LABS: Alanine Aminotransferase 25 U/L (12-78); Albumin Level 3.3 g/dl (3.5-5.0); Alkaline Phosphatase 82 U/L (38-126); Anion Gap 10.3 mEq/L (5-15); Aspartate Amino Transferase 27 U/L (14-36); Bilirubin,Total 0.2 mg/dl (0.2-1.3); Calcium 8.9 mg/dl (8.4-10.2); Carbon Dioxide 27 mmol/L (22.0-30.0); Globulin 3.3 g/dL (1.3-3.2); Glucose 139 mg/dl (74-100); Total Protein,Serum 6.6 g/dl (6.3-8.2)
--- NOTE | 2023-06-05 07:38 | PC.NURSE ---
RA SAT 93% AT REST.
--- NOTE | 2023-06-05 08:43 | EXP.PHA.PN ---
Subjective *Date: 06/05/23 *Time: 08:43 Medical Exam Vital signs and Labs for Last 24 Hours: Vital Signs Temp Pulse Pulse Resp BP Pulse Ox O2 Del Method 06/05/23 07:35 98.5 F 63 18 157/72 H 93 L Room Air 06/05/23 05:59 68 06/05/23 05:59 74 06/05/23 04:00 98.7 F 57 L 18 142/58 H 91 L Room Air 06/05/23 06:50 Room Air 06/05/23 05:00 Room Air 06/05/23 03:00 Room Air 06/05/23 01:00 Room Air 06/05/23 00:00 91 L Room Air 06/05/23 00:00 98.1 F 61 18 155/73 H 91 L Room Air 06/05/23 00:11 62 06/05/23 00:10 59 L 06/04/23 23:00 Room Air 06/04/23 21:00 Room Air 06/04/23 20:00 Room Air 06/04/23 20:00 98.1 F 67 20 129/53 L 91 L Room Air 06/04/23 18:11 58 L 06/04/23 18:11 58 L 06/04/23 16:00 99.2 F 63 20 131/58 L 95 Room Air 06/04/23 12:00 98.6 F 61 18 137/69 93 L Room Air 06/04/23 11:50 53 L 06/04/23 11:50 57 L 06/04/23 11:50 87 L Room Air 06/04/23 11:00 Room Air 06/04/23 09:00 Nasal Cannula O2 Flow Rate 06/05/23 07:35 06/05/23 05:59 06/05/23 05:59 06/05/23 04:00 06/05/23 06:50 06/05/23 05:00 06/05/23 03:00 06/05/23 01:00 06/05/23 00:00 06/05/23 00:00 06/05/23 00:11 06/05/23 00:10 06/04/23 23:00 06/04/23 21:00 06/04/23 20:00 06/04/23 20:00 06/04/23 18:11 06/04/23 18:11 06/04/23 16:00 06/04/23 12:00 06/04/23 11:50 06/04/23 11:50 06/04/23 11:50 06/04/23 11:00 06/04/23 09:00 2 Intake and Output 06/04/23 06/05/23 06/05/23 23:59 07:59 15:59 Intake Total 135 / 1595 1040 / 1040 Output Total 950 / 950 0 / 0 Balance -815 / 645 1040 / 1040 Intake: Intake, Oral Amount 135 / 1595 1040 / 1040 Output: Output, Urine Amount 950 / 950 0 / 0 Other: Number of Unmeasured Voids 1 1 Weight 85.842 kg Patient Weight 06/05/23 23:59 Weight 85.842 kg Laboratory Results - last 24 hr 06/04/23 11:04: POC Glucose 243 H 06/04/23 16:40: POC Glucose 274 H 06/04/23 20:40: POC Glucose 260 H 06/05/23 05:49: POC Glucose 129 H 06/05/23 06:45: Sodium 141, Potassium 4.3, Chloride 108 H, Carbon Dioxide 27, Anion Gap 10.3, BUN 33 H D, Creatinine 1.10 H, Estimated Creat Clear 63, Estimated GFR 49 L, Est GFR ( Amer) 59, Glucose 139 H, Calcium 8.9, Total Bilirubin 0.2, AST 27, ALT 25, Alkaline Phosphatase 82, Total Protein 6.6, Albumin 3.3 L, Globulin 3.3 H, Albumin/Globulin Ratio 1.0 L I & O for Labs for Last 24 Hours: Intake & Output 06/02/23 06/03/23 06/04/23 06/05/23 23:59 23:59 23:59 23:59 Intake Total 1890 / 1890 1095 / 1595 1040 / 1040 Output Total 0 / 0 0 / 0 950 / 950 0 / 0 Balance 0 / 240 1890 / 1890 145 / 645 1040 / 1040 Weight 72.575 kg 85.077 kg 85.275 kg 85.842 kg The patient's infection will respond to the chosen ABx?: Yes (BLOOD CULTURES PENDING) Is the patient receiving the right drug, dose, and route?: Yes Could a more targeted ABx be ordered?: No
--- NOTE | 2023-06-05 09:47 | HMH.OTEV ---
OT Inpatient Evaluation Rehab OT IP Evaluation Start: 06/04/23 07:18 Freq: ONCE Status: Active Protocol: Document 06/05/23 09:41 [facility] (Rec: 06/05/23 09:47 [facility] [id number]) Rehab OT IP Assessment Subjective History Pt oriented x 3 on arrival. Pt is a 72 year old female that presented to [facility] ED with concerns for shortness of air. Pt described 1 week of nasal congestion, postnasal drip and croupy cough. Pt described having substernal pressure but no associated diaphoresis, nausea, vomiting or hemoptysis . EMS documented SPO2 88% on RA which improved with supplemental O2. In the ED a chest x-ray identified bibasilar atelectasis. Her CBC identified a normal white blood cell count and her electrolytes are normal. Her blood sugar was 256. Pt was admitted to further evaluation and medical management PMH: COPD, chronic HFpEF, tobacco dependence, diabetes with neuropathy and anemia. She describes approximately 1 week of nasal congestion with associated postnasal drip and croupy cough. She reports the croupy cough is causing her anterior chest to be sore. Today she experienced some substernal pressure but no associated diaphoresis, nausea , vomiting or hemoptysis. She denies pain with inspiration. She reports no associated pedal edema or orthopnea. She started experiencing shortness of air with activity and now its occurring at rest . EMS documented pulse oximetry 88% on room air that improved with supplemental oxygen. In the ED her oxygen saturations improved with supplemental oxygen an
--- NOTE | 2023-06-05 10:57 | EXP.DC.SUM ---
General Admission date:: 06/02/23 Discharge date: 06/05/23 HPI HPI HPI: This is a 72-year-old female who presents to [facility] emergency department with concerns of shortness of air. Her past medical history significant for COPD, chronic HFpEF, tobacco dependence, diabetes with neuropathy and anemia. She describes approximately 1 week of nasal congestion with associated postnasal drip and croupy cough. She reports the croupy cough is causing her anterior chest to be sore. Today she experienced some substernal pressure but no associated diaphoresis, nausea, vomiting or hemoptysis. She denies pain with inspiration. She reports no associated pedal edema or orthopnea. She started experiencing shortness of air with activity and now its occurring at rest. EMS documented pulse oximetry 88% on room air that improved with supplemental oxygen. In the ED her oxygen saturations improved with supplemental oxygen and a chest x-ray identifies bibasilar atelectasis. Her CBC identifies a normal white blood cell count and her electrolytes are normal. Her blood sugars 256. Hospital Course Hospital Course Hospital Course: 72-year-old female that presents to [facility] emergency department with concerns of shortness of air with a past history of COPD, HFpEF, tobacco dependence and diabetes. She required supplemental oxygen to maintain appropriate oxygen saturations. Gradually able to wean oxygen over admission. Treated for COPD exacerbation and heart failure. Diuresed well during admission. Weaned to room air by day of discharge. Stable [facility]. Problems addressed as follows: Acute hypoxic respiratory failure AECOPD Tobacco dependence Initiated on oxygen therapy for sats greater 90%. Initially requiring 3 L, gradually weaned to room air by day of discharge. Respiratory panel was obtained and negative. CTA of the chest obtained in the ER. No PE. Has chronic pulmonary nodules however. Treated with inhaler therapy and initiated on doxycycline and prednisone. Plan to complete 5 days total of antibiotics and steroids. Encouraged tobacco cessation. Nicotine patch during admission. If she is on room air at this time, stable for discharge back to [place]. Chronic HFpEF Coronary artery disease Left heart cath November 2019 BNP elevated at 853. Diuresed initially with IV Bumex. Had good response. Negative volume status during admission. Able to wean oxygen. Resume Lasix dosage at discharge. 3 years ago with preserved ejection fraction and grade 1 diastolic dysfunction. Continued home regimen of beta-krista, ARB, SGLT2, antiplatelet therapy, and statin. Diabetes with peripheral neuropathy Routine blood sugar monitoring during admission. A1c of 7.8. Continue oral and subcu treatment with insulin. Recommend diabetic diet at discharge. Needs repeat A1c in 3 months. Exam Data for Last 24 hours Vital signs and Labs for Last 24 Hours: Temp Pulse Resp BP Pulse Ox O2 Del Method O2 Flow Rate 98.5 F 63 18 157/72 H 93 L Room Air 2 06/05/23 07:35 06/05/23 07:35 06/05/23 07:35 06/05/23 07:35 06/05/23 08:00 06/05/23 09:00 06/04/23 09:00 Laboratory Results - last 24 hr 06/04/23 11:04: POC Glucose 243 H 06/04/23 16:40: POC Glucose 274 H 06/04/23 20:40: POC Glucose 260 H 06/05/23 05:49: POC Glucose 129 H 06/05/23 06:45: Sodium 141, Potassium 4.3, Chloride 108 H, Carbon Dioxide 27, Anion Gap 10.3, BUN 33 H D, Creatinine 1.10 H, Estimated Creat Clear 63, Estimated GFR 49 L, Est GFR ( Amer) 59, Glucose 139 H, Calcium 8.9, Total Bilirubin 0.2, AST 27, ALT 25, Alkaline Phosphatase 82, Total Protein 6.6, Albumin 3.3 L, Globulin 3.3 H, Albumin/Globulin Ratio 1.0 L I & O for Last 24 hours: Intake & Output 06/02/23 06/03/23 06/04/23 06/05/23 23:59 23:59 23:59 23:59 Intake Total 1890 / 1890 1095 / 1595 1040 / 1040 Output Total 0 / 0 0 / 0 950 / 950 0 / 0 Alfonzo
[2023-06-05 11:09] LABS: POC Glucose,Bedside 185 (70-110)
--- NOTE | 2023-06-05 11:17 | SW/DCPLANNER ---
This patient currently resides at [facility]. PT/OT evaluated patient today and stated that patient is good to return to [facility] at time of discharge. I have updated Divya morse/ [facility] and she is fernanda morse/ patient returning. Patient will return to [facility] today. I will arrange [facility] for this patient.
--- NOTE | 2023-06-06 14:39 | CARE MANAGER ---
Contacted [facility] related to patient's discharge. They state she is doing well and deny questions or concerns at this time.PATTI Li
== END 2023-06-05 12:39 | disposition home or self-care (01) | DRG 190 ==
LOC: ER 13:44 → 2ND 16:32
PROVIDERS: Internal Medicine Adolescent Medicine; Admitting Provider Family Medicine; Emergency Provider Student in an Organized Health Care Education/Training Program; Visit Provider Family Medicine
DX: J44.1 Chronic obstructive pulmonary disease with (acute) exacerbation (principal); J96.01 Acute respiratory failure with hypoxia; I50.32 Chronic diastolic (congestive) heart failure; R07.89 Other chest pain; K21.9 Gastro-esophageal reflux disease without esophagitis; I11.0 Hypertensive heart disease with heart failure; E11.42 Type 2 diabetes mellitus with diabetic polyneuropathy; F20.9 Schizophrenia, unspecified; F17.210 Nicotine dependence, cigarettes, uncomplicated; I25.10 Atherosclerotic heart disease of native coronary artery without angina pectoris; Z79.84 Long term (current) use of oral hypoglycemic drugs
CPT/HCPCS: 36415; 71045; 71275; 80048; 80053; 82803; 82962; 83036; 83605; 83735; 83880; 84484; 85025; 87040; 87632; 87635; 87636; 93005; 94640; 94667; 94668; 97162; 97166; 97530; 99285; J3475; Q9967

== ENCOUNTER → 2023-08-08 13:11 | Outpatient (CLI) | payer MEDICARE, MEDICAID, SELFPAY ==
--- NOTE | 2023-08-08 13:11 | MM_ITS ---
PROCEDURE INFORMATION: Exam: Bilateral Screening 3D Mammography Exam date and time: 08/08/2023 1:23 PM Age: 72 years old Clinical indication: Screening mammogram TECHNIQUE: Imaging protocol: Bilateral Screening tomosynthesis and 2D mammography including computer-aided detection (CAD) when performed. COMPARISON: No relevant prior studies available. FINDINGS: MAMMOGRAPHY: Breast composition: The breast is heterogeneously dense, which may obscure small masses. Mass: None. Architectural distortion: No new or suspicious architectural distortion. Calcifications: There are benign-appearing calcifications within the bilateral breast. Asymmetric density: No new or suspicious asymmetric density is present Skin thickening: None. Axillary adenopathy: None. IMPRESSION: No mammographic evidence of malignancy. Recommend annual screening mammography unless otherwise clinically indicated. ASSESSMENT: BI-RADS category 2: Benign
== END ==
PROVIDERS: PCP Emergency Medicine; Visit Provider Emergency Medicine
DX: Z12.31 Encounter for screening mammogram for malignant neoplasm of breast (principal)
CPT/HCPCS: 77063; 77067

== ENCOUNTER 2023-08-25 09:43 | Inpatient (IN) | payer MEDICARE, MEDICAID, SELFPAY ==
[2023-08-25] VITALS (10 sets, daily range): BP systolic 127–189; BP diastolic 54–84; PULSE 67–80; RESP 16–20; TEMP 36.6–37.2; O2SAT 88–96; BMI 28.3; BMI 27.8
--- NOTE | 2023-08-25 10:22 | PC.NURSE ---
Patient sleeping at this time.
--- NOTE | 2023-08-25 10:26 | XR_ITS ---
FINAL REPORT CLINICAL HISTORY: L hip pain FINDINGS: Left femur Two views were obtained. There is no acute fracture or dislocation. There are postoperative changes from left hip arthroplasty. No soft tissue abnormality is identified. IMPRESSION: No acute process. Reviewed, Interpreted and Dictated by Donald Doss III, MD Transcribed by Dayanara Jones Authenticated and . [facility]
--- NOTE | 2023-08-25 10:26 | XR_ITS ---
FINAL REPORT CLINICAL HISTORY: L hip pain FINDINGS: Left hip Three views were obtained. There is no acute fracture or dislocation. There are postoperative changes from bilateral hip arthroplasties. No soft tissue abnormality is identified. IMPRESSION: No acute process. Reviewed, Interpreted and Dictated by Donald Doss III, MD Transcribed by Dayanara Jones Authenticated and [facility]
--- NOTE | 2023-08-25 10:26 | XR_ITS ---
FINAL REPORT CLINICAL HISTORY: soa COMPARISON: 06/02/2023 FINDINGS: SINGLE-VIEW CHEST The heart size is normal. The mediastinum is normal. There is mild bibasilar atelectasis or scar. There is no pneumothorax. IMPRESSION: Bibasilar atelectasis or scar. Reviewed, Interpreted and Dictated by Donald Doss III, MD Transcribed by Dayanara Jones Authenticated and [facility]
--- NOTE | 2023-08-25 10:27 | ED_ITS ---
Discharge Plan Disposition Chief Complaint: PAIN Prescriptions Prescriptions: No Action sertraline 100 mg tablet 100 mg PO DAILY diphenhydramine HCl [Banophen] 25 mg capsule 25 mg PO Q6HP PRN (Reason: Allergy Symptoms) ondansetron HCl 4 mg tablet 4 mg PO Q6HP PRN (Reason: Nausea And Vomiting) metformin 1,000 mg tablet 1,000 mg PO BIDWMEAL montelukast [Singulair] 10 mg tablet 10 mg PO PM omeprazole 40 mg capsule,delayed release(DR/EC) 40 mg PO DAILY oxybutynin chloride 5 mg tablet 5 mg PO DAILY amlodipine [Norvasc] 10 mg tablet 10 mg PO DAILY aspirin 325 mg tablet 325 mg PO DAILY cetirizine [Zyrtec] 10 mg tablet 10 mg PO DAILY polyethylene glycol 3350 [Gavilax] 17 gram powder in packet 17 g PO BIDP PRN (Reason: Constipation) aripiprazole 30 mg tablet 30 mg PO DAILY Myrbetriq 50 mg tablet extended release 24 hr 50 mg PO DAILY melatonin 5 mg tablet 5 mg PO HS mirtazapine 30 mg tablet 30 mg PO HS Trelegy Ellipta 100-62.5-25 mcg blister with device See Rx Instructions .ROUTE .COMPLEX Qty: 60 4RF Dose Instruction: TAKE 1 INHALATION BY MOUTH ONCE DAILY Rx Instructions: TAKE 1 INHALATION BY MOUTH ONCE DAILY gabapentin 600 mg tablet See Rx Instructions .ROUTE .COMPLEX Qty: 180 1RF Dose Instruction: GIVE 1 TABLET BY MOUTH TWICE DAILY FOR PAIN Rx Instructions: GIVE 1 TABLET BY MOUTH TWICE DAILY FOR PAIN hydrocodone-acetaminophen 10-325 mg tablet 1 tab PO BID Qty: 60 0RF isosorbide mononitrate 30 MG tablet extended release 24 hr 30 mg PO DAILY ferrous sulfate 325 MG tablet 325 mg PO BID acetaminophen [Tylenol] 325 mg Tablet 325 mg PO Q8HP PRN (Reason: Fever Or Pain) olopatadine 0.2 % Drops 1 drp Eye-Both HSP PRN (Reason: Allergy Symptoms) prednisone 20 mg Tablet 40 mg PO DAILY 2 Days Qty: 4 0RF doxycycline hyclate 100 mg Tablet 100 mg PO BID 2 Days Qty: 4 0RF loperamide 2 mg Capsule 2 mg PO Q4HP PRN (Reason: Diarrhea) furosemide 20 mg tablet 20 mg PO DAILY lorazepam 1 mg tablet 1 mg PO Q6HP PRN (Reason: anxiety) Referrals Follow up/Referrals: Johnny Vivas DO [Primary Care Provider] - See instructions Clinical Impressions Clinical Impression: Acute hypoxic respiratory failure, Chronic heart failure with preserved ejection fraction (HFpEF), Acute hyperglycemia Discharge ED Provider: Hari Hernández General Adult HPI General Chief complaint: PAIN Stated complaint: left hip pain Time Seen by Provider: 08/25/23 10:19 Mode of Arrival: EMS Source of Information: Patient Limitations: No Limitations Description of Symptoms (Recalled from ER Triage Doc. by RN): Patient complaint of left hip pain with no injury. States she woke up approx at 8 am with the pain and that it has caused her to be off balance. Patient rates her pain at a 9 on a scale of 0-10. History of Present Illness HPI narrative: Patient is a 72-year-old female with past medical history of diabetes, CHF, schizophrenia, COPD not on home oxygen, aortic stenosis, hypertension who presents emergency department for evaluation hip pain. History is obtained by patient at bedside. Patient had onset of hip pain that was acute, she woke up with this morning with it. Denies trauma. She normally ambulates with a cane at baseline. 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 Upon arrival patient was noted to be hypoxic and was placed on 4 L nasal cannula. Interestingly patient has no complaints of shortness of breath or worsening cough compared to baseline or chest pain. Related Data Home Medications Medication Instructions Recorded Confirmed amlodipine 10 mg tablet (Norvasc) 10 mg PO DAILY High Blood Pressure 09/17/19 06/03/23 aspirin 325 mg tablet 325 mg PO DAILY Heart Disease 09/17/19 06/03/23 cetirizine 10 mg tablet (Zyrtec) 10 mg PO DAILY Allergy symptoms 09/17/19 06/03/23 metformin 1,000 mg tablet 1,000 mg PO BIDWMEAL Diabetes 09/17/19 06/03/23 montelukast 10 mg tablet 10 mg PO PM Allergy symptoms 09/17/19 06/03/23 (Singulair) omeprazole 40 mg capsule,delayed 40 mg PO DAILY Acid Reflux 09/17/19 06/03/23 release oxybutynin chloride 5 mg tablet 5 mg PO DAILY Bladder 09/17/19 06/03/23 polyethylene glycol 3350 17 gram 17 g PO BIDP PRN Constipation 04/08/20 06/03/23 oral powder packet (Gavilax) diphenhydramine HCl 25 mg capsule 25 mg PO Q6HP PRN Allergy Symptoms 08/04/21 06/03/23 (Banophen) sertraline 100 mg tablet 100 mg PO DAILY mood 08/04/21 06/03/23 ferrous sulfate 325 mg (65 mg 325 mg PO BID Supplement 08/23/21 06/03/23 iron) tablet isosorbide mononitrate 30 mg 30 mg PO DAILY High Blood Pressure 08/23/21 06/03/23 tablet,extended release 24 hr aripiprazole 30 mg tablet 30 mg PO DAILY Mood 10/05/21 06/03/23 mirabegron 50 mg tablet,extended 50 mg PO DAILY Overactive Bladder 12/21/21 06/03/23 release 24 hr (Myrbetriq) ondansetron HCl 4 mg tablet 4 mg PO Q6HP PRN Nausea And 02/02/22 06/03/23 Vomiting melatonin 5 mg tablet 5 mg PO HS Sleep 11/21/22 06/03/23 mirtazapine 30 mg tablet 30 mg PO HS MOOD 11/21/22 06/03/23 furosemide 20 mg tablet 20 mg PO DAILY Fluid 04/02/23 06/03/23 loperamide 2 mg capsule 2 mg PO Q4HP PRN Diarrhea 04/02/23 06/03/23 lorazepam 1 mg tablet 1 mg PO Q6HP PRN anxiety 04/02/23 06/03/23 acetaminophen 325 mg tablet 325 mg PO Q8HP PRN Fever Or Pain 06/03/23 06/03/23 (Tylenol) olopatadine 0.2 % eye drops 1 drp Eye-Both HSP PRN Allergy 06/03/23 06/03/23 Symptoms Previous Rx's Medication Instructions Recorded doxycycline hyclate 100 mg tablet 100 mg PO BID 2 days #4 tabs 06/05/23 prednisone 20 mg tablet 40 mg PO DAILY 2 days #4 tabs 06/05/23 fluticasone fur. 100 mcg-umeclid See Rx Instructions .Route 06/27/23 62.5 mcg-vilant 25 mcg .COMPLEX #60 ea inhalat.powder (Trelegy Ellipta) gabapentin 600 mg tablet See Rx Instructions .Route 06/29/23 .COMPLEX #180 ea hydrocodone 10 mg-acetaminophen 1 tab PO BID Pain #60 tabs 07/24/23 325 mg tablet Allergies Allergy/AdvReac Type Severity Reaction Status Date / Time ciprofloxacin [From Cipro] Allergy Mild Verified 06/02/23 18:32 divalproex sodium Allergy Mild Verified 06/02/23 18:32 [From Depakote] ibuprofen Allergy Mild Verified 06/02/23 18:32 latex Allergy Mild Verified 06/02/23 18:32 Sulfa (Sulfonamide Allergy Mild Verified 06/02/23 18:32 Antibiotics) [facility] Disclaimer: The information contained in this section may have been updated after the patient was seen, as this information can be updated by other users. Medical History (Updated 08/25/23 @ 14:10 by Hari Hernández MD) Anemia Chronic heart failure with preserved ejection fraction (HFpEF) Compression fracture of lumbosacral spine Compression fx, thoracic spine COPD (chronic obstructive pulmonary disease) Diabetes GERD (gastroesophageal reflux disease) HTN (hypertension) Multiple rib fractures involving four or more ribs Peripheral neuropathy Schizophrenia Tobacco dependence syndrome Surgical History H/O breast biopsy Family History Diabetes COPD (chronic obstructive pulmonary disease) Social History (Updated 06/02/23 @ 16:20 by Onel Sesay MD) Smoking Status: Unknown if ever smoked alcohol intake: never substance use type: denies use current occupational status: disabled Travel in the last 8 weeks: Inside the [place] household members: caregiver and other housing: assisted living facility current occupational exposures/hazards: No caffeine: Yes ROS Obtained: Yes Systems reviewed as appropriate & no additional complaints except as documented Physical Exam General General appearance: alert and in no apparent distress Head Head exam: atraumatic and normocephalic Eye Eye exam: Present PERRL and EOMI ENT ENT exam: Present mucous membranes moist Neck Neck exam: Present normal inspection Chest Chest inspection: Present normal inspection, symmetric chest wall rise and other (Harsh holosystolic murmur left sternal border) Respiratory Respiratory exam: Present wheezes (Scant, bases); Absent respiratory distress Cardiovascular Cardiovascular exam: Present regular rate and normal rhythm Abdominal Exam Abdominal exam: Present soft; Absent tenderness Extremities Exam Extremities exam: Present other (5 out of 5 strength in the bilateral hips, knees. No overlying erythema of the left hip. Mild tenderness over the left hip.) Neurological Exam Neurological exam: Present alert Psychiatric Psychiatric exam: Present normal affect Skin Skin exam: Present warm and dry Medical Decision Making Bryan Inquiry Pt receiving controlled substance: No Vital Signs: 08/25/23 09:43 08/25/23 09:44 08/25/23 09:48 Temperature 98.4 F Temperature Source Oral Pulse Rate 75 77 Pulse Rate [Radial] 80 Respiratory Rate 20 Blood Pressure 174/76 H 189/84 H Blood Pressure [Right Radial Artery] 174/76 H Blood Pressure Mean [Right Radial Artery] 108 Blood Pressure Source [Right Radial Artery] Automatic Cuff Blood Pressure Position [Right Radial Artery] Sitting 02 Sat by Pulse Oximetry 88 L 90 L 90 L Oxygen Delivery Method Room Air Nasal Cannula Oxygen Flow Rate (LPM) 4 08/25/23 11:48 08/25/23 12:26 08/25/23 14:08 Temperature Temperature Source Pulse Rate 72 70 78 Pulse Rate [Radial] Respiratory Rate 20 Blood Pressure 147/65 H 151/54 H 141/65 H Blood Pressure [Right Radial Artery] Blood Pressure Mean [Right Radial Artery] Blood Pressure Source [Right Radial Artery] Blood Pressure Position [Right Radial Artery] 02 Sat by Pulse Oximetry 90 L 91 L Oxygen Delivery Method Oxygen Flow Rate (LPM) Lab Data Lab Results 08/25/23 10:27: NT-Pro-B Natriuret Pep 464 H 08/25/23 10:30: WBC 5.7, RBC 4.80, Hgb 14.8, Hct 49.0 H, MCV 102.0 H, MCH 30.7, MCHC 30.1 L, RDW 15.0, Plt Count 191, MPV 8.5, Neut % (Auto) 71.6, Lymph % (Auto) 18.0, [place] % (Auto) 4.5, Eos % (Auto) 4.9, Baso % (Auto) 1.0, Neut # (Auto) 4.1, Lymph # (Auto) 1.0, [place] # (Auto) 0.3, Eos # (Auto) 0.3, Baso # (Auto) 0.1, Sodium 139, Potassium 4.8, Chloride 106, Carbon Dioxide 26, Anion Gap 11.8, BUN 17, Creatinine 0.90, Estimated Creat Clear 72, Estimated GFR 62, Est GFR ( Amer) 74, Glucose 471 H*, Calcium 8.4, Total Bilirubin 0.5, AST 47 H, ALT 41, Alkaline Phosphatase 121, Total Protein 7.0, Albumin 3.6, Globulin 3.4 H, Albumin/Globulin Ratio 1.1, Acetone Level None detected, SARS-CoV-2 (PCR) Not detected, Influenza A Untype (PCR) Not detected, Influenza Type B (PCR) Not detected 08/25/23 11:38: VBG pH 7.29 L, VBG pCO2 45.8, VBG pO2 44.1 H, VBG HCO3 21.6 L, VBG Total CO2 23.0, VBG O2 Saturation 84.9 H, VBG Base Excess -4.9 L 08/25/23 10:30 08/25/23 10:30 Orders (Tests/Meds): ED MEDICATIONS Generic Name Dose Route Start Last Admin Trade Name Freq PRN Reason Stop Dose Admin Sodium Chloride 10 ml 08/25/23 10:58 Sodium Chloride 0.9% 10ml Flush Syringe IV 09/24/23 10:57 NEEDED PRN Maintain IV Site Discontinued Medications Generic Name Dose Route Start Last Admin Trade Name Freq PRN Reason Stop Dose Admin Acetaminophen 1,000 mg 08/25/23 10:35 08/25/23 11:16 Acetaminophen 1,000mg/100ml Vial IV 08/25/23 10:36 1,000 mg ONCE ONE Administration Albuterol/Ipratropium 3 ml 08/25/23 10:33 08/25/23 10:45 Ipratropium/Albuterol 3 Ml Neb IH 08/25/23 10:34 3 ml ONCE ONE Administration Furosemide 40 mg 08/25/23 13:20 08/25/23 14:04 Furosemide 40mg/4ml Vial IV 08/25/23 13:21 40 mg ONCE ONE Administration Azithromycin 500 mg/ Sodium 250 mls @ 250 mls/hr 08/25/23 10:33 08/25/23 12:16 Chloride IV 08/25/23 10:34 250 mls/hr ONCE ONE Administration Insulin Human Regular 5 unit 08/25/23 12:52 08/25/23 14:04 Insulin Human Regular 100 Units/Ml 10ml Vial IVP 08/25/23 12:53 5 unit ONCE ONE Administration Ketorolac Tromethamine 30 mg 08/25/23 10:35 08/25/23 11:17 Ketorolac 30mg/Ml Vial IV 08/25/23 10:36 30 mg ONCE ONE Administration Methylprednisolone Sodium Succinate 125 mg 08/25/23 10:33 08/25/23 11:16 Methylprednisolone Sod Succ 125mg Vial IV 08/25/23 10:34 125 mg ONCE ONE Administration ORDERS Category Date Time Status Cardiology Consult [Consult to Cardiology] [CONS] Stat Cons 08/25/23 12:55 Active CXR --portable [XR chest portable] Stat Exams 08/25/23 10:26 Completed Femur XR left 2 views [XR femur LT 2V] Stat Exams 08/25/23 10:26 Completed Hip XR left minimum 2 views [XR hip LT 2-3V w/pelvis] Exams 08/25/23 10:26 Completed Stat POCUS Point of Care (ER Only) Stat Exams 08/25/23 11:46 Taken Acetone, Serum (Rapid) Stat Lab 08/25/23 10:30 Completed BNP [Brain Natriuretic Peptide] Stat Lab 08/25/23 10:27 Completed CBC w/Auto Diff [Complete Blood Count Auto Diff] Stat Lab 08/25/23 10:30 Completed CMP [Comprehensive Metabolic Panel] Stat Lab 08/25/23 10:30 Completed Rapid PCR Covid and Flu A/B Stat Lab 08/25/23 10:30 Completed VBG [Venous Blood Gas] Stat RT 08/25/23 11:38 Completed CA echo doppler complete Stat Y 08/25/23 13:09 Completed Medical Decision Narrative: In summary patient is a 72-year-old female with past medical history described above presents emergency department for evaluation of hip pain in the setting of no trauma, previous hip replacement. Patient is hemodynamically stable nontoxic-appearing upon arrival, afebrile. Patient is requiring oxygen and has scant wheezes for which her COPD will be treated with DuoNebs and steroids. Patient states she has chronic shortness of breath which is not worse than normal and denies chest pain. Her hip is mildly tender, she has active range of motion and strength and no warmth so currently doubt septic arthritis at this time. Differential includes musculoskeletal sprain, insufficiency fracture, among others. Workup will be conducted for both of these complaints with chest x-ray, EKG, BNP, viral swab, plain film pelvis and hip and femur. Initial interventions include Tylenol and Toradol. Reviewed by me, hematologic labs are remarkable for slight acidosis, hyperglycemia without evidence of DKA for which 5 units of insulin will be administered. BNP is slightly elevated. Point-of- care ultrasound at bedside shows mildly dilated left ventricle with grossly normal ejection fraction however there appears to be minimal excursion of the aortic valve leaflets. Patient is largely clear to auscultation and has had no improvement of her respiratory status status post DuoNeb's. Chest x-ray informally interpreted by me and shows evidence of chronic lung disease with COPD and cephalization of vessels. The case was discussed with cardiology who will evaluate the patient. In my opinion it is equally likely that her hypoxia is secondary to heart failure rather than purely COPD. Formal reads of lower extremity shows no acute pathology. Given that patient is ranging it no further workup is indicated from that standpoint. The case was discussed with cardiology and they evaluated the patient, patient does have diastolic heart failure however her aortic valve is not contributing significantly to her clinical picture. Given this patient is appropriate for admission here and the case was discussed with hospital medicine they will admit the patient their service for continued evaluation at this time. Procedures Miscellaneous Procedure Procedure Performed: Indication: Shortness of breath Identified cardiac views: Apical 4 chamber Findings: Cardiac activity present, gross wall motion normal, slightly dilated left ventricle, EPSS normal, minimal movement of the aortic valve leaflets Impression: From above Images were saved to permanent archive The study was technically adequate CPT: 50415 This study was performed by me, and I personally interpreted all images/videos. Based on my clinical judgement, these images were [adequate/inadequate] and [did/did not] necessitate further imaging. Critical Care Critical Care Time Critical Care Time: No
[2023-08-25] MEDS: IPRATROPIUM/ALBUTEROL 3 ML NEB IH (10:45)
--- NOTE | 2023-08-25 10:51 | PC.NURSE ---
Tried to ween patient off oxygen. Sats dropped to 84%. Oxygen restarted at 2l/min.
[2023-08-25 10:53] LABS: Coronavirus 19, PCR Not Detected (NotDetected)
[2023-08-25 10:54] LABS: Influenza A, PCR Not Detected (NotDetected); Influenza B, PCR Not Detected (NotDetected)
[2023-08-25 10:59] LABS: Chloride 106 mmol/L (98-107); Sodium 139 mmol/L (136-145)
[2023-08-25 11:00] LABS: Potassium 4.8 mmoL/L (3.5-5.1)
[2023-08-25 11:02] LABS: Alanine Aminotransferase 41 U/L (12-78); Albumin Level 3.6 g/dl (3.5-5.0); Albumin/Globulin Ratio 1.1 (1.1-1.8); Alkaline Phosphatase 121 U/L (38-126); Anion Gap 11.8 mEq/L (5-15); Aspartate Amino Transferase 47 U/L (14-36); Bilirubin,Total 0.5 mg/dl (0.2-1.3); Blood Urea Nitrogen 17 mg/dl (7-17); Carbon Dioxide 26 mmol/L (22.0-30.0); Creatinine Clearance Estimated 72 mL/min (50-200); Estimated Glomerular Filt Rate 62 ml/min (>60); GFR (African American) 74 ML/MIN (>60); Globulin 3.4 g/dL (1.3-3.2)
[2023-08-25 11:03] LABS: Calcium 8.4 mg/dl (8.4-10.2)
[2023-08-25 11:06] LABS: Glucose 471 mg/dl (74-100)
--- NOTE | 2023-08-25 11:06 | PC.NURSE ---
CRITICAL GLUCOSE 471 RECEIVED FROM [facility]ODO IN LAB. PT ANME AND R/V. DR CANELA NOTIFIED. NO NEW ORDERS
--- NOTE | 2023-08-25 11:06 | PC.NURSE ---
vitals not done due to pt in ct
[2023-08-25 11:11] LABS: NT Pro Brain Natriuretic Pep. 464 pg/mL (0-125)
[2023-08-25 11:13] LABS: Basophils # 0.1 K/mm3 (0-0.2); Eosinophils # 0.3 K/mm3 (0.0-0.4); Eosinophils % 4.9 % (0.1-12.0); Hemoglobin 14.8 g/dL (12.2-16.2); Mean Corpuscular HGB Conc 30.1 g/dL (31.8-35.4); Mean Corpuscular Hemoglobin 30.7 pg (27.0-31.2); Mean Platelet Volume 8.5 fl (7.4-10.4); Monocytes # 0.3 K/mm3 (0.1-1.0); Monocytes % 4.5 % (1.7-9.3); Neutrophils # 4.1 K/mm3 (1.8-7.8); Neutrophils % 71.6 % (37.0-80.0); Platelet Count 191 K/mm3 (142-424); White Blood Count 5.7 K/mm3 (4.8-10.8)
[2023-08-25] MEDS: METHYLPREDNISOLONE SOD SUCC 125MG VIAL 125 MG IV (11:16)
[2023-08-25] MEDS: ACETAMINOPHEN 1,000MG/100ML VIAL 1000 MG IV (11:16)
[2023-08-25] MEDS: KETOROLAC 30MG/ML VIAL 30 MG IV (11:17)
[2023-08-25 11:31] LABS: VBG Base Excess -4.9 mmol/L (-2.4-2.3); VBG HCO3 21.6 mmol/L (23-30); VBG Oxygen Saturation 84.9 % (50-70); VBG PCO2 45.8 mmol/L (35-51); VBG PH 7.29 mmol/L (7.31-7.41); VBG PO2 44.1 mmol/L (28-40)
--- NOTE | 2023-08-25 11:45 | PC.NURSE ---
NO CULTURES NEEDED PER DR CANELA
[2023-08-25 12:04] LABS: Acetone, Serum (Rapid) None Detected (None Detect)
[2023-08-25] MEDS: AZITHROMYCIN 500 MG in 0.9 % SODIUM CHLORIDE 250 ML 250 MG IV (12:16)
--- NOTE | 2023-08-25 12:51 | PC.NURSE ---
called for cardiac consult
--- NOTE | 2023-08-25 13:09 | CA_ITS ---
APPROVED REPORT EXAM: Comprehensive 2D, Doppler, and color-flow Echocardiogram Virtualization Engineer: Sanjuanita Forbes RT(R) Ht: 5 ft 10 in Wt: 197lbs BSA: 2.07 BP: 189/84 mmHg Indications: hypoxia, CHF, schizophrenia, , GERD, left hip pain, patient was unresponsive during exam, unable to roll on side, imaging performed with patient in supine on back position. Limited windows. 2D Dimensions LA Volume 25.10 mL LA Volume Index 12.07 mL/m2 (M/F) 16-34 EF AP4 51.40 % GL Strain -14.8 % M-Mode Dimensions RVDd 3.17 cm (0.9-2.6) LA Diam 3.71 cm (1.9-4.0) LVDd 5.83 cm (3.5-5.7) LVDs 4.56 cm (3.5-5.7) IVSd 0.68 cm (0.6-1.1) PWd 1.18 cm (0.6-1.1) EF (Teich) 43.40% FS 21.80% EDV (Teich) 168.50 mL ESV (Teich) 95.40 mL LV Diastology E Decel Time 227 (160-240 msec) E/A Ratio 0.8 Aortic Valve BETTY Index 1.16 cm2/m2 AoV Peak Alex. 205.0 (50-130 cm/s) AO Peak GR. 16.90 mmHg AO Mean GR. 8.30 (<5 mmHg) AO VTI 42.5 (18-25 cm) BETTY (VTI) 2.46 (2.5-4.5 cm2) Mitral Valve MV E Max Alex. 95.0 (40-130 cm/s) MV A Velocity 126.0 (40-130 cm/s) E/A Ratio 0.76 MV PHT 66.0 ms Left Ventricle The left ventricle is normal size. The left ventricular systolic function is normal. The left ventricular ejection fraction is within the normal range. There is increased LV wall thickness. There is normal LV segmental wall motion. Transmitral Doppler flow pattern suggests impaired LV relaxation. LVEF is 55%. Right Ventricle Right ventricle is mildly dilated. The right ventricular systolic function is normal. Atria The left atrium size is mildly dilated. The right atrium size is normal. Aortic Valve The aortic valve is mildly thickened. There is no aortic valvular stenosis. Trace aortic regurgitation. Mitral Valve The mitral valve is mildly thickened. No evidence of mitral valve stenosis. Trace mitral regurgitation. Tricuspid Valve The tricuspid valve leaflets are thin and pliable. Trace tricuspid regurgitation. There is insufficient TR jet to estimate RVSP. Pulmonic Valve The pulmonary valve is normal in structure. Trace pulmonic regurgitation. Great Vessels The aortic root is normal in size. The ascending aorta is normal in size. IVC is normal in size and collapses >50% with inspiration. Pericardium There is no pericardial effusion. Other Information Study Quality: Technically Difficult Conclusion Technically difficult study due to poor accoustic windows. Normal biventricular systolic function. Mild RV dilation. No significant valvular stenosis or regurgitation. Electronically signed by : Toña Vincent MD 08/27/2023 16:58:44
--- NOTE | 2023-08-25 13:10 | PC.NURSE ---
ECHO LAB CALLED FOR ECHO
[2023-08-25] MEDS: FUROSEMIDE 40MG/4ML VIAL 40 MG IV ×2 (14:04→17:37)
[2023-08-25] MEDS: INSULIN HUMAN REGULAR 100 UNITS/ML 10ML VIAL 5 UNIT IVP (14:04)
--- NOTE | 2023-08-25 14:20 | EXP.CARD.CON ---
History of Present Illness History of Present Illness Consult date: 08/25/23 Requesting physician: Hari Hernández Consult reason: congestive heart failure Chief complaint: SOA, Hypoxemia Additional Medical History:: 1. Mild aortic stenosis 2. History of tobacco use with COPD 3. Diabetes mellitus 4. Tobacco use 5. Schizophrenia 6. Normal coronary arteries, normal EF, mildly elevated EDP by [facility], 11/2019 7. 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 History is obtained by patient at bedside. Patient had onset of hip pain that was acute, she woke up with this morning with it. Denies trauma. She normally ambulates with a cane at baseline. 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 Upon arrival patient was noted to be hypoxic and was placed on 4 L nasal cannula. Interestingly patient has no complaints of shortness of breath or worsening cough compared to baseline or chest pain. The above per Dr. Hernández Cardiology asked to see patient due to significant murmur on exam with concern for structural heart disease and CHF. Echocardiogram was obtained that shows normal ejection fraction, normal LV size and evidence of calcified aortic leaflets with mild aortic stenosis. Essentially unchanged from 2019 study. Elevated BNP with vascular congestion noted on chest x-ray. In light of patient's new hypoxemia requiring 4 L of oxygen and appearance of diastolic congestive heart failure would recommend admission for diuresis. [facility] Disclaimer: The information contained in this section may have been updated after the patient was seen, as this information can be updated by other users. Medical History (Updated 08/25/23 @ 14:28 by VALERIY William) Anemia Chronic heart failure with preserved ejection fraction (HFpEF) Compression fracture of lumbosacral spine Compression fx, thoracic spine COPD (chronic obstructive pulmonary disease) Diabetes GERD (gastroesophageal reflux disease) HTN (hypertension) Multiple rib fractures involving four or more ribs Peripheral neuropathy Schizophrenia Tobacco dependence syndrome Surgical History H/O breast biopsy Family History Diabetes COPD (chronic obstructive pulmonary disease) Social History (Updated 06/02/23 @ 16:20 by Onel Sesay MD) Smoking Status: Unknown if ever smoked alcohol intake: never substance use type: denies use current occupational status: disabled Travel in the last 8 weeks: [place] the [place] household members: caregiver and other housing: assisted living facility current occupational exposures/hazards: No caffeine: Yes Review of Systems Review of Systems Review of systems:: pertinent systems reviewed and negative unless documented below *Cardiovascular Cardiovascular: Denies chest pain and Reports dyspnea *Respiratory Respiratory: Reports cough and Reports dyspnea *Musculoskeletal Musculoskeletal: Reports arthralgias Exam Data for Last 24 hours Vital signs and Labs for Last 24 Hours: Temp Pulse Resp BP Pulse Ox O2 Del Method O2 Flow Rate 98.4 F 78 20 141/65 H 91 L Nasal Cannula 4 08/25/23 09:43 08/25/23 14:08 08/25/23 11:48 08/25/23 14:08 08/25/23 14:08 08/25/23 09:48 08/25/23 09:48 Laboratory Results - last 24 hr 08/25/23 10:27: NT-Pro-B Natriuret Pep 464 H 08/25/23 10:30: WBC 5.7, RBC 4.80, Hgb 14.8, Hct 49.0 H, MCV 102.0 H, MCH 30.7, MCHC 30.1 L, RDW 15.0, Plt Count 191, MPV 8.5, Neut % (Auto) 71.6, Lymph % (Auto) 18.0, [place] % (Auto) 4.5, Eos % (Auto) 4.9, Baso % (Auto) 1.0, Neut # (Auto) 4.1, Lymph # (Auto) 1.0, [place] # (Auto) 0.3, Eos # (Auto) 0.3, Baso # (Auto) 0.1, Sodium 139, Potassium 4.8, Chloride 106, Carbon Dioxide 26, Anion Gap 11.8, BUN 17, Creatinine 0.90, Estimated Creat Clear 72, Estimated GFR 62, Est GFR ( Amer) 74, Glucose 471 H*, Calcium 8.4, Total Bilirubin 0.5, AST 47 H, ALT 41, Alkaline Phosphatase 121, Total Protein 7.0, Albumin 3.6, Globulin 3.4 H, Albumin/Globulin Ratio 1.1, Acetone Level None detected, SARS-CoV-2 (PCR) Not detected, Influenza A Untype (PCR) Not detected, Influenza Type B (PCR) Not detected 08/25/23 11:38: VBG pH 7.29 L, VBG pCO2 45.8, VBG pO2 44.1 H, VBG HCO3 21.6 L, VBG Total CO2 23.0, VBG O2 Saturation 84.9 H, VBG Base Excess -4.9 L I & O for Last 24 hours: Intake & Output 08/23/23 08/24/23 08/25/23 08/26/23 11:59 11:59 11:59 11:59 Weight 197 lb Constitutional Constitutional: no acute distress *Routine Respiratory Exam Respiratory: Present rales and rhonchi *Routine Cardiovascular Exam Cardiovascular: Present RRR and murmur *Routine Extremities Exam Extremities: Present edema Meds Home Medications and Allergies Home Medications Medication Instructions Recorded Confirmed Type amlodipine 10 mg tablet (Norvasc) 10 mg PO DAILY High Blood Pressure 09/17/19 06/03/23 History aspirin 325 mg tablet 325 mg PO DAILY Heart Disease 09/17/19 06/03/23 History cetirizine 10 mg tablet (Zyrtec) 10 mg PO DAILY Allergy symptoms 09/17/19 06/03/23 History metformin 1,000 mg tablet 1,000 mg PO BIDWMEAL Diabetes 09/17/19 06/03/23 History montelukast 10 mg tablet 10 mg PO PM Allergy symptoms 09/17/19 06/03/23 History (Singulair) omeprazole 40 mg capsule,delayed 40 mg PO DAILY Acid Reflux 09/17/19 06/03/23 History release oxybutynin chloride 5 mg tablet 5 mg PO DAILY Bladder 09/17/19 06/03/23 History polyethylene glycol 3350 17 gram 17 g PO BIDP PRN Constipation 04/08/20 06/03/23 History oral powder packet (Gavilax) diphenhydramine HCl 25 mg capsule 25 mg PO Q6HP PRN Allergy Symptoms 08/04/21 06/03/23 History (Banophen) sertraline 100 mg tablet 100 mg PO DAILY mood 08/04/21 06/03/23 History ferrous sulfate 325 mg (65 mg 325 mg PO BID Supplement 08/23/21 06/03/23 History iron) tablet isosorbide mononitrate 30 mg 30 mg PO DAILY High Blood Pressure 08/23/21 06/03/23 History tablet,extended release 24 hr aripiprazole 30 mg tablet 30 mg PO DAILY Mood 10/05/21 06/03/23 History mirabegron 50 mg tablet,extended 50 mg PO DAILY Overactive Bladder 12/21/21 06/03/23 History release 24 hr (Myrbetriq) ondansetron HCl 4 mg tablet 4 mg PO Q6HP PRN Nausea And 02/02/22 06/03/23 History Vomiting melatonin 5 mg tablet 5 mg PO HS Sleep 11/21/22 06/03/23 History mirtazapine 30 mg tablet 30 mg PO HS MOOD 11/21/22 06/03/23 History furosemide 20 mg tablet 20 mg PO DAILY Fluid 04/02/23 06/03/23 History loperamide 2 mg capsule 2 mg PO Q4HP PRN Diarrhea 04/02/23 06/03/23 History lorazepam 1 mg tablet 1 mg PO Q6HP PRN anxiety 04/02/23 06/03/23 History acetaminophen 325 mg tablet 325 mg PO Q8HP PRN Fever Or Pain 06/03/23 06/03/23 History (Tylenol) olopatadine 0.2 % eye drops 1 drp Eye-Both HSP PRN Allergy 06/03/23 06/03/23 History Symptoms doxycycline hyclate 100 mg tablet 100 mg PO BID 2 days #4 tabs 06/05/23 Rx prednisone 20 mg tablet 40 mg PO DAILY 2 days #4 tabs 06/05/23 Rx fluticasone fur. 100 mcg-umeclid See Rx Instructions .Route 06/27/23 Rx 62.5 mcg-vilant 25 mcg .COMPLEX #60 ea inhalat.powder (Trelegy Ellipta) gabapentin 600 mg tablet See Rx Instructions .Route 06/29/23 Rx .COMPLEX #180 ea hydrocodone 10 mg-acetaminophen 1 tab PO BID Pain #60 tabs 07/24/23 Rx 325 mg tablet New Prescriptions to Start Prescriptions: Allergies Allergy/AdvReac Type Severity Reaction Status Date / Time ciprofloxacin [From Cipro] Allergy Mild Verified 06/02/23 18:32 divalproex sodium Allergy Mild Verified 06/02/23 18:32 [From Depakote] ibuprofen Allergy Mild Verified 06/02/23 18:32 latex Allergy Mild Verified 06/02/23 18:32 Sulfa (Sulfonamide Allergy Mild Verified 06/02/23 18:32 Antibiotics) Assessment and Plan *Assessment and plan (1) Acute hypoxic respiratory failure: Status: Acute Category: Medical Code(s): J96.01 - Acute respiratory failure with hypoxia (2) Chronic heart failure with preserved ejection fraction (HFpEF): Status: Acute Category: Medical Code(s): I50.32 - Chronic diastolic (congestive) heart failure (3) Schizophrenia: Status: Chronic Qualifiers: Schizophrenia type: unspecified Qualified Code(s): F20.9 - Schizophrenia, unspecified Category: Medical Code(s): F20.9 - Schizophrenia, unspecified (4) Diabetes: Status: Acute Qualifiers: Diabetes mellitus type: type 2 Diabetes mellitus terminal system operator insulin use: without shelter use Diabetes mellitus complication status: without complication Qualified Code(s): E11.9 - Type 2 diabetes mellitus without complications Category: Medical Code(s): E11.9 - Type 2 diabetes mellitus without complications (5) Tobacco dependence syndrome: Status: Chronic Category: Medical Code(s): F17.200 - Nicotine dependence, unspecified, uncomplicated (6) Acute hyperglycemia: Status: Acute Category: Medical Code(s): R73.9 - Hyperglycemia, unspecified (7) Aortic valve sclerosis: Status: Acute Category: Medical Code(s): I35.8 - Other nonrheumatic aortic valve disorders (8) Mild aortic stenosis: Status: Acute Category: Medical Code(s): I35.0 - Nonrheumatic aortic (valve) stenosis Plan 1. HFpEF with normal coronaries by left heart cath 2019 -IV Lasix 40 mg twice daily -Oral potassium 20 mEq twice daily -Stop amlodipine and isosorbide -Start valsartan 160 mg daily -Start metoprolol succinate 25 mg daily -Start Jardiance 10 mg daily 2. Hypoxemia felt secondary to diastolic CHF -Continue oxygen supplementation as needed but hopefully will improve with diuresis 3. Schizophrenia which complicates all aspects of care 4. Diabetes mellitus, defer to hospitalist 5. Hypertension follow-up on new medications 6. History of GERD, continue PPI Will defer discharge status to hospitalist when either patient no longer requires oxygen or arrangements have been made for oxygen at home. Follow-up in our office in 2 to 3 weeks.
--- NOTE | 2023-08-25 14:39 | PC.NURSE ---
CARE MANAGEMENT CALLED FOR ADMISSION
--- NOTE | 2023-08-25 17:16 | PC.NURSE ---
arrived by w/c from ED
[2023-08-25] MEDS: IRBESARTAN 150MG TAB 150 MG PO (17:36)
--- NOTE | 2023-08-25 18:14 | P.HP_ITS ---
History of Present Illness *Admission Date: 08/25/23 *Reason for visit:: SOB *History of present illness: Patient is a 73-year-old female with past medical history of CHF with preserved ejection fraction, diabetes, COPD, aortic stenosis who presents to the hospital for hip pain. Mentions she has struggled with ambulation due to pain in her hips. Otherwise denies shortness of breath chest pain nausea vomiting diarrhea constipation dysuria. Patient was noted to be requiring 4 L nasal cannula at emergency department. [facility] Disclaimer: The information contained in this section may have been updated after the patient was seen, as this information can be updated by other users. Medical History Anemia Chronic heart failure with preserved ejection fraction (HFpEF) Compression fracture of lumbosacral spine Compression fx, thoracic spine COPD (chronic obstructive pulmonary disease) Diabetes GERD (gastroesophageal reflux disease) HTN (hypertension) Multiple rib fractures involving four or more ribs Peripheral neuropathy Schizophrenia Tobacco dependence syndrome Surgical History H/O breast biopsy Family History Diabetes COPD (chronic obstructive pulmonary disease) Social History (Updated 08/25/23 @ 16:00 by Merle Camacho RN) Smoking Status: Unknown if ever smoked alcohol intake: never substance use type: denies use current occupational status: disabled Travel in the last 8 weeks: [place] household members: caregiver and other housing: assisted living facility current occupational exposures/hazards: No caffeine: Yes Review of Systems Review of Systems Review of systems (narrative): as per [facility] Meds Home Medications and Allergies Home Medications Medication Instructions Recorded Confirmed Type amlodipine 10 mg tablet (Norvasc) 10 mg PO DAILY High Blood Pressure 09/17/19 06/03/23 History aspirin 325 mg tablet 325 mg PO DAILY Heart Disease 09/17/19 06/03/23 History cetirizine 10 mg tablet (Zyrtec) 10 mg PO DAILY Allergy symptoms 09/17/19 06/03/23 History metformin 1,000 mg tablet 1,000 mg PO BIDWMEAL Diabetes 09/17/19 06/03/23 History montelukast 10 mg tablet 10 mg PO PM Allergy symptoms 09/17/19 06/03/23 History (Singulair) omeprazole 40 mg capsule,delayed 40 mg PO DAILY Acid Reflux 09/17/19 06/03/23 History release oxybutynin chloride 5 mg tablet 5 mg PO DAILY Bladder 09/17/19 06/03/23 History polyethylene glycol 3350 17 gram 17 g PO BIDP PRN Constipation 04/08/20 06/03/23 History oral powder packet (Gavilax) diphenhydramine HCl 25 mg capsule 25 mg PO Q6HP PRN Allergy Symptoms 08/04/21 06/03/23 History (Banophen) sertraline 100 mg tablet 100 mg PO DAILY mood 08/04/21 06/03/23 History ferrous sulfate 325 mg (65 mg 325 mg PO BID Supplement 08/23/21 06/03/23 History iron) tablet isosorbide mononitrate 30 mg 30 mg PO DAILY High Blood Pressure 08/23/21 06/03/23 History tablet,extended release 24 hr aripiprazole 30 mg tablet 30 mg PO DAILY Mood 10/05/21 06/03/23 History mirabegron 50 mg tablet,extended 50 mg PO DAILY Overactive Bladder 12/21/21 06/03/23 History release 24 hr (Myrbetriq) ondansetron HCl 4 mg tablet 4 mg PO Q6HP PRN Nausea And 02/02/22 06/03/23 History Vomiting melatonin 5 mg tablet 5 mg PO HS Sleep 11/21/22 06/03/23 History mirtazapine 30 mg tablet 30 mg PO HS MOOD 11/21/22 06/03/23 History furosemide 20 mg tablet 20 mg PO DAILY Fluid 04/02/23 06/03/23 History loperamide 2 mg capsule 2 mg PO Q4HP PRN Diarrhea 04/02/23 06/03/23 History lorazepam 1 mg tablet 1 mg PO Q6HP PRN anxiety 04/02/23 06/03/23 History acetaminophen 325 mg tablet 325 mg PO Q8HP PRN Fever Or Pain 06/03/23 06/03/23 History (Tylenol) olopatadine 0.2 % eye drops 1 drp Eye-Both HSP PRN Allergy 06/03/23 06/03/23 History Symptoms doxycycline hyclate 100 mg tablet 100 mg PO BID 2 days #4 tabs 06/05/23 Rx prednisone 20 mg tablet 40 mg PO DAILY 2 days #4 tabs 06/05/23 Rx fluticasone fur. 100 mcg-umeclid See Rx Instructions .Route 06/27/23 Rx 62.5 mcg-vilant 25 mcg .COMPLEX #60 ea inhalat.powder (Trelegy Ellipta) gabapentin 600 mg tablet See Rx Instructions .Route 06/29/23 Rx .COMPLEX #180 ea hydrocodone 10 mg-acetaminophen 1 tab PO BID Pain #60 tabs 07/24/23 Rx 325 mg tablet New Prescriptions to Start Prescriptions: Allergies Allergy/AdvReac Type Severity Reaction Status Date / Time ciprofloxacin [From Cipro] Allergy Mild Verified 06/02/23 18:32 divalproex sodium Allergy Mild Verified 06/02/23 18:32 [From Depakote] ibuprofen Allergy Mild Verified 06/02/23 18:32 latex Allergy Mild Verified 06/02/23 18:32 Sulfa (Sulfonamide Allergy Mild Verified 06/02/23 18:32 Antibiotics) Exam Data for Last 24 hours Vital signs and Labs for Last 24 Hours: Temp Pulse Resp BP Pulse Ox O2 Del Method O2 Flow Rate 97.8 F 69 18 144/61 H 96 Nasal Cannula 3 08/25/23 17:35 08/25/23 17:35 08/25/23 17:35 08/25/23 17:35 08/25/23 17:35 08/25/23 17:45 08/25/23 17:45 Laboratory Results - last 24 hr 08/25/23 10:27: NT-Pro-B Natriuret Pep 464 H 08/25/23 10:30: WBC 5.7, RBC 4.80, Hgb 14.8, Hct 49.0 H, MCV 102.0 H, MCH 30.7, MCHC 30.1 L, RDW 15.0, Plt Count 191, MPV 8.5, Neut % (Auto) 71.6, Lymph % (Auto) 18.0, [place] % (Auto) 4.5, Eos % (Auto) 4.9, Baso % (Auto) 1.0, Neut # (Auto) 4.1, Lymph # (Auto) 1.0, [place] # (Auto) 0.3, Eos # (Auto) 0.3, Baso # (Auto) 0.1, Sodium 139, Potassium 4.8, Chloride 106, Carbon Dioxide 26, Anion Gap 11.8, BUN 17, Creatinine 0.90, Estimated Creat Clear 72, Estimated GFR 62, Est GFR ( Amer) 74, Glucose 471 H*, Calcium 8.4, Total Bilirubin 0.5, AST 47 H, ALT 41, Alkaline Phosphatase 121, Total Protein 7.0, Albumin 3.6, Globulin 3.4 H, Albumin/Globulin Ratio 1.1, Acetone Level None detected, SARS-CoV-2 (PCR) Not detected, Influenza A Untype (PCR) Not detected, Influenza Type B (PCR) Not detected 08/25/23 11:38: VBG pH 7.29 L, VBG pCO2 45.8, VBG pO2 44.1 H, VBG HCO3 21.6 L, VBG Total CO2 23.0, VBG O2 Saturation 84.9 H, VBG Base Excess -4.9 L I & O for Last 24 hours: Intake & Output 08/22/23 08/23/23 08/24/23 08/25/23 23:59 23:59 23:59 23:59 Weight 88.11 kg Constitutional Constitutional: no acute distress *Routine HEENT Exam Head: Present normocephalic Eye: Present EOMI and PERRL ENT: Present mucous membranes moist *Routine Neck Exam Neck: Present supple; Absent lymphadenopathy *Routine Respiratory Exam Respiratory: Present CTA bilaterally *Routine Cardiovascular Exam Cardiovascular: Present RRR and murmur *Routine Abdominal Exam Abdominal: Present soft and normoactive bowel sounds; Absent tenderness *Routine Rectal Exam Rectal:: deferred *Routine Genitalia Exam Genitalia:: deferred *Routine Extremities Exam Extremities: Absent cyanosis, clubbing or edema *Routine Skin Exam Skin: Present warm; Absent rash *Routine Neurological Exam Neurological: Present alert and oriented X3 Assessment and Plan *Assessment and plan (1) Acute hypoxic respiratory failure: Status: Acute Category: Medical Code(s): J96.01 - Acute respiratory failure with hypoxia (2) Diabetes: Status: Acute Qualifiers: Diabetes mellitus type: type 2 Diabetes mellitus shelter insulin use: without shelter use Diabetes mellitus complication status: without complication Qualified Code(s): E11.9 - Type 2 diabetes mellitus without complications Category: Medical Code(s): E11.9 - Type 2 diabetes mellitus without complications (3) Acute hyperglycemia: Status: Acute Category: Medical Code(s): R73.9 - Hyperglycemia, unspecified (4) Chronic heart failure with preserved ejection fraction (HFpEF): Status: Acute Category: Medical Code(s): I50.32 - Chronic diastolic (congestive) heart failure (5) Diabetes 1.5, managed as type 2: Status: Chronic Category: Medical Code(s): E13.9 - Other specified diabetes mellitus without complications (6) HTN (hypertension): Status: Chronic Qualifiers: Hypertension type: primary hypertension Qualified Code(s): I10 - Essential (primary) hypertension Category: Medical Code(s): I10 - Essential (primary) hypertension (7) COPD (chronic obstructive pulmonary disease): Status: Chronic Qualifiers: COPD type: unspecified COPD Qualified Code(s): J44.9 - Chronic obstructive pulmonary disease, unspecified Category: Medical Code(s): J44.9 - Chronic obstructive pulmonary disease, unspecified (8) Aortic valve sclerosis: Status: Acute Category: Medical Code(s): I35.8 - Other nonrheumatic aortic valve disorders Plan Patient is a 73-year-old female with past medical history of CHF with preserved ejection fraction, diabetes, COPD, aortic stenosis who presents to the hospital for hip pain. Mentions she has struggled with ambulation due to pain in her hips. Otherwise denies shortness of breath chest pain nausea vomiting diarrhea constipation dysuria. Patient was noted to be requiring 4 L nasal cannula at emergency department. Assessment Pulmonary vascular congestion, acute hypoxic respiratory failure likely secondary to CHF Bilateral hip pain likely secondary to arthritis Hyperglycemia due to uncontrolled diabetes mellitus Acute on chronic diastolic CHF Aortic stenosis COPD Hypertension Hyperlipidemia Diabetes mellitus Plan Start 40 IV twice daily Lasix Strict I's and O's Resume home aspirin, amlodipine Monitor and replace electrolytes Insulin sliding scale Long-acting insulin Resume home metformin DVT prophylaxis-Lovenox
[2023-08-25] MEDS: POTASSIUM CHLORIDE 20MEQ TAB 20 MEQ PO (21:30)
[2023-08-25] MEDS: PANTOPRAZOLE 40MG TABLET 40 MG PO (21:30)
[2023-08-25 21:53] LABS: POC Glucose,Bedside 462 (70-110)
[2023-08-25] MEDS: HYDROCODONE 10MG/APAP 325MG TAB 1 TAB PO (22:38)
[2023-08-25] MEDS: MELATONIN 5MG TABLET 5 MG PO (22:38)
[2023-08-25] MEDS: humaLOG 100 UNITS/ML 3ML VIAL (SSI) SQ (22:58)
[2023-08-25] MEDS: INSULIN GLARGINE 100 UNITS/ML 10ML VIAL 12 UNIT SQ (22:59)
[2023-08-26 02:55] LABS: POC Glucose,Bedside 435 (70-110)
--- NOTE | 2023-08-26 02:56 | PC.NURSE ---
Patient requested for blood sugar to be rechecked. 0250 FSBS 435. Sales And Marketing Director notified PA of FSBS result, voiced to check as ordered at 0600. Patient is aware and voiced understanding. Patient denies excessive thirst, dry mouth or blurred vision. Will continue to monitor.
[2023-08-26 04:00] VITALS: BP 128/73; PULSE 71; RESP 24; TEMP 36.7; O2SAT 92; BMI 28.3
[2023-08-26] MEDS: humaLOG 100 UNITS/ML 3ML VIAL (SSI) SQ ×4 (06:31→22:40)
[2023-08-26 06:33] LABS: POC Glucose,Bedside 341 (70-110)
[2023-08-26 07:52] VITALS: BP 116/52; PULSE 64; RESP 20; TEMP 37.1; O2SAT 91
[2023-08-26] MEDS: FUROSEMIDE 40MG/4ML VIAL 40 MG IV ×2 (09:19→16:45)
[2023-08-26] MEDS: SERTRALINE 100MG TABLET 100 MG PO (09:20)
[2023-08-26] MEDS: METFORMIN 500MG TABLET 1000 MG PO ×2 (09:20→16:45)
[2023-08-26] MEDS: ASPIRIN 325MG TABLET 325 MG PO (09:20)
[2023-08-26] MEDS: GABAPENTIN 600MG TABLET 600 MG PO ×2 (09:20→21:55)
[2023-08-26] MEDS: HYDROCODONE 10MG/APAP 325MG TAB 1 TAB PO ×2 (09:20→21:55)
[2023-08-26] MEDS: EMPAGLIFLOZIN 10MG TABLET 10 MG PO (09:20)
[2023-08-26] MEDS: ARIPiprazole 10MG TABLET 30 MG PO (09:21)
[2023-08-26] MEDS: OXYBUTYNIN 5MG TAB 5 MG PO (09:21)
[2023-08-26 09:23] LABS: Basophils % 0.5 % (0.1-2.0); Eosinophils # 0.2 K/mm3 (0.0-0.4); Eosinophils % 1.8 % (0.1-12.0); Hematocrit 43.3 % (37.0-47.0); Hemoglobin 13.7 g/dL (12.2-16.2); Lymphocytes % 22.6 % (10-50); Mean Corpuscular HGB Conc 31.5 g/dL (31.8-35.4); Mean Corpuscular Hemoglobin 30.6 pg (27.0-31.2); Mean Corpuscular Volume 97.1 fl (81-99); Mean Platelet Volume 7.5 fl (7.4-10.4); Monocytes # 0.4 K/mm3 (0.1-1.0); Neutrophils # 6.3 K/mm3 (1.8-7.8); Neutrophils % 71.1 % (37.0-80.0); Platelet Count 182 K/mm3 (142-424); Red Blood Count 4.46 M/mm3 (4.20-5.40); Red Cell Distribution Width 14.6 % (11.5-17.5); White Blood Count 8.9 K/mm3 (4.8-10.8)
[2023-08-26 09:42] LABS: NT Pro Brain Natriuretic Pep. 433 pg/mL (0-125)
[2023-08-26 09:47] LABS: POC Glucose,Bedside 216 (70-110)
--- NOTE | 2023-08-26 09:47 | HMH.PHAINT1 ---
Pharmacy Intervention Comments: MEDICATION RECONCILIATION COMPLETED ON PATIENT USING TOM REPORT AND DISCHARGE SUMMARY FROM PREVIOUS ADMISSION. ATTEMPTED TO GET MAR FROM [facility] X 3 WITH NO ANSWER. -COURTNEY WILKINS, JUSTICED
[2023-08-26 10:19] LABS: Chloride 108 mmol/L (98-107); Sodium 140 mmol/L (136-145)
[2023-08-26 10:20] LABS: Potassium 4.4 mmoL/L (3.5-5.1)
[2023-08-26 10:22] LABS: Blood Urea Nitrogen 26 mg/dl (7-17); Creatinine Clearance Estimated 55 mL/min (50-200); Estimated Glomerular Filt Rate 40 ml/min (>60); GFR (African American) 49 ML/MIN (>60)
[2023-08-26 10:23] LABS: Anion Gap 9.4 mEq/L (5-15); Calcium 8.2 mg/dl (8.4-10.2); Carbon Dioxide 27 mmol/L (22.0-30.0); Glucose 236 mg/dl (74-100)
[2023-08-26 11:14] LABS: POC Glucose,Bedside 213 (70-110)
--- NOTE | 2023-08-26 13:03 | PC.NURSE ---
per pt, okay to give information to pts sister Carrie.
[2023-08-26 15:28] VITALS: BP 145/66; PULSE 55; RESP 18; TEMP 36.5; O2SAT 94
--- NOTE | 2023-08-26 15:45 | P.PN_ITS ---
Subjective *Date: 08/26/23 *Time: 15:50 Interval history: patient was seen and evaluated at the bedside. complains of hip pain, No reported acute events overnight, denies chest pain, shortness of breath, nausea, vomiting, abdominal pain. Exam Data for Last 24 hours Vital signs and Labs for Last 24 Hours: Temp Pulse Resp BP Pulse Ox O2 Del Method O2 Flow Rate 97.7 F 55 L 18 145/66 H 94 L Nasal Cannula 3 08/26/23 15:28 08/26/23 15:28 08/26/23 15:28 08/26/23 15:28 08/26/23 15:28 08/26/23 15:28 08/26/23 15:28 Laboratory Results - last 24 hr 08/25/23 21:31: POC Glucose 462 H* 08/26/23 02:48: POC Glucose 435 H* 08/26/23 06:24: POC Glucose 341 H* 08/26/23 09:07: WBC 8.9 D, RBC 4.46, Hgb 13.7, Hct 43.3, MCV 97.1, MCH 30.6, MCHC 31.5 L, RDW 14.6, Plt Count 182, MPV 7.5, Neut % (Auto) 71.1, Lymph % (Auto) 22.6, [place] % (Auto) 4.0, Eos % (Auto) 1.8, Baso % (Auto) 0.5, Neut # (Auto) 6.3, Lymph # (Auto) 2.0, [place] # (Auto) 0.4, Eos # (Auto) 0.2, Baso # (Auto) 0.0, Sodium 140, Potassium 4.4, Chloride 108 H, Carbon Dioxide 27, Anion Gap 9.4, BUN 26 H D, Creatinine 1.30 H D, Estimated Creat Clear 55, Estimated GFR 40 L, Est GFR ( Amer) 49 L D, Glucose 236 H D, Calcium 8.2 L, NT-Pro-B Natriuret Pep 433 H 08/26/23 09:28: POC Glucose 216 H 08/26/23 10:58: POC Glucose 213 H I & O for Last 24 hours: Intake & Output 08/23/23 08/24/23 08/25/23 08/26/23 23:59 23:59 23:59 23:59 Intake Total 1080 / 1080 Output Total 0 / 0 Balance 0 / 360 1080 / 1080 Weight 88.11 kg 89.766 kg Constitutional Constitutional: no acute distress *Routine HEENT Exam Head: Present normocephalic Eye: Present EOMI and PERRL ENT: Present mucous membranes moist *Routine Neck Exam Neck: Present supple; Absent lymphadenopathy *Routine Respiratory Exam Respiratory: Present CTA bilaterally *Routine Cardiovascular Exam Cardiovascular: Present RRR *Routine Abdominal Exam Abdominal: Present soft and normoactive bowel sounds; Absent tenderness *Routine Extremities Exam Extremities: Absent cyanosis, clubbing or edema *Routine Skin Exam Skin: Present warm; Absent rash *Routine Neurological Exam Neurological: Present alert and oriented X3 Assessment and Plan *Assessment and plan (1) Acute hypoxic respiratory failure: Status: Acute Category: Medical Code(s): J96.01 - Acute respiratory failure with hypoxia (2) Diabetes: Status: Acute Qualifiers: Diabetes mellitus complication status: without complication Diabetes mellitus retirement insulin use: without retirement use Diabetes mellitus type: type 2 Qualified Code(s): E11.9 - Type 2 diabetes mellitus without complications Category: Medical Code(s): E11.9 - Type 2 diabetes mellitus without complications (3) Acute hyperglycemia: Status: Acute Category: Medical Code(s): R73.9 - Hyperglycemia, unspecified (4) Chronic heart failure with preserved ejection fraction (HFpEF): Status: Acute Category: Medical Code(s): I50.32 - Chronic diastolic (congestive) heart failure (5) Diabetes 1.5, managed as type 2: Status: Chronic Category: Medical Code(s): E13.9 - Other specified diabetes mellitus without complications (6) HTN (hypertension): Status: Chronic Qualifiers: Hypertension type: primary hypertension Qualified Code(s): I10 - Essential (primary) hypertension Category: Medical Code(s): I10 - Essential (primary) hypertension (7) COPD (chronic obstructive pulmonary disease): Status: Chronic Qualifiers: COPD type: unspecified COPD Qualified Code(s): J44.9 - Chronic obstr uctive pulmonary disease, unspecified Category: Medical Code(s): J44.9 - Chronic obstructive pulmonary disease, unspecified (8) Aortic valve sclerosis: Status: Acute Category: Medical Code(s): I35.8 - Other nonrheumatic aortic valve disorders Plan Patient is a 73-year-old female with past medical history of CHF with preserved ejection fraction, diabetes, COPD, aortic stenosis who presents to the hospital for hip pain. Mentions she has struggled with ambulation due to pain in her hips. Otherwise denies shortness of breath chest pain nausea vomiting diarrhea constipation dysuria. Patient was noted to be requiring 4 L nasal cannula at emergency department. Assessment Pulmonary vascular congestion, acute hypoxic respiratory failure likely se condary to CHF Bilateral hip pain likely secondary to arthritis Hyperglycemia due to uncontrolled diabetes mellitus Acute on chronic diastolic CHF Aortic stenosis COPD Hypertension Hyperlipidemia Diabetes mellitus Plan cont 40 IV twice daily Lasix - continue Strict I's and O's Resume home aspirin, amlodipine Monitor and replace electrolytes Insulin sliding scale Long-acting insulin Resume home metformin DVT prophylaxis-Lovenox consult PT/OT, dc 1-2 days
--- NOTE | 2023-08-26 16:21 | HMH.PTEV ---
Physical Therapy Evaluation Rehab PT IP Evaluation Start: 08/26/23 09:29 Freq: ONCE Status: Active Protocol: Document 08/26/23 16:11 PDESEROUX (Rec: 08/26/23 16:21 [email or web address] [id number]) Subjective/History History History Pt. is a 72 year old female w/ a PMH of CHF w/ preserved ejection fraction, DM-II, COPD , and aortic stenosis w/ presents to [facility] Inpatient floor w/ c/o acute and constant BLE hip P! and burning. Pt. reports waking up in the middle of the night (08/24/23) secondary to BLE hip P!, therefore, calling ambulatory services to drive her to the hospital to assess this complaint. Pt. reports PMH of S/P BLE CHARLIE. Pt . denies having a fall, states her last fall was in March of last year(2022). Pt. reports she lives at [place] prior to [facility] admittance. Pt. reports having assistance when I need it, but states ambulating self using SPC to the restroom, bed room, and kitchen. Pt. reports also owning a FWW, states, I need to use it more often. Subjective Subjective Pt. was asleep L-sidelying in hospital bed upon entry into pt.'s room after being welcomed in by pt. Pt. reports constant 8/10 BLE hip P! at rest that increases to a 9/10 w/ activity. Pt. was left back in L-sidelying in hospital bed w/ call light in reach upon exiting room. New diagnosis of cancer in past 12 No months? Rehab PT IP Eval Objective Appearance Patient Behavior Appropriate,Cooperative Patient Orientation Person,Place,Birthday, Situation Difficulty following instructions none Speech Pattern Clear,Appropriate,Coherent Ambulation Patient Able to Ambulate Yes Balance Ability to Arise Able, uses arms to help Sitting Balance Steady, safe Standing Balance Steady, wide stance Dynamic Sitting Balance Ability Good Dynamic Standing Balance Ability Good Transfers Bed Transfer Ability Supervision/Stand by Chair Transfer Ability Supervision/Stand by Sit to Stand Bed Transfer Ability Supervision/Stand by Sit to Stand Chair Transfer Ability Supervision/Stand by Pain Right Hip Pain Intensity 8 Left Hip Pain Intensity 8 ROM RLE PT ROM Status WFL LLE PT ROM Status WFL MMT RLE PT MMT WFL LLE PT MMT WFL Rehab PT IP prob,goals,plan Problems Date of Evaluation: 08/26/23 Rehab Potential Rehab Potential Innapropriate for Skilled Therapy Discharge Plan PT Discharge Plan Upon discharge from [facility], once medically stable per MD, pt. appropriate to be discharged back to [facility]. Eval Complexity Eval Charge Codes 08383 - Low Complexity PHYSICIAN CERTIFICATION: I certify the specified therapy services for Kimmie Taylor are required, authorized, and reviewed every 30 days.
[2023-08-26 17:16] LABS: POC Glucose,Bedside 181 (70-110)
[2023-08-26 20:00] VITALS: BP 133/60; PULSE 57; RESP 17; TEMP 36.8; O2SAT 92
[2023-08-26] MEDS: MELATONIN 5MG TABLET 5 MG PO (21:55)
[2023-08-26] MEDS: POTASSIUM CHLORIDE 20MEQ TAB 20 MEQ PO (21:55)
[2023-08-26] MEDS: PANTOPRAZOLE 40MG TABLET 40 MG PO (21:55)
[2023-08-26 22:17] LABS: POC Glucose,Bedside 223 (70-110)
[2023-08-26] MEDS: INSULIN GLARGINE 100 UNITS/ML 10ML VIAL 12 UNIT SQ (22:40)
[2023-08-27 04:00] VITALS: BP 124/61; PULSE 46; RESP 18; TEMP 36.4; O2SAT 92; BMI 28.3
[2023-08-27] MEDS: METFORMIN 500MG TABLET 1000 MG PO ×2 (06:59→16:46)
[2023-08-27 07:13] LABS: POC Glucose,Bedside 140 (70-110)
[2023-08-27 07:48] VITALS: BP 168/75; PULSE 60; RESP 19; TEMP 36.4; O2SAT 91
[2023-08-27 08:16] LABS: Basophils # 0.1 K/mm3 (0-0.2); Basophils % 1.3 % (0.1-2.0); Eosinophils # 0.3 K/mm3 (0.0-0.4); Eosinophils % 5.3 % (0.1-12.0); Hematocrit 50.2 % (37.0-47.0); Lymphocytes # 1.5 K/mm3 (0.7-4.5); Lymphocytes % 28.4 % (10-50); Mean Corpuscular HGB Conc 31.4 g/dL (31.8-35.4); Mean Corpuscular Hemoglobin 30.6 pg (27.0-31.2); Mean Corpuscular Volume 97.5 fl (81-99); Mean Platelet Volume 8.8 fl (7.4-10.4); Monocytes # 0.3 K/mm3 (0.1-1.0); Monocytes % 4.9 % (1.7-9.3); Neutrophils # 3.1 K/mm3 (1.8-7.8); Neutrophils % 60.1 % (37.0-80.0); Platelet Count 101 K/mm3 (142-424); Red Blood Count 5.15 M/mm3 (4.20-5.40); Red Cell Distribution Width 14.8 % (11.5-17.5); White Blood Count 5.2 K/mm3 (4.8-10.8)
[2023-08-27 08:23] LABS: Chloride 104 mmol/L (98-107); Potassium 5.3 mmoL/L (3.5-5.1); Sodium 139 mmol/L (136-145)
[2023-08-27 08:26] LABS: Alanine Aminotransferase 37 U/L (12-78); Albumin Level 3.6 g/dl (3.5-5.0); Albumin/Globulin Ratio 1.1 (1.1-1.8); Alkaline Phosphatase 107 U/L (38-126); Anion Gap 10.3 mEq/L (5-15); Aspartate Amino Transferase 48 U/L (14-36); Bilirubin,Total 0.6 mg/dl (0.2-1.3); Blood Urea Nitrogen 31 mg/dl (7-17); Calcium 8.4 mg/dl (8.4-10.2); Carbon Dioxide 30 mmol/L (22.0-30.0); Creatinine Clearance Estimated 72 mL/min (50-200); Estimated Glomerular Filt Rate 55 ml/min (>60); GFR (African American) 66 ML/MIN (>60); Globulin 3.3 g/dL (1.3-3.2); Glucose 172 mg/dl (74-100); Total Protein,Serum 6.9 g/dl (6.3-8.2)
[2023-08-27 08:34] LABS: Hemoglobin 15.7 g/dL (12.2-16.2)
[2023-08-27] MEDS: FUROSEMIDE 40MG/4ML VIAL 40 MG IV ×2 (09:07→16:46)
[2023-08-27] MEDS: HYDROCODONE 10MG/APAP 325MG TAB 1 TAB PO ×2 (09:07→21:20)
[2023-08-27] MEDS: GABAPENTIN 600MG TABLET 600 MG PO ×2 (09:07→21:21)
[2023-08-27] MEDS: OXYBUTYNIN 5MG TAB 5 MG PO (09:08)
[2023-08-27] MEDS: ARIPiprazole 10MG TABLET 30 MG PO (09:08)
[2023-08-27] MEDS: ASPIRIN 325MG TABLET 325 MG PO (09:08)
[2023-08-27] MEDS: IRBESARTAN 150MG TAB 150 MG PO (09:08)
[2023-08-27] MEDS: SERTRALINE 100MG TABLET 100 MG PO (09:08)
[2023-08-27] MEDS: EMPAGLIFLOZIN 10MG TABLET 10 MG PO (09:08)
[2023-08-27] MEDS: METOPROLOL SUCCINATE XL 25MG TABLET 25 MG PO (09:08)
[2023-08-27 12:03] LABS: POC Glucose,Bedside 167 (70-110)
--- NOTE | 2023-08-27 15:41 | PC.NURSE ---
Addendum entered by Monique Joiner RN 08/27/23 15:46: 81% while asleep on ra Original Note: attempted to wean o2. 86% o2 sat on ra while sitting up in chair. while asleep o2 sat 81%. pt currently on 2l nc with o2 sat 92%
[2023-08-27 16:00] VITALS: BP 141/58; PULSE 52; RESP 18; TEMP 36.7; O2SAT 91
--- NOTE | 2023-08-27 16:03 | EXP.PN ---
Subjective *Date: 08/27/23 *Time: 16:03 Interval history: patient was seen and evaluated at the bedside. No reported acute events overnight, denies chest pain, shortness of breath, nausea, vomiting, abdominal pain. Exam Data for Last 24 hours Vital signs and Labs for Last 24 Hours: Temp Pulse Resp BP Pulse Ox O2 Del Method O2 Flow Rate 97.5 F L 60 19 168/75 H 91 L Nasal Cannula 2 08/27/23 07:48 08/27/23 07:48 08/27/23 07:48 08/27/23 07:48 08/27/23 07:48 08/27/23 15:00 08/27/23 15:00 Laboratory Results - last 24 hr 08/26/23 16:42: POC Glucose 181 H 08/26/23 22:09: POC Glucose 223 H 08/27/23 07:01: POC Glucose 140 H 08/27/23 08:03: WBC 5.2 D, RBC 5.15, Hgb 15.7 D, Hct 50.2 H, MCV 97.5, MCH 30.6, MCHC 31.4 L, RDW 14.8, Plt Count 101 L D, MPV 8.8, Neut % (Auto) 60.1, Lymph % (Auto) 28.4, [place] % (Auto) 4.9, Eos % (Auto) 5.3, Baso % (Auto) 1.3, Neut # (Auto) 3.1, Lymph # (Auto) 1.5, [place] # (Auto) 0.3, Eos # (Auto) 0.3, Baso # (Auto) 0.1, Sodium 139, Potassium 5.3 H D, Chloride 104, Carbon Dioxide 30, Anion Gap 10.3, BUN 31 H, Creatinine 1.00 D, Estimated Creat Clear 72, Estimated GFR 55 L, Est GFR ( Amer) 66 D, Glucose 172 H D, Calcium 8.4, Total Bilirubin 0.6, AST 48 H, ALT 37, Alkaline Phosphatase 107, Total Protein 6.9, Albumin 3.6, Globulin 3.3 H, Albumin/Globulin Ratio 1.1 08/27/23 11:34: POC Glucose 167 H I & O for Last 24 hours: Intake & Output 08/24/23 08/25/23 08/26/23 08/27/23 23:59 23:59 23:59 23:59 Intake Total 1320 / 1320 800 / 800 Output Total 0 / 0 0 / 0 Balance 0 / 360 1320 / 1320 800 / 800 Weight 88.11 kg 89.766 kg 89.767 kg Constitutional Constitutional: no acute distress *Routine HEENT Exam Head: Present normocephalic Eye: Present EOMI and PERRL ENT: Present mucous membranes moist *Routine Neck Exam Neck: Present supple; Absent lymphadenopathy *Routine Respiratory Exam Respiratory: Present CTA bilaterally *Routine Cardiovascular Exam Cardiovascular: Present RRR *Routine Abdominal Exam Abdominal: Present soft and normoactive bowel sounds; Absent tenderness *Routine Extremities Exam Extremities: Absent cyanosis, clubbing or edema *Routine Skin Exam Skin: Present warm; Absent rash *Routine Neurological Exam Neurological: Present alert and oriented X3 Assessment and Plan *Assessment and plan (1) Acute hypoxic respiratory failure: Status: Acute Category: Medical Code(s): J96.01 - Acute respiratory failure with hypoxia (2) Diabetes: Status: Acute Qualifiers: Diabetes mellitus type: type 2 Diabetes mellitus intermediate accountant insulin use: without intermediate accountant use Diabetes mellitus complication status: without complication Qualified Code(s): E11.9 - Type 2 diabetes mellitus without complications Category: Medical Code(s): E11.9 - Type 2 diabetes mellitus without complications (3) Acute hyperglycemia: Status: Acute Category: Medical Code(s): R73.9 - Hyperglycemia, unspecified (4) Chronic heart failure with preserved ejection fraction (HFpEF): Status: Acute Category: Medical Code(s): I50.32 - Chronic diastolic (congestive) heart failure (5) Diabetes 1.5, managed as type 2: Status: Chronic Category: Medical Code(s): E13.9 - Other specified diabetes mellitus without complications (6) HTN (hypertension): Status: Chronic Qualifiers: Hypertension type: primary hypertension Qualified Code(s): I10 - Essential (primary) hypertension Category: Medical Code(s): I10 - Essential (primary) hypertension (7) COPD (chronic obstructive pulmonary disease): Status: Chronic Qualifiers: COPD type: unspecified COPD Qualified Code(s): J44.9 - Chronic obstructive pulmonary disease, unspecified Category: Medical Code(s): J44.9 - Chronic obstructive pulmonary disease, unspecified (8) Aortic valve sclerosis: Status: Acute Category: Medical Code(s): I35.8 - Other nonrheumatic aortic valve disorders Plan Patient is a 73-year-old female with past medical history of CHF with preserved ejection fraction, diabetes, COPD, aortic stenosis who presents to the hospital for hip pain. Mentions she has struggled with ambulation due to pain in her hips. Otherwise denies shortness of breath chest pain nausea vomiting diarrhea constipation dysuria. Patient was noted to be requiring 4 L nasal cannula at emergency department. Assessment Pulmonary vascular congestion, acute hypoxic respiratory failure likely secondary to CHF Bilateral hip pain likely secondary to arthritis Hyperglycemia due to uncontrolled diabetes mellitus Acute on chronic diastolic CHF Aortic stenosis COPD Hypertension Hyperlipidemia Diabetes mellitus Plan cont 40 IV twice daily Lasix - continue Strict I's and O's Resume home aspirin, amlodipine Monitor and replace electrolytes Insulin sliding scale Long-acting insulin Resume home metformin DVT prophylaxis-Lovenox consult PT/OT, dc 1-2 days, dc tomorrow potentially?
--- NOTE | 2023-08-27 16:08 | EXP.PN ---
Subjective *Date: 08/28/23 *Time: 13:37 Interval history: patient was seen and evaluated at the bedside. No reported acute events overnight, denies chest pain, shortness of breath, nausea, vomiting, abdominal pain. has pain in Left leg Exam Data for Last 24 hours Vital signs and Labs for Last 24 Hours: Temp Pulse Resp BP Pulse Ox O2 Del Method O2 Flow Rate 97.5 F L 60 19 168/75 H 91 L Nasal Cannula 2 08/27/23 07:48 08/27/23 07:48 08/27/23 07:48 08/27/23 07:48 08/27/23 07:48 08/27/23 15:00 08/27/23 15:00 Laboratory Results - last 24 hr 08/26/23 16:42: POC Glucose 181 H 08/26/23 22:09: POC Glucose 223 H 08/27/23 07:01: POC Glucose 140 H 08/27/23 08:03: WBC 5.2 D, RBC 5.15, Hgb 15.7 D, Hct 50.2 H, MCV 97.5, MCH 30.6, MCHC 31.4 L, RDW 14.8, Plt Count 101 L D, MPV 8.8, Neut % (Auto) 60.1, Lymph % (Auto) 28.4, [place] % (Auto) 4.9, Eos % (Auto) 5.3, Baso % (Auto) 1.3, Neut # (Auto) 3.1, Lymph # (Auto) 1.5, [place] # (Auto) 0.3, Eos # (Auto) 0.3, Baso # (Auto) 0.1, Sodium 139, Potassium 5.3 H D, Chloride 104, Carbon Dioxide 30, Anion Gap 10.3, BUN 31 H, Creatinine 1.00 D, Estimated Creat Clear 72, Estimated GFR 55 L, Est GFR ( Amer) 66 D, Glucose 172 H D, Calcium 8.4, Total Bilirubin 0.6, AST 48 H, ALT 37, Alkaline Phosphatase 107, Total Protein 6.9, Albumin 3.6, Globulin 3.3 H, Albumin/Globulin Ratio 1.1 08/27/23 11:34: POC Glucose 167 H I & O for Last 24 hours: Intake & Output 08/24/23 08/25/23 08/26/23 08/27/23 23:59 23:59 23:59 23:59 Intake Total 1320 / 1320 800 / 800 Output Total 0 / 0 0 / 0 Balance 0 / 360 1320 / 1320 800 / 800 Weight 88.11 kg 89.766 kg 89.767 kg Constitutional Constitutional: no acute distress *Routine HEENT Exam Head: Present normocephalic Eye: Present EOMI and PERRL ENT: Present mucous membranes moist *Routine Neck Exam Neck: Present supple; Absent lymphadenopathy *Routine Respiratory Exam Respiratory: Present CTA bilaterally *Routine Cardiovascular Exam Cardiovascular: Present RRR *Routine Abdominal Exam Abdominal: Present soft and normoactive bowel sounds; Absent tenderness *Routine Extremities Exam Extremities: Absent cyanosis, clubbing or edema *Routine Skin Exam Skin: Present warm; Absent rash *Routine Neurological Exam Neurological: Present alert and oriented X3 Assessment and Plan *Assessment and plan (1) Acute hypoxic respiratory failure: Status: Acute Category: Medical Code(s): J96.01 - Acute respiratory failure with hypoxia (2) Diabetes: Status: Acute Qualifiers: Diabetes mellitus complication status: without complication Diabetes mellitus resort keeper insulin use: without resort keeper use Diabetes mellitus type: type 2 Qualified Code(s): E11.9 - Type 2 diabetes mellitus without complications Category: Medical Code(s): E11.9 - Type 2 diabetes mellitus without complications (3) Acute hyperglycemia: Status: Acute Category: Medical Code(s): R73.9 - Hyperglycemia, unspecified (4) Chronic heart failure with preserved ejection fraction (HFpEF): Status: Acute Category: Medical Code(s): I50.32 - Chronic diastolic (congestive) heart failure (5) Diabetes 1.5, managed as type 2: Status: Chronic Category: Medical Code(s): E13.9 - Other specified diabetes mellitus without complications (6) HTN (hypertension): Status: Chronic Qualifiers: Hypertension type: primary hypertension Qualified Code(s): I10 - Essential (primary) hypertension Category: Medical Code(s): I10 - Essential (primary) hypertension (7) COPD (chronic obstructive pulmonary disease): Status: Chronic Qualifiers: COPD type: unspecified COPD Qualified Code(s): J44.9 - Chronic obstructive pulmonary disease, unspecified Category: Medical Code(s): J44.9 - Chronic obstructive pulmonary disease, unspecified (8) Aortic valve sclerosis: Status: Acute Category: Medical Code(s): I35.8 - Other nonrheumatic aortic valve disorders Plan Patient is a 73-year-old female with past medical history of CHF with preserved ejection fraction, diabetes, COPD, aortic stenosis who presents to the hospital for hip pain. Mentions she has struggled with ambulation due to pain in her hips. Otherwise denies shortness of breath chest pain nausea vomiting diarrhea constipation dysuria. Patient was noted to be requiring 4 L nasal cannula at emergency department. Assessment Pulmonary vascular congestion, acute hypoxic respiratory failure likely secondary to CHF Bilateral hip pain likely secondary to arthritis Hyperglycemia due to uncontrolled diabetes mellitus Acute on chronic diastolic CHF Aortic stenosis COPD Hypertension Hyperlipidemia Diabetes mellitus Plan cont 40 IV twice daily Lasix - continue Strict I's and O's Resume home aspirin, amlodipine Monitor and replace electrolytes Insulin sliding scale Long-acting insulin Resume home metformin DVT prophylaxis-Lovenox consult PT/OT, dc 1-2 days, dc tomorrow potentially?
[2023-08-27] MEDS: humaLOG 100 UNITS/ML 3ML VIAL (SSI) SQ ×2 (16:46→22:27)
[2023-08-27 17:46] LABS: POC Glucose,Bedside 197 (70-110)
[2023-08-27] MEDS: MONTELUKAST SODIUM 10MG TAB 10 MG PO (17:54)
[2023-08-27 18:04] VITALS: BMI 31.0
[2023-08-27 20:00] VITALS: BP 116/60; PULSE 50; RESP 17; TEMP 36.9; O2SAT 90
[2023-08-27] MEDS: MIRTAZAPINE 15 MG TABLET 30 MG PO (21:20)
[2023-08-27] MEDS: MELATONIN 5MG TABLET 5 MG PO (21:21)
[2023-08-27] MEDS: PANTOPRAZOLE 40MG TABLET 40 MG PO (21:21)
[2023-08-27 22:08] LABS: POC Glucose,Bedside 192 (70-110)
[2023-08-27] MEDS: INSULIN GLARGINE 100 UNITS/ML 10ML VIAL 12 UNIT SQ (22:28)
[2023-08-28 04:00] VITALS: BP 147/66; PULSE 50; RESP 17; TEMP 36.8; O2SAT 90; BMI 31.0
[2023-08-28] MEDS: FLUTICASONE/UMECLIDIN/VILANTER 100/62.5/25MCG INHALER 1 PUFF IH (06:23)
[2023-08-28 06:25] VITALS: O2SAT 94
[2023-08-28] MEDS: METFORMIN 500MG TABLET 1000 MG PO (07:04)
[2023-08-28 07:15] LABS: POC Glucose,Bedside 148 (70-110)
[2023-08-28 07:35] LABS: Basophils # 0.1 K/mm3 (0-0.2); Eosinophils # 0.3 K/mm3 (0.0-0.4); Eosinophils % 4.2 % (0.1-12.0); Hematocrit 51.4 % (37.0-47.0); Lymphocytes % 27.2 % (10-50); Mean Corpuscular HGB Conc 31.2 g/dL (31.8-35.4); Mean Corpuscular Hemoglobin 30.2 pg (27.0-31.2); Mean Corpuscular Volume 96.9 fl (81-99); Mean Platelet Volume 8.4 fl (7.4-10.4); Monocytes # 0.3 K/mm3 (0.1-1.0); Monocytes % 4.6 % (1.7-9.3); Neutrophils # 4.7 K/mm3 (1.8-7.8); Platelet Count 169 K/mm3 (142-424); Red Blood Count 5.31 M/mm3 (4.20-5.40); White Blood Count 7.4 K/mm3 (4.8-10.8)
[2023-08-28 07:43] LABS: Alanine Aminotransferase 31 U/L (12-78); Albumin Level 3.6 g/dl (3.5-5.0); Alkaline Phosphatase 114 U/L (38-126); Anion Gap 6.9 mEq/L (5-15); Aspartate Amino Transferase 66 U/L (14-36); Bilirubin,Total 0.8 mg/dl (0.2-1.3); Blood Urea Nitrogen 37 mg/dl (7-17); Calcium 8.2 mg/dl (8.4-10.2); Carbon Dioxide 34 mmol/L (22.0-30.0); Chloride 99 mmol/L (98-107); Creatinine Clearance Estimated 72 mL/min (50-200); Estimated Glomerular Filt Rate 55 ml/min (>60); GFR (African American) 66 ML/MIN (>60); Globulin 3.5 g/dL (1.3-3.2); Glucose 150 mg/dl (74-100); Potassium 4.9 mmoL/L (3.5-5.1); Sodium 135 mmol/L (136-145); Total Protein,Serum 7.1 g/dl (6.3-8.2)
[2023-08-28 07:54] VITALS: O2SAT 92
[2023-08-28 08:00] VITALS: BP 125/41; PULSE 51; RESP 14; TEMP 36.9; O2SAT 92
--- NOTE | 2023-08-28 09:50 | HMH.OTEV ---
OT Inpatient Evaluation Rehab OT IP Evaluation Start: 08/26/23 09:29 Freq: ONCE Status: Active [facility]Rec: 08/28/23 09:50 [facility] [id number]) Rehab OT IP Assessment Subjective History Pt oriented x 2 on arrival. Pt agreeable to engage in therapy evaluation. Pt admitted to hospital on 08/25/22 due to SOB and ARF. Prior to being in the hospital, pt lived at [facility]. Pt claims she is normally independent with all ADLs such as feeding, dressing, and bathing. However, she is dependent upon staff for completion of all IADLS ( cleaning, cooking , laundry, etc). Pt does use a cane during functional transfers. Patient is a 73-year-old female with past medical history of CHF with preserved ejection fraction, diabetes, COPD, aortic stenosis who presents to the hospital for hip pain. Mentions she has struggled with ambulation due to pain in her hips. Otherwise denies shortness of breath chest pain nausea vomiting diarrhea constipation dysuria. Patient was noted to be requiring 4 L nasal cannula at emergency department. Subjective I can do for myself. Objective Patient Orientation Person,Birthday Right Upper Extremity Gross ROM WFL Left Upper Extremity Gross ROM WFL Bed Mobility bed mobility-scooting,bed mobility - supine/sit Assist Level Supervision/Stand by Transfer Training Sit/Stand Transfer Assist Level Contact Guard/Hand Hold Lower Body Dressing Ability Standby Assistance Performing Toilet Hygiene Ability Standby Assistance Overall Commode/Toilet Transfer Ability Standby Assistance Commode/Toilet Transfer Technique Sit to/from Ambulatory Commode/Toilet Transfer Assistive Grab Bars Devices Rehab OT IP prob,goals,plan Problems Date of Evaluation: 08/28/23 Rehab Potential Rehab Potential Innapropriate for Skilled Therapy Discharge Plan OT Discharge Plan At this time, pt appears to be at her baseline with functional transfers and ADL independence. Pt can return back to [place] once she is medically stable per physician . Eval Complexity Eval Charge Codes 95832 - Low Complexity PHYSICIAN CERTIFICATION: I certify the specified therapy services for Kimmie Taylor are required, authorized, and reviewed every 30 days.
[2023-08-28] MEDS: ARIPiprazole 10MG TABLET 30 MG PO (10:15)
[2023-08-28] MEDS: OXYBUTYNIN 5MG TAB 5 MG PO (10:16)
[2023-08-28] MEDS: SERTRALINE 100MG TABLET 100 MG PO (10:16)
[2023-08-28] MEDS: METOPROLOL SUCCINATE XL 25MG TABLET 25 MG PO (10:16)
[2023-08-28] MEDS: EMPAGLIFLOZIN 10MG TABLET 10 MG PO (10:16)
[2023-08-28] MEDS: IRBESARTAN 150MG TAB 150 MG PO (10:16)
[2023-08-28] MEDS: ASPIRIN 325MG TABLET 325 MG PO (10:16)
[2023-08-28] MEDS: HYDROCODONE 10MG/APAP 325MG TAB 1 TAB PO (10:16)
[2023-08-28] MEDS: FUROSEMIDE 40MG/4ML VIAL 40 MG IV (10:17)
[2023-08-28] MEDS: GABAPENTIN 600MG TABLET 600 MG PO (10:17)
[2023-08-28] MEDS: humaLOG 100 UNITS/ML 3ML VIAL (SSI) SQ (11:41)
[2023-08-28 11:43] LABS: POC Glucose,Bedside 169 (70-110)
--- NOTE | 2023-08-28 11:56 | SW/DCPLANNER ---
Addendum entered by Sonya Recinos 08/28/23 14:06: [facility]se/ [facility] stated that she can accept this patient. Per MD patient will discharge today. Addendum entered by Sonya Recinos 08/28/23 12:10: Kaylee is agreeable to placement: patient information has been faxed to [facility] and [facility]. Original Note: Patient currently resides at [facility]: due to O2 requirement patient will require placement at time of discharge. I contacted patient's State Guardian (Kaylee [phone]) regarding placement: she stated that she would need to speak w/ her supervisor cloth winding and contact me back. Patient is currently medically stable for discharge.
[2023-08-28 13:13] VITALS: PULSE 56; O2SAT 86
--- NOTE | 2023-08-28 13:37 | P.PN_ITS ---
Subjective *Date: 08/28/23 *Time: 13:37 Interval history: patient was seen and evaluated at the bedside. No reported acute events overnight, denies chest pain, shortness of breath, nausea, vomiting, abdominal pain. has pain in Left leg Exam Data for Last 24 hours Vital signs and Labs for Last 24 Hours: Temp Pulse Resp BP Pulse Ox O2 Del Method O2 Flow Rate 98.5 F 56 L 14 125/41 L 86 L Nasal Cannula 3 08/28/23 08:00 08/28/23 13:13 08/28/23 08:00 08/28/23 08:00 08/28/23 13:13 08/28/23 13:16 08/28/23 13:16 Laboratory Results - last 24 hr 08/27/23 16:36: POC Glucose 197 H 08/27/23 21:57: POC Glucose 192 H 08/28/23 06:42: WBC 7.4 D, RBC 5.31, Hgb 16.0, Hct 51.4 H, MCV 96.9, MCH 30.2, MCHC 31.2 L, RDW 15.0, Plt Count 169 D, MPV 8.4, Neut % (Auto) 63.0, Lymph % (Auto) 27.2, [place] % (Auto) 4.6, Eos % (Auto) 4.2, Baso % (Auto) 1.0, Neut # (Auto) 4.7, Lymph # (Auto) 2.0, [place] # (Auto) 0.3, Eos # (Auto) 0.3, Baso # (Auto) 0.1, Sodium 135 L, Potassium 4.9, Chloride 99, Carbon Dioxide 34 H, Anion Gap 6.9, BUN 37 H, Creatinine 1.00, Estimated Creat Clear 72, Estimated GFR 55 L , Est GFR ( Amer) 66, Glucose 150 H, Calcium 8.2 L, Total Bilirubin 0.8, AST 66 H D, ALT 31, Alkaline Phosphatase 114, Total Protein 7.1, Albumin 3.6, Globulin 3.5 H, Albumin/Globulin Ratio 1.0 L 08/28/23 07:07: POC Glucose 148 H 08/28/23 11:36: POC Glucose 169 H I & O for Last 24 hours: Intake & Output 08/25/23 08/26/23 08/27/23 08/28/23 23:59 23:59 23:59 23:59 Intake Total 1320 / 1320 1040 / 1520 980 / 980 Output Total 0 / 0 0 / 0 0 / 0 0 / 0 Balance 0 / 360 1320 / 1320 1040 / 1520 980 / 980 Weight 88.11 kg 89.766 kg 89.76 kg 89.7 kg Constitutional Constitutional: no acute distress *Routine HEENT Exam Head: Present normocephalic Eye: Present EOMI and PERRL ENT: Present mucous membranes moist *Routine Neck Exam Neck: Present supple; Absent lymphadenopathy *Routine Respiratory Exam Respiratory: Present CTA bilaterally *Routine Cardiovascular Exam Cardiovascular: Present RRR *Routine Abdominal Exam Abdominal: Present soft and normoactive bowel sounds; Absent tenderness *Routine Extremities Exam Extremities: Absent cyanosis, clubbing or edema *Routine Skin Exam Skin: Present warm; Absent rash *Routine Neurological Exam Neurological: Present alert and oriented X3 Assessment and Plan *Assessment and plan (1) Acute hypoxic respiratory failure: Status: Acute Category: Medical Code(s): J96.01 - Acute respiratory failure with hypoxia (2) Diabetes: Status: Acute Qualifiers: Diabetes mellitus type: type 2 Diabetes mellitus half-way insulin use: without termite exterminator helper use Diabetes mellitus complication status: without complication Qualified Code(s): E11.9 - Type 2 diabetes mellitus without complications Category: Medical Code(s): E11.9 - Type 2 diabetes mellitus without complications (3) Acute hyperglycemia: Status: Acute Category: Medical Code(s): R73.9 - Hyperglycemia, unspecified (4) Chronic heart failure with preserved ejection fraction (HFpEF): Status: Acute Category: Medical Code(s): I50.32 - Chronic diastolic (congestive) heart failure (5) Diabetes 1.5, managed as type 2: Status: Chronic Category: Medical Code(s): E13.9 - Other specified diabetes mellitus without complications (6) HTN (hypertension): Status: Chronic Qualifiers: Hypertension type: primary hypertension Qualified Code(s): I10 - Essential (primary) hypertension Category: Medical Code(s): I10 - Essential (primary) hypertension (7) COPD (chronic obstructive pulmonary disease): Status: Chronic Qualifiers: COPD type: unspecified COPD Qualified Code(s): J44.9 - Chronic obstructive pulmonary disease, unspecified Category: Medical Code(s): J44.9 - Chronic obstructive pulmonary disease, unspecified (8) Aortic valve sclerosis: Status: Acute Category: Medical Code(s): I35.8 - Other nonrheumatic aortic valve disorders Plan Patient is a 73-year-old female with past medical history of CHF with preserved ejection fraction, diabetes, COPD, aortic stenosis who presents to the hospital for hip pain. Mentions she has struggled with ambulation due to pain in her hips. Otherwise denies shortness of breath chest pain nausea vomiting diarrhea constipation dysuria. Patient was noted to be requiring 4 L nasal cannula at emergency department. Assessment Pulmonary vascular congestion, acute hypoxic respiratory failure likely secondary to CHF Bilateral hip pain likely secondary to arthritis Hyperglycemia due to uncontrolled diabetes mellitus Acute on chronic diastolic CHF Aortic stenosis COPD Hypertension Hyperlipidemia Diabetes mellitus Plan cont 40 IV twice daily Lasix - continue Strict I's and O's Resume home aspirin, amlodipine Monitor and replace electrolytes Insulin sliding scale Long-acting insulin Resume home metformin DVT prophylaxis-Lovenox consult PT/OT, dc 1-2 days, dc tomorrow potentially, awaiting placement, home o2 eval, may need 2L NC
--- NOTE | 2023-08-28 14:09 | EXP.DC.SUM ---
General Admission date:: 08/25/23 Discharge date: 08/28/23 HPI HPI HPI: Patient is a 73-year-old female with past medical history of CHF with preserved ejection fraction, diabetes, COPD, aortic stenosis who presents to the hospital for hip pain. Mentions she has struggled with ambulation due to pain in her hips. Otherwise denies shortness of breath chest pain nausea vomiting diarrhea constipation dysuria. Patient was noted to be requiring 4 L nasal cannula at emergency department. Hospital Course Hospital Course Hospital Course: Patient is a 73-year-old female with past medical history of CHF with preserved ejection fraction, diabetes, COPD, aortic stenosis who presents to the hospital for hip pain. Mentions she has struggled with ambulation due to pain in her hips. Otherwise denies shortness of breath chest pain nausea vomiting diarrhea constipation dysuria. Patient was noted to be requiring 4 L nasal cannula at emergency department. Pulmonary vascular congestion, acute hypoxic respiratory failure likely secondary to CHF - improved, stable, dc on lasix Bilateral hip pain likely secondary to arthritis - see PT/OT notes Hyperglycemia due to uncontrolled diabetes mellitus - stable Acute on chronic diastolic CHF Aortic stenosis COPD Hypertension Hyperlipidemia Diabetes mellitus stable for dc Exam Data for Last 24 hours Vital signs and Labs for Last 24 Hours: Temp Pulse Resp BP Pulse Ox O2 Del Method O2 Flow Rate 98.5 F 56 L 14 125/41 L 86 L Nasal Cannula 3 08/28/23 08:00 08/28/23 13:13 08/28/23 08:00 08/28/23 08:00 08/28/23 13:13 08/28/23 13:16 08/28/23 13:16 Laboratory Results - last 24 hr 08/27/23 16:36: POC Glucose 197 H 08/27/23 21:57: POC Glucose 192 H 08/28/23 06:42: WBC 7.4 D, RBC 5.31, Hgb 16.0, Hct 51.4 H, MCV 96.9, MCH 30.2, MCHC 31.2 L, RDW 15.0, Plt Count 169 D, MPV 8.4, Neut % (Auto) 63.0, Lymph % (Auto) 27.2, [place] % (Auto) 4.6, Eos % (Auto) 4.2, Baso % (Auto) 1.0, Neut # (Auto) 4.7, Lymph # (Auto) 2.0, [place] # (Auto) 0.3, Eos # (Auto) 0.3, Baso # (Auto) 0.1, Sodium 135 L, Potassium 4.9, Chloride 99, Carbon Dioxide 34 H, Anion Gap 6.9, BUN 37 H, Creatinine 1.00, Estimated Creat Clear 72, Estimated GFR 55 L, Est GFR ( Amer) 66, Glucose 150 H, Calcium 8.2 L, Total Bilirubin 0.8, AST 66 H D, ALT 31, Alkaline Phosphatase 114, Total Protein 7.1, Albumin 3.6, Globulin 3.5 H, Albumin/Globulin Ratio 1.0 L 08/28/23 07:07: POC Glucose 148 H 08/28/23 11:36: POC Glucose 169 H I & O for Last 24 hours: Intake & Output 08/25/23 08/26/23 08/27/23 08/28/23 23:59 23:59 23:59 23:59 Intake Total 1320 / 1320 1040 / 1520 980 / 980 Output Total 0 / 0 0 / 0 0 / 0 0 / 0 Balance 0 / 360 1320 / 1320 1040 / 1520 980 / 980 Weight 88.11 kg 89.766 kg 89.76 kg 89.7 kg Constitutional Constitutional: no acute distress *Routine HEENT Exam Head: Present normocephalic Eye: Present EOMI and PERRL ENT: Present mucous membranes moist *Routine Neck Exam Neck: Present supple; Absent lymphadenopathy *Routine Respiratory Exam Respiratory: Present CTA bilaterally *Routine Cardiovascular Exam Cardiovascular: Present RRR *Routine Abdominal Exam Abdominal: Present soft and normoactive bowel sounds; Absent tenderness *Routine Extremities Exam Extremities: Absent cyanosis, clubbing or edema *Routine Skin Exam Skin: Present warm; Absent rash *Routine Neurological Exam Neurological: Present alert and oriented X3 Results Data Completed and Pending Labs on day of discharge: Labs from last 24 hours 08/28/23 08/28/23 08/28/23 11:36 07:07 06:42 WBC 7.4 D RBC 5.31 Hgb 16.0 Hct 51.4 H MCV 96.9 MCH 30.2 MCHC 31.2 L RDW 15.0 Plt Count 169 D MPV 8.4 Neut % (Auto) 63.0 Lymph % (Auto) 27.2 [place] % (Auto) 4.6 Eos % (Auto) 4.2 Baso % (Auto) 1.0 Neut # (Auto) 4.7 Lymph # (Auto) 2.0 [place] # (Auto) 0.3 Eos # (Auto) 0.3 Baso # (Auto) 0.1 Sodium 135 L Potassium 4.9 Chloride 99 Carbon Dioxide 34 H Anion Gap 6.9 BUN 37 H Creatinine 1.00 Estimated Creat Clear 72 Estimated GFR 55 L Est GFR ( Amer) 66 Glucose 150 H POC Glucose 169 H 148 H Calcium 8.2 L Total Bilirubin 0.8 AST 66 H D ALT 31 Alkaline Phosphatase 114 Total Protein 7.1 Albumin 3.6 Globulin 3.5 H Albumin/Globulin Ratio 1.0 L 08/27/23 08/27/23 21:57 16:36 WBC RBC Hgb Hct MCV MCH MCHC RDW Plt Count MPV Neut % (Auto) Lymph % (Auto) [place] % (Auto) Eos % (Auto) Baso % (Auto) Neut # (Auto) Lymph # (Auto) [place] # (Auto) Eos # (Auto) Baso # (Auto) Sodium Potassium Chloride Carbon Dioxide Anion Gap BUN Creatinine Estimated Creat Clear Estimated GFR Est GFR ( Amer) Glucose POC Glucose 192 H 197 H Calcium Total Bilirubin AST ALT Alkaline Phosphatase Total Protein Albumin Globulin Albumin/Globulin Ratio DS: Diagnosis Discharge Diagnosis (1) Acute hypoxic respiratory failure: Status: Acute Code(s): J96.01 - Acute respiratory failure with hypoxia (2) Diabetes: Status: Acute Code(s): E11.9 - Type 2 diabetes mellitus without complications Qualifiers: Diabetes mellitus type: type 2 Diabetes mellitus technician terminal and repeater insulin use: without long-term use Diabetes mellitus complication status: without complication Qualified Code(s): E11.9 - Type 2 diabetes mellitus without complications (3) Acute hyperglycemia: Status: Acute Code(s): R73.9 - Hyperglycemia, unspecified (4) Chronic heart failure with preserved ejection fraction (HFpEF): Status: Acute Code(s): I50.32 - Chronic diastolic (congestive) heart failure (5) Diabetes 1.5, managed as type 2: Status: Chronic Code(s): E13.9 - Other specified diabetes mellitus without complications (6) HTN (hypertension): Status: Chronic Code(s): I10 - Essential (primary) hypertension Qualifiers: Hypertension type: primary hypertension Qualified Code(s): I10 - Essential (primary) hypertension (7) COPD (chronic obstructive pulmonary disease): Status: Chronic Code(s): J44.9 - Chronic obstructive pulmonary disease, unspecified Qualifiers: COPD type: unspecified COPD Qualified Code(s): J44.9 - Chronic obstructive pulmonary disease, unspecified (8) Aortic valve sclerosis: Status: Acute Code(s): I35.8 - Other nonrheumatic aortic valve disorders Meds Home Medications and Allergies Home Medications Medication Instructions Recorded Confirmed Type aspirin 325 mg tablet 325 mg PO DAILY Heart Disease 09/17/19 08/26/23 History cetirizine 10 mg tablet (Zyrtec) 10 mg PO DAILY Allergy symptoms 09/17/19 08/26/23 History metformin 1,000 mg tablet 1,000 mg PO BIDWMEAL Diabetes 09/17/19 08/26/23 History montelukast 10 mg tablet 10 mg PO PM Allergy symptoms 09/17/19 08/26/23 History (Singulair) omeprazole 40 mg capsule,delayed 40 mg PO DAILY Acid Reflux 09/17/19 08/26/23 History release oxybutynin chloride 5 mg tablet 5 mg PO DAILY Bladder 09/17/19 08/26/23 History polyethylene glycol 3350 17 gram 17 g PO BIDP PRN Constipation 04/08/20 08/26/23 History oral powder packet (Gavilax) diphenhydramine HCl 25 mg capsule 25 mg PO Q6HP PRN Allergy Symptoms 08/04/21 08/26/23 History (Banophen) sertraline 100 mg tablet 100 mg PO DAILY mood 08/04/21 08/26/23 History ferrous sulfate 325 mg (65 mg 325 mg PO BID Supplement 08/23/21 08/26/23 History iron) tablet isosorbide mononitrate 30 mg 30 mg PO DAILY High Blood Pressure 08/23/21 08/26/23 History tablet,extended release 24 hr aripiprazole 30 mg tablet 30 mg PO DAILY Mood 10/05/21 08/26/23 History mirabegron 50 mg tablet,extended 50 mg PO DAILY Overactive Bladder 12/21/21 08/26/23 History release 24 hr (Myrbetriq) ondansetron HCl 4 mg tablet 4 mg PO Q6HP PRN Nausea And 02/02/22 08/26/23 History Vomiting melatonin 5 mg tablet 5 mg PO HS Sleep 11/21/22 08/26/23 History mirtazapine 30 mg tablet 30 mg PO HS MOOD 11/21/22 08/26/23 History loperamide 2 mg capsule 2 mg PO Q4HP PRN Diarrhea 04/02/23 08/26/23 History acetaminophen 325 mg tablet 325 mg PO Q8HP PRN Fever Or Pain 06/03/23 08/26/23 History (Tylenol) olopatadine 0.2 % eye drops 1 drp Eye-Both HSP PRN Allergy 06/03/23 08/26/23 History Symptoms hydrocodone 10 mg-acetaminophen 1 tab PO BID Pain #60 tabs 07/24/23 08/26/23 Rx 325 mg tablet fluticasone fur. 100 mcg-umeclid 1 ea inhalation DAILY Breathing 08/26/23 History 62.5 mcg-vilant 25 mcg Problems inhalat.powder (Trelegy Ellipta) gabapentin 600 mg tablet 600 mg PO BID Pain 08/26/23 08/26/23 History empagliflozin 10 mg tablet 10 mg PO DAILY 30 days #30 tabs 08/28/23 Rx (Jardiance) furosemide 20 mg tablet 40 mg PO DAILY 30 days #60 tabs 08/28/23 Rx irbesartan 150 mg tablet 150 mg PO DAILY 30 days #30 tabs 08/28/23 Rx metoprolol succinate 25 mg 25 mg PO DAILY 30 days #30 tabs 08/28/23 Rx tablet,extended release 24 hr New Prescriptions to Start Prescriptions: empagliflozin [Jardiance] Dereck Bernal furosemide Dereck Bernal irbesartan Dereck Bernal metoprolol succinate Dereck Bernal Allergies Allergy/AdvReac Type Severity Reaction Status Date / Time ciprofloxacin [From Cipro] Allergy Mild Verified 06/02/23 18:32 divalproex sodium Allergy Mild Verified 06/02/23 18:32 [From Depakote] ibuprofen Allergy Mild Verified 06/02/23 18:32 latex Allergy Mild Verified 06/02/23 18:32 Sulfa (Sulfonamide Allergy Mild Verified 06/02/23 18:32 Antibiotics) Discharge Plan Disposition Patient Disposition: [facility] Condition: Good Discharge Order Discharge Orders: Discharge Order (Routine); Ordered 08/28/23 Ordered By: Dereck Bernal Follow up Plan Follow up with: Johnny Vivas DO [Primary Care Provider] - 09/11/23 3:15 pm Prescriptions/Medication Reconciliation: New Jardiance 10 mg Tablet 10 mg PO DAILY 30 Days Qty: 30 0RF furosemide 20 mg Tablet 40 mg PO DAILY 30 Days Qty: 60 0RF metoprolol succinate 25 mg Tablet Extended Release 24 Hr 25 mg PO DAILY 30 Days Qty: 30 0RF irbesartan 150 mg Tablet 150 mg PO DAILY 30 Days Qty: 30 0RF Continued sertraline 100 mg tablet 100 mg PO DAILY diphenhydramine HCl [Banophen] 25 mg capsule 25 mg PO Q6HP PRN (Reason: Allergy Symptoms) ondansetron HCl 4 mg tablet 4 mg PO Q6HP PRN (Reason: Nausea And Vomiting) metformin 1,000 mg tablet 1,000 mg PO BIDWMEAL montelukast [Singulair] 10 mg tablet 10 mg PO PM omeprazole 40 mg capsule,delayed release(DR/EC) 40 mg PO DAILY oxybutynin chloride 5 mg tablet 5 mg PO DAILY aspirin 325 mg tablet 325 mg PO DAILY cetirizine [Zyrtec] 10 mg tablet 10 mg PO DAILY polyethylene glycol 3350 [Gavilax] 17 gram powder in packet 17 g PO BIDP PRN (Reason: Constipation) aripiprazole 30 mg tablet 30 mg PO DAILY Myrbetriq 50 mg tablet extended release 24 hr 50 mg PO DAILY melatonin 5 mg tablet 5 mg PO HS mirtazapine 30 mg tablet 30 mg PO HS hydrocodone-acetaminophen 10-325 mg tablet 1 tab PO BID Qty: 60 0RF isosorbide mononitrate 30 MG tablet extended release 24 hr 30 mg PO DAILY ferrous sulfate 325 MG tablet 325 mg PO BID acetaminophen [Tylenol] 325 mg Tablet 325 mg PO Q8HP PRN (Reason: Fever Or Pain) olopatadine 0.2 % Drops 1 drp Eye-Both HSP PRN (Reason: Allergy Symptoms) loperamide 2 mg Capsule 2 mg PO Q4HP PRN (Reason: Diarrhea) gabapentin 600 mg tablet 600 mg PO BID Patient Comments: GIVE 1 TABLET BY MOUTH TWICE DAILY FOR PAIN Trelegy Ellipta 100-62.5-25 mcg blister with device 1 ea inhalation DAILY Rx Instructions: TAKE 1 INHALATION BY MOUTH ONCE DAILY Discontinued amlodipine [Norvasc] 10 mg tablet 10 mg PO DAILY furosemide 20 mg tablet 20 mg PO DAILY Problem Reconciliation Problems Reviewed?: Yes Patient Discharge Instructions ACTIVITY: Ambulate as tolerated DIET: advance to your usual diet Patient Instructions: DI for Hyperglycemia -- Adult, DI for Respiratory Failure Providers Primary Care Provider: Johnny Vivas Provider: Dereck Bernal Attending Provider: Dereck Bernal
--- NOTE | 2023-08-28 14:20 | EXP.CARD.PN ---
Subjective Subjective Date: 08/28/23 Time: 09:00 Principal diagnosis: Heart failure with preserved ejection fraction Interval history: This is a 72-year-old white female who presented to the emergency department with complaints of shortness of breath. The patient has been diuresed over the weekend and she states that she is feeling much better. She is off of oxygen this morning and denies any shortness of breath. She denies any chest pain or pressure. She denies any lower extremity edema. She denies any fever, chills, nausea, vomiting, diarrhea, PND orthopnea. Exam Data for Last 24 hours Vital signs and Labs for Last 24 Hours: Temp Pulse Resp BP Pulse Ox O2 Del Method O2 Flow Rate 98.5 F 56 L 14 125/41 L 86 L Nasal Cannula 3 08/28/23 08:00 08/28/23 13:13 08/28/23 08:00 08/28/23 08:00 08/28/23 13:13 08/28/23 13:16 08/28/23 13:16 Laboratory Results - last 24 hr 08/27/23 16:36: POC Glucose 197 H 08/27/23 21:57: POC Glucose 192 H 08/28/23 06:42: WBC 7.4 D, RBC 5.31, Hgb 16.0, Hct 51.4 H, MCV 96.9, MCH 30.2, MCHC 31.2 L, RDW 15.0, Plt Count 169 D, MPV 8.4, Neut % (Auto) 63.0, Lymph % (Auto) 27.2, [place] % (Auto) 4.6, Eos % (Auto) 4.2, Baso % (Auto) 1.0, Neut # (Auto) 4.7, Lymph # (Auto) 2.0, [place] # (Auto) 0.3, Eos # (Auto) 0.3, Baso # (Auto) 0.1, Sodium 135 L, Potassium 4.9, Chloride 99, Carbon Dioxide 34 H, Anion Gap 6.9, BUN 37 H, Creatinine 1.00, Estimated Creat Clear 72, Estimated GFR 55 L, Est GFR ( Amer) 66, Glucose 150 H, Calcium 8.2 L, Total Bilirubin 0.8, AST 66 H D, ALT 31, Alkaline Phosphatase 114, Total Protein 7.1, Albumin 3.6, Globulin 3.5 H, Albumin/Globulin Ratio 1.0 L 08/28/23 07:07: POC Glucose 148 H 08/28/23 11:36: POC Glucose 169 H I & O for Last 24 hours: Intake & Output 08/25/23 08/26/23 08/27/23 08/28/23 23:59 23:59 23:59 23:59 Intake Total 1320 / 1320 1040 / 1520 980 / 980 Output Total 0 / 0 0 / 0 0 / 0 0 / 0 Balance 0 / 360 1320 / 1320 1040 / 1520 980 / 980 Weight 194 lb 4 oz 197 lb 14.4 oz 197 lb 14.191 oz 197 lb 12.074 oz Constitutional Constitutional: no acute distress and average body habitus *Routine HEENT Exam Head: Present normocephalic and atraumatic ENT: Present mucous membranes moist *Routine Neck Exam Neck: Present supple, full ROM and normal carotid upstroke; Absent JVD, carotid bruit or lymphadenopathy *Routine Respiratory Exam Respiratory: Present CTA bilaterally, normal respiratory effort, able to speak in complete sentences and symmetric chest movement *Routine Cardiovascular Exam Cardiovascular: Present RRR, Normal S1 and Normal S2; Absent murmur or gallop *Routine Abdominal Exam Abdominal: Present soft and normoactive bowel sounds; Absent tenderness, distended or organomegaly *Routine Extremities Exam Extremities: Present full ROM, pulses intact and normal capillary refill; Absent cyanosis, clubbing or edema *Routine Skin Exam Skin: Present intact and warm; Absent erythema *Routine Neurological Exam Neurological: Present alert, oriented X3 and CN II-XII intact; Absent sensory deficit or motor deficit Routine Psychiatric Exam Psychiatric: Present normal affect Progress Note: A&P Assessment and plan (1) Chronic heart failure with preserved ejection fraction (HFpEF): Status: Acute (2) Acute hypoxic respiratory failure: Status: Acute (3) Diabetes: Status: Acute (4) Diabetes 1.5, managed as type 2: Status: Chronic (5) HTN (hypertension): Status: Chronic (6) COPD (chronic obstructive pulmonary disease): Status: Chronic (7) Aortic valve sclerosis: Status: Acute Assessment and Plan Assessment and Plan for All Diagnoses:: Plan: 1. The patient was admitted to the hospital with an acute exacerbation of HFpEF. The patient was diuresed with IV Lasix. She states her symptoms have significantly improved. She can convert over to oral Lasix 40 mg p.o. twice daily. Continue Jardiance, metoprolol and valsartan. 2. Her blood pressure is well-controlled. 3. Her LDL goal is less than 100. 4. The patient does have schizophrenia. Defer management of this to the hospitalist. 5. The patient is diabetic. She needs aggressive control of her diabetes. Will defer management of this to the hospitalist as well. 6. The patient would benefit from an ischemic evaluation on outpatient basis once she has recovered from her acute exacerbation of HFpEF. 7. No further recommendations at this time from a cardiac standpoint. The patient is stable for discharge home today from a cardiac standpoint. She can follow-up in cardiology clinic in outpatient basis in 1 to 2 weeks. Next Thank you for the opportunity to Hel participate in the care of this patient. All recommendations and orders are per Dr. Vincent.
--- NOTE | 2023-08-28 14:31 | PC.NURSE ---
Patient's sister Carrie notified of patient's discharge to [place] today
== END 2023-08-28 15:55 | DRG 291 ==
LOC: ER 10:24 → 2ND 15:31
PROVIDERS: Emergency Medicine; Admitting Provider Internal Medicine; Emergency Provider Emergency Medicine; PCP Internal Medicine; Visit Provider Internal Medicine
DX: I11.0 Hypertensive heart disease with heart failure (principal); I50.33 Acute on chronic diastolic (congestive) heart failure; J96.01 Acute respiratory failure with hypoxia; F20.9 Schizophrenia, unspecified; F17.200 Nicotine dependence, unspecified, uncomplicated; I35.8 Other nonrheumatic aortic valve disorders; I35.0 Nonrheumatic aortic (valve) stenosis; J44.9 Chronic obstructive pulmonary disease, unspecified; E11.65 Type 2 diabetes mellitus with hyperglycemia; K21.9 Gastro-esophageal reflux disease without esophagitis; M25.552 Pain in left hip; M25.551 Pain in right hip
CPT/HCPCS: 36415; 71045; 73502; 73552; 80048; 80053; 82009; 82803; 82962; 83880; 85025; 87636; 93306; 94640; 97161; 97165; 99285; J0131; J0456